=== PATIENT | male | born 1960 | race Caucasian/White ===

== ENCOUNTER 2020-05-16 20:04 | Outpatient (REF) | payer BC, SELFPAY ==
[2020-05-16 20:29] LABS: ALT 51 U/L (16-63); AST 49 U/L (15-37); Anion Gap 7.2 mmol/L (3-11); BUN 11 mg/dL (7-18); CO2 29.8 mmol/L (21.0-32.0); Calcium 10.4 mg/dL (8.5-10.1); Calculated LDL 71 mg/dL (<100); Chloride 102 mmol/L (98-107); Cholesterol 221 mg/dL (<200); Glucose 92 mg/dL (74-106); HDL Cholesterol 142 mg/dL (40-60); Potassium 4.1 mmol/L (3.5-5.1); Sodium 139 mmol/L (136-145); Triglyceride 44 mg/dL (<150)
[2020-05-17 17:37] LABS: PSA, Screening 1.4 ng/mL (0.0-3.5)
[2020-05-20 11:18] LABS: Hepatitis C Ab w Rflx HCV PCR Negative (Negative)
== END 2020-05-16 20:05 | disposition home or self-care (01) ==
LOC: NCHCN 20:04
PROVIDERS: Visit Provider Nurse Practitioner Family
DX: Z13.220 Encounter for screening for lipoid disorders (principal); Z12.5 Encounter for screening for malignant neoplasm of prostate; Z00.00 Encounter for general adult medical examination without abnormal findings; Z13.228 Encounter for screening for other metabolic disorders; Z11.59 Encounter for screening for other viral diseases
CPT/HCPCS: 80048; 80061; 84153; 86803; 84450; 84460

== ENCOUNTER 2020-10-24 18:04 | Outpatient (REF) | payer BC, SELFPAY ==
[2020-10-24 21:02] LABS: Anion Gap 4.2 mmol/L (3-11); BUN 15 mg/dL (7-18); CO2 32.8 mmol/L (21.0-32.0); CREATININE 1.1 mg/dL (0.70-1.30); Calcium 11.3 mg/dL (8.5-10.1); Chloride 103 mmol/L (98-107); Glucose 121 mg/dL (74-106); Potassium 4.3 mmol/L (3.5-5.1); Sodium 140 mmol/L (136-145)
== END 2020-10-24 18:05 | disposition home or self-care (01) ==
LOC: NCHCN 18:04
PROVIDERS: Visit Provider Nurse Practitioner Family
DX: R03.0 Elevated blood-pressure reading, without diagnosis of hypertension (principal)
CPT/HCPCS: 80048

== ENCOUNTER 2020-11-13 03:00 | Outpatient (CLI) | payer BC, SELFPAY ==
[2020-11-13 10:47] LABS: Source Nasal/Nares
[2020-11-13 18:14] LABS: COVID-19 PCR Negative (Negative)
== END 2020-11-13 03:01 | disposition home or self-care (01) ==
PROVIDERS: PCP Nurse Practitioner Family; Visit Provider Surgery
DX: Z20.822 Contact with and (suspected) exposure to COVID-19 (principal); Z01.818 Encounter for other preprocedural examination
CPT/HCPCS: 87635

== ENCOUNTER 2020-11-15 09:25 | Day surgery (SDC) | payer BC, SELFPAY ==
[2020-11-15 09:35] VITALS: BP 124/87; PULSE 81; RESP 16; TEMP 36.7; O2SAT 100
--- NOTE | 2020-11-15 09:49 | W.ANESPRE ---
General Info Date of Service Date Performed: 11/15/20 Height: 5 ft 8.5 in Weight: 72.2 kg Body Mass Index (BMI): 23.8 Surgical Procedure: Operation Date: 11/15/20 10:35 Proposed Procedures Side Surgeon p Colonoscopy Deedee Schwartz, Meds Allergies and Home Medications Allergies Allergy/AdvReac Type Severity Reaction Status Date / Time No Known Allergies Allergy Unverified 11/12/20 12:00 Home Medication Medication Instructions Recorded lisinopril 10 mg tablet 10 mg PO DAILY 10/31/20 Current Visit Medications: Current Medications Generic Name Dose Route Start Last Admin Trade Name Freq PRN Reason Stop Dose Admin Ringer's Solution 1,000 mls @ 80 mls/hr 11/15/20 06:00 IV 12/14/20 23:59 INFUSION GISSEL IV Miscellaneous Supplies 1 each 11/15/20 06:00 Iv Access IV 12/14/20 23:59 DIRECTED GISSEL Sodium Chloride 0 ml 11/15/20 06:00 Normal Saline Flush 10 Ml Syr IV 12/14/20 23:59 PRN PRN Sodium Chloride 0 ml 11/15/20 06:00 Normal Saline 10 Ml Vial IJ 12/14/20 23:59 DIRECTED PRN Sterile Water 0 ml 11/15/20 06:00 Water,Injection,Sterile 10 Ml Vial IJ 12/14/20 23:59 DIRECTED PRN PFSH Active Problems Active Problems: Problem Status Onset Code Screening for colon cancer Z12.11 Medical History Medical History Elevated blood pressure reading without diagnosis of hypertension GERD (gastroesophageal reflux disease) Osteopenia Screening for colon cancer Tobacco Smoking/Tobacco Use Status: Current every day Tobacco Type: smokeless tobacco Smokeless tobacco user: chewing tobacco Alcohol Alcohol Intake: current Alcohol intake frequency: a few times a week Alcohol type: beer Substance Use Substance use: Never Substance use type: does not use Vital Signs and Lab Results Vital Signs Most Recent Vital Signs in EMR: Most Recent Vital Signs Temp Pulse Resp BP Pulse Ox 36.7 C 81 16 124/87 100 11/15/20 09:35 11/15/20 09:35 11/15/20 09:35 11/15/20 09:35 11/15/20 09:35 Lab Results Blood Type / Crossmatch: No Data to Display Complete Blood Count: No Data to Display Complete Metabolic Panel: Sodium Level 140 mmol/L (136-145) 10/24/20 15:30 10/24/20 Potassium Level 4.3 mmol/L (3.5-5.1) 10/24/20 15:30 10/24/20 Chloride Level 103 mmol/L (98-107) 10/24/20 15:30 10/24/20 Carbon Dioxide Level 32.8 mmol/L (21.0-32.0) H 10/24/20 15:30 10/24/20 Blood Urea Nitrogen 15 mg/dL (7-18) 10/24/20 15:30 10/24/20 Creatinine 1.1 mg/dL (0.70-1.30) 10/24/20 15:30 10/24/20 Estimated GFR/1.73 m2 >= 60.00 (mL/min/1.73m2) 10/24/20 15:30 10/24/20 Calcium Level 11.3 mg/dL (8.5-10.1) H 10/24/20 15:30 10/24/20 Glucose Level 121 mg/dL (74-106) H 10/24/20 15:30 10/24/20 Liver Function Panel: No Data to Display Coagulation Panel: No Data to Display Cardiac Panel: No Data to Display Arterial Blood Gas: No Data to Display Venous Blood Gas: No Data to Display Pancreas Panel: No Data to Display Thyroid Panel: No Data to Display Infectious Disease: Coronavirus (COVID-19)(PCR) Negative (Negative) 11/13/20 09:11/13/20 Coronavirus 2019 Source Nasal/Nares 11/13/20 09:11/13/20 Blood Cultures: No Data to Display Toxicology Panel: No Data to Display Anesthesia Assessment and Plan Anesthesia History Personal History: No History of Anesthesia Complications Family History: No Family History of Anesthesia Complications Exercise Tolerance Exercise Tolerance: Metabolic Equivalents>4 Pertinent Negatives Pertinent Negatives: No Symptoms of GERD (Well controlled antiacids), No Major Cardiovascular Symptoms or Complaints, No Major Pulmonary Symptoms or Complaints (DEAN newly diagnosed awaiting CPAP) and No History of CVA/TIA Cardiac & Pulmonary Exam Cardiac Exam: Normal S1/S2 Heart Sounds Pulmonary Exam: Clear Bilateral Breath Sounds Airway Exam Known Difficult Airway: No Mallampati Class: 2 Mouth Opening: Normal (> 3cm) Thyromental Distance: Greater than 3 cm Neck Range of Motion: Full ROM Neck Circumference: Normal Teeth Condition: Normal Dentition ASA Classification ASA Score: ASA 2 Emergency Case?: No NPO Status NPO Status: NPO Clears >2 hours, Solids >8 hours Anesthesia Plan Resuscitation Status: Full Code Anesthesia Technique: General Anesthesia Airway Planned: Natural Airway Monitors Used: Standard Monitors
[2020-11-15 09:51] VITALS: BMI 23.8
[2020-11-15] MEDS: Lactated Ringers 1,000 ML 80 ML IV (09:55)
--- NOTE | 2020-11-15 10:42 | BOWEL_PTH ---
PATIENT: Favian Hurtado LOC: [facility] U#:[id number] AGE/SX: 59/M ROOM: RE11/15/[address]: Deedee Schwartz : 1960 BED: DIS: 11/15/2020 SPEC #: [id number] RECD: 11/15/20 12:30 STATUS: JUSTYN RETamara #: [id number] CARLA: 11/15/20 10:[address]: Deedee Schwartz DEPT: Surgical Specimen RECD BY: Brittany Wynn ENTERED: 11/15/20 12:30 SP TYPE: Bowel OTHR DR: Jossy Ventura Tissues: 1 - BIOPSY BOWEL 2 - BIOPSY BOWEL Procedures: GROSS AND MICRO LEVEL 4 Comments: [id number]
[2020-11-15 11:09] VITALS: BP 109/77; PULSE 70; RESP 16; TEMP 36.4; O2SAT 98
--- NOTE | 2020-11-15 11:12 | PDOC.DSDIS_ITS ---
Discharge Plan Disposition Patient Disposition: HOME Condition: Good Discharge Details Reason For Visit: colon scope Attending Provider: Deedee Schwartz Primary Care Provider: Jossy Ventura Home Meds and New Rx's Prescriptions: No Action lisinopril 10 mg tablet 10 mg PO DAILY RF: 0 Discharge Instructions Instructions: High Fiber Diet (GEN), Hemorrhoids (GEN) Additional Instructions: DSU Colonoscopy Post- Op Instructions Instructions for Everyone who is given Anesthesia: For your safety, please do the following for the next twenty-four (24) hours: *Do Not operate a motor vehicle (car, truck, motorcycle, etc.) *Do Not drink alcoholic beverages or use any recreational drugs for the first 24 hours or while taking pain medications. The medications in your body may have a reaction that can be dangerous. *Do Not make any important decisions or sign any important papers. Findings: x2 small polyps hemorrhoids Follow a high-fiber diet and eating 5-7 servings of fruits and vegetables per day. Make sure you are moving your bowels on a regular basis and not straining too. If you find that you are experiencing some constipation or irregularity, I recommend starting a fiber product such as Metamucil or Citrucel Follow up: My office will send a letter in 2 to 3 weeks time, detailing the type of polyps, and when we want you to repeat your colonoscopy. 1. No lifting over 20 pounds or strenuous activity for the first 24 hours after your procedure. After 24 hours there are no restrictions on your activity but you may feel fatigued for a few days. 2. After you arrive home you may have a light meal and return to your normal diet as you can tolerate it without feeling sick to your stomach. 3. You may have a bloated, gaseous feeling in your belly (abdomen) after a colonoscopy. Passing gas and belching will help. Walking or lying down on your left side with your knees flexed may relieve the discomfort. Call the office at [phone] (Office) or [phone] (Hospital) right away if you notice any of the following: a.Vomiting of blood or ?coffee ground stools?. b.Rectal bleeding 1Tbsp, blood clots or continuous bleeding. c.Severe belly (abdominal) pain. d.A hard distended belly (abdomen) and an inability to pass gas. 4. Please don?t expect to have a normal BM (bowel movement) for 2-3 days after your procedure. 5. If there are questions regarding the findings of your procedure, please contact your doctor 6. If you are unable to contact your doctor with a problem, contact the hospital at [phone]. 7. Continue all your regular medications unless directed otherwise. I understand the above instructions and have no questions. Signature of Patient or Adult Escort Name of Responsible Adult Escort Signature of Nurse Date/Time Activity:: see above Diet:: see above Discharge Orders Discharge Orders: Discharge Order (Routine); Ordered 11/15/20 Ordered By: Deedee Schwartz DS: Diagnosis Discharge Diagnosis (1) Adenomatous polyps: Status: Acute (2) Hemorrhoids: Status: Acute
--- NOTE | 2020-11-15 11:14 | W.ANESPOSTOP ---
Postoperative Evaluation Date, Time and Location Date Performed: 11/15/20 Time Performed: 11:14 Patient Location: Day Surgery Unit Vital Signs Most Recent Imported Vital Signs: Most Recent Vital Signs Temp Pulse Resp BP Pulse Ox 36.7 C 81 16 124/87 100 11/15/20 09:35 11/15/20 09:35 11/15/20 09:35 11/15/20 09:35 11/15/20 09:35 Most Recent Manually Entered Vital Signs: Adult Blood Pressure: 109/77 Heart Rate: 66 Respirations: 12 Oxygen Saturation (%): 98 Temperature (C): 36.4 C Pain Score (0-10 Scale): 0 Pain Score Most Recent Pain Score: Most Recent Pain Score Pain Level 0 11/15/20 09:35 Assessment Mental Status: Awake (Alert & Oriented to Patient Baseline) Airway and Respiratory Function: Patent airway with normal (patient baseline) respiratory exam Cardiovascular Function: Hemodynamically Stable Hydration Status: Adequately Hydrated Nausea & Vomiting: No Nausea or Vomiting Pain: Pt. Denies Any Pain Peripheral Nerve Block: Patient did not receive a nerve block
[2020-11-15 11:15] VITALS: BP 109/77; PULSE 66; RESP 12; TEMPC 36.4; O2SAT 98
--- NOTE | 2020-11-15 11:18 | W.COLOREPORT ---
Colonoscopy Report Date of procedure: 11/15/20 Pre-op diagnosis general: CRC screen Post-op diagnosis procedure note: other (Polyps and hemorrhoids) Surgeon: Deedee Schwartz Anesthesia Type: General:No Airway Estimated blood loss (mL): 1 Pathology: other Complications: None Disposition: same day Prep: Miralax/Dulcolax Retraction Time: 10 Procedure Description: After informed consent was obtained the patient was taken to the procedure room and placed in a left decubitous position. Monitors were applied and a time out was done. The patients name, date of , procedure, allergies to medications and metal in their body was reviewed. The patient was then sedated. Once sedated and comfortable a rectal exam was done. External exam: hrmorrhoids Internal exam revealed a normal sphincter tone and no palpable masses. The scope was then introduced and retrofelexed. GoodGrade I internal hemorrhoids were identified. The scope was then advanced to the cecum w/ difficulty. The TI and appendiceal orifice were identified. The prep was good the scope was then slowly retracted over 10 minutes back into the rectum. He had 2 small polyps that I removed. 1 is in the cecum and 1 is at 90 cm. Both of these polyps are small 5 mm flat polyps. They are both removed with a cold biting forcep. All specimen is retrieved and no bleeding is noted.. The scope was removed and the patient was woken up and taken back to Same day surgery in stable condition. The mucosa is pink and healthy. The patient tolerated the procedure well and there were no immediate complications. Follow up: The patient should follow up in 5-7years unless they develop changes in bowel habits or other new gastrointestinal complaints.
[2020-11-15 11:39] VITALS: BP 125/76; PULSE 65; RESP 16; TEMP 36.4; O2SAT 99
== END 2020-11-15 12:02 | disposition home or self-care (01) ==
PROVIDERS: PCP Nurse Practitioner Family; Visit Provider Surgery
PROC: 0DJD8ZZ Inspection of Lower Intestinal Tract, Via Natural or Artificial Opening Endoscopic (ICD-10-PCS; CPT 45378; principal; 2020-11-15 10:30)
DX: Z12.11 Encounter for screening for malignant neoplasm of colon (principal); D12.0 Benign neoplasm of cecum; K64.0 First degree hemorrhoids; D12.3 Benign neoplasm of transverse colon
CPT/HCPCS: 45380; 88305; J2001

== ENCOUNTER 2020-11-20 09:49 | Outpatient (REF) | payer BC, SELFPAY ==
[2020-11-20 20:10] LABS: Anion Gap 5.3 mmol/L (3-11); BUN 12 mg/dL (7-18); CO2 30.7 mmol/L (21.0-32.0); CREATININE 1.1 mg/dL (0.70-1.30); Calcium 10.4 mg/dL (8.5-10.1); Chloride 104 mmol/L (98-107); Glucose 82 mg/dL (74-106); Potassium 4.9 mmol/L (3.5-5.1); Sodium 140 mmol/L (136-145)
== END 2020-11-20 09:50 | disposition home or self-care (01) ==
LOC: NCHCN 09:49
PROVIDERS: PCP Nurse Practitioner Family; Visit Provider Nurse Practitioner Family
DX: R03.0 Elevated blood-pressure reading, without diagnosis of hypertension (principal); R53.83 Other fatigue
CPT/HCPCS: 80048

== ENCOUNTER 2021-09-24 16:49 | Outpatient (REF) | payer BC, SELFPAY ==
[2021-09-24 18:46] LABS: HCT 41.6 % (40.0-50.0); HGB 14.6 g/dL (13.5-17.5); MCH 34.7 pg (27.0-33.0); MCHC 35.1 % (32.0-36.0); MCV 99 fL (80-95); MPV 10.5 fL (8.0-11.0); Platelet Count 253 10^3/uL (130-400); RBC 4.21 10^6/uL (4.36-5.78); RDW 13.6 % (11.8-14.1); WBC 4.25 10^3/uL (4.4-10.8)
[2021-09-24 19:13] LABS: ALT 61 U/L (16-63); AST 60 U/L (15-37); Alkaline Phosphatase 71 U/L (46-116); Anion Gap 7.9 mmol/L (3-11); BUN 15 mg/dL (7-18); Bilirubin, Total 0.4 mg/dL (0.2-1.0); CO2 30.1 mmol/L (21.0-32.0); CREATININE 1.2 mg/dL (0.70-1.30); Calcium 10.2 mg/dL (8.5-10.1); Chloride 101 mmol/L (98-107); Glucose 105 mg/dL (74-106); Potassium 4.4 mmol/L (3.5-5.1); Sodium 139 mmol/L (136-145); Total Protein 7.7 g/dL (6.4-8.2)
[2021-09-25 20:54] LABS: PSA, Screening 2.1 ng/mL (<=4.5)
== END 2021-09-24 16:50 | disposition home or self-care (01) ==
LOC: NCHCN 16:49
PROVIDERS: PCP Nurse Practitioner Family; Visit Provider Nurse Practitioner Family
DX: Z12.5 Encounter for screening for malignant neoplasm of prostate (principal); R23.2 Flushing; I10 Essential (primary) hypertension
CPT/HCPCS: 80053; 84153; 85027

== ENCOUNTER 2022-10-06 20:53 | Outpatient (REF) | payer BC, SELFPAY ==
[2022-10-06 21:06] LABS: HCT 44.1 % (40.0-50.0); HGB 15.4 g/dL (13.5-17.5); MCH 34.2 pg (27.0-33.0); MCHC 34.9 % (32.0-36.0); MCV 98 fL (80-95); MPV 10.9 fL (8.0-11.0); Platelet Count 226 10^3/uL (130-400); RDW 13.7 % (11.8-14.1); RDW-SD 49.9 fL
[2022-10-06 21:34] LABS: ALT 75 U/L (16-63); AST 78 U/L (15-37); Albumin 4.3 g/dL (3.4-5.0); Alkaline Phosphatase 77 U/L (46-116); Anion Gap 7.3 mmol/L (3-11); BUN 13 mg/dL (7-18); Bilirubin, Total 0.3 mg/dL (0.2-1.0); CO2 29.7 mmol/L (21.0-32.0); CREATININE 1.1 mg/dL (0.70-1.30); Calcium 10.6 mg/dL (8.5-10.1); Chloride 98 mmol/L (98-107); Estimated GFR 76.37 (mL/min/1.73m2); Glucose 118 mg/dL (74-106); Potassium 3.9 mmol/L (3.5-5.1); Sodium 135 mmol/L (136-145); Total Protein 8.1 g/dL (6.4-8.2)
[2022-10-07 21:52] LABS: PSA, Screening 1.5 ng/mL (<=4.5)
== END 2022-10-06 20:54 | disposition home or self-care (01) ==
LOC: NCHCN 20:53
PROVIDERS: PCP Nurse Practitioner Family; Visit Provider Nurse Practitioner Family
DX: I10 Essential (primary) hypertension (principal); Z12.5 Encounter for screening for malignant neoplasm of prostate
CPT/HCPCS: 80053; 84153; 85027

== ENCOUNTER 2022-11-03 17:42 | Outpatient (REF) | payer BC, SELFPAY ==
[2022-11-03 21:21] LABS: Folate 10.2 ng/mL (8.6-20.0); Vitamin B12 246 pg/mL (193-986)
[2022-11-04 19:15] LABS: Parathyroid Hormone,Intact 26 pg/mL (19-88)
== END 2022-11-03 17:43 | disposition home or self-care (01) ==
LOC: NCHCN 17:42
PROVIDERS: PCP Nurse Practitioner Family; Visit Provider Nurse Practitioner Family
DX: E83.52 Hypercalcemia (principal); R23.3 Spontaneous ecchymoses; I10 Essential (primary) hypertension; Z79.899 Other long term (current) drug therapy
CPT/HCPCS: 82607; 82746; 83970

== ENCOUNTER 2023-04-14 14:20 | Outpatient (REF) | payer BC, SELFPAY | END 2023-04-14 14:21 | disposition home or self-care (01) | LOC: NCHCN 14:20 | PROVIDERS: PCP Nurse Practitioner Family; Visit Provider Nurse Practitioner Family | DX: I10 Essential (primary) hypertension (principal) | CPT/HCPCS: 82043; 82570 ==

== ENCOUNTER 2023-10-15 16:11 | Outpatient (REF) | payer BC, SELFPAY ==
--- OUTSIDE RECORDS SUMMARY | 2023-10-15 16:16 | XMS_ITS | Encounter Summary ---
Author Name [facility] [place] [facility] [place] Address [address] [place] [address] Care Team Providers Care Furniture Shampooer Name Role Phone CHERI VASQUEZ Primary Care Provider Unavailabl e Insurance Providers: All historical and current Section Date Range: From patient's date of to the date document was created. This section includes the names of all active insurance providers for the patient. Insurance Provider Type of Coverage Plan Name Start of Policy Coverage End of Policy Coverage Group Number Member ID Insurance Provider's Telephone Number Policy Victor's Name Patient's Relationship to Policy Victor [facility] POINT OF SERVICE SOV ACTIV E SELEC TCAR Feb 15, 2018 [id number] SHANELL KHANNA PATIENT [employer] ([id number]) PRESCRIPT ION [facility] NT Feb 15, 2018 [id number] SHANELL KHANNA PATIENT Selected Encounter This section includes the information on record at [place] for the Encounter. Date/Time Encounter Type Encounter Description Reason Provider Source Sep 08, 2023 10:30 AM MTMS BY PHARM EST 15 MIN [facility] - IND ICD-10-CM F32.A Depression, unspecified JONNA FRANCE [facility] Encounter Template Text not used by [facility] Assessments - Encounter Diagnoses This section includes the primary and secondary diagnoses documented for the Encounter. Date/Time Primary/Secondary Diagnosis Diagnosis Name Provider Source Sep 08, 2023 10:59 AM PRIMARY Depression, unspecified PARRIS FRANCEA MICHAEL [facility] Plan of Treatment: Future Appointments (+ 6 months) and Future Tests (+/- 45 days) The Plan of Treatment section includes future care activities for the patient from all [place] treatmentfacommunity healthities. This section includes future appointments and future orders which are active, pending or scheduled. Future Appointments This section includes appointments that were scheduled to occur 6 months from the date of the Encounter, up to a maximum of 20 appointments. The data comes from all [place] treatment facilities. Appointment Date/Time Appointment Type Appointme nt Facility Name Oct 20, 2023 10:30 AM AMBULATORY - PSYCHIATRY [facility] Nov 23, 2023 11:45 AM AMBULATORY - NONE [facility] Social History: Smoking Status (Most current) and Tobacco Use (All prior to encounter date) This section includes the most current, and the historical, smoking and tobacco- related health factors from the [facility] facility where the Encounter took place. Current Smoking Status This section includes the most current smoking, or tobacco-related health factor, from the [place] facility where the Encounter took place. Date/Time Current Smoking Status Comment Yayo ity Mar 17, 2023 11:00 AM VA-TOBACCO USER EVERY DAY [facility] Tobacco Use History This section includes a history of the smoking, or tobacco-related health factors, that were collected on or before the date of the Encounter. The data comes from the [place] facility where the Encounter took place. Date/Time Smoking Status/Tobacco Use Comment F acility Mar 17, 2023 11:00 AM VA-TOBACCO USE ADVICE [facility] Mar 17, 2023 11:00 AM VA-TOBACCO USE SHAKE CUTTER NO [facility] Mar 17, 2023 11:00 AM VA-TOBACCO USE MED NO [facility] Mar 17, 2023 11:00 AM VA-TOBACCO USE WI 30 MIN OF WAKEUP [facility] Mar 17, 2023 11:00 AM VA-TOBACCO USER EVERY DAY [facility] May 13, 2018 11:59 AM AH-BPR SMOKING DEPLOYMENT NO [facility] May 13, 2018 11:59 AM PREVIOUS SMOKER WHI GLEN [facility] May 13, 2018 11:59 AM VA-TOBACCO DOESNT USE WI 30 MIN WAKEUP [facility]LES [facility] May 13, 2018 11:59 AM VA-TOBACCO USE 30 YEARS OR MORE [facility]LES [facility] May 13, 2018 11:59 AM VA-TOBACCO USE ADVICE MYLES [facility] May 13, 2018 11:59 AM VA-TOBACCO USE SHAKE CUTTER YES MYLES [facility] May 13, 2018 11:59 AM VA-TOBACCO USE MED NO [facility]LES [facility] May 13, 2018 11:59 AM VA-TOBACCO USER EVERY DAY [facility]LES [facility] Encounter Notes: All associated encounter notes This section contains the clinical notes associated to the Encounter. Date/Time Encounter Note(s) Provider Source Sep 08, 2023 04:13 PM MENTAL HEALTH DIAG NOSTIC STUDY NOTE: LOCAL TITLE: Mental Health Diagnostic Study Note STANDARD TITLE: MENTAL HEALTH DIAGNOSTIC STUDY NOTE DATE OF NOTE: SEP 08, 2023@16:13:32 ENTRY DATE: SEP 08, 2023@16:13:32 AUTHOR: CRISTAL FRANCE COSIGNER: URGENCY: STATUS: COMPLETED Assessments were sent to the [facility] via text/email. These assessments were completed by AMAURI KHANNA on their own device on 09/08/2023 3:38:22 PM. PATIENT HEALTH QUESTIONNAIRE-9 (PHQ-9) The patient reported some symptoms of depression; symptoms are not consistent with a major depressive episode. Patient reported being bothered by the following over the last 2 weeks: 1. Little interest or pleasure: Several Days 2. Feeling down, depressed or hopeless: Several Days 3. Trouble sleeping: Not at all 4. Tired, low energy: Several Days 5. Poor appetite, over-eating: Not at all 6. Feelings of failure, guilt: Not at all 7. Trouble concentrating: Not at all 8. Motor retardation, agitation: Not at all 9. Thoughts better off /hurting self: Not at all PHQ-9 total score = 3 1-4 = minimal symptoms 5-9= mild symptoms 10-14= moderate symptoms 15-19= moderately severe symptoms 20-27= severe depressive symptoms The patient stated that the depressive symptoms made it somewhat difficult to work, take care of things at home, or get along with others. GENERAL ANXIETY DISORDER-7 (JING-7) Patient reported being bothered by the following over the last two weeks: 1. Feeling nervous, anxious or on edge: Not at all 2. Not being able to stop or control worrying: Not at all 3. Worrying too much about different things: Several days 4. Trouble relaxing: Several days 5. Feeling restless (hard to sit still): Not at all 6. Becoming easily annoyed or irritable: Several days 7. Afraid as if something awful might happen: Not at all JING-7 total score = 3 0-4=minimal symptoms 5-9=mild symptoms 10-14=moderate symptoms 15-21=severe symptoms The patient stated that the anxiety symptoms made it somewhat difficult to work, take care of things at home, or get along with others. /vicente/ CRISTAL FRANCE Signed: 09/09/2023 08:[address] [facility] Sep 08, 2023 09:18 AM MENTAL HEALTH NOTE : LOCAL TITLE: Mental Health Note STANDARD TITLE: MENTAL HEALTH NOTE DATE OF NOTE: SEP 08, 2023@09:18 ENTRY DATE: SEP 08, 2023@09:18:25 AUTHOR: CRISTAL FRANCE EXP COSIGNER: URGENCY: STATUS: COMPLETED Patient consented to Butlr's appt - SERVICE CONNECTED % - NONE FOUND REASON FOR VISIT: Mental Health Medication Management REFFERRING PROVIDER: tono carranza Final DSM V Diagnoses (Per Problem list/): Alcohol use disorder Depression Other relevant diagnoses (Per Problem list/PCP notes): Steatosis of liver, followed by hepatology Sleep apnea (diagnosed by non-VA sleep clinic, per vet report, nonadherent CPAP) HTN chronic back pain Mobitz type I incomplete AV block Raynaud's disease Vitamin D deficiency osteopenia Tobacco use BMI 22 Name:Fran Pronouns: === PATIENT PROFILE (Per chart review and updated as needed): === Past medication trials: ANTIDEPRESSANTS bupropion SR 12hr 150mg BID (one time fill in 2010) (tobacco cessation, don't remember) ANTIPSYCHOTICS MOOD STABILIZERS MADINA acamprosate (ADR: diarrhea/ h/a, took for few weeks ineffective, issued 07/04/22) naltrexone (ADR: frequent BMs in middle night, helped decrease etoh, 05/2023- 07/08) Other hydroxyzine 10mg four times daily PRN (2003) nicotine 4mg gum (2010) nicotine patch (ineffective) varenicline (2008, 2009,2010) (ADR: (semi psychotic)) Past psychotherapy trials: current: individual w/ Tono RICHARDSON Hospitalizations: none on file Suicide attempts: none per chart review Other relevant hx: -denies hx trauma -both parents , has 1 bro and 3 sisters. 4 children. 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 ALLERGIES Patient has answered NKA MEDICATIONS Active and Recently Outpatient Medications (including Supplies): Active Outpatient Medications Status 1) CHOLECALCIF 50MCG (D3-2,000UNIT) TAB TAKE ONE TABLET ACTIVE (S) BY MOUTH ONCE DAILY FOR VITAMIN D DEFICIENCY WHEN HIGH DOSE COMPLETE 2) ERGOCALCIF 1,250MCG (D2-50,000UNIT) CAP TAKE ONE ACTIVE CAPSULE BY MOUTH ONCE A WEEK FOR VITAMIN D DEFICIENCY 3) FLUOXETINE HCL 10MG CAP TAKE ONE CAPSULE BY MOUTH ACTIVE ONCE EVERY MORNING FOR 7 DAYS, THEN TAKE TWO CAPSULES ONCE EVERY MORNING FOR MOOD 4) HYDROCORTISONE 2.5% CREAM APPLY SMALL AMOUNT ACTIVE TOPICALLY TWICE DAILY NEEDED CHILBLAINS FOR ITCHING/RASH 5) LISINOPRIL 20MG TAB TAKE ONE TABLET BY MOUTH ONCE ACTIVE DAILY FOR HIGH BLOOD PRESSURE 6) SINUS RINSE NEILMED REGULAR KIT USE ONE PACKET ACTIVE INTRANASALLY TWICE DAILY NEEDED Inactive Outpatient Medications Status 1) ACAMPROSATE CA 333MG EC TAB TAKE TWO TABLETS BY MOUTH THREE TIMES A DAY TO MAINTAIN ABSTINENCE FROM ALCOHOL 7 Total Medications No Active Remote Medications for this patient Interval history: LV w/ patient 7/: struggling with some depression sx, stress/anxiety mostly related to work situation. actively working on reducing EToh but notes struggling to make progress. ADR acamprosate and naltrexone in recent past. never on antidpressant before (does not remember bupropion and was for tobacco cessation). despite sleeping well wakes up feeling exhausted/like poor quality sleep. acting out NMs when they occur -not every week. does struggle w/ chronic back pain for which chiropractor helps. Discussed options with and through shared decision making will start fluoxetine to target energy/mood/anxiety. (we also discussed escitalopram and duloxetine). Discussed risk/benefit of treatment including pertinent counseling points and monitoring with and consented to treatment plan. Denies imminent safety concerns and is appropriate for ongoing outpatient care. PLAN: (Include next steps, referrals made or considered, and follow-up appointments) Biological interventions (medications and medical issues): -START fluoxetine 10mg QAm X7 days then inc 20mg QAM for mood Psychological/social interventions: -continue indiv JOEL therapy Dr. Carranza S: Reports, inc fluoxetine to 20mg last , .17. taking in Am. has not noticed benefit so far. denies excessive worry/panic sx. sleep: well, 7-8 hours/ night. despite sleeping well, wakes up exhausted like poor quality sleep. sleep apnea: not using cpap. last time saw sleep clinic non-[facility] couple years ago. work same. appetite: eating consistent meals. going to check in w/ benefits as means test changed. 1. Adherence: denies missed doses. 2. Side Effects: denies 3. Substance Use: - Tobacco:chewing tobacco daily, 1 can/day Age at first time use: , quit for couple of years (cold turkey) in last 's early 's. wanted to for health reasons Type of tobacco: chew mostly, cigarettes in HS, cigar couple times per year - EtOH: beer 5.5% 3x24oz/day for about a year. prior to year ago 2x24oz beers. no history hard liquor, occassional wine. Lifetime Abuse History: 6 pack a day for about a decade, became an issue since back [facility] 2007. to help fall asleep, feels good at end of day. evening routine. never drinking all day. consequences: hepatic steatosis, followed by hepatology Age of first use: Description of use: Complicated withdrawal: denies, few years ago went on retreat 3-4 days did not drink was fine. motivation: liver health, overall health, would like to see cut down for health too but not harping on it. - Caffeine: decaf only - Marijuana: denies - Illicit substances: denies 4. SUICIDE RISK ASSESSMENT - SI: denies passive or active suicidal ideation, denies intent/plan. - HI: denies Instructed and highly recommended to call 911/ crisis line/or go to ER in case symptoms persist or worsen/ new symptoms emerge/for safety issues/ for urgent concerns or side effects/ suicidal ideations, intent, plan or behavior. Aware of same day mental health access at [facility]. Specialty mental health clinic Desk 60) [phone] ext. [phone], after hours doctor destination imagination coordinator ext. [phone] or present to ED. O: Mental Status Exam - General: Stated age, kempt, pleasant, cooperative, no abnormal movements - Speech: Normal rate, rhythm, volume, and tone - Language: Intact - Mood: down/stressed - Affect: mood congruent, anxious - Thought Processes: Linear and logical - Thought Content: No evidence of delusions, denies suicidal and homicidal ideation, denies hallucinations - Orientation: AAOX3 - Memory (recent and remote): Grossly intact - Attention and concentration: Grossly intact - Fund of knowledge: Grossly intact - Insight: Fair - Judgment: Fair VITALS/LABS: - BP: 160/98 (08/09/2023 10:47) - P: 86 (08/09/2023 10:47) - Weight: 155.8 lb [70.67 kg] (08/09/2023 10:47) - BMI: BODY MASS INDEX - AUG 09, 2023@10:47:09 22.4 Comprehensive Metabolic Panel: CMP: Collection DT Specimen Test Name Result Units Ref Range 11/17/2022 11:05 PLASMA!! CREATININE 1.04 mg/dl 0.5 - 1.5 11/17/2022 11:05 PLASMA!! UREA NITROGEN 11 mg/dL 7 - 25 11/17/2022 11:05 PLASMA!! GLUCOSE 100 mg/dL 65 - 100 11/17/2022 11:05 PLASMA!! CREATININE 1.04 mg/dl 0.5 - 1.5 11/17/2022 11:05 PLASMA!! POTASSIUM 4.7 mmol/L 3.5 - 5.0 11/17/2022 11:05 PLASMA!! CHLORIDE 102 mmol/L 100 - 110 11/17/2022 11:05 PLASMA!! CALCIUM 10.7 H mg/dL 8.5 - 10.5 08/09/2023 10:38 PLASMA!! PROTEIN, TOTAL 8.2 g/dL 6.0 - 8.5 08/09/2023 10:38 PLASMA!! ALBUMIN 4.5 g/dL 3.2 - 5.0 08/09/2023 10:38 PLASMA!! BILIRUBIN, TOTAL 0.4 mg/dL 0.2 - 1.2 08/09/2023 10:38 PLASMA!! ALKALINE PHOSPHAT 63 U/L 40 - 150 08/09/2023 10:38 PLASMA!! AST(SGOT) 71 H U/L 5 - 34 08/09/2023 10:38 PLASMA!! ALT(SGPT) 50 U/L 7 - 52 11/17/2022 11:05 PLASMA!! ANION GAP 7 mmol/L 4 - 16 !! Indicates COMMENTS AVAILABLE...Refer to Interim Lab Report. Collection DT Specimen Test Name Result Units Ref Range 11/17/2022 11:05 PLASMA!! CREATININE 1.04 mg/dl 0.5 - 1.5 11/17/2022 11:05 PLASMA!! eGFR(CKD-EPI 2020 82 mL/min Ref: >=60 !! Indicates COMMENTS AVAILABLE...Refer to Interim Lab Report. CrCl: CrCL=73.62 CrCl: 73.77 mL/min Lipids: Collection DT Spec CHOL TRIG LDL HDL 11/17/2022 11:05 PLASM 215 H 35 70 138 A1c: Recent A1C's (last four) Collection DT Specimen Test Name Result Units Ref Range 11/17/2022 11:05 BLOOD !! HEMOGLOBIN A1C 5.1 % 4.0 - 5.6 05/20/2018 09:52 BLOOD !! HEMOGLOBIN A1C 5.4 % 4.0 - 5.6 !! Indicates COMMENTS AVAILABLE...Refer to Interim Lab Report. EKG: none on file A: Today, Tolerating current medications with good adherence. has been on fluoxetine 20mg for about 1 week. Discussed options with patient and through shared decision making will continue same. reviewed expected time to benefit. vet putting AUD efforts on hold currently. will continue to discuss JOEL goals w/ pt. encouraged f/u non-[facility] sleep clinic - reports diagnosis sleep apnea non compiant cpap and continues to struggle energy during daytime despite adequate sleep. Discussed risk/benefit of treatment including pertinent counseling points and monitoring with patient and patient consented to treatment plan. Denies imminent safety concerns and is appropriate for ongoing outpatient care. P: 1. Rx: -continue fluoxetine 20mg QAM for mood (inc 20mg on 08/31) 2. F/U: f2f 10/19 at 1030a , or sooner PRN Medication risks and benefits were discussed, including black box warnings when applicable. (Yes/ No/ Not Applicable): y Appropriate lab monitoring of mental health medications was completed and results were integrated into patient care. (Yes/ No/ Not Applicable): y 3. Patient Education: role of meds vs therapy, r/b/a meds I have reviewed the listed mental health medications with the patient and completed medication reconciliation as necessary. The patient has this consumer loan underwriter's contact information as well as the emergency contact information. Time spent with patient: 20 min PBM PharmD Pharmacotherapy Rem V12: PHARMACIST INTERVENTIONS: DEPRESSIVE DISORDERS Medication monitoring, no dosage change required, continue to monitor and assess Suicide risk assessment, screening and/or education Suicide screening /es/ CRISTAL FRANCE Signed: 09/08/2023 10:59 CRISTAL FRANCE [facility]
--- OUTSIDE RECORDS SUMMARY | 2023-10-15 16:16 | XMS_ITS ---
Author Name [facility] [place] [facility] [place] Address [address] [place] [address] Care Team Providers Care [employer] Name Role Phone CHERI VASQUEZ Primary Care [...] Victor's Name Patient's Relationship to Policy Victor [facility] POINT OF SERVICE SOV ACTIV E SELEC TCAR Feb 15, 2018 [id number] KHANNASHANELL ERT PATIENT [employer] ([id number]) PRESCRIPT ION [facility] Feb 15, 2018 [id number] KHANNASHANELL ERT PATIENT Selected Encounter This section includes the information on record at [place] for the Encounter. Date/Time Encounter Type Encounter Description Reason Pro vider Source Nov 11, 2022 02:20 PM Outpatient Encounter ADMIN PAT ACTIVTIES (MASNONCT) IHE Encounter Template Text not used by [facility] Plan of Treatment: Future Appointments (+ 6 months) and Future Tests (+/- 45 days) The Plan of Treatment section includes [facility] This section includes future appointments and future orders which are active, pending or scheduled. Future Appointments This section includes appointments that were scheduled to occur 6 months from the date of the Encounter, up to a maximum of 20 appointments. The data comes from all [place] treatment facilities. Appointment Date/Time Appointment Type Appointme nt Facility Name Nov 17, 2022 11:00 AM AMBULATORY - MEDICINE [facility] Nov 17, 2022 11:45 AM AMBULATORY - NONE [facility] Dec 10, 2022 10:30 AM AMBULATORY - NONE [facility] Feb 05, 2023 11:00 AM AMBULATORY - NONE [facility] Mar 17, 2023 11:00 AM AMBULATORY - MEDICINE [facility] Apr 13, 2023 03:00 PM AMBULATORY - PSYCHIATRY [facility] Apr 19, 2023 11:30 AM AMBULATORY - MEDICINE [facility] May 11, 2023 02:00 PM AMBULATORY - PSYCHIATRY [facility] Lab Results: +/- 30 days of the encounter This section includes the Chemistry and Hematology Lab Results on record with [facility] for the patient. Radiology Reports and Pathology Reports are provided separately, in subsequent sections. Lab Results This section contains the Chemistry/Hematology Results that were resulted 30 days before or 30 daysafter the date of the Encounter. Date/Time Source Result Type Result - Unit Interpretation Reference Range Comment Dec 10, 2022 11:42 AM [facility] PSA (SPINNER HYDRAULIC) Specimen Type: SERUM Comment: Tests performed on [employer] (405) SN:[id number] Ordering Provider: CHERI VASQUEZ Report Released Date/Time: Dec 10, 2022 11:39 AM Reporting Lab: [facility] [address] [place] [place] [address] Performing Lab: [facility] [address] [facility] [address] PSA (SPINNER HYDRAULIC) 1.75 ng/mL 0-4.0 Dec 10, 2022 11:42 AM [facility] VIT D 25-OH(WRJ) Specimen Type: SERUM Comment: Tests performed on [employer] (405) SN:[id number] Ordering Provider: CHERI VASQUEZ Report Released Date/Time: Dec 10, 2022 11:39 AM Reporting Lab: [facility] [address] [facility] [address] Performing Lab: [facility] [address] [facility] [address] VIT D 25-OH(WRJ) 28.9 ng/mL 20-50 Dec 10, 2022 11:42 AM [facility] THYROID TESTING [place] Specimen Type: SERUM Comment: Tests performed on [employer] (405) SN:[id number] Ordering Provider: CHERI VASQUEZ Report Released Date/Time: Dec 10, 2022 11:39 AM [facility] [address] [facility] [address] Performing Lab: [facility] [address] [facility] [address] T4,FREE 1.0 ng/dL 0.6-1.6 TSH 0.91 u[IU]/mL 0.35-5.00 Nov 17, 2022 11:05 AM [facility] LIPOPROTEIN CHOLESTEROL FRACT. PANEL Specimen Type: PLASMA Comment: Tests performed on [employer] (405) SN:[id number] Ordering Provider: CHERI VASQUEZ Report Released Date/Time: Nov 12, 2022 03:17 PM Reporting [facility] [address] [facility] [address] Performing Lab: [facility] [address] [facility] [address] CHOLESTEROL 215 mg/dL H 0-199 TRIGLYCERIDE 35 mg/dL 0-149 HDL CHOLESTEROL 138 mg/dL >40 LDL CHOLESTEROL (CALC) 70 mg/dL 0-129 Nov 17, 2022 11:05 AM [facility] LIVER PROFILE Specimen Type: PLASMA Comment: Tests performed on [employer] (405) SN:[id number] Ordering Provider: CHERI VASQUEZ Report Released Date/Time: Nov 12, 2022 03:17 PM Reporting [facility] [address] [facility] [address] Performing [facility]: [facility] [address] [facility] [address] PROTEIN, TOTAL 8.0 g/dL 6.0-8.5 ALBUMIN 4.3 g/dL 3.2-5.0 BILIRUBIN, TOTAL 0.6 mg/dL 0.2-1.2 ALKALINE PHOSPHATASE 66 U/L 40-150 ALT(SGPT) 43 U/L 7-52 AST(SGOT) 59 U/L H 5-34 FIB-4 SCORE 2.56 {index} <2.67 Nov 17, 2022 11:05 AM [facility] P4 GLU,BUN,CREAT,LYTES,CA Specimen Type: PLASMA Comment: Tests performed on [employer] (405) SN:[id number] Ordering Provider: CHERI VASQUEZ Report Released Date/Time: Nov 12, 2022 03:17 PM Reporting Lab: [facility] [address] [facility] [address] Performing Lab: [facility] [address] [facility] [address] UREA NITROGEN 11 mg/dL 7-25 SODIUM 135 mmol/L 135-145 POTASSIUM 4.7 mmol/L 3.5-5.0 CHLORIDE 102 mmol/L 100-110 CARBON DIOXIDE 26 mmol/L 20-30 ANION GAP 7 mmol/L 4-16 GLUCOSE 100 mg/dL 65-100 CREATININE 1.04 mg/dL 0.5-1.5 CALCIUM 10.7 mg/dL H 8.5-10.5 eGFR(CKD-EPI 2020) 82 mL/min >60 Nov 17, 2022 11:05 AM [facility] CBC PROFILE Specimen Type: BLOOD No comment entered. Ordering Provider: CHERI VASQUEZ Report Released Date/Time: Nov 12, 2022 03:17 PM Reporting Lab: [facility] [address] [facility] [address] Performing Lab: [facility] [address] [facility] [address] WBC 4.8 10*3/uL 4.5-11.0 RBC 4.19 10*6/uL L 4.23-5.66 HGB 14.4 g/dL 12.8-17 HEMATOCRIT 42.1 39.2-50.4 MCV 100.5 fL H 82-99 MCH 34.4 pg H 26.2-32.6 MCHC 34.2 g/dL 30.8-35.1 PLT 214 10*3/uL 140-360 MPV 10.4 fL 9.2-12.4 RDW 14.1 12.0-16.0 LYMPH % 18.2 14.0-42.3 MONO % 14.0 H 5.1-13.7 NEUT % 62.9 43.7-75.8 EOS % 3.3 0.4-6.8 BASO % 1.2 0.1-2.0 IG % 0.4 0.0-0.7 NUCLEATED RED CELLS 0.0 /100{WBCs} 0.0-0.0 ABSOLUTE IG 0.0 10*3/uL 0-0.06 ABSOLUTE BASOPHILS 0.1 10*3/uL 0.01-0.13 ABSOLUTE EOS. 0.2 10*3/uL 0.03-0.44 ABSOLUTE LYMPHOCYTES 0.9 10*3/uL L 1.0-3.2 ABSOLUTE MONOCYTES 0.7 10*3/uL 0.3-1.1 ABSOLUTE GRANULOCYTES 3.0 10*3/uL 2.2-7.6 ABSOLUTE NRBC 0.00 10*3/uL 0-0 Nov 17, 2022 11:05 AM [facility] GLYCOHEMOGLOBIN (A1C ONLY) Specimen Type: BLOOD Comment: Tests performed on [employer] (405) SN:[id number] Values obtained from A1C measurements can vary. For typical A1C assays, a reported value of 7.0 could actually be between 6.72 and 7.28 if measured by a reference method. A reported value of 9.0 could actually be between 8.73 and 9.27. Reference [email or web address].ng sp.org/CAPdat a.asp Ordering Provider: CHERI VASQUEZ Report Released Date/Time: Nov 12, 2022 03:17 PM [facility] [address] [facility] [address] Performing Lab: [facility] [address] [facility] [address] HEMOGLOBIN A1C 5.1 4.0-5.6 Social History: Smoking Status (Most current) and Tobacco Use (All prior to encounter date) This section includes the most current, and the historical, smoking and tobacco- related health factors from the [place] facility where the Encounter took place. Current Smoking Status This section includes the most current smoking, or tobacco-related health factor, from the [place] facility where the Encounter took place. Date/Time Current Smoking Status Comment Yayo sawant May 13, 2018 11:59 AM PREVIOUS SMOKER Akiko [facility] Tobacco Use History This section includes a history of the smoking, or tobacco-related health factors, that were collected on or before the date of the Encounter. The data comes from the [place] facility where the Encounter took place. Date/Time Smoking Status/Tobacco Use Comment F acility May 13, 2018 11:59 AM PREVIOUS SMOKER KEN [facility] May 13, 2018 11:59 AM VA-TOBACCO DOESNT USE WI 30 MIN WAKEUP [facility] May 13, 2018 11:59 AM VA-TOBACCO USE 30 YEARS OR MORE [facility] May 13, 2018 11:59 AM VA-TOBACCO USE ADVICE [facility] May 13, 2018 11:59 AM VA-TOBACCO USE PHLEBOTOMY PROGRAM COORDINATOR YES [facility] May 13, 2018 11:59 AM VA-TOBACCO USE MED NO [facility] May 13, 2018 11:59 AM VA-TOBACCO USER EVERY DAY [facility] Encounter Notes: All associated encounter notes This section contains the clinical notes associated to the Encounter. Date/Time Encounter Note(s) Provider Source Nov 11, 2022 02:20 PM LETTERS: LOCAL TITLE: Letter To Patient STANDARD TITLE: LETTERS DATE OF NOTE: NOV 11, 2022@14:20 ENTRY DATE: NOV 11, 2022@14:20:40 AUTHOR: SIMONE GERBER EXP COSIGNER: URGENCY: STATUS: COMPLETED DEPARTMENT OF [facility] [address] [place] [address] NOV 11, 2022 AMAURI KHANNA [facility], [place] [address] Dear AMAURI KHANNA: The [facility] Primary Care Team is trying to reach you to schedule an appointment to establish your care with a [facility] Primary Care Provider. The [facility] is your nearest [place] clinic, please confirm this is the clinic assignment you prefer. If you have already been in contact with the clinic and scheduled an appointment or if you are no longer interested in establishing with a [facility] PCP, you may disregard this letter. Please call one of the numbers provided below Wednesday - Wednesday 7:30am - 4:00pm Direct: [phone] Toll Free: [phone] I can also be reached via email at We look forward to hearing from you! Sincerely, AMOS Miller New Patient Coordinator for [facility] Email: [email or web address] SIMONE GERBER [facility]
--- OUTSIDE RECORDS SUMMARY | 2023-10-15 16:16 | XMS_ITS | Encounter Summary ---
Author Name [facility] Address [address] [place] [address] Care Team Providers Care Air Export Coordinator Name Role Phone CHERI VASQUEZ Primary Care [...] Victor's Name Patient's Relationship to Policy Victor [facility] POINT OF SERVICE SOV ACTIV E SELEC TCAR Feb 15, 2018 [id number] SHANELL KHANNA PATIENT [employer] ([id number]) PRESCRIPT ION [facility] Feb 15, 2018 [id number] SHANELL KHANNA PATIENT Selected Encounter This section includes the information on record at [facility] for the Encounter. Date/Time Encounter Type Encounter Description Reason Provider Source Aug 18, 2023 11:00 AM MTMS BY PHARM ADDL 15 MIN [facility]ENTAL [facility] CLINIC - IND ICD-10-CM F32.A Depression, unspecified JONNA FRANCE [facility] Encounter Template Text not used by [facility] Assessments - Encounter Diagnoses This section includes the primary and secondary diagnoses documented for the Encounter. Date/Time Primary/Secondary Diagnosis Diagnosis Name Provider Source Aug 18, 2023 12:25 PM PRIMARY Depression, unspecified PARRIS FRANCE [facility] Plan of Treatment: Future Appointments (+ 6 months) and Future Tests (+/- 45 days) The Plan of Treatment section includes future care activities for the patient from all [place] treatmentfacilities. This section includes future appointments and future orders which are active, pending or scheduled. Future Appointments This section includes appointments that were scheduled to occur 6 months from the date of the Encounter, up to a maximum of 20 appointments. The data comes from all [place] treatment facilities. Appointment Date/Time Appointment Type Appointme nt Facility Name Sep 08, 2023 10:30 AM AMBULATORY - PSYCHIATRY [facility] Oct 20, 2023 10:30 AM AMBULATORY - PSYCHIATRY [facility] Nov 23, 2023 11:45 AM AMBULATORY - NONE [facility] Lab Results: +/- 30 days of the encounter This section includes the Chemistry and Hematology Lab Results on record with ME for the patient. Radiology Reports and Pathology Reports are provided separately, in subsequent sections. Lab Results This section contains the Chemistry/Hematology Results that were resulted 30 days before or 30 daysafter the date of the Encounter. Date/Time Source Result Type Result - Unit Interpretation Reference Range Comment Aug 09, 2023 10:38 AM [facility] PT&INR Specimen Type: PLASMA Comment: Tests performed on Poynt ACL TOP 350 SN [id number] ([id number]) Ordering Provider: ZABRINA PASCAL Report Released Date/Time: Jun 15, 2023 02:08 PM Reporting Lab: [facility] [address] [place] [facility] [address] Performing Lab: [facility] [address] [facility] [address] INR 0.9 {ratio} 0.9-1.1 PT 10.0 s 9.4-12.5 Aug 09, 2023 10:38 AM [facility] LIVER PROFILE Specimen Type: PLASMA Comment: Specimen 1+ Hemolysed, Tests performed on New Screens Mejía SN:[id number] ([id number]) Ordering Provider: ZABRINA PASCAL Report Released Date/Time: Jun 15, 2023 02:08 PM Reporting Lab: [facility] [address] [facility] [address] Performing Lab: [facility] [address] [facility] [address] PROTEIN, TOTAL 8.2 g/dL 6.0-8.5 ALBUMIN 4.5 g/dL 3.2-5.0 BILIRUBIN, TOTAL 0.4 mg/dL 0.2-1.2 ALKALINE PHOSPHATASE 63 U/L 40-150 ALT(SGPT) 50 U/L 7-52 AST(SGOT) 71 U/L H 5-34 Social History: Smoking Status (Most current) and Tobacco Use (All prior to encounter date) This section includes the most current, and the historical, smoking and tobacco- related health factors from the ME facility where the Encounter took place. Current Smoking Status This section includes the most current smoking, or tobacco-related health factor, from the ME facility where the Encounter took place. Date/Time Current Smoking Status Comment Yayo sawant Mar 17, 2023 11:00 AM VA-TOBACCO USE WI 30 MIN OF WAKEUP [facility] Tobacco Use History This section includes a history of the smoking, or tobacco-related health factors, that were collected on or before the date of the Encounter. The data comes from the [place] facility where the Encounter took place. Date/Time Smoking Status/Tobacco Use Comment F acility Mar 17, 2023 11:00 AM VA-TOBACCO USE ADVICE [facility] Mar 17, 2023 11:00 AM VA-TOBACCO USE WRAPPER SELECTOR NO [facility] Mar 17, 2023 11:00 AM VA-TOBACCO USE MED NO [facility] Mar 17, 2023 11:00 AM VA-TOBACCO USE WI 30 MIN OF WAKEUP [facility] Mar 17, 2023 11:00 AM VA-TOBACCO USER EVERY DAY [facility] May 13, 2018 11:59 AM AH-BPR SMOKING DEPLOYMENT NO [facility] May 13, 2018 11:59 AM PREVIOUS SMOKER WHI [facility] May 13, 2018 11:59 AM VA-TOBACCO DOESNT USE WI 30 MIN WAKEUP [facility] May 13, 2018 11:59 AM VA-TOBACCO USE 30 YEARS OR MORE [facility] May 13, 2018 11:59 AM VA-TOBACCO USE ADVICE [facility] May 13, 2018 11:59 AM VA-TOBACCO USE WRAPPER SELECTOR YES [facility] May 13, 2018 11:59 AM VA-TOBACCO USE MED NO [facility] May 13, 2018 11:59 AM VA-TOBACCO USER EVERY DAY [facility] Encounter Notes: All associated encounter notes This section contains the clinical notes associated to the Encounter. Date/Time Encounter Note(s) Provider Source Aug 17, 2023 08:44 AM MENTAL HEALTH CONS ULT: LOCAL TITLE: MENTAL HEALTH INITIAL EVALUATION CONSULT STANDARD TITLE: MENTAL HEALTH CONSULT DATE OF NOTE: AUG 17, 2023@08:44 ENTRY DATE: AUG 17, 2023@08:44:57 AUTHOR: CRISTAL FRANCE COSIGNER: URGENCY: STATUS: COMPLETED MENTAL HEALTH INITIAL EVALUATION IDENTIFICATION: Name: AMAURI KHANNA Age: 62 Gender: MALE Ethnicity: WHITE Marital status: Sabianist: [employer] Service connection: SERVICE CONNECTED % - NONE FOUND Primary Care Provider: CHERI VASQUEZ PACT T *WH* [ ] [facility] appointment: [ ] Provider confirmed that is currently located at the following address listed in their [facility] chart. [address] [place] [id number] [ ] is not currently located at address listed in CPRS enter current physical location here: [place]'s current address: [place]'s telephone number: Additional contact information (i.e. neighbors/relatives): [phone]: Call [phone] to speak with an agent who can put you in touch with a cafe operator at the Patient's location. You must have the physical location (address) where the Patient is currently located. Verbal informed consent has been obtained. CHIEF COMPLAINT: (*) amotivation, would like medication for mh HISTORY OF PROBLEM: (*) reports taking pause on working w/ Dr. Plunkett since ADRs w/ both AUD meds so far. Mood:amotivation for about 1 year, slow building of stress at work. home life good, lives w/ two kids at home, one in [place], one in [place]. mood better on weekends, but still on mind/stress of work. denies feeling hopeless. down/in dumps not a lot. sleep: ok, no trouble fall asleep or stay asleep. avg 7-8 hours/night. does not feel well rested next day. been long time since felt well rested. could fall asleep at work but has not. anxiety: worrying a lot about work, not to worry about at home. denies panic attacks or hx of panic attacks. Appetite: good JOEL/EToh: see below not SMBP but maybe will start. maybe on a weekend. good about taking lisinopril every day. does not want to test on week night since stressed after work know will be high Pain: back pain avg 07/25, bad day -10/25. no pain meds, chiropractor. muscle relaxers didn't help in past. shoulder pain resolved. Consult from Tono Carranza to address anhedonia, lack of energy, sadness. currently invovled in individual therapy w/ tono, meeting biweekly since April,. stressors: overwhelmed at work (understaffed). motivators: spouse would like him to dec drinking enjoys outdoors, snow shoeing, bike riding states has not felt happy in long time per chart review: met w/ Dr. Plunkett on 08/09/23 - frustrated w/ progress AUD. not ready to consider abstinence, goal continues to be to cut back to etoh only on weekends. etoh provides anxiety relief after a long stressful day of work. plan on 08/08 was: PLAN: -DISCONTINUE acamprosate -Vet will continue in therapy with Tono E -Vet will meet with new psychiatric provider - Dr Cadet - could consider topiramate/gabapentin in future visits [ ] Collateral information was not gathered prior to or at this visit. [place] is new to [place] care and arrived alone to the appointment. REVIEW OF PSYCHIATRIC SYMPTOMS: Sustained Depressed Mood:+ Sustained Elevated Mood:- Sustained Irritable Mood:+ frustrated at progress, less patience. denies angry outbursts. Insomnia:- Nightmares:+ don't remember, less frequently now compared to decade ago. not even every week. wake up startled/confused,wakes up. Panic Attacks:- Chronic Worry:+ worse over last 12-18 mo, at baseline bit of a worrier. Psychotic Symptoms:- Obsessions/Compulsions:- Suicide behavior:- All other symptoms were reviewed with the [place]. At this time, denies any other mental health symptoms. MEDICAL REVIEW OF SYSTEMS: [X] This is an intake by Gregory. Review of medical systems is outside the scope of practice for this clinician. Should [place] be presenting with medical concerns at this visit, appropriate steps will be taken to insure the Veterans access to medical evaluation and care. MENTAL HEALTH HISTORY: Final DSM V Diagnoses (Per Problem list/): Alcohol use disorder Depression Other relevant diagnoses (Per Problem list/PCP notes): Steatosis of liver, followed by hepatology HTN chronic back pain Mobitz type I incomplete AV block Raynaud's disease Vitamin D deficiency osteopenia Tobacco use BMI 22 Current and past treatments (medications and psychotherapy): Past medication trials: ANTIDEPRESSANTS bupropion SR 12hr 150mg BID (one time fill in 2010) (tobacco cessation, don't remember) ANTIPSYCHOTICS MOOD STABILIZERS MADINA acamprosate (ADR: diarrhea/ h/a, took for few weeks ineffective, issued 07/04/22) naltrexone (ADR: frequent BMs in middle night, helped decrease etoh, 05/2023- 07/08) Other hydroxyzine 10mg four times daily PRN (2003) nicotine 4mg gum (2010) varenicline (2008, 2009,2010) (ADR: (semi psychotic)) Past psychotherapy trials: current: individual w/ Tono RICHARDSON Hospitalizations: none on file Suicide attempts: none per chart review History of trauma (Childhood/): denies History of abuse (Childhood/Adult): not assessed History of neglect: not assessed History of exploitation: not assessed History of suicidal self-directed violence: Denies History of non-suicidal self-directed violence: Denies History of violence towards others: Denies General or Psychiatric Advanced Directives: Denies SUBSTANCE USE HISTORY: Nicotine: chewing tobacco daily, 1 can/day Age at first time use: , quit for couple of years (cold turkey) in last 's early s. wanted to for health reasons Type of tobacco: chew mostly, cigarettes in HS, cigar couple times per year Volume used: Time frame (# of years): Use in the past 30 days: If not, then when quit: has tried NRT and ineffective. ADR chantix (semi psychotic) Alcohol: yes - beer 5.5% 3x24oz/day for about a year. prior to year ago 2x24oz beers. no history hard liquor, occassional wine. Last drink: last night Years of sobriety: Use in the past 12 months: Type: Amount: Frequency of use: Lifetime Abuse History: 6 pack a day for about a decade, became an issue since back [facility] 2007. to help fall asleep, feels good at end of day. evening routine. never drinking all day. 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 denies hx trauma Age of first use: Description of use: Complicated withdrawal: denies, few years ago went on retreat 3-4 days did not drink was fine. motivation: liver health, overall health, would like to see cut down for health too but not harping on it. Opioids: Denies Age at first use: Description of use: Medicinal use: Withdrawal symptoms: Last use: How is it acquired? Years of abstinence: Cannabis: Denies Age at first use: Description of use: Medicinal use: Withdrawal symptoms: Last use: Years of abstinence: How it it acquired? Years of abstinence: Other: Denies Age at first use: Description of use: Medicinal use: Withdrawal symptoms: Last use: Years of abstinence: How it it acquired? Years of abstinence: Behavioral (gambling, internet, pornography): Denies Age first use: Description of patterns: Consequences: Legal: DENIES Medical: hepatic steatosis, followed by hepatology. Personal (employment, relationships, financial):denies Physical: Treatments: Residential: no Detoxification: denies Court-ordered: no Addiction medication(s): naltrexone, acamprosate (ADR) Response to treatment: MENTAL ILLNESS AND SUBSTANCE USE IN FAMILY MEMBERS: [ ] denies any significant family history of mental illness. not assessed today Family history of DEPRESSION: Denies Describe: Family history of ANXIETY: Denies Describe: Family history of PSYCHOSIS: Denies Describe: Family history of SUBSTANCE USE: Denies Describe: Family history of SUICIDE: Denies Describe: PSYCHOSOCIAL HISTORY/CURRENT STRESSORS: Childhood/Developmental History [including behavioral problems, as well as exposure to emotional/physical/sexual abuse (as abuser or abuse), neglect, and violence]: Denies Describe: both parents , has 1 bro and 3 sisters. 4 children. Adult Relationship History [including emotional/physical/sexual abuse (as abuser or abusee): Denies Describe: Sexual history and identification: declines to answer Does the patient want family members involved in their care? No If yes, then who? Adult Relationship History: , lives w/ and two kids, two kids out of house (one [place] one [place]) Peer group relationships and pets: Bereavement issues that would impact treatment: Has anyone close to the patient within the past 2 years? not assessed today If so, who? Highest Education Level: not assessed today Learning Difficulties: Denies If yes, Vocational background and goals: If employed, is there satisfaction with the current position? 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 No If so, describe: Oriental Orthodox/Spiritual beliefs, values, and preferences: not assessed Did the patient attend protestant services as a child? If so, describe: Does the patient currently attend protestant services? If so, describe: Will protestant/spiritual preferences affect treatment? If so, describe: Cultural/Ethnic Issues that might influence treatment: Language(s) spoken, language preference,communication skills, and barriers: Wolof Preferred learning style: Verbal Alone or in groups? Community resources accessed by patient (outside agencies or providers): LEGAL HISTORY (include charges, convictions, incarcerations, probation or parole,and intimate partner violence): (*) [place] denies any significant legal history. 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 [place] SUICIDE SCREEN: Assessment of Suicide Risk: Low Current High Risk for Suicide Flag: No ASSESSMENT OF DANGER TO OTHERS: Homicide/Violence Risk Checklist: No Homicidal/violent ideation No Homicide/violence plan No Access to means to implement a plan No Access to firearms No Sense of hopelessness No History of violence No History of impulsivity No History of substance abuse Assessment of Homicide Risk: Low MEDICAL INFORMATION: Active problems - Computerized Problem List is the source for the followin. Exposure to potentially hazardous substance ([facility] [id number]) 2. Reactive depression (situational) 3. Steatosis of liver 4. Chronic rhinitis 5. Raynaud's disease 6. Mobitz type I incomplete atrioventricular block 7. Osteopenia 8. Gastroesophageal reflux disease 9. Tobacco dependence 10. Alcohol intake above recommended sensible limits 11. Vitamin D Deficiency ([facility] [id number]) 12. Compression fracture of thoracic vertebra, nontraumatic 13. Mobitz type I Wenckebach atrioventricular block Impact of medical problems on psychological condition (if relevant): Denies Use of complementary health approaches (if applicable): RECENT VITAL SIGNS,BMI Temp: 97.6 F [36.4 C] (06/15/2023 13:01) Pulse: 86 (08/09/2023 10:47) BP: 160/98 (08/09/2023 10:47) Resp: 18 (08/09/2023 10:47) Pul ox: 08/09/23 @ 1047 PULSE OXIMETRY: 99 RECENT LABORATORY STUDIES: Labs (14 Days) Collection DT Specimen Test Name Result Units Ref Range 08/09/2023 10:38 PLASMA!! PT 10.0 SEC 9.4 - 12.5 !! INR 0.9 RATIO 0.9 - 1.1 08/09/2023 10:38 PLASMA!! PROTEIN, TOTAL 8.2 g/dL 6.0 - 8.5 !! ALBUMIN 4.5 g/dL 3.2 - 5.0 !! ALP 63 U/L 40 - 150 !! ALT(SGPT) 50 U/L 7 - 52 !! AST(SGOT) 71 H U/L 5 - 34 !! BILIRUBIN, TOTAL 0.4 mg/dL 0.2 - 1.2 !! Indicates COMMENTS AVAILABLE...Refer to Interim Lab Report. TSH: 0.91 (12/10/22 11:42) DRUG SCREEN W CANNABINOCOCAINE BENZODIAOPIATES THC AMPHETAM 06/15/23 13:53 NONE DE NONE DE NONE DE NONE DE NONE DE EKG: None on file MEDICATIONS: Active Outpatient Medications (excluding Supplies): Active Outpatient Medications Status 1) ACAMPROSATE CA 333MG EC TAB TAKE TWO TABLETS BY MOUTH ACTIVE THREE TIMES A DAY TO MAINTAIN ABSTINENCE FROM ALCOHOL --> not taking 2) CHOLECALCIF 50MCG (D3-2,000UNIT) TAB TAKE ONE TABLET ACTIVE (S) BY MOUTH ONCE DAILY FOR VITAMIN D DEFICIENCY WHEN HIGH DOSE COMPLETE 3) ERGOCALCIF 1,250MCG (D2-50,000UNIT) CAP TAKE ONE ACTIVE CAPSULE BY MOUTH ONCE A WEEK FOR VITAMIN D DEFICIENCY 4) HYDROCORTISONE 2.5% CREAM APPLY SMALL AMOUNT ACTIVE TOPICALLY TWICE DAILY NEEDED CHILBLAINS FOR ITCHING/RASH 5) LISINOPRIL 20MG TAB TAKE ONE TABLET BY MOUTH ONCE ACTIVE DAILY FOR HIGH BLOOD PRESSURE 6) SINUS RINSE NEILMED REGULAR KIT USE ONE PACKET ACTIVE INTRANASALLY TWICE DAILY NEEDED MEDICATION RECONCILIATION: Reviewed VA medications and non-VA medication with [place]. Were the medications correct and being taken appropriately? Yes This medication reconciliation does not satisfy the clinical reminder. Please complete formal medication reconciliation after completion of this note.* ALLERGIES: Patient has answered NKA PAIN SCREENING: Recent Pain?: Pain: back pain avg 07/25, bad day -10/25. no pain meds, chiropractor. muscle relaxers didn't help in past. shoulder pain resolved. Recent pain severity: Location of pain: Description of pain: The is addressing the pain via: NUTRITION SCREENING (to identify if a nutritional assessment is indicated): HT(in): 70 in [177.8 cm] (12/10/2022 10:22) WT(lbs):155.8 lb [70.67 kg] (08/09/2023 10:47) BMI: BODY MASS INDEX - AUG 09, 2023@10:47:09 22.4 not fully assessed today Food allergies(*): Loss/gain of 10 lbs in past 3 months(*): Recent changes in diet/appetite(*): No Dental problems(*): Binging/purging/restriction( *): MENTAL STATUS EXAM: Mental Status Examination: General/Behavior: Well groomed, dressed appropriate to age, calm, good eye contact, cooperative with interview Speech: wnl Orientation: A+O x 4 Mood/Affect: unmotivated, stressed, euthymic Thought form: linear and logical Thought content: Denies SI/HI or sxs of dorothy/psychosis Insight/Judgement: good/good Memory: able to recall recent and remote events Language: no echolalia, clang associations or aphasia Fund of Knowledge: appropriate for level of education Assessment and Diagnostic Impression/Formulation: (Include presenting symptoms, provisional diagnosis, and rule out diagnosis) Provisional Diagnoses and Assessment: Final DSM V Diagnoses (Per Problem list/): Alcohol use disorder Depression Other relevant diagnoses (Per Problem list/PCP notes): Steatosis of liver, followed by hepatology HTN chronic back pain Mobitz type I incomplete AV block Raynaud's disease Vitamin D deficiency osteopenia Tobacco use BMI 22 struggling with some depression sx, stress/anxiety mostly [...] and is appropriate for ongoing outpatient care. future considerations: note hx intolerance medications in past, taking vitamin D?, STOP-BANG?/sleep concerns, escitalopram, duloxetine, topiramate, retry naltrexone, hydroxyzine, melatonin/ramelteon. PLAN: (Include next steps, referrals made or considered, and follow-up appointments) Biological interventions (medications and medical issues): -START fluoxetine 10mg QAm X7 days then inc 20mg QAM for mood Psychological/social interventions: -continue indiv JOEL therapy Dr. Carranza Follow-up appointments (enter return to clinic order): monthly-quarterly Clinically indicated frequency - Clinically indicated date/ANITA - Date/time negotiated with patient/AD - 09/07 at 1030a [facility] was given the clinician's contact information as well as the contact numbers listed below: Yes Contact numbers: * [facility] (hours of operation: 8am - 4pm): Telephone#: [phone] Ext [phone] * After hours: Telephone#: [phone] ext [phone] Or if an emergency call: 911 * [facility] Crisis line (available 24 hours 7 days a week): Telephone#: [phone] Text: [phone] PBM PharmD Pharmacotherapy Rem V12: PHARMACIST INTERVENTIONS: DEPRESSIVE DISORDERS Medication Intervention(s) Initiate new medication Suicide risk assessment, screening and/or education Suicide screening /es/ CRISTAL FRANCE Signed: 08/18/2023 12:26 CRISTAL FRANCE [facility]
--- OUTSIDE RECORDS SUMMARY | 2023-10-15 16:16 | XMS_ITS | Continuity of Care Document ---
Author Name [facility] Organization [facility] Care Team Providers Care Physical Sciences Instructor Name Role Phone [facility] Unavailable Unavailable Problems Combined list of problems from Department of Defense and Veterans Affairs facilities. It does not include entries that were removed or entered in error. Problem Status Onset Date Problem Type Date of Resolution Comments Source Alcohol intake above recommended sensible limits Active Condition [facility] Chronic rhinitis Active Condition [facility] Compression fracture of thoracic vertebra, nontraumatic Active Condition [facility] Exposure to potentially hazardous substance (SCT [id number]) Active Condition June 15 Entered By: BROOKS WHITE Comment: Entered automatically through DAVID Problem List documentation program [facility] Gastroesophageal reflux disease Active Condition [facility] Mobitz type I incomplete atrioventricular block Active Condition [facility] Mobitz type I Wenckebach atrioventricular block Active Condition [facility] Osteopenia Active Condition [facility] Raynaud's disease Active Condition [facility] Reactive depression (situational) Active Condition [facility] Steatosis of liver Active Condition M ay 2023 Entered By: CHERI VASQUEZ Comment: fibrosis inderteminent 2022 evaluated in hepatology clinic [facility] Tobacco dependence Active Condition A 2018 Entered By: CRISTOBAL GRIMM Comment: Smoked a litte, ages 16 - 18.May 20, 2018 Entered By: CRISTOBAL GRIMM Comment: Since 1979: chewing tobacco, one tin per day [facility] Vitamin D Deficiency (SCT [id number]) Active Condition [facility] herniated disc (L3 - L4) Active Condition DoD routine examination Inactive Condition D oD visit for: services physical fci Active Condition DoD gum neoplasm Active Condition DoD hyperkeratosis Inactive Condition DoD visit for: screening malignant neoplasm colon Inactive Condition DoD hypercalcemia Inactive Condition DoD abnormal liver function test Active Condition DoD visit for: screening exam cardiovascular disorders Inactive Condition DoD astigmatism regular Active Condition Do D visit for: preoperative gastrointestinal exam Inactive Condition DoD routine history and physical adult (18 - 64 yrs) Inactive Condition DoD cerumen impaction Inactive Condition DoD lower back pain Active Condition DoD common cold Inactive Condition DoD Patient Counseling Medical Management Five To Eight Patients Inactive Condition [facility] Patient Counseling Medical Management Individual Patient Active Condition DoD presbyopia Active Condition DoD new patient ophthalmological exam Inactive Condition [facility] visit for: services physical accession Inactive Condition [facility] Patient Counseling Medical Management Two To Four Patients Inactive Condition DoD nicotine dependence Active Condition Do D tobacco use Inactive Condition DoD esophagitis chronic reflux Active Condition DoD Need For Vaccination Against Influenza Inactive Condition [facility] visit for: issue repeat prescription for medication Inactive Condition DoD Need For Prophylactic Antibiotics Inactive Condition DoD esophageal reflux Inactive Condition DoD Need For Vaccination Against Smallpox Inactive Condition DoD Need For Vaccination Against DTP Inactive Condition [facility] visit for: administrative purpose Active Condition [facility] visit for: services physical Active Condition [id number] updated. Discussed PHA screen results with pt. Trend of labs shown to and explained to pt. Instructed in positive health promotion measures to effect change toward a healthier profile . Encouraged to maintain a healthy diet a nd exercise regime.Discusse d Smoking Cessation with patient; gave pt. Dr. Dunn name.Instructed pt. to make an appt with his PCM for eval of persistent reflux. Pt. verbalized understanding DoD visit for: occupational health / fitness exam Inactive Condition DoD allergy to insect bites / stings Inactive Condition apply to area as directed. cool compresses. advise sx of infection. RTC prn DoD lumbago Inactive Condition DoD Other Physical Therapy Inactive Condition DoD astigmatism Inactive Condition DoD refractive error - myopia Active Condition [facility] visit for: issue medical certificate fitness Inactive Condition Certification of no Murmur found as per dental note. DoD Need For Vaccination Typhoid Inactive Condition DoD muscle spasm Inactive Condition DoD back strain lumbar Inactive Condition Do D Diagnosis: ICD-10-CM F32.A Depression, unspecified Active Diagnosis [facility] Diagnosis: ICD-10-CM F10.99 Alcohol use, unsp with unspecified alcohol-induced disorder Active Diagnosis [facility] Diagnosis: ICD-10-CM K76.0 Fatty (change of) liver, not elsewhere classified Active Diagnosis [facility] Diagnosis: ICD-10-CM R94.5 Abnormal results of liver function studies Active Diagnosis [facility] Diagnosis: ICD-10-CM K74.00 Hepatic fibrosis, unspecified Active Diagnosis [facility] Diagnosis: ICD-10-CM J31.0 Chronic rhinitis Active Diagnosis [facility] Diagnosis: ICD-10-CM J34.89 Other specified disorders of nose and nasal sinuses Active Diagnosis [facility] Medications Combined list of outpatient medications from Department of Defense and Veterans Affairs facilities.Medications provided include 1) outpatient medications from the last 15 months, and 2) patient-reported medications. Medication Details Route Status Patient Instructions Prescription Expires Prescription Number Last Dispense Date Ordering Provider Order Date Order Qty Source [place]AM[place]ATE [place] 333MG TAB,EC ACAMPROS ATE [place] 333MG TAB,EC TAKE TWO TABLETS BY MOUTH THREE TIMES A DAY TO MAINTAIN ABSTINEN CE FROM ALCOHOL ALCOHOL USE DISORDER July 05, 2023 270 Aug 19, 2023 [id number] July 07, 2023 JES ANTOINE [facility] ORAL 08/19/2023 [id number] PATRICIA ANTOINE 2023 270 [facility] ACETAMINOPH EN 325MG TAB ACETAMIN OPHEN 325MG TAB TAKE TWO TABLETS BY MOUTH DAILY NEEDED FOR HEADACHE FOR HEADACHE May 19, 2023 2 June 18, 2023 [id number] May 19, 2023 SUKI OH [facility] ORAL 06/18/2023 [id number] [place] 2023 2 [facility] CHOLECALCIF DONNA 50MCG (2,000UNIT) TAB CHOLECAL CIFEROL 50MCG (2,000UN IT) TAB Active TAKE ONE TABLET BY MOUTH ONCE DAILY FOR VITAMIN D DEFICIEN CY WHEN HIGH DOSE COMPLETE FOR VITAMIN D DEFICIEN CY June 28, 2023 90 June 28, 2024 [id number] Sep 16, 2023 Maximo VASQUEZ [facility] ORAL ACTIVE 06/28/2024 [id number] MONTSERRAT VASQUEZ 2023 90 [facility] ERGOCALCIFE ROL 1,250MCG (50,000UNIT ) CAP ERGOCALC IFEROL 1,250MCG (50,000U NIT) CAP TAKE ONE CAPSULE BY MOUTH ONCE A WEEK FOR VITAMIN D DEFICIEN CY FOR VITAMIN D DEFICIEN CY June 28, 2023 13 Sep 26, 2023 [id number] June 28, 2023 Maximo VASQUEZ L [facility] ORAL 09/26/2023 [id number] PEDRO,EV ELYN L 2023 13 [facility] FLUOXETINE HCL 10MG CAP FLUOXETI NE HCL 10MG CAP Active TAKE ONE CAPSULE BY MOUTH ONCE EVERY MORNING FOR 7 DAYS, THEN TAKE TWO CAPSULES ONCE EVERY MORNING FOR MOOD FOR MOOD Aug 18, 2023 53 Aug 18, 2024 [id number] Aug 18, 2023 CHMIANNA MARIE ZURITA [facility] ORAL ACTIVE 08/18/2024 [id number] CHMIELINDIANE REESE MICHAEL 2023 53 [facility] FLUOXETINE HCL 20MG CAP FLUOXETI NE HCL 20MG CAP Active TAKE ONE CAPSULE BY MOUTH ONCE EVERY MORNING FOR MOOD FOR MOOD Sep 08, 2023 90 Sep 08, 2024 [id number] Sep 08, 2023 CHANNA MARIE UMANA [facility] ORAL ACTIVE 09/08/2024 [id number] 4 CHMIELINJONNA REESESSIC A MICHAEL 2023 90 [facility] HYDROCORTIS ONE 2.5% CREAM,TOP HYDROCOR TISONE 2.5% CREAM,TO P Active APPLY SMALL AMOUNT TOPICALL Y TWICE DAILY NEEDED CHILBLAI NS FOR ITCHING/ RASH CHILBLAI NS Dec 10, 2022 90 Dec 11, 2023 [id number] Dec 10, 2022 Maximo VASQUEZ L [facility] TOPICA L ACTIVE 12/11/2023 [id number] PEDRO,EV ELYN L [address] [facility] LISINOPRIL 20MG TAB LISINOPR IL 20MG TAB Active TAKE ONE TABLET BY MOUTH ONCE DAILY FOR HIGH BLOOD PRESSURE FOR HIGH BLOOD PRESSURE Dec 10, 2022 90 Dec 11, 2023 [id number] Jul 30, 2023 PEDRO,E VELYN L [facility] ORAL ACTIVE 12/11/2023 [id number] MONTSERRAT VASQUEZ ELYN L [address] [facility] NALTREXONE (EQV-REVIA) 50MG TAB NALTREXO NE (EQV-REV IA) 50MG TAB Disconti nued TAKE ONE TABLET BY MOUTH DAILY TO MAINTAIN ABSTINEN CE FROM ALCOHOL TO MAINTAIN ABSTINEN CE FROM ALCOHOL Jun 02, 2023 60 Jun 02, 2024 [id number] Jun 04, [address] [facility]CONT [facility] BY PROVIDE R 06/02/2024 [id number] PATRICIA ANTOINE 2023 60 [facility] NALTREXONE (EQV-REVIA) 50MG TAB NALTREXO NE (EQV-REV IA) 50MG TAB Disconti nued TAKE ONE TABLET BY MOUTH DAILY TO MAINTAIN ABSTINEN CE FROM ALCOHOL ALCOHOL USE DISORDER May 19, 2023 30 June 18, 2023 [id number] May 19, [address] [facility]CONT [facility]UED 06/18/2023 [id number] 4 [place] 2023 30 [facility] SINUS RINSE NEILMED REGULAR KIT SINUS RINSE NEILMED REGULAR KIT Active USE ONE PACKET INTRANAS ALLY TWICE DAILY NEEDED CHRONIC RHINNITI S Dec 10, 2022 1 Dec 11, 2023 [id number] Dec 11, 2022 PEDROE VELYN L [facility] NASAL ACTIVE 12/11/2023 [id number] 3 PEDRO,EV ELYN L 2022 1 [facility] Allergies, Adverse Reactions, Alerts Combined list of allergies from Department of Defense and Veterans Affairs facilities. It does not include entries that were removed or entered in error. Substance Category Reaction Severity Reaction type Status Date Reported Comments Source No Known Allergies Drug allergy (disorder) active 11/08/2007 [facility] Immunizations Combined list of available immunizations from the Department of Defense and Veterans Affairs facilities. 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 (NOV) complet Novel influenza -[id number], injectabl e [facility] influenza virus vaccine, live, attenuated, for intranasal use 0 2008 MARY EMMANUEL [id number] 111 [employer] (MED) complet influenza virus vaccine, live, attenuate d, for intranasa l use [facility] influenza virus vaccine, split virus (incl. purified surface antigen)-reti red CODE 0 2007 UNK 15 Unknown (UNK) comple t influenza virus vaccine, split virus (incl. purified surface antigen)- retired CODE [facility] influenza virus vaccine, live, attenuated, for intranasal use 1 2007 PATRICIA TEE [id number] 111 [employer] (MED) complet influenza virus vaccine, live, attenuate d, for intranasa l use [facility] influenza virus vaccine, split virus (incl. purified surface antigen)-reti red CODE 0 2007 UNK 15 Unknown (UNK) comple t influenza virus vaccine, split virus (incl. purified surface antigen)- retired CODE [facility] influenza virus vaccine, live, attenuated, for intranasal use 0 2006 [id number] 111 [employer] (MED) complet influenza virus vaccine, live, attenuate d, for intranasa l use [facility] tetanus and diphtheria toxoids, adsorbed, preservative free, for adult use (2 Lf of tetanus toxoid and 2 Lf of diphtheria toxoid) 0 2006 UNK 09 Danielle ([facility]) complet ed tetanus and diphtheri a toxoids, adsorbed, preservat raman free, for adult use (2 Lf of tetanus toxoid and 2 Lf of diphtheri a toxoid) DoD vaccinia (smallpox) vaccine 1 2006 Unknown, Provider [id number] Jesus ([facility]) complet ed vaccinia (smallpox ) vaccine DoD tetanus toxoid, reduced diphtheria toxoid, and acellular pertu is vaccine, adsorbed 1 2006 Unknown, Provider [id number] Merck (MSD) complet ed tetanus toxoid, reduced diphtheri a toxoid, and acellular pertussis vaccine, adsorbed DoD tuberculin skin test; purified protein derivative solution, intradermal 1 2006 IVIS CASTRO [id number] Sanofi Pasteur ([facility]) complet ed tuberculi n skin test; purified protein derivativ e solution, intraderm al DoD influenza virus vaccine, unspecified formulation 1 2005 IVIS CASTRO [id number] 88 [employer] (MED) complet ed influenza virus vaccine, unspecifi ed formulati on DoD influenza virus vaccine, split virus (incl. purified surface antigen)-reti red CODE 0 2005 [id number] 15 [facility] ([facility]) complet ed influenza virus vaccine, split virus (incl. purified surface antigen)- retired CODE DoD typhoid Vi capsular polysaccharid e vaccine 1 2005 Unknown, Provider [id number] Sanofi Pasteur ([facility]) complet ed typhoid Vi capsular polysacch aride vaccine DoD hepatitis A vaccine, adult dosage 2 1997 UNK 52 Unknown (UNK) comple t ed hepatitis A vaccine, adult dosage DoD poliovirus vaccine, inactivated 0 1991 UNK 10 [employer] (MED) complet ed polioviru s vaccine, inactivat ed DoD measles, mumps and rubella virus vaccine 0 1991 UNK 03 Merck (MSD) complet ed measles, mumps and rubella virus vaccine DoD Results Combined list of recent chemistry, hematology and other laboratory results from Department of Defense and Veterans Affairs, ranging from 15 months to all on record, depending upon the facility. Order Name Results Value Reference Range Date Interpretation Specimen Comments Source PT&INR INR IN PLATELET POOR PLASMA BY COAGULATIO N ASSAY 0.9 {ratio} 0.9 - 1.1 08/08 Specimen Type: PLASMA Comment: Tests performed on [place] ACL TOP 350 SN [id number] (405) Ordering Provider: ZABRINA PASCAL Report Released Date/Time: Jun 15, 2023 02:08 PM Reporting Lab: [facility] [address] [facility] [address] Performing Lab: [facility] [address] [facility] [address] [facility] PT&INR PROTHROMBI N TIME (PT) 10.0 s 9.4 - 12.5 08/08 Specimen Type: PLASMA Comment: Tests performed on [place] ACL TOP 350 SN [id number] (405) Ordering Provider: ZABRINA PASCAL Report Released Date/Time: Jun 15, 2023 02:08 PM Reporting Lab: [facility] [address] [facility] [address] Performing Lab: [facility] [address] [facility] [address] [facility] LIVER PROFILE PROTEIN [MASS/VOLU ME] IN SERUM OR PLASMA 8.2 g/dL 6.0 - 8.5 08/08 Specimen Type: PLASMA Comment: Specimen 1+ Hemolysed, Tests performed on [employer]fonzo SN:[id number] (405) Ordering Provider: ZABRINA PASCAL Report Released Date/Time: Jun 15, 2023 02:08 PM Reporting Lab: [facility] [address] [facility] [address] Performing Lab: [facility] [address] [facility] [address] [facility] LIVER PROFILE ALBUMIN [MASS/VOLU ME] IN SERUM OR PLASMA 4.5 g/dL 3.2 - 5.0 08/08 Specimen Type: PLASMA Comment: Specimen 1+ Hemolysed, Tests performed on [employer] SN:[id number] (405) Ordering Provider: ZABRINA PASCAL Report Released Date/Time: Jun 15, 2023 02:08 PM Reporting Lab: [facility] [address] [facility] [address] Performing Lab: [facility] [address] [facility] [address] [facility] LIVER PROFILE BILIRUBIN. TOTAL [MASS/VOLU ME] IN SERUM OR PLASMA 0.4 mg/dL 0.2 - 1.2 08/08 Specimen Type: PLASMA Comment: Specimen 1+ Hemolysed, Tests performed on [employer]ton SN:[id number] (405) Ordering Provider: ZABRINA PASCAL Report Released Date/Time: Jun 15, 2023 02:08 PM Reporting Lab: [facility] [address] [facility] [address] Performing Lab: [facility] [address] [facility] [address] [facility] LIVER PROFILE ALKALINE PHOSPHATAS E [ENZYMATIC ACTIVITY/V OLUME] IN SERUM OR PLASMA 63 U/L 40 - 150 08/08 Specimen Type: PLASMA Comment: Specimen 1+ Hemolysed, Tests performed on [employer] SN:[id number] (405) Ordering Provider: ZABRINA PASCAL Report Released Date/Time: Jun 15, 2023 02:08 PM Reporting Lab: [facility] [address] [facility] [address] Performing Lab: [facility] [address] [facility] [address] [facility] LIVER PROFILE ALANINE AMINOTRANS FERASE [ENZYMATIC ACTIVITY/V OLUME] IN SERUM OR PLASMA 50 U/L 7 - 52 08/08 Specimen Type: PLASMA Comment: Specimen 1+ Hemolysed, Tests performed on [employer] SN:[id number] (405) Ordering Provider: ZABRINA PASCAL Report Released Date/Time: Jun 15, 2023 02:08 PM Reporting Lab: [facility] [address] [facility] [address] Performing Lab: [facility] [address] [facility] [address] [facility] LIVER PROFILE ASPARTATE AMINOTRANS FERASE [ENZYMATIC ACTIVITY/V OLUME] IN SERUM OR PLASMA 71 U/L 5 - 34 08/08 H Specimen Type: PLASMA Comment: Specimen 1+ Hemolysed, Tests performed on [employer] SN:[id number] (405) Ordering Provider: ZABRINA PASCAL Report Released Date/Time: Jun 15, 2023 02:08 PM Reporting Lab: [facility] [address] [facility] [address] Performing Lab: [facility] [address] [facility] [address] [facility] LIVER PROFILE PROTEIN [MASS/VOLU ME] IN SERUM OR PLASMA 7.6 g/dL 6.0 - 8.5 06/14 Specimen Type: PLASMA Comment: , Tests performed on [employer] Dennis SN:[id number] (405). Ordering Provider: PATRICIA ANTOINE Report Released Date/Time: Jun 02, 2023 01:18 PM Reporting Lab: [facility] [address] [facility] [address] Performing Lab: [facility] [address] [facility] [address] [facility] LIVER PROFILE ALBUMIN [MASS/VOLU ME] IN SERUM OR PLASMA 4.1 g/dL 3.2 - 5.0 06/14 Specimen Type: PLASMA Comment: , Tests performed on [employer] SN:[id number] (405). Ordering Provider: PATRICIA ANTOINE Report Released Date/Time: Jun 02, 2023 01:18 PM Reporting Lab: [facility] [address] [place] [facility] [place] [address] Performing Lab: [facility] [address] [facility] [address] [facility] LIVER PROFILE BILIRUBIN. TOTAL [MASS/VOLU ME] IN SERUM OR PLASMA 0.7 mg/dL 0.2 - 1.2 06/14 Specimen Type: PLASMA Comment: , Tests performed on [employer] SN:[id number] (405). Ordering Provider: PATRICIA ANTOINE Report Released Date/Time: Jun 02, 2023 01:18 PM Reporting Lab: [facility] [address] [facility] [address] Performing Lab: [facility] [address] [facility] [address] [facility] LIVER PROFILE ALKALINE PHOSPHATAS E [ENZYMATIC ACTIVITY/V OLUME] IN SERUM OR PLASMA 55 U/L 40 - 150 06/14 Specimen Type: PLASMA Comment: , Tests performed on [employer] Dennis SN:[id number] (405). Ordering Provider: PATRICIA ANTOINE Report Released Date/Time: Jun 02, 2023 01:18 PM Reporting Lab: [facility] [address] [facility] [address] Performing Lab: [facility] [address] [facility] [address] [facility] LIVER PROFILE ALANINE AMINOTRANS FERASE [ENZYMATIC ACTIVITY/V OLUME] IN SERUM OR PLASMA 25 U/L 7 - 52 06/14 Specimen Type: PLASMA Comment: , Tests performed on [employer] Dennis SN:[id number] (405). Ordering Provider: PATRICIA ANTOINE Report Released Date/Time: Jun 02, 2023 01:18 PM Reporting Lab: [facility] [address] [place] [facility] [place] [address] Performing Lab: [facility] [address] [facility] [address] [facility] LIVER PROFILE ASPARTATE AMINOTRANS FERASE [ENZYMATIC ACTIVITY/V OLUME] IN SERUM OR PLASMA 40 U/L 5 - 34 06/14 H Specimen Type: PLASMA Comment: , Tests performed on [employer] Dennis SN:[id number] (405). Ordering Provider: PATRICIA ANTOINE Report Released Date/Time: Jun 02, 2023 01:18 PM Reporting Lab: [facility] [address] [facility] [address] Performing Lab: [facility] [address] [facility] [address] [facility]E TG(WRJ) COCAINE [PRESENCE] IN URINE BY SCREEN METHOD NONE DETECTED 06/14 Specimen Type: URINE Comment: This ETG test was developed and its performance characteris [place]ics determined by [place]. The [place] Food and Drug Administrat ion has not approved or cleared this test, FDA clearance or approval is not currently required for clinical use. ETG cutoff 500 ng/mL, Tests performed on [employer] Payton SN:[id number] (405) Requests for Confirmatio n testing will need to be phoned in to the lab [phone]. Ordering Provider: PATRICIA ANTOINE Report Released Date/Time: May 19, 2023 01:53 PM Reporting Lab: [facility] [address] [facility] [address] [facility] Lab: [facility] [address] [facility] [address] [facility] DRUG SCREEN+E TG(WRJ) BENZODIAZE PINES [PRESENCE] IN URINE BY SCREEN METHOD NONE DETECTED 06/14 Specimen Type: URINE Comment: This ETG test was developed and its performance characteris [place]ics determined by [place] [facility] [place]. The [place] Food and Drug Administrat ion has not approved or cleared this test, FDA clearance or approval is not currently required for clinical use. ETG cutoff 500 ng/mL, Tests performed on [employer]ton SN:[id number] (405) Requests for Confirmatio n testing will need to be phoned in to the lab [phone]. Ordering Provider: PATRICIA ANTOINE Report Released Date/Time: May 19, 2023 01:53 PM Reporting [facility] [address] [facility] [address] [facility] Lab[facility] [address] [facility] [address] [facility] DRUG SCREEN+E TG(WRJ) OPIATES [PRESENCE] IN URINE BY SCREEN METHOD NONE DETECTED 06/14 Specimen Type: URINE Comment: This ETG test was developed and its performance characteris [place]ics determined by [place] [facility] [place]. The [place] Food and Drug Administrat ion has not approved or cleared this test, FDA clearance or approval is not currently required for clinical use. ETG cutoff 500 ng/mL, Tests performed on [employer] SN:[id number] (405) Requests for Confirmatio n testing will need to be phoned in to the lab [phone]. Ordering Provider: PATRICIA ANTOINE Report Released Date/Time: May 19, 2023 01:53 PM Reporting [facility] [address] [facility] [address] [facility] Lab[facility] [address] [facility] [address] [facility] DRUG SCREEN+E TG(WRJ) CREATININE [MASS/VOLU ME] IN URINE 71.66 mg/dL 06/14 Specimen Type: URINE Comment: This ETG test was developed and its performance characteris tics determined by [place]. The [place] Food and Drug Administrat ion has not approved or cleared this test, FDA clearance or approval is not currently required for clinical use. ETG cutoff 500 ng/mL, Tests performed on [employer] SN:[id number] (405) Requests for Confirmatio n testing will need to be phoned in to the lab [phone]. Ordering Provider: PATRICIA ANTOINE Report Released Date/Time: May 19, 2023 01:53 PM Reporting Lab: [facility] [address] [place] [place] [address] Performing Lab: [facility] [address] [place] [facility] [place] [address] [facility]E TG(WRJ) CANNABINOI DS [PRESENCE] IN URINE BY SCREEN METHOD NONE DETECTED 06/14 Specimen Type: URINE Comment: This ETG test was developed and its performance character[place]ics determined [place]. The [place] Food and Drug Administrat Venda has not approved or cleared this test, FDA clearance or approval is not currently required for clinical use. ETG cutoff 500 ng/mL, Tests performed on Pérez LigerTail Payton SN:[id number] (405) Requests for Confirmatio n testing will need to be phoned in to the lab [phone]. Ordering Provider: PATRICIA ANTOINE Report Released Date/Time: May 19, 2023 01:53 PM Reporting Lab: [facility] [address] [place] [facility] [place] [address] Performing Lab: [facility] [address] [place] [facility] [place] [address] [facility] DRUG SCREEN+E TG(WRJ) AMPHETAMIN E [PRESENCE] IN URINE BY SCREEN METHOD NONE DETECTED 06/14 Specimen Type: URINE Comment: This ETG test was developed and its performance character[place]ics determined [place]. The [place] Food and Drug Administrat Venda has not approved or cleared this test, FDA clearance or approval is not currently required for clinical use. ETG cutoff 500 ng/mL, Tests performed on Pérez LigerTail Payton SN:[id number] (405) Requests for Confirmatio n testing will need to be phoned in to the lab [phone]. Ordering Provider: PATRICIA ANTOINE Report Released Date/Time: May 19, 2023 01:53 PM Reporting Lab: [facility] [address] [facility] [address] Performing Lab: [facility] [address] [facility] [address] [facility] DRUG SCREEN+E TG(WRJ) METHADONE CUTOFF [MASS/VOLU ME] IN URINE FOR SCREEN METHOD NONE DETECTED 06/14 Specimen Type: URINE Comment: This ETG test was developed and its performance character[place]ics determined [place]. The [place] Food and Drug Administrat ion has not approved or cleared this test, FDA clearance or approval is not currently required for clinical use. ETG cutoff 500 ng/mL, Tests performed on Pérez [employer] Software SN:[id number] (405) Requests for Confirmatio n testing will need to be phoned in to the lab [phone]. Ordering Provider: PATRICIA ANTOINE Report Released Date/Time: May 19, 2023 01:53 PM Reporting Lab: [facility] [address] [facility] [address] Performing Lab: [facility] [address] [facility] [address] [facility] DRUG SCREEN+E TG(WRJ) PH OF URINE BY AUTOMATED TEST STRIP 6.5 [pH] 06/14 Specimen Type: URINE Comment: This ETG test was developed and its performance character[place]ics [place]. The [place] Food and Drug Administrat ion has not approved or cleared this test, FDA clearance or approval is not currently required for clinical use. ETG cutoff 500 ng/mL, Tests performed on Pérez [employer] SN:[id number] (405) Requests for Confirmatio n testing will need to be phoned in to the lab [phone]. Ordering Provider: PATRICIA ANTOINE Report Released Date/Time: May 19, 2023 01:53 PM Reporting Lab: [facility] [address] [facility] [address] Performing Lab: [facility] [address] [facility] [address] [facility] DRUG SCREEN+E TG(WRJ) ETHYL GLUCURONID E CUTOFF [MASS/VOLU ME] IN URINE FOR SCREEN METHOD SCRN POS 06/14 Specimen Type: URINE Comment: This ETG test was developed and its performance character[place]ics [place]. The [place] Food and Drug Administrat ion has not approved or cleared this test, FDA clearance or approval is not currently required for clinical use. ETG cutoff 500 ng/mL, Tests performed on Pérez LigerTail Payton SN:[id number] (405) Requests for Confirmatio n testing will need to be phoned in to the lab [phone]. Ordering Provider: PATRICIA ANTOINE Report Released Date/Time: May 19, 2023 01:53 PM Reporting Lab: [facility] [address] [facility] [address] [facility] [address] [facility] [address] [facility] DRUG SCREEN+E TG(WRJ) SPECIFIC GRAVITY OF URINE 1.009 1.003 - 1.020 06/14 Specimen Type: URINE Comment: This ETG test was developed and its performance character[place]ics determined [place]. The [employer] Food and Drug Administrat Venda has not approved or cleared this test, FDA clearance or approval is not currently required for clinical use. ETG cutoff 500 ng/mL, Tests performed on Pérez LigerTail Payton SN:[id number] (405) Requests for Confirmatio n testing will need to be phoned in to the lab [phone]. Ordering Provider: PATRICIA ANTOINE Report Released Date/Time: May 19, 2023 01:53 PM Reporting Lab: [facility] [address] [facility] [address] Performing Lab: [facility] [address] [facility] [address] [facility] DRUG SCREEN+E TG(WRJ) FENTANYL CUTOFF [MASS/VOLU ME] IN URINE FOR SCREEN METHOD NONE DETECTED 06/14 Specimen Type: URINE Comment: This ETG test was developed and its performance character[place]ics [place]. The [place] Food and Drug Administrat Venda has not approved or cleared this test, FDA clearance or approval is not currently required for clinical use. ETG cutoff 500 ng/mL, Tests performed on Pérez LigerTail Payton SN:[id number] (405) Requests for Confirmatio n testing will need to be phoned in to the lab [phone]. Ordering Provider: PATRICIA ANTOINE Report Released Date/Time: May 19, 2023 01:53 PM Reporting Lab: [facility] [address] [facility] [address] Performing Lab: [facility] [address] [facility] [address] [facility] DRUG SCREEN+E TG(WRJ) OXYCODONE [PRESENCE] IN URINE BY SCREEN METHOD NONE DETECTED 06/14 Specimen Type: URINE Comment: This ETG test was developed and its performance character[place]ics determined [place]. The [place] Food and Drug Administrat ion has not approved or cleared this test, FDA clearance or approval is not currently required for clinical use. ETG cutoff 500 ng/mL, Tests performed on [employer] Technology SN:[id number] (405) Requests for Confirmatio n testing will need to be phoned in to the lab [phone]. Ordering Provider: PATRICIA ANTOINE Report Released Date/Time: May 19, 2023 01:53 PM Reporting Lab: [facility] [address] [facility] [address] Performing Lab: [facility] [address] [facility] [address] [facility] DRUG SCREEN+E TG(WRJ) ETHANOL [MASS/VOLU ME] IN URINE <10.0mg/ dL 06/14 Specimen Type: URINE Comment: This ETG test was developed and its performance character[place]ics [place]. The [place] Food and Drug Administrat ion has not approved or cleared this test, FDA clearance or approval is not currently required for clinical use. ETG cutoff 500 ng/mL, Tests performed on [employer] SN:[id number] (405) Requests for Confirmatio n testing will need to be phoned in to the lab [phone]. Ordering Provider: PATRICIA ANTOINE Report Released Date/Time: May 19, 2023 01:53 PM Reporting [facility]: [facility] [address] [facility] [address] Performing Lab: [facility] [address] [facility] [address] [facility] DRUG SCREEN+E TG(WRJ) BUPRENORPH INE [PRESENCE] IN URINE NONE DETECTED 06/14 Specimen Type: URINE Comment: This ETG test was developed and its performance character[place]ics determined [place]. The [place] Food and Drug Administrat ion has not approved or cleared this test, FDA clearance or approval is not currently required for clinical use. ETG cutoff 500 ng/mL, Tests performed on [employer] SN:[id number] (405) Requests for Confirmatio n testing will need to be phoned in to the lab [phone]. Ordering Provider: PATRICIA ANTOINE Report Released Date/Time: May 19, 2023 01:53 PM Reporting Lab: [facility] [address] [facility] [address] Performing Lab: [facility] [address] [facility] [address] [facility] VIT D 25-OH(WR J) CALCIFEROL (VIT D2) [MASS/VOLU ME] IN SERUM OR PLASMA 10.3 ng/mL 20.0 - 50.0 06/14 L Specimen Type: SERUM Comment: , Tests performed on [employer] Payton SN:[id number] (405) Ordering Provider: JOESPH VASQUEZ Report Released Date/Time: Jun 15, 2023 01:39 PM Reporting Lab: [facility] [address] [facility] [address] Performing Lab: [facility] [address] [facility] [address] [facility] PROTEIN [MASS/VOLU ME] IN SERUM OR PLASMA 7.9 g/dL 6.0 - 8.5 05/10 Specimen Type: PLASMA Comment: , Tests performed on Tupalo SN:[id number] (405). Ordering Provider: BELKIS HERNANDEZ Report Released Date/Time: May 11, 2023 02:41 PM Reporting Lab: [facility] [address] [facility] [address] Performing Lab: [facility] [address] [facility] [address] [facility] ALBUMIN [MASS/VOLU ME] IN SERUM OR PLASMA 4.5 g/dL 3.2 - 5.0 05/10 Specimen Type: PLASMA Comment: , Tests performed on Tupalo SN:[id number] (405). Ordering Provider: BELKIS HERNANDEZ Report Released Date/Time: May 11, 2023 02:41 PM Reporting Lab: [facility] [address] [facility] [address] Performing Lab: [facility] [address] [place] [facility] [place] [address] [facility] LIVER PROFILE BILIRUBIN. TOTAL [MASS/VOLU ME] IN SERUM OR PLASMA 0.9 mg/dL 0.2 - 1.2 05/10 Specimen Type: PLASMA Comment: , Tests performed on Pérez Creative Consultant Dennis SN:[id number] (405). Ordering Provider: BELKIS HERNANDEZ Report Released Date/Time: May 11, 2023 02:41 PM Reporting Lab: [facility] [address] [place] [facility] [place] [address] Performing Lab: [facility] [address] [place] [facility] [place] [address] [facility] LIVER PROFILE ALKALINE PHOSPHATAS E [ENZYMATIC ACTIVITY/V OLUME] IN SERUM OR PLASMA 67 U/L 40 - 150 05/10 Specimen Type: PLASMA Comment: , Tests performed on Pérez [employer] Consultant Dennis SN:[id number] (405). Ordering Provider: BELKIS HERNANDEZ Report Released Date/Time: May 11, 2023 02:41 PM Reporting Lab: [facility] [address] [place] [facility] [place] [address] Performing Lab: [facility] [address] [place] [facility] [place] [address] [facility] LIVER PROFILE ALANINE AMINOTRANS FERASE [ENZYMATIC ACTIVITY/V OLUME] IN SERUM OR PLASMA 44 U/L 7 - 52 05/10 Specimen Type: PLASMA Comment: , Tests performed on Pérez [employer] Consultant Dennis SN:[id number] (405). Ordering Provider: BELKIS HERNANDEZ Report Released Date/Time: May 11, 2023 02:41 PM Reporting Lab: [facility] [address] [place] [facility] [place] [address] Performing Lab: [facility] [address] [place] [facility] [place] [address] [facility] LIVER PROFILE ASPARTATE AMINOTRANS FERASE [ENZYMATIC ACTIVITY/V OLUME] IN SERUM OR PLASMA 54 U/L 5 - 34 05/10 H Specimen Type: PLASMA Comment: , Tests performed on Pérez [employer] Consultant Dennis SN:[id number] (405). Ordering Provider: BELKIS HERNANDEZ Report Released Date/Time: May 11, 2023 02:41 PM Reporting Lab: [facility] [address] [facility] [address] Performing Lab: [facility] [address] [facility] [address] [facility] HEPATITI S C AB(WRJ)w /Reflex HEPATITIS C VIRUS AB [PRESENCE] IN SERUM OR PLASMA BY IMMUNOASSA Y Non-Reac tive 03/17 Specimen Type: SERUM Comment: , Tests performed on Pérez LigerTail Payton SN:[id number] (405) No HCV antibody detected. If recent infection is suspected or other evidence suggests HCV infection, consider HCV RNA testing Ordering Provider: JOESPH VASQUEZ Report Released Date/Time: Feb 10, 2023 02:12 PM Reporting Lab: [facility] [address] [facility] [address] Performing Lab: [facility] [address] [facility] [address] [facility] IRON+TIB C(P) IRON [MASS/VOLU ME] IN SERUM OR PLASMA 170 ug/dL 40 - 160 03/17 H Specimen Type: PLASMA Comment: , Tests performed on Pérez LigerTail Payton SN:[id number] (405) Ordering Provider: OJESPH VASQUEZ Report Released Date/Time: Feb 10, 2023 02:12 PM Reporting Lab: [facility] [address] [facility] [address] Performing Lab: [facility] [address] [facility] [address] [facility] IRON+TIB C(P) IRON BINDING CAPACITY [MASS/VOLU ME] IN SERUM OR PLASMA 255 ug/dL 03/17 Specimen Type: PLASMA Comment: , Tests performed on Pérez LigerTail Payton SN:[id number] (405) Ordering Provider: JOESPH VASQUEZ Report Released Date/Time: Feb 10, 2023 02:12 PM Reporting Lab: [facility] [address] [facility] [address] Performing Lab: [facility] [address] [facility] [address] [facility] IRON+TIB C(P) IRON SATURATION [MASS FRACTION] IN SERUM OR PLASMA 67 15 03/17 Specimen Type: PLASMA Comment: , Tests performed on Pérez LigerTail Payton SN:[id number] (405) Ordering Provider: JOESPH VASQUEZ Report Released Date/Time: Feb 10, 2023 02:12 PM Reporting Lab: [facility] [address] [facility] [address] Performing Lab: [facility] [address] [facility] [address] [facility] IRON+TIB C(P) IRON BINDING CAPACITY.U NSATURATED [MASS/VOLU ME] IN SERUM OR PLASMA 85 ug/dL 126 - 382 03/17 L Specimen Type: PLASMA Comment: , Tests performed on Dome9 [employer] Alfonzo SN:[id number] (405) Ordering Provider: JOESPH VASQUEZ Report Released Date/Time: Feb 10, 2023 02:12 PM Reporting Lab: [facility] [address] [facility] [address] Performing Lab: [facility] [address] [facility] [address] [facility] LIVER PROFILE PROTEIN [MASS/VOLU ME] IN SERUM OR PLASMA 8.1 g/dL 6.0 - 8.5 03/17 Specimen Type: PLASMA Comment: , Tests performed on D[employer] Alfonzo SN:[id number] (405) Ordering Provider: JOESPH VASQUEZ Report Released Date/Time: Feb 10, 2023 02:12 PM Reporting Lab: [facility] [address] [facility] [address] Performing Lab: [facility] [address] [facility] [address] [facility] LIVER PROFILE ALBUMIN [MASS/VOLU ME] IN SERUM OR PLASMA 4.6 g/dL 3.2 - 5.0 03/17 Specimen Type: PLASMA Comment: , Tests performed on Pérez LigerTail Alfonzo SN:[id number] (405) Ordering Provider: JOESPH VASQUEZ Report Released Date/Time: Feb 10, 2023 02:12 PM Reporting Lab: [facility] [address] [facility] [address] Performing Lab: [place] [facility] [address] [facility] [address] [facility] LIVER PROFILE BILIRUBIN. TOTAL [MASS/VOLU ME] IN SERUM OR PLASMA 0.6 mg/dL 0.2 - 1.2 03/17 Specimen Type: PLASMA Comment: , Tests performed on Pérez [employer] Software SN:[id number] (405) Ordering Provider: JOESPH VASQUEZ Report Released Date/Time: Feb 10, 2023 02:12 PM Reporting Lab: [facility] [address] [facility] [address] Per[facility] Lab: [facility] [address] [facility] [address] [facility] LIVER PROFILE ALKALINE PHOSPHATAS E [ENZYMATIC ACTIVITY/V OLUME] IN SERUM OR PLASMA 64 U/L 40 - 150 03/17 Specimen Type: PLASMA Comment: , Tests performed on [employer] SN:[id number] (405) Ordering Provider: JOESPH VASQUEZ Report Released Date/Time: Feb 10, 2023 02:12 PM Reporting Lab: [facility] [address] [facility] [address] Performing Lab: [facility] [address] [facility] [address] [facility] LIVER PROFILE ALANINE AMINOTRANS FERASE [ENZYMATIC ACTIVITY/V OLUME] IN SERUM OR PLASMA 48 U/L 7 - 52 03/17 Specimen Type: PLASMA Comment: , Tests performed on [employer] SN:[id number] (405) Ordering Provider: JOESPH VASQUEZ Report Released Date/Time: Feb 10, 2023 02:12 PM Reporting Lab: [facility] [address] [facility] [address] Performing Lab: [facility] [facility] [address] [facility] [address] [facility] LIVER PROFILE ASPARTATE AMINOTRANS FERASE [ENZYMATIC ACTIVITY/V OLUME] IN SERUM OR PLASMA 59 U/L 5 - 34 03/17 H Specimen Type: PLASMA Comment: , Tests performed on Pérez LigerTail Payton SN:[id number] (405) Ordering Provider: JOESPH VASQUEZ Report Released Date/Time: Feb 10, 2023 02:12 PM Reporting Lab: [facility] [address] [facility] [address] Performing Lab: [facility] [address] [facility] [address] [facility] FERRITIN FERRITIN [MASS/VOLU ME] IN SERUM OR PLASMA BY IMMUNOASSA Y 472 ng/mL 22 - 275 03/17 H Specimen Type: SERUM Comment: , Tests performed on Pérez LigerTail Payton SN:[id number] (405) Ordering Provider: JOESPH VASQUEZ Report Released Date/Time: Feb 10, 2023 02:12 PM Reporting Lab: [facility] [address] [facility] [address] [facility]: [facility] [address] [facility] [address] [facility] Vital Signs Combined list of inpatient and outpatient Vital Signs from Department of Defense and Veterans Affairs, ranging from 12 months to all on record, depending upon the facility. Vital Sign Value Date Comments Source Encounters Combined list of: 1) Encounters from Department of Veterans Affairs facilities going back up to thelast 18 months. 2) Encounters from the Department of Defense facilities going back up to 280 months. Location Location Details Encounter Type Encounter Number Reason For Visit Attending Provider ADM Date DC Date Status Disposition Source [facility]) OUTPATIENT [id number] LOWER BACK PAIN, VERIFIE D AMAURI REINOSO 06/16 Released w/o Limitations [facility]) OUTPATIENT [id number] followu p on lower back pain. AMAURI REINOSO 07/08 Released w/o Limitations [facility](Op tometry [facility] [place]) OUTPATIENT [id number] update rx for glasses .LLOYD Pink 08/03 Released w/o Limitations [facility]( Optomet ry [facility]) [facility](Ph [facility] Therapy [facility]) OUTPATIENT [id number] [facility] LBP LORENA CHAMBERS Scarlet 08/12 Released w/o Limitations [facility]( [facility]) [facility]) OUTPATIENT [id number] LORENA CHAMBERS Scarlet 08/21 Released w/o Limitations [facility]( [facility]) [facility]) OUTPATIENT [id number] ALLIE JARVIS 09/01 Released w/o Limitations [facility]( Phys Therapy [facility]) [facility](Im [place]) [place] [id number] Pt receivi ng Typhoid MARK ANTHONY TARANGO 10/13 [facility]ased w/o Limitations [facility]itary [place] [id number] [facility] 10/15 Released w/o Limitations [facility]( [place]) [facility](Vt litary [facility]) OUTPATIENT [id number] CARDIAC COND F/U - DENTAL' S REQUEST ZABRINA MUNGUIA 10/15 Released w/o Limitations [facility]( [place] [facility] [id number] EYE EXAM, LLOYD BINGHAM 10/23 Released w/o Limitations [facility]( [place]) [facility] Therapy [facility]) OUTPATIENT [id number] LORENA CHAMBERS Scarlet 11/12 Released w/o Limitations [facility]( Phys Therapy [facility]) [facility](Vt litary [facility]) OUTPATIENT [id number] insect bite on neck CHRISTIANO PAYTON 12/08 Released w/o Limitations [facility]( [place]) [facility](Vt [facility]itary [facility]) OUTPATIENT [id number] Predepl brendaent KESHA HAMILTON 04/01 Released w/o Limitations [facility]( [place]) [facility] OUTPATIENT [id number] MARIA C Ni 04/01 Released w/o Limitations [facility]( Deploym ent [facility]) [facility] [place] [facility] [id number] sm pox revax tdap AUGUST CASAS SForrest 04/16 Released w/o Limitations [facility] [place] [facility](Imm unizati on [place]) [employer]([facility] IRR/SRP) OUTPATIENT [id number] [place] [facility] ANMOL Castaneda 04/29 Released w/o Limitations [employer] OUT[facility] [id number] 12/02 Released w/o Limitations [facility] OUT[facility]IENT [id number] 05/11 Released w/o Limitations [facility] [facility] [place]PATIENT [id number] MEDS/RE FILL TAMIA SWARTZ 08/02 Released w/o Limitations [facility]( [place] [facility] [facility] [facility]PATIENT [id number] pha TAMIA SWARTZ 11/07 Released w/o Limitations [facility] [place] [facility] [id number] TRENA CALDERON 11/07 Released w/o Limitations [facility]( [place] [facility] [facility]IENT [id number] [facility]/18 Released w/o Limitations [facility] [place] [facility] [facility] [facility] TELE CONSULT [id number] med refill/ amc/cc ABISAI AMAYA 01/04 [facility] [place] [facility] [place] [facility]) [facility]([place] [facility] OUTPATIENT [id number] FU MEDS/TI AUGUST JULIEN 02/22 Released w/o Limitations [facility] [place] [place] [facility]PATIENT [id number] Tobacco Cessati on RADHA GONGORA 03/07 Released w/o Limitations [facility] [place] [place] [facility] [facility] [place] [id number] Tobacco Cessati on RAHEL TRAN 03/21 Released w/o Limitations [facility] [place] [facility] [facility] OUTPATIENT [id number] Tobacco Cessati on TRAN, RAHEL JEAN BAPTISTE 03/28 Released w/o Limitations [facility] [place] [facility] [facility] TELE CONSULT [id number] refill of Chanronx RADHA GONGORA 04/18 [facility] [place] [facility] [facility] [facility] DENTAL [id number] Hygiene DENNIS JUNG 06/14 Released w/o Limitations [facility] [place] [facility] [facility] [facility] DENTAL [id number] OPERATI VE KEANU GARCIAADILSON 08/23 Released w/o Limitations [facility] [place] [facility] [facility] [facility] OUTPATIENT [id number] walk in flu MARY EMMANUEL 11/27 Released w/o Limitations [facility] [place] [facility] [facility] [facility] OUTPATIENT [id number] ISAIAH KAMINSKI 12/06 Released w/o Limitations [facility] [place] [facility] [facility]([place] [facility] [place] [facility] OUTPATIENT [id number] LANG Willett 01/22 Released w/o Limitations [facility]( [place] [facility] [facility] [facility] DENTAL [id number] BEN Schumacher 02/20 Released w/o Limitations [facility] [place] [facility] [facility] [facility] OUTPATIENT [id number] H1N1 shot-ex 02/21/09- 02/22/09 MARY EMMANUEL 02/25 Released w/o Limitations [facility]( [place] [facility] [facility] [facility] OUTPATIENT [id number] annual eye exam LEOPOLDO NICHOLE 03/25 Released w/o Limitations [facility]( [place] [facility] [place] [facility]) [facility] OUTPATIENT [id number] MEDS/TI ABISAI RIOS 04/03 Released w/o Limitations [facility] [place] [facility] [facility] OUTPATIENT [id number] Tobacco Cessati on Week 1 RADHA GONGORA 04/17 Released w/o Limitations [facility] [place] [facility] [facility] OUTPATIENT [id number] Tobacco Cessati on Week 2 TRANRAHEL JONES 04/25 Released w/o Limitations [facility]( [place] [facility] OUTPATIENT [id number] Tobacco Cessati on TRANPRITESHIA MARKEL 05/01 Released w/o Limitations [facility]( [facility]) [facility] [facility]) OUTPATIENT [id number] [facility] ISAIAH Herbert 05/27 Released w/o Limitations [facility]( [place] [facility]) [facility]) DENTAL [id number] [facility] BENITO MACKEY 07/25 Released w/o Limitations [facility] [place] [facility] DENTAL [id number] exam FRANCIS TARANGO 07/25 Released w/o Limitations [facility] [place] [facility] TELE CONSULT [id number] Tobacco Cessati on follow up RAHEL TRAN 09/21 [facility]( [place] [facility]) [facility]([place] [facility] [place] [facility] OUTPATIENT [id number] PHA/48/ labs ordered /r/[facility] JOB ANN 11/26 Released w/o Limitations [facility]( [place] [facility]) OUTPATIENT [id number] f/u aciphex Rx/JULIAN Walker 05/02 Released w/o Limitations [facility] [place] [facility] OUTPATIENT [id number] Chronic reflux esophag itis BRENT MORGAN 05/22 Released w/o Limitations [facility]( [facility] TELE CONSULT [id number] PRE OP for COLO on [id number] @ 0800 OTEROANITA LEMOS QUITA 05/22 [facility]) [facility] OUTPATIENT [id number] yrly eye ck AMAURI KRAUSE 06/25 Released w/o Limitations [facility]( [place] [facility] OUTPATIENT [id number] Notes Entered by: KIRBY MONTOYA 07 Aug 2010 1105 ------- ------- ------- ------- -- Pre-Op EKG MARY ROGERS 08/07 Released w/o Limitations [facility] [place] [facility]) TELE CONSULT [id number] Notes Entered by: KODAK MEDINA 08 Aug 2010 1653 ------- ------- ------- ------- -- Labs abnormJULIAN Pittman 08/08 [facility]( [place] [facility] OUTPATIENT [id number] colo/eg d need ekg BRENT MORGAN 08/12 Released with Work/Duty Limitations [facility] OUTPATIENT [id number] EVAL SOFT TISSUE R+L SIDE OF MOUTH. GINI NG 08/21 Released w/o Limitations [facility]( [facility] OUTPATIENT [id number] post-up BRENT MORGAN 08/28 Released w/o Limitations [facility]) TELE CONSULT [id number] Notes Entered by: KODAK MEDINA 02 Sep 2010 1543 ------- ------- ------- ------- -- Abnorma l LFT's ADILSON PACE 09/02 [facility] [place] [facility] OUTPATIENT [id number] 2nd opinion eval lesion for bx GINI NG 09/05 Released w/o Limitations [facility] OUTPATIENT [id number] Notes Entered by: Chiara TRAN 24 Sep 2010 1701 ------- ------- ------- ------- -- [facility] RADHA GONGORA 09/24 Released w/o Limitations [facility] [place] [facility] OUTPATIENT [id number] f/u JULIAN ALBRECHT 10/08 Released w/o Limitations [facility] [place] [facility]) OUTPATIENT [id number] Notes Entered by: NERISSA LALA 28 Oct 2010 1132 ------- ------- ------- ------- -- shotex: BECCA TAVAREZ 10/28 Released w/o Limitations [facility] [place] [facility] [facility]) OUTPATIENT [id number] PHA/age 49 BRE VELEZ 11/10 Released w/o Limitations [facility]( [place] [facility] [place] [facility]) [facility] [facility] OUTPATIENT [id number] Notes Entered by: Mari BUENO 19 Nov 2010 1536 ------- ------- ------- ------- -- Tobacco Cessati on RAHEL TRAN 11/19 Released w/o Limitations [facility] OUTPATIENT [id number] jhonatan hernandez/ANT Rivera 03/23 Released w/o Limitations [facility]( [place] [facility]) [facility] [facility] TELE CONSULT [id number] Notes Entered by: ADILSON PACE 30 Mar 2011 1343 ------- ------- ------- ------- -- Request for pre-med ication ANT MAXWELL 03/30 [facility]( [place] [facility] [facility] [facility] OUTPATIENT [id number] f/u labs ANT MAXWELL 04/07 Released with Work/Duty Limitations [facility] [place] [facility] [facility] [facility] OUTPATIENT [id number] f/u per CAPT ANT MAXWELL 04/08 Released w/o Limitations [facility] [place] [facility] [facility] Encounter [id number] [id number] 05/06 [facility] En[facility] [id number] [id number] 10/10 [place] [facility] [facility] [place]counter [id number] [id number] 11/11 [place] [facility] [place] Encounter [id number] [id number] 11/16 [facility] [facility] Out[facility] Encounter [id number] [id number] [place] [facility] OFF/OP EST JUNE X REQ PHY/QHP [id number] [id number] Diagnos is: ICD-10- CM J34.89 Other specifi ed disorde rs of nose and nasal sinuses
[place] TEJADA 11/17 [facility] Outpatient Encounter [id number] [id number] [place] TEJADA 11/17 [facility] Outpatient Encounter [id number] [id number] 12/10 [facility] OFFICE O/P NEW MOD 45-59 MIN [id number] [id number] Diagnos is: ICD-10- CM J31.0 Chronic rhiniti s
PEDRO,DANIEL IRAIS L 12/10 [facility] Outpatient Encounter [id number] [id number] [facility] Outpatient Encounter [id number] [id number] [facility] Outpatient Encounter [id number] [id number] Diagnos is: ICD-10- CM K74.00 Hepatic fibrosi s, unspeci fied
PEDRO,DANIEL IRAIS L 02/09 [facility] Outpatient Encounter [id number] [id number] 02/10 [facility] Outpatient Encounter [id number] [id number] 02/10 [facility] Outpatient Encounter [id number] [id number] 02/12 [facility] Outpatient Encounter [id number] [id number] 02/13 [facility] Outpatient Encounter [id number] [id number] 03/17 [facility] OFFICE O/P NEW LOW 30 MIN [id number] [id number] Diagnos is: ICD-10- CM R94.5 Abnorma l results of liver functio n studies
RAY,KRISTE N A 03/17 [facility] PSYCH DIAGNOSTIC EVALUATION [id number] [id number] Diagnos is: ICD-10- CM F10.99 Alcohol use, unsp with unspeci fied alcohol -induce d disorde r
FARNAZ AVALOS 04/13 [facility] Outpatient Encounter [id number] [id number] Diagnos is: ICD-10- CM F10.99 Alcohol use, unsp with unspeci fied alcohol -induce d disorde r
NAIDALILLIECUAUHTEMOC Novak A 04/18 [facility] Outpatient Encounter [id number] [id number] 04/25 [facility] ALCOHOL AND/OR DRUG SERVICES [id number] [id number] Diagnos is: ICD-10- CM F10.99 Alcohol use, unsp with unspeci fied alcohol -induce d disorde r
FIORELLA HERNANDEZ NDRob M 05/10 [facility] OFFICE O/P NEW LOW 30 MIN [id number] [id number] Diagnos is: ICD-10- CM F10.99 Alcohol use, unsp with unspeci fied alcohol -induce d disorde r
PATRICIA ANTOINE 05/18 [facility] PSYTX W PT 60 MINUTES [id number] [id number] Diagnos is: ICD-10- CM F10.99 Alcohol use, unsp with unspeci fied alcohol -induce d disorde r
MARYFIORELLA COLLINS M 05/18 [facility] Outpatient Encounter [id number] [id number] FIORELLA HERNANDEZ DENNIS M 05/18 [facility] Outpatient Encounter [id number] [id number] FIORELLA HERNANDEZ DENNIS M 05/18 [facility] Outpatient Encounter [id number] [id number] FIORELLA HERNANDEZ 05/18 [facility] Outpatient Encounter [id number] [id number] FIORELLA HERNANDEZ 05/18 [facility] PSYTX W PT 60 MINUTES [id number] [id number] Diagnos is: ICD-10- CM F10.99 Alcohol use, unsp with unspeci fied alcohol -induce d disorde r
FIORELLA HERNANDEZ M 06/01 [facility] OFFICE O/P EST MOD 30 MIN [id number] [id number] Diagnos is: ICD-10- CM F10.99 Alcohol use, unsp with unspeci fied alcohol -induce d disorde r
PATRICIA ANTOINE 06/01 [facility] PSYTX W PT 60 MINUTES [id number] [id number] Diagnos is: ICD-10- CM F10.99 Alcohol use, unsp with unspeci fied alcohol -induce d disorde r
FIORELLA HERNANDEZ 06/09 [facility] Outpatient Encounter [id number] [id number] FIORELLA HERNANDEZ 06/09 [facility] Outpatient Encounter [id number] [id number] PEDRO,DANIEL IRAIS L 06/14 [facility] OFFICE O/P EST MOD 30 MIN [id number] [id number] Diagnos is: ICD-10- CM K76.0 Fatty (change of) liver, not elsewhe re classif ied<br/ > PEDRO,DANIEL IRAIS L 06/14 [facility] Outpatient Encounter [id number] [id number] FIORELLA HERNANDEZ M 06/29 [facility] Outpatient Encounter [id number] [id number] FIORELLA HERNANDEZ 06/29 [facility] PSYTX W PT 60 MINUTES [id number] [id number] Diagnos is: ICD-10- CM F10.99 Alcohol use, unsp with unspeci fied alcohol -induce d disorde r
FIORELLA HERNANDEZ M 06/29 [facility] Outpatient Encounter [id number] [id number] Diagnos is: ICD-10- CM F10.99 Alcohol use, unsp with unspeci fied alcohol -induce d disorde r
PATRICIA ANTOINE 07/04 [facility] PSYTX W PT 60 MINUTES [id number] [id number] Diagnos is: ICD-10- CM F10.99 Alcohol use, unsp with unspeci fied alcohol -induce d disorde r
FIORELLA HERNANDEZ M 07/15 [facility] PSYTX W PT 45 MINUTES [id number] [id number] Diagnos is: ICD-10- CM F32.A Depress ion, unspeci fied
FIORELLA HERNANDEZ M 07/29 [facility] Outpatient Encounter [id number] [id number] 08/08 [facility] OFFICE O/P EST LOW 20 MIN [id number] [id number] Diagnos is: ICD-10- CM K76.0 Fatty (change of) liver, not elsewhe re classif ied<br/ > JAVID PASCAL A 08/08 [facility] OFFICE O/P EST MOD 30 MIN [id number] [id number] Diagnos is: ICD-10- CM F10.99 Alcohol use, unsp with unspeci fied alcohol -induce d disorde r
ELINAPATRICIA Anaya 08/08 [facility] PSYTX W PT 30 MINUTES [id number] [id number] Diagnos is: ICD-10- CM F10.99 Alcohol use, unsp with unspeci fied alcohol -induce d disorde r
FIORELLA HERNANDEZ M 08/12 [facility] MTMS BY PHARM ADDL 15 MIN [id number] [id number] Diagnos is: ICD-10- CM F32.A Depress ion, unspeci fied
CHMIELINSK I,CRISTAL MICHAEL 08/17 [facility] Outpatient Encounter [id number] [id number] 08/26 [facility] MTMS BY PHARM EST 15 MIN 75945-6.40 [id number] Diagnos is: ICD-10- CM F32.A Depress ion, unspeci fied
CHMIELINSK I,CRISTAL MICHAEL 09/07 [facility] Procedures Combined list of: 1) Procedures from Department of Veterans Affairs facilities going back up to thelast 18 months, not all [place] non-surgical procedures are included; 2) All procedures from the Department of Defense facilities. Procedure Procedure Type Code Date Perfomer Comments Sour e Skin Test Anergy Tuberculin Intradermal Skin Test Anergy Tuberculin Intradermal 48912 2010 BRE VELEZ [facility] Audiogram (Screening) Audiogram (Screening) 09368 2010 BRE VELEZ [facility] Influenza Virus Vaccine Intranasal Live Attenuated 2010 FRANCISCA GENTILE Influenza , Live, Intranasa l; Series #: 1; .2 mL; IN; Intranasa l; Mfg: [employer]; Lot: [id number]. DoD Immunization Admin By Intranasal / Oral Route One Vaccine Immunization Admin By Intranasal / Oral Route One Vaccine 10054 2010 FRANCISCA GENTILE [facility] Smoking ce ation cla es, non-physician provider, per se ion 2010 RADHA GONGORA Diagnostic Esophagogastroduodenoscopy 2010 NORBERTO VELEZ [facility] Complete Colonoscopy 2010 NORBERTO VELEZ [facility] Diagnostic Colonoscopy Fiberoptic 2010 BRENT MORGAN Duodenoscopy With Biopsy Multiple 2010 BRENT MORGAN Electrocardiogram Electrocardiogram 35235 08/07 MARY ROGERS [facility] Spectacles Services Fitting Bifocal Except For Aphakia Spectacles Services Fitting Bifocal Except For Aphakia 99220 2010 AMAURI KRAUSE S9 GLASSES ISSUED DoD Spectacles Services Fitting Monofocal Except For Aphakia Spectacles Services Fitting Monofocal Except For Aphakia 81718 2010 AMAURI KRAUSE FOC GLASSES ISSUED DoD Determination Of Refractive State Determination Of Refractive State 74103 2010 AMAURI KRAUSE Ophthalmological Prior Patient Start Comprehensive Care Ophthalmological Prior Patient Start Comprehensive Care 92457 2010 AMAURI KRAUSE Smoking ce ation cla es, non-physician provider, per se ion 2009 RAHEL TRAN Smoking ce ation cla es, non-physician provider, per se ion 2009 RAHEL TRAN Smoking ce ation cla es, non-physician provider, per se ion 2009 RADHA GONGORA [facility] Fitting Monofocal Except For Aphakia Spectacles Services Fitting Monofocal Except For Aphakia 56983 2009 LEOPOLDO NICHOLE Determination Of Refractive State Determination Of Refractive State 12965 2009 LEOPOLDO NICHOLE Ophthalmological New Patient Start Comprehensive Care Ophthalmological New Patient Start Comprehensive Care 28625 2009 LEOPOLDO NICHOLE Influenza Virus Vaccine Pandemic Formulation Influenza Virus Vaccine Pandemic Formulation 72482 2009 MARY EMMANUEL [facility] Immunization Administration By Injection, One Vaccine Immunization Administration By Injection, One Vaccine 26717 2009 MARY EMMANUEL [facility] Influenza Virus Vaccine Intranasal Live Attenuated 2008 CAREN COLLAZO [facility] Immunization Admin By Intranasal / Oral Route One Vaccine Immunization Admin By Intranasal / Oral Route One Vaccine 74126 2008 BLANCOLULUCAREN [facility] Smoking ce ation cla es, non-physician provider, per se ion 2008 RAHEL TRAN [facility] Influenza Virus Vaccine Intranasal Live Attenuated 2007 ABDIRIZAK VILLEDA [facility] Immunization Admin By Intranasal / Oral Route One Vaccine Immunization Admin By Intranasal / Oral Route One Vaccine 98215 2007 ABDIRIZAK VILLEDA [facility] Threshold Audiogram (Pure Tone) Threshold Audiogram (Pure Tone) 99925 2007 TRENA CALDERON [facility] Tdap Vaccine Tdap Vaccine 62245 2006 [place] [facility] Immunization Administration By Injection, Each Additional Vaccine 2006 [facility] Immunization Administration By Injection, One Vaccine Immunization Administration By Injection, One Vaccine 85311 2006 [facility] Vaccines Vaccines 14360 2006 [facility] Foam kathi ing, wound cover, sterile, pad size 16 sq. in. or le , with any size adhesive border, each kathi ing 2006 [place] [facility]. [facility] Patient Counseling Medical Management Five To Eight Patients Patient Counseling Medical Management Five To Eight Patients 32779 2006 [facility] Physician Supervised Services Provision Of Special Supplies Physician Supervised Services Provision Of Special Supplies 22616 2006 [facility] Physician Supervised Services Provision Of Educational Supplies Physician Supervised Services Provision Of Educational Supplies 99968 2006 [place]. [facility] Physician Services Special Review / Reporting Of Patient Status Physician Services Special Review / Reporting Of Patient Status 68668 2006 [place] Physical Therapy Service Re-Evaluation Physical Therapy Service Re-Evaluation 12587 2005 LORENA CHAMBERS [facility] Phys Therapy Education Self Care Training - Per 15 Minutes Phys Therapy Education Self Care Training - Per 15 Minutes 31954 2005 LORENA CHAMBERS Determination Of Refractive State Determination Of Refractive State 63185 2005 LLOYD JARVIS Spectacles Services Fitting Monofocal Except For Aphakia Spectacles Services Fitting Monofocal Except For Aphakia 37595 2005 LLOYD JARVIS Modalities Electrical Stimulation Unattended Modalities Electrical Stimulation Unattended 02014 2005 ALLIE JARVIS Physical Medicine - Group Physical Therapy Se ion Physical Medicine - Group Physical Therapy Session 01361 2005 ALLIE JARVIS Modalities Cryotherapy Cold Packs Modalities Cryotherapy Cold Packs 58226 2005 ALLIE JARVIS Physical Therapy Neuromuscular Re-education Physical Therapy Neuromuscular Re-education 51271 2005 LORENA CHAMBERS Phys Therapy Education Self Care Training - Per 15 Minutes Phys Therapy Education Self Care Training - Per 15 Minutes 96373 2005 LORENA CHAMBERS Lift, elevation, heel, per inch 2005 LORENA CHAMBERS Modalities Electrical Stimulation Unattended Modalities Electrical Stimulation Unattended 78098 2005 LORENA CHAMBERS Modalities Cryotherapy Cold Packs Modalities Cryotherapy Cold Packs 88098 2005 LORENA CHAMBERS Physical Therapy Service Evaluation Physical Therapy Service Evaluation 12158 2005 LORENA CHAMBERS Phys Therapy Education Self Care Training - Per 15 Minutes Phys Therapy Education Self Care Training - Per 15 Minutes 38558 2005 LORENA CHAMBERS Determination Of Refractive State Determination Of Refractive State 13983 2005 LLOYD JARVIS Spectacles Services Fitting Monofocal Except For Aphakia Spectacles Services Fitting Monofocal Except For Aphakia 83425 2005 LLOYD JARVIS SPECIAL REPORTS SUCH INSURANCE FORMS, MORE THAN THE INFORMATION CONVEYED IN THE USUAL MEDICAL COMMUNICATIONS OR STANDARD REPORTING FORM 2006 [facility] SELF-CARE/HOME MANAGMENT TRAIN (EG,ACT OF DAILY LIVING (ADL) &COMPENSAT TRAIN,MEAL PREPARATION,SAFETY PROCS,AND INSTRUCT IN USE OF ASST TECHNOLOGY DEV/ADPT EQUIP) DIR ONE-ON-ONE CONT,EA 15 MINUTES 2005 [facility] FITTING OF SPECTACLES, EXCEPT FOR APHAKIA; MONOFOCAL 2005 [facility] THERAPEUTIC PROCEDURE(S), GROUP (2 OR MORE INDIVIDUALS) 2005 [facility] APPLICATION OF A MODALITY TO 1 OR MORE AREAS; HOT OR COLD PACKS 2005 [facility] SELF-CARE/HOME MANAGMENT TRAIN (EG,ACT OF DAILY LIVING (ADL) &COMPENSAT TRAIN,MEAL PREPARATION,SAFETY PROCS,AND INSTRUCT IN USE OF ASST TECHNOLOGY DEV/ADPT EQUIP) DIR ONE-ON-ONE CONT,EA 15 MINUTES 2005 [facility] FITTING OF SPECTACLES, EXCEPT FOR APHAKIA; MONOFOCAL 2005 [facility] DETERMINATION OF REFRACTIVE STATE 2004 [facility] ELECTROCARDIOGRAM, ROUTINE ECG WITH AT LEAST 12 LEADS; WITH INTERPRETATION AND REPORT 2004 [facility] PHARMACOLOGIC MANAGEMENT, INCLUDING PRESCRIPTION, USE, AND REVIEW OF MEDICATION WITH NO MORE THAN MINIMAL MEDICAL PSYCHOTHERAPY 2002 [facility] SKIN TEST; TUBERCULOSIS, INTRADERMAL 2010 [facility] INFLUENZA VIRUS VACCINE, TRIVALENT, LIVE (LAIV3), FOR INTRANASAL USE 2010 [facility] SMOKING CESSATION CLASSES, NON-PHYSICIAN PROVIDER, PER SESSION 2010 [facility] COLONOSCOPY, FLEXIBLE; DIAGNOSTIC, INCLUDING COLLECTION OF SPECIMEN(S) BY BRUSHING OR WASHING, WHEN PERFORMED (SEPARATE PROCEDURE) 2010 [facility] ELECTROCARDIOGRAM, ROUTINE ECG WITH AT LEAST 12 LEADS; WITH INTERPRETATION AND REPORT 2010 [facility] FITTING OF SPECTACLES, EXCEPT FOR APHAKIA; BIFOCAL 2010 [facility] SMOKING CESSATION CLASSES, NON-PHYSICIAN PROVIDER, PER SESSION 2009 [facility] SMOKING CESSATION CLASSES, NON-PHYSICIAN PROVIDER, PER SESSION 2009 [facility] SMOKING CESSATION CLASSES, NON-PHYSICIAN PROVIDER, PER SESSION 2009 [facility] FITTING OF SPECTACLES, EXCEPT FOR APHAKIA; MONOFOCAL 2009 [facility] INFLUENZA VIRUS VACCINE, PANDEMIC FORMULATION, H1N1 2009 [facility] INFLUENZA VIRUS VACCINE, TRIVALENT, LIVE (LAIV3), FOR INTRANASAL USE 2008 [facility] SMOKING CESSATION CLASSES, NON-PHYSICIAN PROVIDER, PER SESSION 2008 [facility] SMOKING CESSATION CLASSES, NON-PHYSICIAN PROVIDER, PER SESSION 2008 [facility] SMOKING CESSATION TREATMENT 2008 [facility] INFLUENZA VIRUS VACCINE, TRIVALENT, LIVE (LAIV3), FOR INTRANASAL USE 2007 [facility] PURE TONE AUDIOMETRY (THRESHOLD); AIR ONLY 2007 [facility] Social History Combined list of available smoking, tobacco, and other social history from Department of Defense and Veterans Affairs facilities. Social History Type Response Date Comment Sourc e Tobacco smoking status NHIS VA-TOBACCO USER EVERY DAY 03/17/2023 [facility] History of tobacco use VA-TOBACCO USE WI 30 MIN OF WAKEUP 03/17/2023 [facility] History of tobacco use PREVIOUS SMOKER 05/13/2018 [facility] This section is an empty social history section. [facility] Plan of Care List of future care activities from Department of Veterans Affairs facilities. Additional future care activities may be listed in the Assessment and Plan section. Date/Time Care Activity Care Activity Detail Facili ty 10/20/2023 AMBULATORY - PSYCHIATRY AMBULATORY - PSYC HIATRY [facility] 11/23/2023 AMBULATORY - NONE AMBULATORY - NONE [facility] 11/23/2023 Laboratory - Water Supply Technician ry Order IRON+TIBC(P) LT GREEN(LI HEP) PLASMA SP [facility] 11/23/2023 Laboratory - Water Supply Technician ry Order FERRITIN BLOOD(GOLD) SERUM SP [facility] 11/23/2023 Laboratory - Water Supply Technician ry Order LIVER PROFILE LT GREEN(LI HEP) PLASMA [facility]
--- OUTSIDE RECORDS SUMMARY | 2023-10-15 16:16 | XMS_ITS ---
Author Name [facility] [place] Organization [facility] [place] Address [address] [place] [address] Care Team Providers Care Yard Assistant Name Role Phone CHERI VASQUEZ Primary Care [...] Victor's Name Patient's Relationship to Policy Victor [facility] POINT OF SERVICE SOV ACTIV E SELEC TCAR Feb 15, 2018 [id number] SHANELL KHANNA PATIENT EXPRESS SCRIPTS ([id number]) PRESCRIPT ION [facility] NT Feb 15, 2018 Q54A [id number] SHANELL KHANNA PATIENT Selected Encounter This section includes the information on record at [place] for the Encounter. Date/Time Encounter Type Encounter Description Reason Pro vider Source Aug 27, 2023 12:00 PM Outpatient Encounter SUBSTANCE USE DISORDER IND IHE Encounter Template Text not used by VA Plan of Treatment: Future Appointments (+ 6 months) and Future Tests (+/- 45 days) The Plan of Treatment section includes future care activities for the patient from all [place] treatmentfacilities. This section includes future appointments and future orders which are active, pending or scheduled. Future Appointments This section includes appointments that were scheduled to occur 6 months from the date of the Encounter, up to a maximum of 20 appointments. The data comes from all [place] treatment facilities. Appointment Date/Time Appointment Type Appointme nt Facility Name Sep 08, 2023 10:30 [facility] Oct 20, 2023 10:30 [facility] Nov 23, 2023 11:45 AM AMBULATORY - NONE [facility] Lab Results: +/- 30 days of [...] Range Comment Aug 09, 2023 10:38 AM [facility] LIVER PROFILE Specimen Type: PLASMA Comment: Specimen 1+ Hemolysed, Tests performed on Pérez Clean Up Person Mejía [id number] (405) Ordering Provider: ZABRINA PASCAL Report Released Date/Time: Jun 15, 2023 02:08 PM Reporting Lab: [facility] [address] [facility] [address] Performing Lab: [facility] [address] [facility] [address] PROTEIN, TOTAL 8.2 g/dL 6.0-8.5 ALBUMIN 4.5 g/dL 3.2-5.0 BILIRUBIN, TOTAL 0.4 mg/dL 0.2-1.2 ALKALINE PHOSPHATASE 63 U/L 40-150 ALT(SGPT) 50 U/L 7-52 AST(SGOT) 71 U/L H 5-34 Aug 09, 2023 10:38 AM [facility] PT&INR Specimen Type: PLASMA Comment: Tests performed on IL ACL TOP 350 SN [id number] (737) Ordering Provider: ZABRINA PASCAL Report Released Date/Time: Jun 15, 2023 02:08 PM Reporting Lab: [facility] [address] [facility] [address] Performing Lab: [facility] [address] [facility] [address] INR 0.9 {ratio} 0.9-1.1 PT 10.0 s 9.4-12.5 Social History: Smoking Status (Most current) and Tobacco Use (All prior to encounter date) This section includes the most current, and the historical, smoking and tobacco- related health factors from the [place] facility where the Encounter took place. Current Smoking Status This section includes the most current smoking, or tobacco-related health factor, from the [place] facility where the Encounter took place. Date/Time Current Smoking Status Comment Yayo ity Mar 17, 2023 11:00 AM VA-TOBACCO USER EVERY DAY [facility] Tobacco Use History This section includes a history of the smoking, or tobacco-related health factors, that were collected on or before the date of the Encounter. The data comes from the [place] facility where the Encounter took place. Date/Time Smoking Status/Tobacco Use Comment F acility Mar 17, 2023 11:00 AM VA-TOBACCO USE ADVICE [facility] Mar 17, 2023 11:00 AM VA-TOBACCO USE BLASTER HELPER NO [facility] Mar 17, 2023 11:00 AM VA-TOBACCO USE MED NO [facility] Mar 17, 2023 11:00 AM [place]-TOBACCO USE [place] 30 MIN OF WAKEUP [facility] Mar 17, 2023 11:00 AM VA-TOBACCO USER EVERY DAY [facility] May 13, 2018 11:59 AM AH-BPR SMOKING DEPLOYMENT NO [facility] [facility] May 13, 2018 11:59 AM PREVIOUS SMOKER [facility] May 13, 2018 11:59 AM VA-TOBACCO DOESNT USE [place] 30 MIN WAKEUP [facility] May 13, 2018 11:59 AM VA-TOBACCO USE 30 YEARS OR MORE [place] [facility] May 13, 2018 11:59 AM VA-TOBACCO USE ADVICE [facility] May 13, 2018 11:59 AM VA-TOBACCO USE BLASTER HELPER YES [facility] May 13, 2018 11:59 AM VA-TOBACCO USE MED NO [place] [facility] May 13, 2018 11:59 AM VA-TOBACCO USER EVERY DAY [facility] Encounter Notes: All associated encounter notes This section contains the clinical notes associated to the Encounter. Date/Time Encounter Note(s) Provider Source Aug 27, 2023 12:18 PM NO SHOW NOTE: LOCAL TITLE: Mental Health No Show/Clinic Cancel/Conversion Note STANDARD TITLE: NO SHOW NOTE DATE OF NOTE: AUG 27, 2023@12:18 ENTRY DATE: AUG 27, 2023@12:18:57 AUTHOR: BRIAN CARRANZA EXP COSIGNER: URGENCY: STATUS: COMPLETED MENTAL HEALTH NO SHOW/CLINIC CANCELLATION/CLINIC CONVERSION NOTE Appointment Date & Time: Aug@12:00 ACTION: Provider attempted to reach to discuss: No Show Cancellation by clinic (X) Cancellation by [place] Conversion of clinic appointment REASON: for no show or clinic cancel/reschedule: said he has been receiving unexpected bills for VA services, was told his eligibility has changed. Will call when this is sorted out. OUTCOME: Reached and Clinic rescheduled to: [facility] Clinic Telephone Clinic Face to Face Clinic New clinic appointment date/time: [place]'s email address: Left voicemail message: Any Acute Safety Concerns? No If Yes, Action Taken or Further Follow-up: Co-sign MSAs at location to this note to take action on the clinic appt and add any additional instructions to MSA group. /vicente/ Brian Carranza MS [facility] Addiction Therapist Signed: 08/27/2023 12:20 Receipt Acknowledged By: 08/30/2023 10:53 /vicente/ CORNELL Chambers [facility] Trailer Chief BRIAN CARRANZA [facility]
--- OUTSIDE RECORDS SUMMARY | 2023-10-15 16:16 | XMS_ITS | Encounter Summary ---
Author Name [facility] [place] [facility] [place] Address [address] [place] [address] Care Team Providers Care Hospital Account Liaison Name Role Phone CHERI VASQUEZ Primary Care [...] Victor's Name Patient's Relationship to Policy Victor [facility] POINT OF SERVICE SOV ACTIV E SELEC TCAR Feb 15, 2018 [id number] KHANNA,SHANELL ERT PATIENT [employer] SCRIPTS ([id number]) PRESCRIPT ION [facility] NT Feb 15, 2018 Q54A [id number] CLEMENCIASHAENLL ERT PATIENT Selected Encounter This section includes the information on record at [place] for the Encounter. Date/Time Encounter Type Encounter Description Reason Pro vider Source Nov 16, 2022 09:21 AM Outpatient Encounter EVENT (HISTORICAL) IHE Encounter Template Text not used by [...] 20 appointments. The data comes from all [place] treatment facilities. Appointment Date/Time Appointment Type Appointme nt Facility Name Nov 17, 2022 11:00 AM AMBULATORY - MEDICINE [facility] Nov 17, 2022 11:45 AM AMBULATORY - NONE [facility] Dec 10, 2022 10:30 AM AMBULATORY - NONE [facility] Feb 05, 2023 11:00 AM AMBULATORY - NONE [facility] [facility] Mar 17, 2023 11:00 AM [facility] [place]IC[place] [facility] Apr 13, 2023 03:00 PM [place] [facility] Apr 19, 2023 11:30 AM [facility] [place] [facility] May 11, 2023 02:00 PM [facility] [place] [facility] Lab Results: +/- 30 days of the encounter This section includes the Chemistry and Hematology Lab Results on record with [place] for the patient. Radiology Reports and Pathology Reports are provided separately, in subsequent sections. Lab Results This section contains the Chemistry/Hematology Results that were resulted 30 days before or 30 daysafter the date of the Encounter. Date/Time Source Result Type Result - Unit Interpretation Reference Range Comment Dec 10, 2022 11:42 AM [facility] PSA (SUPERVISOR SHUTTLE FITTING) Specimen Type: SERUM Comment: Tests performed on Pérez [employer] (405) SN:[id number] Ordering Provider: CHERI VASQUEZ Report Released Date/Time: Dec 10, 2022 11:39 AM Reporting Lab: [facility] [address] [place] [facility] [place] [place] [address] Performing Lab: [facility] [address] [place] [facility] [place] [address] PSA (SUPERVISOR SHUTTLE FITTING) 1.75 ng/mL 0-4.0 Dec 10, 2022 11:42 AM [facility] VIT D 25-OH(J) Specimen Type: SERUM Comment: Tests performed on Pérez Geothermal Installer (405) SN:[id number] Ordering Provider: CHERI VASQUEZ Report Released Date/Time: Dec 10, 2022 11:39 AM Reporting Lab: [facility] [address] [facility] [address] Performing Lab: [facility] [address] [facility] [address] VIT D 25-OH(J) 28.9 ng/mL 20-50 Dec 10, 2022 11:42 AM [facility] THYROID TESTING CASCADE Specimen Type: SERUM Comment: Tests performed on Pérez [employer] (405) SN:[id number] Ordering Provider: CHERI VASQUEZ Report Released Date/Time: Dec 10, 2022 11:39 AM Reporting Lab: [facility] [address] [facility] [address] Performing Lab: [facility] [address] [facility] [address] T4,FREE 1.0 ng/dL 0.6-1.6 TSH 0.91 u[IU]/mL 0.35-5.00 Nov 17, 2022 11:05 AM [facility] LIPOPROTEIN CHOLESTEROL FRACT. PANEL Specimen Type: PLASMA Comment: Tests performed on Pérez [employer]othermal Installer (405) SN:[id number] Ordering Provider: CHERI VASQUEZ Report Released Date/Time: Nov 12, 2022 03:17 PM Reporting Lab: [facility] [address] [facility] [address] Performing Lab: [facility] [address] [facility] [address] CHOLESTEROL 215 mg/dL H 0-199 TRIGLYCERIDE 35 mg/dL 0-149 HDL CHOLESTEROL 138 mg/dL >40 LDL CHOLESTEROL (CALC) 70 mg/dL 0-129 Nov 17, 2022 11:05 AM [facility] LIVER PROFILE Specimen Type: PLASMA Comment: Tests performed on Pérez Geothermal Installer (405) SN:[id number] Ordering Provider: CHERI VASQUEZ Report Released Date/Time: Nov 12, 2022 03:17 PM Reporting Lab: [facility] [address] [facility] [address] Performing Lab: [facility] [address] [facility] [address] PROTEIN, TOTAL 8.0 g/dL 6.0-8.5 ALBUMIN 4.3 g/dL 3.2-5.0 BILIRUBIN, TOTAL 0.6 mg/dL 0.2-1.2 ALKALINE PHOSPHATASE 66 U/L 40-150 ALT(SGPT) 43 U/L 7-52 AST(SGOT) 59 U/L H 5-34 FIB-4 SCORE 2.56 {index} <2.67 Nov 17, 2022 11:05 AM [facility] P4 GLU,BUN,CREAT,LYTES,CA Specimen Type: PLASMA Comment: Tests performed on [employer] (405) SN:[id number] Ordering Provider: CHERI VASQUEZ Report Released Date/Time: Nov 12, 2022 03:17 PM Reporting Lab: [facility] [address] [facility] [address] Performing Lab: [facility] [address] [facility] [address] UREA NITROGEN 11 mg/dL 7-25 SODIUM 135 mmol/L 135-145 POTASSIUM 4.7 mmol/L 3.5-5.0 CHLORIDE 102 mmol/L 100-110 CARBON DIOXIDE 26 mmol/L 20-30 ANION GAP 7 mmol/L 4-16 GLUCOSE 100 mg/dL 65-100 CREATININE 1.04 mg/dL 0.5-1.5 CALCIUM 10.7 mg/dL H 8.5-10.5 eGFR(CKD-EPI 2020) 82 mL/min >60 Nov 17, 2022 11:05 AM [facility] CBC PROFILE Specimen Type: BLOOD No comment entered. Ordering Provider: CHERI VASQUEZ Report Released Date/Time: Nov 12, 2022 03:17 PM Reporting Lab: [facility] [address] [facility] [address] Performing Lab: [facility] [address] [facility] [address] WBC 4.8 10*3/uL 4.5-11.0 RBC 4.19 10*6/uL [...] 10*3/uL 0-0 Nov 17, 2022 11:[address] [facility] GLYCOHEMOGLOBIN (A1C ONLY) Specimen Type: BLOOD Comment: Tests performed on [employer] (405) SN:[id number] Values obtained from A1C measurements can vary. For typical A1C assays, a reported value of 7.0 could actually be between 6.72 and 7.28 if measured by a reference method. A reported value of 9.0 could actually be between 8.73 and 9.27. Reference [email or web address].ng sp.org/CAPdat a.asp Ordering Provider: CHERI VASQUEZ Report Released Date/Time: Nov 12, 2022 03:17 PM Reporting [facility] [address] [facility] [address] [facility]forming [facility]: [facility] [address] [facility] [address] HEMOGLOBIN A1C 5.1 4.0-5.6 Social History: Smoking Status (Most current) and Tobacco Use (All prior to encounter date) This section includes the most current, and the historical, smoking and tobacco- related health factors from the [place] facility where the Encounter took place. Current Smoking Status This section includes the most current smoking, or tobacco-related health factor, from the [place] facility where the Encounter took place. Date/Time Current Smoking Status Comment Facil jese May 13, 2018 11:59 AM PREVIOUS SMOKER KEN [facility] Tobacco Use History This section includes a history of the smoking, or tobacco-related health factors, that were collected on or before the date of the Encounter. The data comes from the [place] facility where the Encounter took place. Date/Time Smoking Status/Tobacco Use Comment F stacey May 13, 2018 11:59 AM PREVIOUS SMOKER KEN [facility] May 13, 2018 11:59 AM VA-TOBACCO DOESNT USE [place] 30 MIN WAKEUP [facility] May 13, 2018 11:59 AM VA-TOBACCO USE 30 YEARS OR MORE [facility] May 13, 2018 11:59 AM VA-TOBACCO USE ADVICE [facility] May 13, 2018 11:59 AM VA-TOBACCO USE VP & GENERAL COUNSEL YES [facility] May 13, 2018 11:59 AM [facility] May 13, 2018 11:59 AM VA-TOBACCO USER EVERY DAY [facility]
--- OUTSIDE RECORDS SUMMARY | 2023-10-15 16:16 | XMS_ITS | Encounter Summary ---
Author Name [facility] [place] Organization [facility] [place] Address [address] [place] [address] Care Team Providers Care Real Estate Sales Agent Name Role Phone CHERI VASQUEZ Primary Care [...] Victor's Name Patient's Relationship to Policy Victor [facility] POINT OF SERVICE SOV ACTIV E SELEC TCAR Feb 15, 2018 [id number] KHANNA,SHANELL ERT PATIENT EXPRESS SCRIPTS ([id number]) PRESCRIPT [facility] Feb 15, 2018 Q54A [id number] CLEMENCIASHANELL ERT PATIENT Selected Encounter This section includes the information on record at [place] for the Encounter. Date/Time Encounter Type Encounter Description Reason Pro vider Source Nov 16, 2022 11:36 AM Outpatient Encounter EVENT (HISTORICAL) IHE Encounter [...] 20 appointments. The data comes from all [place] treatment facilities. Appointment Date/Time Appointment Type Appointme nt Facility Name Nov 17, 2022 11:00 AM [facility] Nov 17, 2022 11:45 AM AMBULATORY - NONE [facility] Dec 10, 2022 10:30 AM AM[facility]ULATORY [facility] NONE [facility] Feb 05, 2023 11:00 AM AMBULATORY [...] PM [facility]BULATORY - [place]I[facility] [place] [facility] Lab Results: +/- 30 days of the encounter This section includes the Chemistry and Hematology Lab Results on record with [place] for the patient. Radiology Reports and Pathology Reports are provided separately, in subsequent sections. Lab Results This section contains the Chemistry/Hematology Results that were resulted 30 days before or 30 daysafter the date of the Encounter. Date/Time Source Result Type Result - Unit Interpretation Reference Range Comment Dec 10, 2022 11:42 AM [facility] PSA (RETAIL STORE CLERK) Specimen Type: SERUM Comment: Tests performed on Pérez [employer] (405) SN:[id number] Ordering Provider: HCERI VASQUEZ Report Released Date/Time: Dec 10, 2022 11:39 AM Reporting Lab: [facility] [address] [place] [place] [address] Performing Lab: [facility] [address] [place] [facility] [place] [address] PSA (RETAIL STORE CLERK) 1.75 ng/mL 0-4.0 Dec 10, 2022 11:42 AM [facility] VIT D 25-OH(J) Specimen Type: SERUM Comment: Tests performed on Pérez [employer] Feeder (405) SN:[id number] Ordering Provider: CHERI VASQUEZ Report Released Date/Time: Dec 10, 2022 11:39 AM Reporting Lab: [facility] [address] [facility] [address] Performing Lab: [facility] [address] [facility] [address] VIT D 25-OH(J) 28.9 ng/mL 20-50 Dec 10, 2022 11:42 AM [facility] THYROID TESTING CASCADE Specimen Type: SERUM Comment: Tests performed on Pérez [employer] (405) SN:[id number] Ordering Provider: CHERI VASQUEZ Report Released Date/Time: Dec 10, 2022 11:39 AM Reporting Lab: [facility] [address] [facility] [address] Performing Lab: [facility] [address] [facility] [address] T4,FREE 1.0 ng/dL 0.6-1.6 TSH 0.91 u[IU]/mL 0.35-5.00 Nov 17, 2022 11:05 AM [facility] LIPOPROTEIN CHOLESTEROL FRACT. PANEL Specimen Type: PLASMA Comment: Tests performed on Pérez [employer] Feeder (405) SN:[id number] Ordering Provider: CHERI VASQUEZ Report Released Date/Time: Nov 12, 2022 03:17 PM Reporting Lab: [facility] [address] [facility] [address] Performing Lab: [facility] [address] [facility] [address] CHOLESTEROL 215 mg/dL H 0-199 TRIGLYCERIDE 35 mg/dL 0-149 HDL CHOLESTEROL 138 mg/dL >40 LDL CHOLESTEROL (CALC) 70 mg/dL 0-129 Nov 17, 2022 11:05 AM [facility] LIVER PROFILE Specimen Type: PLASMA Comment: Tests performed on Pérez [employer] (405) SN:[id number] Ordering Provider: CHERI VASQUEZ Report Released Date/Time: Nov 12, 2022 03:17 PM Reporting Lab: [facility] [address] [facility] [address] Performing Lab: [facility] [address] [facility] [address] PROTEIN, TOTAL 8.0 g/dL 6.0-8.5 ALBUMIN 4.3 g/dL 3.2-5.0 BILIRUBIN, TOTAL 0.6 mg/dL 0.2-1.2 ALKALINE PHOSPHATASE 66 U/L 40-150 ALT(SGPT) 43 U/L 7-52 AST(SGOT) 59 U/L H 5-34 FIB-4 SCORE 2.56 {index} <2.67 Nov 17, 2022 11:05 AM [facility] P4 GLU,BUN,CREAT,LYTES,CA Specimen Type: PLASMA Comment: Tests performed on [employer] (405) SN:[id number] Ordering Provider: CHERI VASQUZE Report Released Date/Time: Nov 12, 2022 03:17 PM Reporting Lab: [facility] [address] [facility] [address] Performing Lab: [facility] [address] [facility] [address] UREA NITROGEN 11 mg/dL 7-25 SODIUM 135 mmol/L 135-145 POTASSIUM 4.7 mmol/L 3.5-5.0 CHLORIDE 102 mmol/L 100-110 CARBON DIOXIDE 26 mmol/L 20-30 ANION GAP 7 mmol/L 4-16 GLUCOSE 100 mg/dL 65-100 CREATININE 1.04 mg/dL 0.5-1.5 CALCIUM 10.7 mg/dL H 8.5-10.5 eGFR(CKD-EPI 2020) 82 mL/min >60 Nov 17, 2022 11:05 AM [facility] CBC PROFILE Specimen Type: BLOOD No comment entered. Ordering Provider: CHERI VASQUEZ Report Released Date/Time: Nov 12, 2022 03:17 PM Reporting Lab: [facility] [address] [facility] [address] Performing Lab: [facility] [address] [facility] [address] WBC 4.8 10*3/uL 4.5-11.0 RBC 4.19 10*6/uL [...] 10*3/uL 0-0 Nov 17, 2022 11:05 AM [facility] GLYCOHEMOGLOBIN (A1C ONLY) Specimen Type: BLOOD Comment: Tests performed on [employer] (405) SN:[id number] Values obtained from A1C measurements can vary. For typical A1C assays, a reported value of 7.0 could actually be between 6.72 and 7.28 if measured by a reference method. A reported value of 9.0 could actually be between 8.73 and 9.27. Reference [email or web address].ng [email or web address]/CAPdat a.asp Ordering Provider: CHERI VASQUEZ Report Released Date/Time: Nov 12, 2022 03:17 PM Reporting Lab: [facility] [address] [facility] [address] Performing Lab: [facility] [address] [facility] [address] HEMOGLOBIN A1C 5.1 4.0-5.6 Social History: Smoking Status (Most current) and Tobacco Use (All prior to encounter date) This section includes the most current, and the historical, smoking and tobacco- related health factors from the [place] facility where the Encounter took place. Current Smoking Status This section includes the most current smoking, or tobacco-related health factor, from the [place] facility where the Encounter took place. Date/Time Current Smoking Status Comment Facil jese May 13, 2018 11:59 AM PREVIOUS SMOKER KEN BURNHAM [facility] Tobacco Use History This section includes a history of the smoking, or tobacco-related health factors, that were collected on or before the date of the Encounter. The data comes from the [place] facility where the Encounter took place. Date/Time Smoking Status/Tobacco Use Comment F stacey May 13, 2018 11:59 AM PREVIOUS SMOKER KEN [facility]UR[facility] May 13, 2018 11:59 AM VA-TOBACCO DOESNT USE WI 30 MIN WAKEUP [facility] May 13, 2018 11:59 AM VA-TOBACCO USE 30 YEARS OR MORE [facility] May 13, 2018 11:59 AM VA-TOBACCO USE ADVICE [facility] May 13, 2018 11:59 AM VA-TOBACCO USE SKATING CARHOP YES [facility] May 13, 2018 11:59 AM VA-TOBACCO USE MED [facility] May 13, 2018 11:59 AM VA-TOBACCO USER EVERY DAY [facility]
--- OUTSIDE RECORDS SUMMARY | 2023-10-15 16:17 | XMS_ITS | Encounter Summary ---
Author Name [facility] [place] Address [address] [place] [address] Care Team Providers Care Trade Promotion Analyst Name Role Phone CHERI VASQUEZ Primary Care [...] Victor's Name Patient's Relationship to Policy Victor [facility] POINT OF SERVICE SOV ACTIV E SELEC TCAR Feb 15, 2018 [id number] SHANELL KHANNA PATIENT [employer] ([id number]) PRESCRIPT ION [facility] NT Feb 15, 2018 [id number] SHANELL KHANNA ERT PATIENT Selected Encounter This section includes the information on record at [place] for the Encounter. Date/Time Encounter Type Encounter Description Reason Provider Source Feb 09, 2023 10:16 AM Outpatient Encounter TELEPHONE PRIMARY CARE ICD-10-CM K74.00 Hepatic fibrosis, unspecified CHERI VASQUEZ [facility] Encounter Template Text not used by [facility] Assessments - Encounter Diagnoses This section includes the primary and secondary diagnoses documented for the Encounter. Date/Time Primary/Secondary Diagnosis Diagnosis Name Provider Source Feb 09, 2023 10:16 AM PRIMARY Hepatic fibrosis, unspecified CHERI VASQUEZ [facility] Plan of Treatment: Future Appointments (+ 6 months) and Future Tests (+/- 45 days) The Plan of Treatment section includes future care activities for the patient from all [place] treatmentfacilities. This section includes future appointments and future orders which are active, pending or scheduled. Future Appointments This section includes appointments that were scheduled to occur 6 months from the date of the Encounter, up to a maximum of 20 appointments. The data comes from all [place] treatment facilities. Appointment Date/Time Appointment Type Appointme nt Facility Name Mar 17, 2023 11:00 AM [facility] [place] [facility] Apr 13, 2023 03:00 PM [place] [facility] Apr 19, 2023 11:30 AM [facility] [place] [facility] [facility] May 11, 2023 02:00 PM [place] [facility] May 19, 2023 12:45 PM [place] [facility] May 19, 2023 02:00 PM [place] [facility] Jun 02, 2023 11:00 AM [place] [facility] Jun 02, 2023 12:00 PM [place] [facility] Jun 10, 2023 03:00 PM [place] [facility] Jun 15, 2023 12:45 PM [place] [facility] June 30, 2023 03:00 PM [place] [facility] July 16, 2023 01:00 PM [place] [facility] Jul 30, 2023 01:00 PM [place] [facility] Aug 09, 2023 10:30 AM [place] [facility] Aug 09, 2023 11:15 AM [facility] [place] [facility] Social History: Smoking Status (Most current) and Tobacco Use (All prior to encounter date) This section includes the most current, and the historical, smoking and tobacco- related health factors from the [facility] facility where the Encounter took place. Current Smoking Status This section includes the most current smoking, or tobacco-related health factor, from the [place] facility where the Encounter took place. Date/Time Current Smoking Status Mira sawant May 13, 2018 11:59 AM -BPR SMOKING DEPLOYMENT NO [facility] Radiology Reports: +/- 30 days of the encounter Radiology Reports For cases when an order for radiology services may have been completed prior to the date of the Encounter, the report list includes the Radiology Reports that were completed up to 30 days before dateof the Encounter. For cases when an order for radiology services may have been completed after the date of the Encounter, the report list also includes the Radiology Reports that were completed up to30 days after date of the Encounter. The data comes from all [place] treatment facilities. Date/Time Radiology Report Provider Source Feb 05, 2023 11:00 AM ELASTOGRAPHY BEVERLY RAMIREZ (E.G., ORGAN): AMAURI KHANNA [id number] -1960 M Exm Date: FEB 05, 2023@11:00 Req Phys: CHERI VASQUEZ Pat Loc: LIT PACT T (Req'g Loc) Img Loc: ULTRASOUND (OOS) Service: Unknown (Case [id number] COMPLETE) ELASTOGRAPHY PARENCHYMA (E.G., OR(US Detailed) CPT:15821 Reason for Study: elevated AST Clinical History: daily etoh ? fibrosis Report Status: Verified Date Reported: FEB 05, 2023 Date Verified: FEB 05, 2023 Gas Appliance Servicer E-Sig:/ES/PATTI VAZ Report: Ultrasound -- abdomen with Elastography: COMPARISON: No relevant prior imaging. The liver is somewhat enlarged and the echotexture is somewhat inhomogeneous and generally increased as compared with the adjacent right kidney. No suspicious focal liver lesions are appreciated. The liver contours are generally smooth. The main portal vein is of normal caliber measuring 4 Doppler demonstrates patency and antegrade flow which can be tracked into the right and left portal veins. Flow within the hepatic veins also appears to be patent and antegrade. Elastography of the right lobe of the liver reveals an average internal tissue pressure of 8.74 kPa. (The IQR/Median calculation is 0.23 deviation.) The gallbladder is at least partially distended. There are no detectable calculi nor is there a suggestion of wall thickening, pericholecystic fluid or tenderness to direct compression. The common bile duct is of normal caliber measuring 3.3 mm. Pancreatic head, neck and body have a normal echotexture. Details obscured by bowel gas. There is no suggestion of a mass or pancreatic duct dilatation. There is no free fluid in right upper quadrant. The right kidney measures 11.2 cm in length there is mild diffuse thinning of the renal parenchyma. There is no mass or hydronephrosis. There is, however, a 1.0 cm upper pole cyst. Impression: 1. Borderline hepatomegaly with echotexture changes suggesting hepatic steatosis. 2. Liver Elastography indicates stage III fibrosis. Primary Diagnostic Code: NO IMMEDIATE ATTENTION REQUIRED Primary Interpreting Staff: PATTI VAZ, RADIOLOGY ATTENDING (Gas Appliance Servicer) /PATTI [facility] Feb 05, 2023 11:00 AM ULTRASOUND RUQ (GB,LIVER,BILIARY): AMAURI KHANNA [id number] -1960 M Exm Date: FEB 05, 2023@11:00 Req Phys: CHERI VASQUEZ Pat Loc: LIT PACT T (Req'g Loc) Img Loc: ULTRASOUND (OOS) Service: Unknown (Case [id number] COMPLETE) ULTRASOUND RUQ (GB,LIVER,BILIARY)(US Detailed) CPT:34870 Reason for Study: elevated ast Clinical History: daily etoh ? fibrosis Report Status: Verified Date Reported: FEB 05, 2023 Date Verified: FEB 05, 2023 Gas Appliance Servicer E-Sig:/ES/PATTI VAZ Report: Ultrasound -- abdomen with Elastography: COMPARISON: No relevant prior imaging. The liver is somewhat enlarged and the echotexture is somewhat inhomogeneous and generally increased as compared with the adjacent right kidney. No suspicious focal liver lesions are appreciated. The liver contours are generally smooth. The main portal vein is of normal caliber measuring 4 Doppler demonstrates patency and antegrade flow which can be tracked into the right and left portal veins. Flow within the hepatic veins also appears to be patent and antegrade. Elastography of the right lobe of the liver reveals an average internal tissue pressure of 8.74 kPa. (The IQR/Median calculation is 0.23 deviation.) The gallbladder is at least partially distended. There are no detectable calculi nor is there a suggestion of wall thickening, pericholecystic fluid or tenderness to direct compression. The common bile duct is of normal caliber measuring 3.3 mm. Pancreatic head, neck and body have a normal echotexture. Details obscured by bowel gas. There is no suggestion of a mass or pancreatic duct dilatation. There is no free fluid in right upper quadrant. The right kidney measures 11.2 cm in length there is mild diffuse thinning of the renal parenchyma. There is no mass or hydronephrosis. There is, however, a 1.0 cm upper pole cyst. Impression: 1. Borderline hepatomegaly with echotexture changes suggesting hepatic steatosis. 2. Liver Elastography indicates stage III fibrosis. Primary Diagnostic Code: NO IMMEDIATE ATTENTION REQUIRED Primary Interpreting Staff: PATTI VAZ, RADIOLOGY ATTENDING (Gas Appliance Servicer) /PATTI [facility] Encounter Notes: All associated encounter notes This section contains the clinical notes associated to the Encounter. Date/Time Encounter Note(s) Provider Source Mar 23, 2023 10:38 AM ADDENDUM: LOCAL TITLE: Addendum STANDARD TITLE: ADDENDUM DATE OF NOTE: MAR 23, 2023@10:38:05 ENTRY DATE: MAR 23, 2023@10:38:06 AUTHOR: CHERI VASQUEZ EXP COSIGNER: URGENCY: STATUS: COMPLETED Please mail to Thanks. /vicente/ CHERI VASQUEZ APRN Signed: 03/23/2023 10:38 Receipt Acknowledged By: 03/23/2023 10:40 /es/ MARK ANTHONY BALDWIN MSA --- Original Document --- 03/23/23 Letter To Patient: DEPARTMENT OF [facility] [address] [place] [address] MAR 23, 2023 AMAURI KHANNA [address], [place] [address] Dear AMAURI KHANNA: Labs resilts are negative for hepatitis B. Collection time: Mar 17, 2023@10:27 Test Name Result Units Range --------- ------ ----- ----- HEP B SURFACE AG(wh) Non Reactive Ref: Non Reactive Comments: If you have questions, you can reach us through [facility] or your nurse at [phone], [phone]. Sincerely, CHERI VILLAVICENCIO APRN [facility] Mar 23, 2023 10:36 AM LETTERS: LOCAL TITLE: Letter To Patient STANDARD TITLE: LETTERS DATE OF NOTE: MAR 23, 2023@10:36 ENTRY DATE: MAR 23, 2023@10:36:16 AUTHOR: CHERI VASQUEZ EXP COSIGNER: URGENCY: STATUS: COMPLETED Letter To Patient Has ADDENDA DEPARTMENT OF [facility] [address] [place] [address] MAR 23, 2023 AMAURI KHANNA [address], [place] [address] Dear AMAURI KHANNA: Labs resilts are negative for hepatitis B. Collection time: Mar 17, 2023@10:27 Test Name Result Units Range --------- ------ ----- ----- HEP B SURFACE AG(wh) Non Reactive Ref: Non Reactive Comments: If you have questions, you can reach us through [facility] or your nurse at [phone], [phone]. Sincerely, CHERI VASQUEZ APRN 03/23/2023 ADDENDUM STATUS: COMPLETED Please mail to Thanks. /es/ CHERI VASQUEZ APRN Signed: 03/23/2023 10:38 Receipt Acknowledged By: 03/23/2023 10:40 /es/ CHERI HUSSEIN MSA [facility] Mar 18, 2023 03:19 PM ADDENDUM: LOCAL TITLE: Addendum STANDARD TITLE: ADDENDUM DATE OF NOTE: MAR 18, 2023@15:19:38 ENTRY DATE: MAR 18, 2023@15:19:39 AUTHOR: PRAVEEN LEE EXP COSIGNER: URGENCY: STATUS: COMPLETED Looked in Imaging Display at outside records and in JLV. Only found the following in JLV, from DOD: Vaccine Administered Date: [birth year] 1998 Vaccine Administered Product Type: hepatitis A vaccine, adult dosage Series: 2 There was no record of the 1st vaccine in the series. /vicente/ PRAVEEN LEE RN Signed: 03/18/2023 15:20 Receipt Acknowledged By: 03/23/2023 10:35 /matthew VASQUEZ APRN --- Original Document --- 02/09/23 Telephone Note-Primary Care: Work Phone: Cell phone: Call to to discuss results of liver U/S done 02/05/23 Impression: 1. Borderline hepatomegaly with echotexture changes suggesting hepatic steatosis. 2. Liver Elastography indicates stage III fibrosis. Ordered labs: Hepatitis B and C screen . iron & TIBC, ferratin and consult to GI agrees with plan and agrees to go to [facility] [x] Counseling of patient/family dominates over 50% of this 7 minute telephone encounter /matthew VASQUEZ APRN Signed: 02/10/2023 14:15 03/18/2023 ADDENDUM STATUS: COMPLETED recomendation re immunizations from GI: Immunizations: Recommendations if not immune or no history of vaccination please consider a. Hepatitis B vaccine series b. Hepatitis A vaccine series PACT nurse please retireve vaccine histories for Hep B and Hep A HBSAG PANEL WITH REFLEX CONFIRMATION() drawn 03/17/23 results peninding /matthew VASQUEZ APRN Signed: 03/18/2023 13:37 Receipt Acknowledged By: 03/18/2023 15:18 /matthew LEE RN 03/18/2023 16:25 /vicente/ GORDO SALCEDO LPN, [facility] Mar 18, 2023 01:35 PM ADDENDUM: LOCAL TITLE: Addendum STANDARD TITLE: ADDENDUM DATE OF NOTE: MAR 18, 2023@13:35:26 ENTRY DATE: MAR 18, 2023@13:35:27 AUTHOR: CHERI VASQUEZ EXP COSIGNER: URGENCY: STATUS: COMPLETED recomendation re immunizations from GI: Immunizations: Recommendations if not immune or no history of vaccination please consider a. Hepatitis B vaccine series b. Hepatitis A vaccine series PACT nurse please retireve vaccine histories for Hep B and Hep A HBSAG PANEL WITH REFLEX CONFIRMATION() drawn 03/17/23 results peninding /vicente/ CHERI VASQUEZ APRN Signed: 03/18/2023 13:37 Receipt Acknowledged By: 03/18/2023 15:18 /es/ PRAVEEN LEE RN 03/18/2023 16:25 /es/ GORDO SALCEDO LPN, PRIMARY CARE --- Original Document --- 02/09/23 Telephone Note-Primary Care: Work Phone: Cell phone: Call to to discuss results of liver U/S done 02/05/23 Impression: 1. Borderline hepatomegaly with echotexture changes suggesting hepatic steatosis. 2. Liver Elastography indicates stage III fibrosis. Ordered labs: Hepatitis B and C screen . iron & TIBC, ferratin and consult to GI agrees with plan and agrees to go [facility] [x] Counseling of patient/family dominates over 50% of this 7 minute telephone encounter /vicente/ CHERI VASQUEZ APRN Signed: 02/10/2023 14:15 03/18/2023 ADDENDUM STATUS: COMPLETED Looked in Imaging Display at outside records and in JLV. Only found the following in JLV, from DOD: Vaccine Administered Date: Jan 19, 1998 Vaccine Administered Product Type: hepatitis A vaccine, adult dosage Series: 2 There was no record of the 1st vaccine in the series. /vicente/ PRAVEEN LEE RN Signed: 03/18/2023 15:20 Receipt Acknowledged By: * AWAITING SIGNATURE * CHERI VASQUEZ EVELYN L Forrest [facility] Feb 09, 2023 10:16 AM PRIMARY CARE TELEP REBECCA ENCOUNTER NOTE: LOCAL TITLE: Telephone Note-Primary Care STANDARD TITLE: PRIMARY CARE TELEPHONE ENCOUNTER NOTE DATE OF NOTE: FEB 09, 2023@10:16 ENTRY DATE: FEB 09, 2023@10:16:41 AUTHOR: CHERI VASQUEZ EXP COSIGNER: URGENCY: STATUS: COMPLETED Telephone Note-Primary Care Has ADDENDA Work Phone: Cell phone: Call to to discuss results of liver U/S done 02/05/23 Impression: 1. Borderline hepatomegaly with echotexture changes suggesting hepatic steatosis. 2. Liver Elastography indicates stage III fibrosis. Ordered labs: Hepatitis B and C screen . iron & TIBC, ferratin and consult to GI agrees with plan and agrees to go to [facility] [x] Counseling of patient/family dominates over 50% of this 7 minute telephone encounter /matthew VASQUEZ APRN Signed: 02/10/2023 14:15 03/18/2023 ADDENDUM STATUS: COMPLETED recomendation re immunizations from GI: Immunizations: Recommendations if not immune or no history of vaccination please consider a. Hepatitis B vaccine series b. Hepatitis A vaccine series PACT nurse please retireve vaccine histories for Hep B and Hep A HBSAG PANEL WITH REFLEX CONFIRMATION() drawn 03/17/23 results peninding /vicente/ CHERI VASQUEZ APRN Signed: 03/18/2023 13:37 Receipt Acknowledged By: 03/18/2023 15:18 /vicente/ PRAVEEN LEE RN * AWAITING SIGNATURE * GORDO SALCEDO 03/18/2023 ADDENDUM STATUS: COMPLETED Looked in Imaging Display at outside records and in JLV. Only found the following in JLV, from DOD: Vaccine Administered Date: [birth year] 19[birth year] 1998 Vaccine Administered Product Type: hepatitis A vaccine, adult dosage Series: 2 There was no record of the 1st vaccine in the series. /vicente/ PRAVEEN LEE RN Signed: 03/18/2023 15:20 Receipt Acknowledged By: * AWAITING SIGNATURE * CHERI VASQUEZ EVELYN L [facility]
--- OUTSIDE RECORDS SUMMARY | 2023-10-15 16:17 | XMS_ITS | Encounter Summary ---
Author Name [facility] Organization [facility] [place] Address [address] [place] [address] Care Team Providers Care [place] Representative Name Role Phone CHERI VASQUEZ Primary Care [...] Victor's Name Patient's Relationship to Policy Victor [facility] POINT OF SERVICE SOV ACTIV E SELEC TCAR Feb 15, 2018 [id number] KHANNASHANELL PATIENT [facility] ([id number]) PRESCRIPT ION [facility] NT Feb 15, 2018 [id number] SHANELL KHANNA ERT PATIENT Selected Encounter This section includes the information on record at [place] for the Encounter. Date/Time Encounter Type Encounter Description Reason Pro vider Source Mar 17, 2023 11:00 AM OFFICE O/P NEW LOW 30 MIN GASTROENTEROLOGY ICD-10-CM R94.5 Abnormal results of liver function studies ZABRINA PASCAL Encounter Template Text not used by [facility] Assessments - Encounter Diagnoses This section includes the primary and secondary diagnoses documented for the Encounter. Date/Time Primary/Secondary Diagnosis Diagnosis Name Provider Source Mar 17, 2023 04:20 PM PRIMARY Abnormal results of liver function studies ZABRINA PASCAL T [facility] Mar 17, 2023 04:20 PM SECONDARY Alcoholic fatty liver ZABRINA PASCAL T [facility] Plan of Treatment: Future Appointments (+ 6 months) and Future Tests (+/- 45 days) The Plan of Treatment section includes future care activities for the patient from all [place] treatmentfacilities. This section includes future appointments and future orders which are active, pending or scheduled. Future Appointments This section includes appointments that were scheduled to occur 6 months from the date of the Encounter, up to a maximum of 20 appointments. The data comes from all [place] treatment facilities. Appointment Date/Time Appointment Type Appointme nt Facility Name Apr 13, 2023 03:00 PM [place] [facility] Apr 19, 2023 11:30 AM [place] [facility] May 11, 2023 02:00 PM [place] [facility] May 19, 2023 12:45 PM [place] [facility] May 19, 2023 02:00 PM [place] [facility] Jun 02, 2023 11:00 AM [place] [facility] Jun 02, 2023 12:00 PM [place] [facility] Jun 10, 2023 03:00 PM [place] [facility] Jun 15, 2023 12:45 PM AMBULATORY - [place] [facility] June 30, 2023 03:00 PM [place] [facility] July 16, 2023 01:00 PM [place] [facility] Jul 30, 2023 01:00 PM [place] [facility] Aug 09, 2023 10:30 AM [place] [facility] Aug 09, 2023 11:15 AM [place] [facility] Aug 13, 2023 12:00 PM [place] [facility] Aug 18, 2023 11:00 AM AMBULATORY - PSYCHIATRY [facility] Sep 08, 2023 10:30 AM AMBULATORY - PSYCHIATRY [facility] Lab Results: +/- 30 days of [...] Result - Unit Interpretation Reference Range Comment Mar 17, 2023 10:28 AM [facility] HEPATITIS C AB(WRJ)w/Reflex Specimen Type: SERUM Comment: , Tests performed on [employer] SN:[id number] (405) No HCV antibody detected. If recent infection is suspected or other evidence suggests HCV infection, consider HCV RNA testing Ordering Provider: CHERI VASQUEZ Report Released Date/Time: Feb 10, 2023 02:12 PM Reporting [facility] [address] [address] Performing Lab: [facility] [address] [address] HEPATITIS C AB(WRJ)w/Refle x Non-Reactive Non-Reactiv e Mar 17, 2023 10:28 AM [facility] IRON+TIBC(P) Specimen Type: PLASMA Comment: , Tests performed on [employer] SN:[id number] (405) Ordering Provider: CHERI VASQUEZ Report Released Date/Time: Feb 10, 2023 02:12 PM Reporting Lab: [facility] [address] [address] Performing Lab: [facility] [address] [address] IRON 170 ug/dL H 40-160 TIBC 255 ug/dL IRON SATURATION(P) 67 >15 UIBC(P) 85 ug/dL L 126-382 Mar 17, 2023 10:28 AM [facility] LIVER PROFILE Specimen Type: PLASMA Comment: , Tests performed on [employer] SN:[id number] (405) Ordering Provider: CHERI VASQUEZ Report Released Date/Time: Feb 10, 2023 02:12 PM Reporting Lab: [facility] [address] [address] Performing Lab: [facility] [address] [address] PROTEIN, TOTAL 8.1 g/dL 6.0-8.5 ALBUMIN 4.6 g/dL 3.2-5.0 BILIRUBIN, TOTAL 0.6 mg/dL 0.2-1.2 ALKALINE PHOSPHATASE 64 U/L 40-150 ALT(SGPT) 48 U/L 7-52 AST(SGOT) 59 U/L H 5-34 Mar 17, 2023 10:28 AM [facility] FERRITIN Specimen Type: SERUM Comment: , Tests performed on [employer] SN:[id number] (405) Ordering Provider: CHERI VASQUEZ Report Released Date/Time: Feb 10, 2023 02:12 PM Reporting Lab: [facility] [address] [address] Performing Lab: [facility] [address] [address] FERRITIN 472 ng/mL H 22-275 Mar 17, 2023 10:28 AM [facility] FOLATE Specimen Type: SERUM Comment: , Tests performed on [employer] SN:[id number] (405) Ordering Provider: CHERI VASQUEZ Report Released Date/Time: Feb 10, 2023 02:12 PM Reporting Lab: [facility] [address] [address] Performing Lab: [facility] [address] [address] FOLATE 6.6 ng/mL 5.2-20.3 Mar 17, 2023 10:27 AM [facility] HBSAG PANEL WITH REFLEX CONFIRMATION(WH) Specimen Type: SERUM Comment: A Reactive result (Positive prior to 11/28/12) is diagnostic of acute or chronic hepatitis B infection. The presence of Hepatitis B surface antigen is frequently associated with infectivity. Ordering Provider: CHERI VASQUEZ Report Released Date/Time: Feb 10, 2023 02:12 PM Reporting Lab: [facility] [address] [address] Performing Lab: [facility] [address] [address] HEP B SURFACE AG(wh) Non Reactive Non Reactive Vital Signs: All taken on the encounter date This section contains inpatient and outpatient Vital Signs collected on the date of the Encounter. Date/Time Temperature Pulse Blood Pressure Respiratory Rate SP02 Pain Height Weight Body Mass Index Source Mar 17, 2023 10:41 AM 98.5 88 142/84 16 99 0 158.1 23 [place] [facility] Social History: Smoking Status (Most current) and Tobacco Use (All prior to encounter date) This section includes the most current, and the historical, smoking and tobacco- related health factors from the [place] facility where the Encounter took place. Current Smoking Status This section includes the most current smoking, or tobacco-related health factor, from the [place] facility where the Encounter took place. Date/Time Current Smoking Status Comment Facil ity Mar 17, 2023 11:00 AM VA-TOBACCO USER EVERY DAY [facility] Tobacco Use History This section includes a history of the smoking, or tobacco-related health factors, that were collected on or before the date of the Encounter. The data comes from the [place] facility where the Encounter took place. Date/Time Smoking Status/Tobacco Use Comment F acility Mar 17, 2023 11:00 AM VA-TOBACCO USE ADVICE [facility] Mar 17, 2023 11:00 AM VA-TOBACCO USE OUTSIDE SALES NO [facility] Mar 17, 2023 11:00 AM VA-TOBACCO USE MED NO [facility] Mar 17, 2023 11:00 AM VA-TOBACCO USE WI 30 MIN OF WAKEUP [facility] Mar 17, 2023 11:00 AM VA-TOBACCO USER EVERY DAY [facility] May 13, 2018 11:59 AM AH-BPR SMOKING DEPLOYMENT NO [place] [facility] May 13, 2018 11:59 AM PREVIOUS SMOKER [place] [facility] May 13, 2018 11:59 AM VA-TOBACCO DOESNT USE WI 30 MIN WAKEUP [facility] May 13, 2018 11:59 AM VA-TOBACCO USE 30 YEARS OR MORE [facility] May 13, 2018 11:59 AM VA-TOBACCO USE ADVICE [facility] May 13, 2018 11:59 AM VA-TOBACCO USE OUTSIDE SALES YES [facility] May 13, 2018 11:59 AM VA-TOBACCO USE MED NO [place] [facility] May 13, 2018 11:59 AM VA-TOBACCO USER EVERY DAY MYLES [place] [facility] Encounter Notes: All associated encounter notes This section contains the clinical notes associated to the Encounter. 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 24 hours If within one month,how many drinks on that day? (Alcoholic beverage equivalent: 1 drink = 1.5 oz liquor = 4 oz wine = 12 oz beer) 5 Indication(s) for FibroScan: Alcohol associated liver disease After providing oral explanation of the FibroScan VCTE test procedure to the patient, patient was placed in supine position with right arm in maximum abduction to allow optimal exposure of right lateral abdomen. Patient was briefly assessed, identifying the terminus of the xyphoid process, and locating an ideal transient elastography testing site, mid-line and lateral to this point. Patient was allowed to rest for approximately 5 minutes prior to beginning the test. Patient was instructed to breathe normally and remain stationary during the test process. Pre-measurement data confirmed the transient elastography probe was centered over the liver parenchyma. A series of ten 50Hz mechanical pulses were applied with controlled application pressure to induce mechanical shear wave in the liver tissue. For each measurement, the shear wave propagation speed was detected, displayed, and converted to its equivalent liver stiffness value in kilopascals. Skin to liver capsule distance and shear wave characteristics were monitored during the entire exam to assure data quality. Median liver stiffness measurement and interquartile range were calculated and displayed in real time. Acquired measurement data was submitted to the provider/physician for review and interpretation. Patient tolerated the procedure well and was discharged without incident. Results: Number of Valid Measurements: 12 Liver Stiffness: FibroScan Value (median, kPa): 8.8 FibroScan IQR/Median %: 11 Liver Steatosis: Controlled Attenuation Parameter CAP Score: 233 CAP Level %: 7 Procedure Interpretation (provider): low risk of advanced liver disease low risk for clinically significant portal hypertension Reference Range FibroScan Reference Range F0-F1 (kPa) F2 (kPa) F3 (kPa) F4 (kPa) <8.0 8.0-10.9 11.0-14.9 >15.0 FibroScan study requires interpretation by an experienced provider in conjunction with other pertinent data (e.g., physical examination, lab results, imaging, alcohol use etc.) to assess the likelihood of advanced hepatic fibrosis. FibroScan is best used to rule out advanced fibrosis. While kPa <8 indicates a low likelihood of advanced fibrosis, a higher kPa is less predictive of a specific fibrosis stage (i.e., F2 vs. F3 vs. F4). /vicente/ ZABRINA PASCAL Nurse Practitioner, Hepatology Signed: 03/17/2023 16:22 ZABRINA PASCAL [facility] Mar 17, 2023 11:04 AM GASTROENTEROLOGY C ONSULT: LOCAL TITLE: CONSULT: Gastroenterology STANDARD TITLE: GASTROENTEROLOGY CONSULT DATE OF NOTE: MAR 17, 2023@11:04 ENTRY DATE: MAR 17, 2023@11:04:58 AUTHOR: ZABRINA PASCAL EXP COSIGNER: URGENCY: STATUS: COMPLETED REASON FOR CONSULT: Stage 3 fibrosis HISTORY OF PRESENT ILLNESS: Mr. Khanna is a 62 year old male with a history of elevated liver tests and hepatic steatosis on abdominal imaging. He does not have risks for metabolic liver disease. He does drink a six pack a night after work. Notes that this started after he returned from a tour in [facility]. He never drinks in the morning, has not noted that it affects his work but does note that his has asked him to cut down. He is new to the [place] and is interested in learning more about counseling and medication services that might help him. He denies a history of icteric illness, gi tract bleeding, ascites or confusion. PERTINANT TESTS: LAB TESTS SELECTED Collection DT Specimen Test Name Result Units Ref Range 03/17/2023 10:28 PLASMA!! PROTEIN, TOTAL 8.1 g/dL 6.0 - 8.5 03/17/2023 10:28 PLASMA!! ALBUMIN 4.6 g/dL 3.2 - 5.0 03/17/2023 10:28 PLASMA!! BILIRUBIN, TOTAL 0.6 mg/dL 0.2 - 1.2 03/17/2023 10:28 PLASMA!! ALKALINE PHOSPHAT 64 U/L 40 - 150 03/17/2023 10:28 PLASMA!! ALT(SGPT) 48 U/L 7 - 52 03/17/2023 10:28 PLASMA!! AST(SGOT) 59 H U/L 5 - 34 05/20/2018 09:52 SERUM !! HEP C AB(WRJ) Non-Reactive Ref: Non- Reactive 03/17/2023 10:28 PLASMA!! IRON 170 H ug/dL 40 - 160 03/17/2023 10:28 PLASMA!! TIBC 255 ug/dL 03/17/2023 10:28 PLASMA!! IRON SATURATION(P 67 % Ref: >=15 !! Indicates COMMENTS AVAILABLE...Refer to Interim Lab Report. HEP CHEM & HEM Collection DT Specimen Test Name Result Units Ref Range 03/17/2023 10:28 PLASMA!! PROTEIN, TOTAL 8.1 g/dL 6.0 - 8.5 11/17/2022 11:05 PLASMA!! PROTEIN, TOTAL 8.0 g/dL 6.0 - 8.5 03/17/2023 10:28 PLASMA!! ALBUMIN 4.6 g/dL 3.2 - 5.0 11/17/2022 11:05 PLASMA!! ALBUMIN 4.3 g/dL 3.2 - 5.0 03/17/2023 10:28 PLASMA!! BILIRUBIN, TOTAL 0.6 mg/dL 0.2 - 1.2 11/17/2022 11:05 PLASMA!! BILIRUBIN, TOTAL 0.6 mg/dL 0.2 - 1.2 03/17/2023 10:28 PLASMA!! ALKALINE PHOSPHAT 64 U/L 40 - 150 11/17/2022 11:05 PLASMA!! ALKALINE PHOSPHAT 66 U/L 40 - 150 03/17/2023 10:28 PLASMA!! ALT(SGPT) 48 U/L 7 - 52 11/17/2022 11:05 PLASMA!! ALT(SGPT) 43 U/L 7 - 52 03/17/2023 10:28 PLASMA!! AST(SGOT) 59 H U/L 5 - 34 11/17/2022 11:05 PLASMA!! AST(SGOT) 59 H U/L SII - Macy Image Impression Date Procedure CPT Status Case # 02/05/2023 ULTRASOUND RUQ (GB,LIVER,BILIARY) [id number] Verified [id number] 1. Borderline hepatomegaly with echotexture changes suggesting hepatic steatosis. 2. Liver Elastography indicates stage III fibrosis. MEDICATIONS/ALLERGIES: Active Outpatient Medications (excluding Supplies): Active Outpatient Medications Status 1) HYDROCORTISONE 2.5% CREAM APPLY SMALL AMOUNT ACTIVE TOPICALLY TWICE DAILY NEEDED CHILBLAINS FOR ITCHING/RASH 2) LISINOPRIL 20MG TAB TAKE ONE TABLET BY MOUTH ONCE ACTIVE DAILY FOR HIGH BLOOD PRESSURE 3) SINUS RINSE NEILMED REGULAR KIT USE ONE PACKET ACTIVE INTRANASALLY TWICE DAILY NEEDED Active Non-VA Medications Status 1) Non-VA CALCIUM CARBONATE TAB,CHEWABLE 550MG BY MOUTH ACTIVE NEEDED FAMILY HISTORY: no known family history Mom age 83, cancer, DM, htn Dad age 85, pancreatic cancer, htn 1 bro age 72, not sure about health 3 sisters 70, 66, 64 thinks they are healthy 4 children healthy SURGICAL HISTORY: 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 SOCIAL HISTORY: Lives with , 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[employer], 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, 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 Appears younger than stated age. HEENT: sclera are anicteric, mucus membranes moist no thyroid masses or nodules appreciated. LYMPH: no cervical, supraclavicular, submandibular lymphadenopathy CV: RRR No murmurs, rubs, or gallops CHEST: CTA bilat A&P, no crackles or wheezes ABD: soft, nontender, non distended, no palp organmegaly EXT: no edema, no deformities MSK: Coordinated gait. Sit to stand without assistance. NEURO: Alert and oriented x3, grossly non focal, bilat tremor PSYCH: Appropriate affect and demeanor, normal speech pattern, mood is somewhat anxious. Insight is good. Speech is fluid, normal rate. SKIN: No rash ASSESSMENT AND PLAN: Mr. 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 We had a long discussion today about the signals that his liver is giving about inflammation likely on account of alcohol use. He does have a mildly elevated ferritin level and TIBC, however I would like to watch these numbers over the next few months as I have a low degree of suspicion that this represents Hemachromatosis, but likely is a response to the inflammation in his liver. Would expect a much higher ferritin level at age 62 in true HH. He would like to try to cut down on his alcohol use on his own over the next two weeks. If this proves to be more difficult than he expects he would entertain the idea of medication assisted treatment. We also discussed the apparent link between his service time and alcohol use and he is open to scheduling an appointment with a mental health counselor to explore this further. He will schedule a follow up t/c for the end of Mar. we can discuss MAT at that time if interested. In regards to fibrosis staging he is in the indeterminate range, certainly no clear findings of cirrhosis but also more fibrosis suggested on fibroscan than one would expect given his body habitus. Will plan to recheck liver tests in about 6-12 months. Immunizations: Recommendations if not immune or no history of vaccination please consider a. Hepatitis B vaccine series b. Hepatitis A vaccine series Tobacco Use Screening: The patient uses tobacco every day. The patient uses tobacco within 30 minutes of waking up. The patient has been smoking or using tobacco for thirty years or more. Patient was advised to quit smoking and/or using tobacco. Discussion with patient included: - Quitting smoking or tobacco use is one of the most important things you can do to protect and improve your health and [place] has the resources to support you. - Set a quit date when you are ready to quit. - Get support from your family and friends. - Review any past quit attempts- What helped? What didn't? - On the day you plan to quit, get rid of all cigarettes and tobacco products from your home, car or work. - Using a combination of behavioral counseling or other support strategies and FDA-approved cessation medications is the most effective way to ensure success in quitting. Patient was offered Behavioral Counseling and other support strategies to assist with quitting. Discussion with patient included: - Behavioral counseling or other support strategies greatly increases your chances of successfully quitting smoking or tobacco use by helping you develop a quit plan and providing support and other strategies to make behavioral changes to help you quit. - [place] has a number of behavioral counseling options to help you with quitting, including: * Provide information about the facility smoking or tobacco use treatment options or clinics * [place]'s national quitline, 2-919-AUUH-VET, with counseling available Wednesday-Wednesday The patient was not interested in receiving additional information about how to use the treatment options discussed. Patient was offered FDA-approved cessation medications. Discussion with patient included: - Medications for Nicotine replacement therapy such as the patch, gum or lozenge, and other medications such as varenicline or bupropion, can play an important role in the initial weeks and months after you quit smoking or tobacco use. - Medications help with cravings and withdrawal symptoms and they greatly increase your chances of successfully quitting. The patient was not interested in a prescription for tobacco cessation medications. Alcohol Use Screen (AUDIT-C): Alcohol Screen: SCREEN FOR ALCOHOL (AUDIT-C) An alcohol screening test (AUDIT-C) was positive (score=7). 1. How often did you have a drink containing alcohol in the past year? Consider a drink to be a 12 ounce can or bottle of regular beer, 8 ounces of malt liquor, a 5 ounce glass of table wine, or a 1.5 ounce shot of liquor (like scotch, gin, or vodka). Four or more times a week 2. How many drinks containing alcohol did you have on a typical day when you were drinking in the past year? Five or six drinks 3. How often did you have six or more drinks on one occasion in the past year? Less than monthly /vicente/ ZABRINA PASCAL Nurse Practitioner, Hepatology Signed: 03/17/2023 16:20 Receipt Acknowledged By: 03/18/2023 13:48 /vicente/ ZABRINA RIOJAS APRN [facility]
--- OUTSIDE RECORDS SUMMARY | 2023-10-15 16:17 | XMS_ITS ---
Author Name [facility] [place] [facility] [place] Address [address] [place] [address] Care Team Providers Care Separator Operator Shellfish Meats Name Role Phone CHERI VASQUEZ Primary Care [...] Victor's Name Patient's Relationship to Policy Victor [facility] POINT OF SERVICE SOV ACTIV E SELEC TCAR Feb 15, 2018 [id number] KHANNASHANELL PATIENT [employer] [facility] ([id number]) PRESCRIPT ION [facility] NT Feb 15, 2018 [id number] SHANELL KHANNA ERT PATIENT Selected Encounter This section includes the information on record at [place] for the Encounter. Date/Time Encounter Type Encounter Description Reason Pro vider Source Feb 12, 2023 10:31 AM Outpatient Encounter ADMIN PAT ACTIVTIES (MASNONCT) IHE Encounter Template Text not used by VA Plan of Treatment: Future Appointments (+ 6 months) and Future Tests (+/- 45 days) The Plan of Treatment section includes future care activities for the patient from [facility]. This section includes future appointments and future orders which are active, pending or scheduled. Future Appointments This section includes appointments that were scheduled to occur 6 months from the date of the Encounter, up to a maximum of 20 appointments. The data comes from all [place] treatment facilities. Appointment Date/Time Appointment Type Appointme nt Facility Name Mar 17, 2023 11:00 AM AMBULATORY - MEDICINE [facility] [place] [facility] Apr 13, 2023 03:00 PM AMBULATORY - [place]IATRY [place] [facility] Apr 19, 2023 11:30 AM AMBULATORY - MEDICINE [facility] [place] [facility] May 11, 2023 02:00 PM AM[place]ULATORY - [place]IATRY [place] [facility] May 19, 2023 12:45 PM AM[facility]ULATORY - [place]ATRY [place] [facility] May 19, 2023 02:00 PM [facility] [place]RY [place] [facility] Jun 02, 2023 11:00 AM AM[place]ULATORY [place]RY [place] [facility] Jun 02, 2023 12:00 PM AM[place]ULATORY [place]RY [place] [facility] Jun 10, 2023 03:00 PM AMBULATORY - [place]IATRY [place] [facility] Jun 15, 2023 12:45 [facility] June 30, 2023 03:00 PM AM[facility] [place]RY [place] [facility] July 16, 2023 01:00 PM AMBULATORY - [place]IATRY [place] [facility] Jul 30, 2023 01:00 PM AM[facility]ULATORY - [place]ATRY [place] [facility] Aug 09, 2023 10:30 AM AMBULATORY - MEDICINE [facility] [place] [facility] Aug 09, 2023 11:15 AM [place] [facility] Aug 13, 2023 12:00 PM AMBULATORY - [place]IATRY [place] [facility] Social History: Smoking Status (Most current) and Tobacco Use (All prior to encounter date) This section includes the most current, and the historical, smoking and tobacco- related health factors from the [place] facility where the Encounter took place. Current Smoking Status This section includes the most current smoking, or tobacco-related health factor, from the [place] facility where the Encounter took place. Date/Time Current Smoking Status Mira sawant May 13, 2018 11:59 AM PREVIOUS SMOKER WHAkiko [facility] Tobacco Use History This section includes a history of the smoking, or tobacco-related health factors, that were collected on or before the date of the Encounter. The data comes from the [place] facility where the Encounter took place. Date/Time Smoking Status/Tobacco Use Comment F acility May 13, 2018 11:59 AM PREVIOUS SMOKER KEN [facility] May 13, 2018 11:59 AM VA-TOBACCO DOESNT USE WI 30 MIN WAKEUP [facility] May 13, 2018 11:59 AM VA-TOBACCO USE 30 YEARS OR MORE [facility] May 13, 2018 11:59 AM VA-TOBACCO USE ADVICE [facility] May 13, 2018 11:59 AM VA-TOBACCO USE VP PRODUCT MARKETING YES [facility] May 13, 2018 11:59 AM VA-TOBACCO USE MED NO [facility] May 13, 2018 11:59 AM VA-TOBACCO USER EVERY DAY [facility] Radiology Reports: +/- 30 days of the [...] the Encounter. The data comes from all [place] treatment facilities. Date/Time Radiology Report Provider Source Feb 05, 2023 11:00 AM ELASTOGRAPHY PAREN CHYMA (E.G., ORGAN): AMAURI KHANNA [id number] -[id number] M Exm Date: FEB 05, 2023@11:00 Req Phys: CHERI VASQUEZ Pat Loc: LIT PACT T (Req'g Loc) Img Loc: ULTRASOUND (OOS) Service: Unknown (Case [id number] COMPLETE) ELASTOGRAPHY PARENCHYMA (E.G., OR(US Detailed) CPT:09247 Reason for Study: elevated AST Clinical History: daily etoh ? fibrosis Report Status: Verified Date Reported: FEB 05, 2023 Date Verified: FEB 05, 2023 Electrical System Specialist E-Sig:/ES/PATTI VAZ Report: Ultrasound -- abdomen with [...] Primary Interpreting Staff: PATTI VAZ, RADIOLOGY ATTENDING (Electrical System Specialist) /PATTI [facility] Feb 05, 2023 11:00 AM ULTRASOUND RUQ (GB,LIVER,BILIARY): CLEMENCIAAMAURI DEVAN [id number] -[id number] Ex Date: FEB 05, 2023@11:00 Req Phys: CHERI VASQUEZ Pat Loc: LIT PACT T (Req'g Loc) Img Loc: ULTRASOUND (OOS) Service: Unknown (Case [id number] COMPLETE) ULTRASOUND RUQ (GB,LIVER,BILIARY)(US Detailed) CPT:93480 Reason for Study: elevated ast Clinical History: daily etoh ? fibrosis Report Status: Verified Date Reported: FEB 05, 2023 Date Verified: FEB 05, 2023 Electrical System Specialist E-Sig:/ES/PATTI VAZ Report: Ultrasound -- abdomen with [...] Primary Interpreting Staff: PATTI VAZ, RADIOLOGY ATTENDING (Electrical System Specialist) /PATTI VACA [facility] Encounter Notes: All associated encounter notes This section contains the clinical notes associated to the Encounter. Date/Time Encounter Note(s) Provider Source Feb 12, 2023 10:31 AM LETTERS: LOCAL TITLE: LETTER TO PATIENT ATTEMPT TO CONTACT STANDARD TITLE: LETTERS DATE OF NOTE: FEB 12, 2023@10:31 ENTRY DATE: FEB 12, 2023@10:31:35 AUTHOR: PRAVEEN GREEN COSIGNER: URGENCY: STATUS: COMPLETED [facility] [address] [place] [address] FEB 12, 2023 AMAURI KHANNA [facility] [place], [place] [address] Dear AMAURI KHANNA, [facility] [place] is trying to reach you to schedule an appointment. If you have already been in contact with the clinic and scheduled an appointment you may disregard this letter. If we do not hear from you within 14 days, we will assume you no longer desire an appointment. Please call one of the numbers provided below so that we may find a suitable date for you: Service: Gastroenterology Direct: [phone] Ext: [phone] Toll Free: [phone] Ext: [phone] We look forward to hearing from you. Sincerely, Clinical Operations PRAVEEN GREEN Omar [facility]
--- OUTSIDE RECORDS SUMMARY | 2023-10-15 16:17 | XMS_ITS | Encounter Summary ---
Author Name [facility] [place] [facility] [place] [facility] [place] Address [address] [place] [address] Care Team Providers Care Chargeback Specialist Name Role Phone CHERI VASQUEZ Primary Care [...] Victor's Name Patient's Relationship to Policy Victor [facility] POINT OF SERVICE SOV ACTIV E SELEC TCAR Feb 15, 2018 [id number] KHANNA,SHANELL ERT PATIENT [employer] ([id number]) PRESCRIPT ION [facility] NT Feb 15, 2018 Q54A [id number] CLEMENCIASHANELL ERT PATIENT Selected Encounter This section includes the information on record at [place] for the Encounter. Date/Time Encounter Type Encounter Description Reason Pro vider Source Dec 10, 2022 12:00 AM Outpatient Encounter EVENT (HISTORICAL) IHE Encounter [...] Date/Time Appointment Type Appointme nt Facility Name Feb 05, 2023 11:00 AM AMBULATORY - NONE [facility] Mar 17, 2023 11:00 AM AMBULATORY - MEDICINE [facility] Apr 13, 2023 03:00 PM AMBULATORY - PSYCHIATRY [place] [facility] Apr 19, 2023 11:30 AM AMBULATORY - MEDICINE [place] [facility] May 11, 2023 02:00 PM AMBULATORY - PS[place]CHIATRY [place] [facility] May 19, 2023 12:45 PM AMBULATORY - PS[place]CHIATRY [place] [facility] May 19, 2023 02:00 PM AMBULATORY - [place]CHIATRY [place] [facility] Jun 02, 2023 11:00 AM AMBULATORY - PS[place]CHIATRY [place] [facility] Jun 02, 2023 12:00 PM AMBULATORY - PS[place]CHIATRY [place] [facility] Jun 10, 2023 03:00 PM AMBULATORY - [facility]CHIATRY [place] [facility] [facility] Lab Results: +/- 30 days of [...] Range Comment Dec 10, 2022 11:42 AM [facility] PSA (EARLY CHILDHOOD EDUCATION SPECIALIST) Specimen Type: SERUM Comment: Tests performed on Pérez Pick Up Truck Driver (405) SN:[id number] Ordering Provider: CHERI VASQUEZ Report Released Date/Time: Dec 10, 2022 11:39 AM Reporting Lab: [facility] [place] [facility] [address] [facility] [place] [facility] [address] Performing Lab: [facility] [place] [facility] [address] [facility] [place] [facility] [address] PSA (EARLY CHILDHOOD EDUCATION SPECIALIST) 1.75 ng/mL 0-4.0 Dec 10, 2022 11:42 AM [facility] VIT D 25-OH([facility]) Specimen Type: SERUM Comment: Tests performed on [employer] Driver (405) SN:[id number] Ordering Provider: CHERI VASQUEZ Report Released Date/Time: Dec 10, 2022 11:39 AM Reporting Lab: [facility] [address] [facility] [place] [address] Performing Lab: [facility] [address] [facility] [address] VIT D 25-OH([facility]) 28.9 ng/mL 20-50 Dec 10, 2022 11:42 AM [facility] THYROID TESTING [place] Specimen Type: SERUM Comment: Tests performed on [employer] Driver (405) SN:[id number] Ordering Provider: CHERI VASQUEZ Report Released Date/Time: Dec 10, 2022 11:39 AM Reporting Lab: [facility] [address] [facility] [address] Performing Lab: [facility] [address] [facility] [address] T4,FREE 1.0 ng/dL 0.6-1.6 TSH 0.91 u[IU]/mL 0.35-5.00 Nov 17, 2022 11:05 AM [facility] LIPOPROTEIN CHOLESTEROL FRACT. PANEL Specimen Type: PLASMA Comment: Tests performed on [employer] Driver (405) SN:[id number] Ordering Provider: CHERI VASQUEZ Report Released Date/Time: Nov 12, 2022 03:17 PM Reporting Lab: [facility] [place] [facility] [address] [facility] [address] Performing Lab: [place] [facility] [address] [facility] [address] CHOLESTEROL 215 mg/dL H 0-199 TRIGLYCERIDE 35 mg/dL 0-149 HDL CHOLESTEROL 138 mg/dL >40 LDL CHOLESTEROL (CALC) 70 mg/dL 0-129 Nov 17, 2022 11:05 AM [facility] LIVER PROFILE Specimen Type: PLASMA Comment: Tests performed on [employer] Driver (405) SN:[id number] Ordering Provider: CHERI VASQUEZ Report Released Date/Time: Nov 12, 2022 03:17 PM Reporting Lab: [facility] [address] [facility] [address] Performing Lab: [place] [facility] [address] [place] [place] [phone] PROTEIN, TOTAL 8.0 g/dL 6.0-8.5 ALBUMIN 4.3 g/dL 3.2-5.0 BILIRUBIN, TOTAL 0.6 mg/dL 0.2-1.2 ALKALINE PHOSPHATASE 66 U/L 40-150 ALT(SGPT) 43 U/L 7-52 AST(SGOT) 59 U/L H 5-34 FIB-4 SCORE 2.56 {index} <2.67 Nov 17, 2022 11:05 AM [facility] P4 GLU,BUN,CREAT,LYTES,CA Specimen Type: PLASMA Comment: Tests performed on [employer] (405) SN:[id number] Ordering Provider: CHERI VASQUEZ Report Released Date/Time: Nov 12, 2022 03:17 PM Reporting Lab: [facility] [address] [phone] Performing Lab: [facility] [address] [phone] UREA NITROGEN 11 mg/dL 7-25 SODIUM 135 mmol/L 135-145 POTASSIUM 4.7 mmol/L 3.5-5.0 CHLORIDE 102 mmol/L 100-110 CARBON DIOXIDE 26 mmol/L 20-30 ANION GAP 7 mmol/L 4-16 GLUCOSE 100 mg/dL 65-100 CREATININE 1.04 mg/dL 0.5-1.5 CALCIUM 10.7 mg/dL H 8.5-10.5 eGFR(CKD-EPI 2020) 82 mL/min >60 Nov 17, 2022 11:05 AM [facility] CBC PROFILE Specimen Type: BLOOD No comment entered. Ordering Provider: CHERI VASQUEZ Report Released Date/Time: Nov 12, 2022 03:17 PM Reporting Lab: [facility] [address] [facility] [address] Performing Lab: [facility] [address] [phone] WBC 4.8 10*3/uL 4.5-11.0 RBC 4.19 10*6/uL [...] Specimen Type: BLOOD Comment: Tests performed on [employer] (405) SN:[id number] Values obtained from A1C measurements can vary. For typical A1C assays, a reported value of 7.0 could actually be between 6.72 and 7.28 if measured by a reference method. A reported value of 9.0 could actually be between 8.73 and 9.27. Reference [email or web address].ng sp.org/CAPdat a.asp Ordering Provider: CHERI VASQUEZ Report Released Date/Time: Nov 12, 2022 03:17 PM Reporting Lab: [facility] [address] [facility] [address] Performing Lab: [facility] [address] [facility] [address] HEMOGLOBIN A1C 5.1 4.0-5.6 Social History: Smoking [...] Date/Time Current Smoking Status Comment Yayo ity May 13, 2018 11:59 AM PREVIOUS SMOKER KEN [facility] Tobacco Use History This section includes a history of the smoking, or tobacco-related health factors, that were collected on or before the date of the Encounter. The data comes from the [place] facility where the Encounter took place. Date/Time Smoking Status/Tobacco Use Comment Deann acdavid May 13, 2018 11:59 AM PREVIOUS SMOKER KEN [facility] May 13, 2018 11:59 AM VA-TOBACCO DOESNT USE WI 30 MIN WAKEUP [facility] May 13, 2018 11:59 AM VA-TOBACCO USE 30 YEARS OR MORE [facility] May 13, 2018 11:59 AM VA-TOBACCO USE ADVICE [facility] May 13, 2018 11:59 AM VA-TOBACCO USE PSYCHOLOGICAL OPERATIONS YES [facility] May 13, 2018 11:59 AM VA-TOBACCO USE MED NO [facility] May 13, 2018 11:59 AM VA-TOBACCO USER EVERY DAY [facility]
--- OUTSIDE RECORDS SUMMARY | 2023-10-15 16:17 | XMS_ITS ---
Author Name [facility] [place] [facility] [place] Address [address] [place] [address] Care Team Providers Care Application Security Architect Name Role Phone CHERI VASQUEZ Primary Care [...] Victor's Name Patient's Relationship to Policy Victor [facility] SOV ACTIV E SELEC TCAR Feb 15, 2018 [id number] SHANELL KHANNA PATIENT [employer] ([id number]) PRESCRIPT ION [facility] NT Feb 15, 2018 [id number] SHANELL KHANNA PATIENT Selected Encounter This section includes the information on record at [place] for the Encounter. Date/Time Encounter Type Encounter Description Reason Pro vider Source Apr 26, 2023 02:00 PM Outpatient Encounter [facility] IHE Encounter Template Text not used [...] 20 appointments. The data comes from all [place] treatment facilities. Appointment Date/Time Appointment Type Appointme nt Facility Name May 11, 2023 02:00 PM AMBULATORY - [place]RY [place] [facility] May 19, 2023 12:45 PM AMBULATORY - [place]IATRY [place] [facility] May 19, 2023 02:00 PM AMBULATORY - [place]CHIATRY [place] [facility] Jun 02, 2023 11:00 AM AMBULATORY - [place]CHIATRY [place] [facility] Jun 02, 2023 12:00 PM AMBULATORY - [place]CHIATRY [place] [facility] Jun 10, 2023 03:00 PM AMBULATORY - [place]CHIATRY [place] [facility] Jun 15, 2023 12:45 PM AMBULATORY - NONE [facility] June 30, 2023 03:00 PM AMBULATORY - PS[place]CHIATRY [place] [facility] July 16, 2023 01:00 PM AMBULATORY - PS[place]CHIATRY [place] [facility] Jul 30, 2023 01:00 PM AMBULATORY - PS[place]CHIATRY [place] [facility] Aug 09, 2023 10:30 AM AMBULATORY - MEDICINE [facility] [place] [facility] Aug 09, 2023 11:15 AM AMBULATORY - PS[place]CHIATRY [place] [facility] Aug 13, 2023 12:00 PM AMBULATORY - PS[place]CHIATRY [place] [facility] Aug 18, 2023 11:00 AM AMBULATORY - [place]CHIATRY [place] [facility] Sep 08, 2023 10:30 AM AMBULATORY - [place]CHIATRY [place] [facility] Oct 20, 2023 10:30 AM AMBULATORY - [place]CHIATRY [place] [facility] Lab Results: +/- 30 days of the [...] Result - Unit Interpretation Reference Range Comment May 11, 2023 02:49 PM [place] [facility] LIVER PROFILE Specimen Type: PLASMA Comment: , Tests performed on [employer] SN:[id number] (405). Ordering Provider: VERONICA HERNANDEZ Report Released Date/Time: May 11, 2023 02:41 PM Reporting Lab: [facility] [address] [facility] [address] Performing Lab: [facility] [address] [facility] [address] PROTEIN, TOTAL 7.9 g/dL 6.0-8.5 ALBUMIN 4.5 g/dL 3.2-5.0 BILIRUBIN, TOTAL 0.9 mg/dL 0.2-1.2 ALKALINE PHOSPHATASE 67 U/L 40-150 ALT(SGPT) 44 U/L 7-52 AST(SGOT) 54 U/L H 5-34 Social History: Smoking Status (Most current) and Tobacco Use (All prior to encounter date) This section includes the most current, and the historical, smoking and tobacco- related health factors from the [place] facility where the Encounter took place. Current Smoking Status This section includes the most current smoking, or tobacco-related health factor, from the [place] facility where the Encounter took place. Date/Time Current Smoking Status Comment Yayo sawant Mar 17, 2023 11:00 AM VA-TOBACCO USE WI 30 MIN OF WAKEUP [facility] Tobacco Use History This section includes a history of the smoking, or tobacco-related health factors, that were collected on or before the date of the Encounter. The data comes from the [place] facility where the Encounter took place. Date/Time Smoking Status/Tobacco Use Comment F acility Mar 17, 2023 11:00 AM VA-TOBACCO USE ADVICE [facility] Mar 17, 2023 11:00 AM VA-TOBACCO USE MICRO LAB ANALYST NO [facility] Mar 17, 2023 11:00 AM VA-TOBACCO USE MED NO [facility] Mar 17, 2023 11:00 AM VA-TOBACCO USE WI 30 MIN OF WAKEUP [facility] Mar 17, 2023 11:00 AM VA-TOBACCO USER EVERY DAY [facility] May 13, 2018 11:59 AM AH-BPR SMOKING DEPLOYMENT NO [facility] May 13, 2018 11:59 AM PREVIOUS SMOKER WHI GLEN [facility] May 13, 2018 11:59 AM VA-TOBACCO DOESNT USE WI 30 MIN WAKEUP [facility]RE[facility] May 13, 2018 11:59 AM VA-TOBACCO USE 30 YEARS OR MORE [facility] May 13, 2018 11:59 AM VA-TOBACCO USE ADVICE [facility] May 13, 2018 11:59 AM VA-TOBACCO USE MICRO LAB ANALYST YES [facility] May 13, 2018 11:59 AM VA-TOBACCO USE MED NO [facility] [place] [facility] May 13, 2018 11:59 AM VA-TOBACCO USER EVERY DAY [facility] Encounter Notes: All associated encounter notes This section contains the clinical notes associated to the Encounter. Date/Time Encounter Note(s) Provider Source Apr 27, 2023 09:58 AM NO SHOW NOTE: LOCAL TITLE: Mental Health No Show/Clinic Cancel/Conversion Note STANDARD TITLE: NO SHOW NOTE DATE OF NOTE: APR 27, 2023@09:58 ENTRY DATE: APR 27, 2023@09:58:59 AUTHOR: ARIC SMITH EXP COSIGNER: AIRAM QIU URGENCY: STATUS: COMPLETED MENTAL HEALTH NO SHOW/CLINIC CANCELLATION/CLINIC CONVERSION NOTE Appointment Date & Time: Apr@14:00 ACTION: Provider attempted to reach [place] to discuss: No Show (X) Cancellation by clinic Cancellation by [place] Conversion of clinic appointment REASON: for no show or clinic cancel/reschedule: provider out OUTCOME: Reached and Clinic rescheduled to: [facility] Clinic Telephone Clinic Face to Face Clinic New clinic appointment date/time: [place]'s email address: Left voicemail message: called and left v/m to r/s . provided contact information and requested call back Any Acute Safety Concerns? No If Yes, Action Taken or Further Follow-up: Co-sign MSAs at location to this note to take action on the clinic appt and add any additional instructions to MSA group. /vicente/ KATHY Sanchez Addiction Therapist Signed: 04/27/2023 09:59 /es/ MARY FLYNN Clinical Terrestrial Ecologist Cosigned: 04/28/2023 20:08 Receipt Acknowledged By: 04/27/2023 10:34 /es/ ARIC MARI MSA [facility]
--- OUTSIDE RECORDS SUMMARY | 2023-10-15 16:17 | XMS_ITS | Encounter Summary ---
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 for follow-up. Name of provider notified: Johan Vasquez APRN Advance Directive Screen MH AD: Patient does not have an Advance Directive completed and is requesting more information. A blank [place] Advance directive was given to vet to take home and fill out then return . The patient received education about Advance Directives and written notification of his/her rights. /vicente/ YAS JEREZ Corrugator Signed: 12/10/2022 10:36 12/10/2022 ADDENDUM STATUS: COMPLETED Herpes Zoster (Shingles) Vaccine: Prior Herpes Zoster vaccination Herpes zoster (shingles) vaccine given previously - written records available Zoster Recombinant (Shingrix): Documented: ZOSTER RECOMBINANT Historical Date Administered: Mar 21, 2021 Series: Series 1 Information Source: FROM OTHER REGISTRY Documented: ZOSTER RECOMBINANT Historical Date Administered: Sep 24, 2021 Series: Series 2 Information Source: FROM OTHER REGISTRY Tdap Immunization: Td/Tdap given previously - written records available The patient has previously received the Tetanus, Diphtheria, Pertussis vaccine (Tdap). Documented: TDAP Historical Date Administered: Dec 13, 2013 Information Source: FROM OTHER REGISTRY Problems Hypercalcemia (ICD-275.42) (LVI86-O85.52) Macrocytosis (ICD-289.89) (WOI47-J38.89) Rhinorrhea (iCD-478.19) (MEF36-U51.89) Easy bruisability (ICD-924,9) (FSN55-Y49.2) Degeneration of lumbar intervertebral disc (ICD-722.52) (JZD90-V86,36) Narrowing of intervertebral disc space (ICD-724.00) (VRK70-W42.79) Neck pain (1CD-723.1) (HXT98-T14.2) Muscle spasm, trapezius muscle, left (ICD-728.85) (SBF98-J14.830) Periodic limb movement disorder (1CD-327.51) (NQC59-F59.61) Obstructive sleep apnea (ICD-327.23) (YXC20-C80.33) Fatigue (ICD-780.79) (FXT51-P52.83) Snoring (ICD-786.09) (BMC40-F86.83) Hypertension (ICD-401.9) (GAZ17-S40) Osteopenia (ICD-733.90) (LDZ25-N36.80) Knee pain, left (ICD-719.46) (1HA79-B16.562) Low back pain (ICD-724.2) (IXH58-S74.5) GERD (ICD-530.81) (LJX05-X09.9) Medications lisinopril 20 mg tablet (lisinopril) TAKE 1 TABLET BY MOUTH DAILY Last Refill: #90 tablet x 2, , Keisha Arcenio MA LABS 11/03/2022 Parathyroid 26 Vit B12 246 Folate 10.2 PSA 1.5 CAlcium 10.6 Glucose 118 BUN 13 Creat 1.1 eGFR 76.37 Tot Protein 8.1 Albumin 4.3 Bili 0.3 NA 135 K 3.9 Chlo 98 C02 29.7 WBC 3.10 RBC 4.50 HBG 15.4 HCT 44.1 /vicente/ YOON TORRES LPN Signed: 12/10/2022 12:03 YAS JEREZ [facility]
--- OUTSIDE RECORDS SUMMARY | 2023-10-15 16:17 | XMS_ITS ---
Author Name [facility] [place] [facility] [place] [facility] [place] Address [address] [place] [address] Care Team Providers Care Tucking Machine Operator Name Role Phone CHERI VASQUEZ Primary Care [...] Victor's Name Patient's Relationship to Policy Victor [facility] POINT OF SERVICE SOV ACTIV E SELEC TCAR Feb 15, 2018 [id number] KHANNASHANELL Marsh PATIENT [facility] ([id number]) PRESCRIPT ION [facility] NT Feb 15, 2018 Q54A [id number] CLEMENCIASHANELL XOCHILT PATIENT Selected Encounter This section includes the information on record at [place] for the Encounter. Date/Time Encounter Type Encounter Description Reason Pro vider Source Dec 10, 2022 12:04 PM Outpatient Encounter PRIMARY CARE/MEDICINE IHE Encounter Template Text not used by [...] 20 appointments. The data comes from all [place] treatment facilities. Appointment Date/Time Appointment Type Appointme nt Facility Name Feb 05, 2023 11:00 AM AMBULATORY - NONE [facility] Mar 17, 2023 11:00 AM AMBULATORY - MEDICINE [facility] [place] [facility] Apr 13, 2023 03:00 PM AMBULATORY - PSYCHIATRY [place] [facility] Apr 19, 2023 11:30 AM AMBULATORY - MEDICINE [place] [facility] May 11, 2023 02:00 PM AMBULATORY - PS[place]CHIATRY [place] [facility] May 19, 2023 12:45 PM AMBULATORY - PSYCHIATRY [place] [facility] May 19, 2023 02:00 PM AMBULATORY - PS[place]CHIATRY [place] [facility] Jun 02, 2023 11:00 AM AMBULATORY - PS[place]CHIATRY [place] [facility] Jun 02, 2023 12:00 PM AMBULATORY - PS[place]CHIATRY [place] [facility] Jun 10, 2023 03:00 PM AMBULATORY - PS[place]CHIATRY [place] [facility] Lab Results: +/- 30 days [...] Range Comment Dec 10, 2022 11:42 AM [facility] PSA (MANAGER PRICING) Specimen Type: SERUM Comment: Tests performed on Pérez Child Welfare Worker (405) SN:[id number] Ordering Provider: CHERI VASQUEZ Report Released Date/Time: Dec 10, 2022 11:39 AM Reporting Lab: [facility] [address] [facility] [address] Performing Lab: [facility] [address] [facility] [address] PSA (MANAGER PRICING) 1.75 ng/mL 0-4.0 Dec 10, 2022 11:42 AM [facility] VIT D 25-OH([facility]) Specimen Type: SERUM Comment: Tests performed on Pérez Child Welfare Worker (405) SN:[id number] Ordering Provider: CHERI VASQUEZ Report Released Date/Time: Dec 10, 2022 11:39 AM Reporting Lab: [place] [facility] [address] [facility] [address] Performing Lab: [facility] [address] [facility] [address] VIT D 25-OH([facility]) 28.9 ng/mL 20-50 Dec 10, 2022 11:42 AM [facility] THYROID TESTING CASCADE Specimen Type: SERUM Comment: Tests performed on Pérez Child Welfare Worker (405) SN:[id number] Ordering Provider: CHERI VASQUEZ Report Released Date/Time: Dec 10, 2022 11:39 AM Reporting Lab: [facility] [address] [facility] [address] Performing Lab: [facility] [address] [facility] [address] T4,FREE 1.0 ng/dL 0.6-1.6 TSH 0.91 u[IU]/mL 0.35-5.00 Nov 17, 2022 11:05 AM [facility] LIPOPROTEIN CHOLESTEROL FRACT. PANEL Specimen Type: PLASMA Comment: Tests performed on Pérez Child Welfare Worker (405) SN:[id number] Ordering Provider: CHERI VASQUEZ Report Released Date/Time: Nov 12, 2022 03:17 PM Reporting Lab: [facility] [place] [place] [facility] [address] [facility] [address] Performing Lab: [place] [facility] [address] [facility] [address] CHOLESTEROL 215 mg/dL H 0-199 TRIGLYCERIDE 35 mg/dL 0-149 HDL CHOLESTEROL 138 mg/dL >40 LDL CHOLESTEROL (CALC) 70 mg/dL 0-129 Nov 17, 2022 11:05 AM [facility] LIVER PROFILE Specimen Type: PLASMA Comment: Tests performed on Pérez Child Welfare Worker (405) SN:[id number] Ordering Provider: CHERI VASQUEZ Report Released Date/Time: Nov 12, 2022 03:17 PM Reporting Lab: [facility] [place] [address] [facility] [address] Performing Lab: [place] [facility] [address] [facility] [address] PROTEIN, TOTAL 8.0 g/dL 6.0-8.5 ALBUMIN 4.3 g/dL 3.2-5.0 BILIRUBIN, TOTAL 0.6 mg/dL 0.2-1.2 ALKALINE PHOSPHATASE 66 U/L 40-150 ALT(SGPT) 43 U/L 7-52 AST(SGOT) 59 U/L H 5-34 FIB-4 SCORE 2.56 {index} <2.67 Nov 17, 2022 11:05 AM [facility] P4 GLU,BUN,CREAT,LYTES,CA Specimen Type: PLASMA Comment: Tests performed on ViViFi (405) SN:[id number] Ordering Provider: CHERI VASQUEZ Report Released Date/Time: Nov 12, 2022 03:17 PM Reporting Lab: [facility] [address] [facility] [address] Performing Lab: [facility] [address] [place] [phone] UREA NITROGEN 11 mg/dL 7-25 SODIUM 135 mmol/L 135-145 POTASSIUM 4.7 mmol/L 3.5-5.0 CHLORIDE 102 mmol/L 100-110 CARBON DIOXIDE 26 mmol/L 20-30 ANION GAP 7 mmol/L 4-16 GLUCOSE 100 mg/dL 65-100 CREATININE 1.04 mg/dL 0.5-1.5 CALCIUM 10.7 mg/dL H 8.5-10.5 eGFR(CKD-EPI 2020) 82 mL/min >60 Nov 17, 2022 11:05 AM [facility] GLYCOHEMOGLOBIN (A1C ONLY) Specimen Type: BLOOD Comment: Tests performed on ViViFi (405) SN:[id number] Values obtained from A1C measurements can vary. For typical A1C assays, a reported value of 7.0 could actually be between 6.72 and 7.28 if measured by a reference method. A reported value of 9.0 could actually be between 8.73 and 9.27. Reference [email or web address].ng sp.org/CAPdat a.asp Ordering Provider: CHERI VASQUEZ Report Released Date/Time: Nov 12, 2022 03:17 PM Reporting Lab: [facility] [address] [facility] [address] Performing Lab: [facility] [address] [facility] [address] HEMOGLOBIN A1C 5.1 4.0-5.6 Nov 17, 2022 11:05 AM [facility] CBC PROFILE Specimen Type: BLOOD No comment entered. Ordering Provider: CHERI VASQUEZ Report Released Date/Time: Nov 12, 2022 03:17 PM Reporting Lab: [facility] [address] [facility] [address] Performing Lab: [facility] [address] [facility] [address] WBC 4.8 10*3/uL 4.5-11.0 RBC 4.19 10*6/uL [...] 10*3/uL 2.2-7.6 ABSOLUTE NRBC 0.00 10*3/uL 0-0 Social History: Smoking Status (Most current) and Tobacco Use (All prior to encounter date) This section includes the most current, and the historical, smoking and tobacco- related health factors from the [place] facility where the Encounter took place. Current Smoking Status This section includes the most current smoking, or tobacco-related health factor, from the [place] facility where the Encounter took place. Date/Time Current Smoking Status Comment Yayo ity May 13, 2018 11:59 AM PREVIOUS SMOKER Akiko [facility] Tobacco Use History This section includes a history of the smoking, or tobacco-related health factors, that were collected on or before the date of the Encounter. The data comes from the [place] facility where the Encounter took place. Date/Time Smoking Status/Tobacco Use Comment F acility May 13, 2018 11:59 AM PREVIOUS SMOKER KEN [facility] May 13, 2018 11:59 AM VA-TOBACCO DOESNT USE WI [address] [facility] May 13, 2018 11:59 AM VA-TOBACCO USE [address] [facility] May 13, 2018 11:59 AM VA-TOBACCO USE ADVICE [facility] May 13, 2018 11:59 AM VA-TOBACCO USE INTERACTIVE PROJECT MANAGER YES [facility] May 13, 2018 11:59 AM VA-TOBACCO USE MED NO [facility] May 13, 2018 11:59 AM VA-TOBACCO USER EVERY DAY [facility] Encounter Notes: All associated encounter notes This section contains the clinical notes associated to the Encounter. Date/Time Encounter Note(s) Provider Source Nov 15, 2020 08:00 AM NONVA PROCEDURE NO TE: LOCAL TITLE: NonVA Procedure STANDARD TITLE: NONVA PROCEDURE NOTE DATE OF NOTE: NOV 15, 2020@08:00 ENTRY DATE: DEC 10, 2022@12:05:26 AUTHOR: YOON TORRES EXP COSIGNER: URGENCY: STATUS: COMPLETED EVENT PROCEDURE: Colonoscopy Report TREATING FACILITY: [facility] Colonoscopy Report Date of procedure: 11/15/20 Pre-op diagnosis general: CRC screen Post-op diagnosis procedure note: other (Polyps and hemorrhoids) Surgeon: Deedee Schwartz Anesthesia Type: General:No Airway Estimated blood loss (mL): 1 Pathology: other Complications: None Disposition: same day Prep: Miralax/Dulcolax Retraction Time: 10 Procedure Description: Atter informed consent was obtained the patient was taken to the procedure room and placed in a left decubitous position. Monitors were applied and a time out was done. The patients name, date of , procedure, allergies to medications and metal in their body was reviewed. The patient was then sedated. Once sedated and comfortable a rectal exam was done. External exam: hrmorrhoids Internal exam revealed a normal sphincter tone and no palpable masses. The scope was then introduced and retrofelexed. GoodGrade I internal hemorrhoids were identified. The scope was then advanced to the cecum w/ difficulty. The TI and appendiceal orifice were identified. The prep was good the scope was then slowly retracted over 10 minutes back into the rectum. He had 2 small polyps that I removed. 1 is in the cecum and 1 is at 90 cm. Both of these polyps are small 5 mm flat polyps. They are both removed with a cold biting forcep. All specimen is retrieved and no bleeding is noted.. The scope was removed and the patient was woken up and taken back to Same day surgery in stable condition. The mucosa is pink and healthy. The patient tolerated the procedure well and there were no immediate complications. Follow up: The patient should follow up in 5-7years unless they develop changes in bowel habits or other new gastrointestinal complaints. THE ATTACHED SCANNED DOCUMENT HAS BEEN REVIEWED AND AUTHORIZED BY DOCUMENT (S) SENT TO [facility] TO BE SCANNED. TO VIEW THIS DOCUMENT, OPEN [employer] TOOLS MENU AND THEN OPEN THE IMAGE DISPLAY VIEWER. Diagnostic Colonoscopy: (+) FIT/FOBT identified. A diagnostic Colonoscopy is due based on information available to this reminder. Prior/outside colonoscopy results: GoodGrade I internal hemorrhoids He had 2 small polyps that I remov Date: November 15, 2020 Colonoscopy reminder set 2.5 years from DEC 10, 2022. /vicente/ YOON TORRES LPN Signed: 12/10/2022 12:10 YOON TORRES [facility]
--- OUTSIDE RECORDS SUMMARY | 2023-10-15 16:17 | XMS_ITS ---
Author Name [facility] [place] [facility] [place] Address [address] [place] [address] Care Team Providers Care Automotive Sales Representative Name Role Phone CHERI VASQUEZ Primary [...] ACTIV E SELEC TCAR Feb 15, 2018 [id number] KHANNASHANELL ERT PATIENT [facility] ([id number]) PRESCRIPT ION [facility] NT Feb 15, 2018 Q54A [id number] KHANNASHANELL ERT PATIENT Selected Encounter This section includes the information on record at [place] for the Encounter. Date/Time Encounter Type Encounter Description Reason Pro vider Source Feb 10, 2023 12:15 PM Outpatient Encounter ADMIN PAT ACTIVTIES (MASNONCT) IHE Encounter Template Text not used by [facility] Plan of Treatment: Future Appointments (+ 6 months) and Future Tests (+/- 45 days) The Plan of Treatment section includes future care activities for the [facility] This section includes future appointments and future orders which are active, pending or scheduled. Future Appointments This section includes appointments that were scheduled to occur 6 months from the date of the Encounter, up to a maximum of 20 appointments. The data comes from all [place] treatment facilities. Appointment Date/Time Appointment Type Appointme nt Facility Name Mar 17, 2023 11:00 AM AMBULATORY - MEDICINE [facility] [place] [facility] Apr 13, 2023 03:00 PM AMBULATORY - PS[place]CHIATRY [place] [facility] Apr 19, 2023 11:30 AM AMBULATORY - MEDICINE [facility] Jun 15, 2023 12:45 PM [facility] June 30, 2023 03:00 PM AMBULATORY - PSYCHIATRY [place] [facility] July 16, 2023 01:00 PM AMBULATORY - PSYCHIATRY [place] [facility] Jul 30, 2023 01:00 PM AMBULATORY - PSYCHIATRY [place] [facility] Aug 09, 2023 10:30 AM AMBULATORY - MEDICINE [facility] [place] [facility] Aug 09, 2023 11:15 AM AMBULATORY - PSYCHIATRY [place] [facility] Social History: Smoking Status (Most current) [...] May 13, 2018 11:59 AM PREVIOUS SMOKER I [place] [facility] Tobacco Use History This section includes a history of the smoking, or tobacco-related health factors, that were collected on or before the date of the Encounter. The data comes from the [place] facility where the Encounter took place. Date/Time Smoking Status/Tobacco Use Comment F acility May 13, 2018 11:59 AM PREVIOUS SMOKER WHI [facility] May 13, 2018 11:59 AM VA-TOBACCO DOESNT USE WI 30 MIN WAKEUP [facility] May 13, 2018 11:59 AM VA-TOBACCO USE 30 YEARS OR MORE [facility] May 13, 2018 11:59 AM VA-TOBACCO USE ADVICE [facility] May 13, 2018 11:59 AM VA-TOBACCO USE COMMERCIAL ESCROW ASSISTANT YES [facility] May 13, 2018 11:59 AM VA-TOBACCO USE MED NO [facility] May 13, 2018 11:59 AM VA-TOBACCO USER EVERY DAY [facility] Radiology Reports: +/- 30 days [...] the Encounter. The data comes from all [place] treatment facilities. Date/Time Radiology Report Provider Source Feb 05, 2023 11:00 AM ELASTOGRAPHY PAREN CHYMA (E.G., ORGAN): AMAURI KHANNA [id number] -1960 M Ex Date: FEB 05, 2023@11:00 Req Phys: CHERI VASQUEZ Pat Loc: LIT PACT T (Req'g Loc) Img Loc: ULTRASOUND (OOS) Service: Unknown (Case [id number] COMPLETE) ELASTOGRAPHY PARENCHYMA (E.G., OR(US Detailed) CPT:95094 Reason for Study: elevated AST Clinical History: daily etoh ? fibrosis Report Status: Verified Date Reported: FEB 05, 2023 Date Verified: FEB 05, 2023 Dragline Mechanic E-Sig:/ES/PATTI VAZ Report: Ultrasound -- abdomen with [...] Primary Interpreting Staff: PATTI VAZ, RADIOLOGY ATTENDING (Dragline Mechanic) /PATTI VACA [facility] Feb 05, 2023 11:00 AM ULTRASOUND RUQ (GB,LIVER,BILIARY): AMAURI KHANNA [id number] -1960 M Ex Date: FEB 05, 2023@11:00 Req Phys: CHERI VASQUEZ Pat Loc: LIT PACT T (Req'g Loc) Img Loc: ULTRASOUND (OOS) Service: Unknown (Case [id number] COMPLETE) ULTRASOUND RUQ (GB,LIVER,BILIARY)(US Detailed) CPT:56389 Reason for Study: elevated ast Clinical History: daily etoh ? fibrosis Report Status: Verified Date Reported: FEB 05, 2023 Date Verified: FEB 05, 2023 Dragline Mechanic E-Sig:/ES/PATTI VAZ Report: Ultrasound -- abdomen with [...] Primary Interpreting Staff: PATTI VAZ, RADIOLOGY ATTENDING (Dragline Mechanic) /PATTI VACA [facility] Encounter Notes: All associated encounter notes This section contains the clinical notes associated to the Encounter. Date/Time Encounter Note(s) Provider Source Feb 10, 2023 12:15 PM ADMINISTRATIVE NOT E: LOCAL TITLE: [facility]: SCHEDULING ADMINISTRATION STANDARD TITLE: ADMINISTRATIVE NOTE DATE OF NOTE: FEB 10, 2023@12:15:46 ENTRY DATE: FEB 10, 2023@12:15:46 AUTHOR: RODNEY OLIVEIRA COSIGNER: URGENCY: STATUS: COMPLETED Patient Demographics Patient Name: AMAURI KHANNA Patient Primary Phone: [phone] Patient Primary [address]: [address] [place] [id number] Patient : 1960 Patient Age: 62 Caller/Recipient Relation to Patient: Self Administrative Administrative Note Reason: Returned Call Administrative Note Comments: Vet returning call from PCP about testing results. Vet is free all day today for a call. /vicente/ RODNEY [place] 1 [facility] AMSA Signed: 02/10/2023 12:15 Receipt Acknowledged By: 02/11/2023 09:29 /vicente/ YOON TORRES LPN 02/11/2023 11:12 /vicente/ FREDRICK WALTER Registered Nurse RODNEY OLIVEIRA T [facility]
--- OUTSIDE RECORDS SUMMARY | 2023-10-15 16:17 | XMS_ITS ---
Author Name [facility] [place] [facility] [place] [facility] [place] [facility] [place] Address [address] [place] [address] Care Team Providers Care Shaft Mechanic Name Role Phone CHERI VASQUEZ Primary Care [...] Victor's Name Patient's Relationship to Policy Victor [facility] POINT OF SERVICE SOV ACTIV E SELEC TCAR Feb 15, 2018 [id number] KHANNASHANELL ERT PATIENT [facility] ([id number]) PRESCRIPT ION [facility] NT Feb 15, 2018 Q54A [id number] KHANNASHANELL ERT PATIENT Selected Encounter This section includes the information on record at [place] for the Encounter. Date/Time Encounter Type Encounter Description Reason Pro vider Source Feb 10, 2023 12:12 PM Outpatient Encounter ADMIN PAT ACTIVTIES (MASNONCT) [...] 20 appointments. The data comes from all [place] treatment facilities. Appointment Date/Time Appointment Type Appointme nt Facility Name Mar 17, 2023 11:00 AM AMBULATORY - MEDICINE [facility] [facility] Apr 13, 2023 03:00 PM AMBULATORY - PS[facility]CHIATRY [facility] [facility] [facility] Apr 19, 2023 11:30 AM AMBULATORY - MEDICINE [facility] [place] [facility] May 11, 2023 02:00 PM AMBULATORY - PS[facility]CHIATRY [place] [facility] May 19, 2023 12:45 PM AMBULATORY - [facility]RY [place] [facility] May 19, 2023 02:00 PM AMBULATORY - [facility]RY [place] [facility] Jun 02, 2023 11:00 AM AMBULATORY - [facility]RY [place] [facility] Jun 02, 2023 12:00 PM AMBULATORY - [facility]RY [place] [facility] Jun 10, 2023 03:00 PM AMBULATORY - [facility]RY [place] [facility] Jun 15, 2023 12:45 PM [facility] June 30, 2023 03:00 PM AMBULATORY - [facility]RY [place] [facility] July 16, 2023 01:00 PM AMBULATORY - [facility]RY [place] [facility] Jul 30, 2023 01:00 PM AMBULATORY - [facility]RY [place] [facility] Aug 09, 2023 10:30 AM AMBULATORY - MEDICINE [facility] [place] [facility] Aug 09, 2023 11:15 AM AMBULATORY - [place]IATRY [place] [facility] Social History: Smoking Status (Most [...] 11:59 AM PREVIOUS SMOKER I [place] [facility] Tobacco Use History This section includes a history of the smoking, or tobacco-related health factors, that were collected on or before the date of the Encounter. The data comes from the [place] facility where the Encounter took place. Date/Time Smoking Status/Tobacco Use Comment F acility May 13, 2018 11:59 AM PREVIOUS SMOKER WHI [facility]EN [facility] May 13, 2018 11:59 AM VA-TOBACCO DOESNT USE WI 30 MIN WAKEUP [facility]LES [facility] May 13, 2018 11:59 AM VA-TOBACCO USE 30 YEARS OR MORE WHITE [facility] May 13, 2018 11:59 AM VA-TOBACCO USE ADVICE [facility] May 13, 2018 11:59 AM VA-TOBACCO USE SKETCH ARTIST YES [facility] May 13, 2018 11:59 AM VA-TOBACCO USE MED NO [facility] May 13, 2018 11:59 AM VA-TOBACCO USER EVERY DAY [facility] Radiology Reports: +/- 30 days of [...] the Encounter. The data comes from all [place] treatment facilities. Date/Time Radiology Report Provider Source Feb 05, 2023 11:00 AM ELASTOGRAPHY PAREN CHYMA (E.G., ORGAN): AMAURI KHANNA [id number] -1960 M Ex Date: FEB 05, 2023@11:00 Req Phys: CHERI VASQUEZ Pat Loc: LIT PACT T (Req'g Loc) Img Loc: ULTRASOUND (OOS) Service: Unknown (Case [id number] COMPLETE) ELASTOGRAPHY PARENCHYMA (E.G., OR(US Detailed) CPT:90176 Reason for Study: elevated AST Clinical History: daily etoh ? fibrosis Report Status: Verified Date Reported: FEB 05, 2023 Date Verified: FEB 05, 2023 Hose Finisher E-Sig:/ES/PATTI VAZ Report: Ultrasound -- abdomen with [...] Primary Interpreting Staff: PATTI VAZ, RADIOLOGY ATTENDING (Hose Finisher) /PATTI VACA [facility] Feb 05, 2023 11:00 AM ULTRASOUND RUQ (GB,LIVER,BILIARY): AMAURI KHANNA [id number] -1960 M Ex Date: FEB 05, 2023@11:00 Req Phys: CHERI VASQUEZ Pat Loc: LIT PACT T (Req'g Loc) Img Loc: ULTRASOUND (OOS) Service: Unknown (Case [id number] COMPLETE) ULTRASOUND RUQ (GB,LIVER,BILIARY)(US Detailed) CPT:49888 Reason for Study: elevated ast Clinical History: daily etoh ? fibrosis Report Status: Verified Date Reported: FEB 05, 2023 Date Verified: FEB 05, 2023 Hose Finisher E-Sig:/ES/PATTI VAZ Report: Ultrasound -- abdomen with [...] Primary Interpreting Staff: PATTI VAZ, RADIOLOGY ATTENDING (Hose Finisher) /PATTI VACA [facility] Encounter Notes: All associated encounter notes This section contains the clinical notes associated to the Encounter. Date/Time Encounter Note(s) Provider Source Feb 10, 2023 12:12 PM ADMINISTRATIVE NOT E: LOCAL TITLE: CCC: SCHEDULING ADMINISTRATION STANDARD TITLE: ADMINISTRATIVE NOTE DATE OF NOTE: FEB 10, 2023@12:12:29 ENTRY DATE: FEB 10, 2023@12:12:29 AUTHOR: KATHIE MARIE COSIGNER: URGENCY: STATUS: COMPLETED CCC: SCHEDULING ADMINISTRATION Has ADDENDA Patient Demographics Patient Name: AMAURI KHANNA Patient Primary Phone: [phone] Patient Primary [address]: [address] [place] [id number] Patient : 1960 Patient Age: 62 Caller/Recipient Relation to Patient: Self Administrative Administrative Note Reason: Returned Call Administrative Note Comments: Patient states he is returning PACT Teams phone call. Please call patient at [phone]. /vicente/ KATHIE MARIE Kindergarten Teacher Signed: 02/10/2023 12:12 Receipt Acknowledged By: 02/11/2023 09:27 /vicente/ YOON TORRES LPN 02/11/2023 11:12 /es/ FREDRICK WALTER Registered Nurse 02/11/2023 ADDENDUM STATUS: COMPLETED Patient has discussed with provider on 02/09/2023 /vicente/ YOON TORRES LPN Signed: 02/11/2023 09:29 03/18/2023 ADDENDUM STATUS: COMPLETED Look in Imaging Display at outside records and in JLV. Only found following in JLV, from DOD: Vaccine Administered Date: Jan 19, 1998 Vaccine Administered Product Type: hepatitis A vaccine, adult dosage Series: 2 There was no record of the 1st vaccine in the series. /es/ PRAVEEN LEE RN Signed: 03/18/2023 15:17 KATHIE MARIE [facility]
--- OUTSIDE RECORDS SUMMARY | 2023-10-15 16:17 | XMS_ITS ---
Author Name [facility] [place] [facility] [place] [facility] [place] Address [address] [place] [address] Care Team Providers Care Pressroom Worker Name Role Phone CHERI VASQUEZ Primary Care [...] Victor's Name Patient's Relationship to Policy Victor [facility] POINT OF SERVICE SOV ACTIV E SELEC TCAR Feb 15, 2018 [id number] SHANELL KHANNA PATIENT [employer] SCRIPTS ([id number]) PRESCRIPT ION [facility] NT Feb 15, 2018 Q54A [id number] SHANELL KHANNA PATIENT Selected Encounter This section includes the information on record at [place] for the Encounter. Date/Time Encounter Type Encounter Description Reason Provider Source Apr 19, 2023 11:30 AM Outpatient Encounter TELEPHONE/MEDICIN E ICD-10-CM F10.99 Alcohol use, unsp with unspecified alcohol-induced disorder ZABRINA PASCAL Maximo Encounter Template Text not used by [facility] Assessments - Encounter Diagnoses This section includes the primary and secondary diagnoses documented for the Encounter. Date/Time Primary/Secondary Diagnosis Diagnosis Name Provider Source Apr 19, 2023 11:30 AM PRIMARY Alcohol use, unsp with unspecified alcohol-induced disorder ZABRINA PASCAL [facility] Plan of Treatment: Future Appointments (+ 6 months) and Future Tests (+/- 45 days) The Plan of Treatment section includes future care activities for the patient from all [place] [facility]. This section includes future appointments and future orders which are active, pending or scheduled. Future Appointments This section includes appointments that were scheduled to occur 6 months from the date of the Encounter, up to a maximum of 20 appointments. The data comes from all [place] treatment facilities. Appointment Date/Time Appointment Type Appointme nt Facility Name May 11, 2023 02:00 PM AMBULATORY - [facility]CHIATRY [place] [facility] May 19, 2023 12:45 PM AMBULATORY - PS[facility]CHIATRY [place] [facility] May 19, 2023 02:00 PM AMBULATORY - [facility]CHIATRY [place] [facility] Jun 02, 2023 11:00 AM AMBULATORY - [facility]IATRY [place] [facility] Jun 02, 2023 12:00 PM AMBULATORY - [facility]RY [place] [facility] Jun 10, 2023 03:00 PM AMBULATORY - [facility]CHIATRY [place] [facility] Jun 15, 2023 12:45 PM AMBULATORY - [facility] June 30, 2023 03:00 PM AMBULATORY - PS[facility]CHIATRY [place] [facility] July 16, 2023 01:00 PM AMBULATORY - PS[facility]CHIATRY [place] [facility] Jul 30, 2023 01:00 PM AMBULATORY - PS[facility]CHIATRY [place] [facility] Aug 09, 2023 10:30 AM AMBULATORY - MEDICINE [facility] E [facility] Aug 09, 2023 11:15 AM AMBULATORY - PS[facility]CHIATRY [place] [facility] Aug 13, 2023 12:00 PM AMBULATORY - [facility]CHIATRY [place] [facility] Aug 18, 2023 11:00 AM AMBULATORY - [facility]CHIATRY [place] [facility] Sep 08, 2023 10:30 AM AMBULATORY - PS[facility]CHIATRY [place] [facility] Oct 20, 2023 10:30 AM AMBULATORY - PSYCHIATRY [place] [facility] Lab Results: +/- 30 days of the encounter This section includes the Chemistry and Hematology Lab Results on record with [place] for the patient. Radiology Reports and Pathology Reports are provided separately, in subsequent sections. Lab Results This section contains the Chemistry/Hematology Results that were resulted 30 days before or 30 daysafter the date of the Encounter. Date/Time Source Result Type Result - Unit Interpretation Reference Range Comment May 11, 2023 02:49 PM [facility] LIVER PROFILE Specimen Type: PLASMA Comment: , Tests performed on [place] SN:[id number] (405). Ordering Provider: VERONICA HERNANDEZ Report Released Date/Time: May 11, 2023 02:41 PM Reporting Lab: [facility] [address] [facility] [id number] Performing Lab: [facility] [address] [facility] [id number] PROTEIN, TOTAL 7.9 g/dL 6.0-8.5 ALBUMIN 4.5 g/dL 3.2-5.0 BILIRUBIN, TOTAL 0.9 mg/dL 0.2-1.2 ALKALINE PHOSPHATASE 67 U/L 40-150 ALT(SGPT) 44 U/L 7-52 AST(SGOT) 54 U/L H 5-34 Social History: Smoking Status (Most current) and Tobacco Use (All prior to encounter date) This section includes the most current, and the historical, smoking and tobacco- related health factors from the [place] facility where the Encounter took place. Current Smoking Status This section includes the most current smoking, or tobacco-related health factor, from the [place] facility where the Encounter took place. Date/Time Current Smoking Status Comment Yayo ity Mar 17, 2023 11:00 AM VA-TOBACCO USE WI 30 MIN OF WAKEUP [facility] Tobacco Use History This section includes a history of the smoking, or tobacco-related health factors, that were collected on or before the date of the Encounter. The data comes from the [place] facility where the Encounter took place. 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 USE FILLER BLOCK INSERTER REMOVER NO [facility] Mar 17, 2023 11:00 AM VA-TOBACCO USE MED NO [facility] Mar 17, 2023 11:00 AM VA-TOBACCO USE WI 30 MIN OF WAKEUP [facility] Mar 17, 2023 11:00 AM VA-TOBACCO USER EVERY DAY [facility] May 13, 2018 11:59 AM AH-BPR SMOKING DEPLOYMENT NO [facility] May 13, 2018 11:59 AM PREVIOUS SMOKER WHI [facility] May 13, 2018 11:59 AM VA-TOBACCO DOESNT USE WI 30 MIN WAKEUP [facility] May 13, 2018 11:59 AM VA-TOBACCO USE 30 YEARS OR MORE [facility] May 13, 2018 11:59 AM VA-TOBACCO USE ADVICE [facility] May 13, 2018 11:59 AM VA-TOBACCO USE FILLER BLOCK INSERTER REMOVER YES [facility] May 13, 2018 11:59 AM VA-TOBACCO USE MED NO [facility] May 13, 2018 11:59 AM VA-TOBACCO USER EVERY DAY [facility] Encounter Notes: All associated encounter notes This section contains the clinical notes associated to the Encounter. 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 Khanna is a 62 year old male with a history of elevated liver tests and hepatic steatosis on abdominal imaging. He does not have risks for metabolic liver disease. He does drink a six pack a night after work. Notes that this started after he returned from a tour in [facility]. He never drinks in the morning, has not noted that it affects his work but does note that his has asked him to cut down. [place] new [place] and is interested in learning more about counseling and medication services that might help him. He has successfully completed an intake appt and looks forward to meetng with a counselor in the short term. Remain available for RX if needed to support alcohol treatment. /vicente/ ZABRINA PASCAL Nurse Practitioner, Hepatology Signed: 04/20/2023 14:38 ZABRINA PASCAL [facility]
--- OUTSIDE RECORDS SUMMARY | 2023-10-15 16:17 | XMS_ITS | Encounter Summary ---
Author Name [facility] [facility] [place] [facility] [place] Address [address] [place] [address] Care Team Providers Care Marketing Account Executive Name Role Phone CHERI VASQUEZ Primary Care [...] Victor's Name Patient's Relationship to Policy Victor [facility] POINT OF SERVICE SOV ACTIV E SELEC TCAR Feb 15, 2018 [id number] SHANELL KHANNA PATIENT [employer] ([id number]) PRESCRIPT ION [facility] NT Feb 15, 2018 [id number] SHANELL KHANNA PATIENT Selected Encounter This section includes the information on [place] at [place] for the Encounter. Date/Time Encounter Type Encounter Description Reason Provider Source Apr 13, 2023 03:00 PM PSYCH DIAGNOSTIC EVALUATION MH INTGRTD CARE IND ICD-10-CM F10.99 Alcohol use, unsp with unspecified alcohol-induced disorder JASMIN AVALOS IHMaximo Encounter Template Text not used by [facility] Assessments - Encounter Diagnoses This section includes the primary and secondary diagnoses documented for the Encounter. Date/Time Primary/Secondary Diagnosis Diagnosis Name Provider Source Apr 14, 2023 08:54 AM PRIMARY Alcohol use, unsp with unspecified alcohol-induced disorder FARNAZ AVALOS [facility] Plan of Treatment: Future Appointments (+ 6 months) and Future Tests (+/- 45 days) The Plan of Treatment section includes future care activities for the patient from all [place] [facility]. This section includes future appointments and future orders which are active, pending or scheduled. Future Appointments This section includes appointments that were scheduled to occur 6 months from the date of the Encounter, up to a maximum of 20 appointments. The data comes from all [place] treatment facilities. Appointment Date/Time Appointment Type Appointme nt Facility Name Apr 19, 2023 11:30 AM [facility]BULATORY - MEDICINE [place] [facility] May 11, 2023 02:00 PM AMBULATORY - PSYCHIATRY [place] [facility] May 19, 2023 12:45 PM AMBULATORY - [place]IATRY [place] [facility] May 19, 2023 02:00 PM AM[place]ULAT[place] - [place] [facility] Jun 02, 2023 11:00 AM AM[place]ULATORY [place] [facility] Jun 02, 2023 12:00 PM AM[place]ULATORY [place] [facility] Jun 10, 2023 03:00 PM AMBULATORY - [place]CHIATRY [place] [facility] Jun 15, 2023 12:45 PM AMBULATORY - NONE [place] [facility] June 30, 2023 03:00 PM [place]ULAT[place] [facility] July 16, 2023 01:00 PM AM[place]ULATORY [place] [facility] Jul 30, 2023 01:00 PM AM[place]AT[place] - [place] [facility] Aug 09, 2023 10:30 AM [place]ULAT[place] - [place]IC[place] [facility] Aug 09, 2023 11:15 AM AM[place]ATORY [place] [facility] Aug 13, 2023 12:00 PM AMBULATORY - [place]CHIATRY [place] [facility] Aug 18, 2023 11:00 AM AMBULATORY - [place]IATRY [place] [facility] Sep 08, 2023 10:30 AM AMBULATORY - [place]CHIATRY [place] [facility] Lab Results: +/- 30 days [...] Range Comment May 11, 2023 02:49 PM [facility] LIVER PROFILE Specimen Type: PLASMA Comment: , Tests performed on [employer] SN:[id number] (405). Ordering Provider: BRIAN HERNANDEZ Report Released Date/Time: May 11, 2023 02:41 PM Reporting [facility] [address] [address] Performing Lab: [facility] [address] [address] PROTEIN, TOTAL 7.9 g/dL 6.0-8.5 ALBUMIN 4.5 g/dL 3.2-5.0 BILIRUBIN, TOTAL 0.9 mg/dL 0.2-1.2 ALKALINE PHOSPHATASE 67 U/L 40-150 ALT(SGPT) 44 U/L 7-52 AST(SGOT) 54 U/L H 5-34 Mar 17, 2023 10:28 AM [facility] HEPATITIS C AB(WRJ)w/Reflex Specimen Type: SERUM Comment: , Tests performed on [employer] SN:[id number] (405) No HCV antibody detected. If recent infection is suspected or other evidence suggests HCV infection, consider HCV RNA testing Ordering Provider: CHERI VASQUEZ Report Released Date/Time: Feb 10, 2023 02:12 PM Reporting Lab: [facility] [address] [address] Performing Lab: [facility] [address] [address] HEPATITIS C AB(WRJ)w/Refle x Non-Reactive Non-Reactiv e Mar 17, 2023 10:28 AM [facility] IRON+TIBC(P) Specimen Type: PLASMA Comment: , Tests performed on [employer] SN:[id number] (405) Ordering Provider: CHERI VASQUEZ Report Released Date/Time: Feb 10, 2023 02:12 PM Reporting Lab: [facility] [address] [address] Performing Lab: [facility] [address] [address] IRON 170 ug/dL H 40-160 TIBC 255 ug/dL IRON SATURATION(P) 67 >15 UIBC(P) 85 ug/dL L 126-382 Mar 17, 2023 10:28 AM [facility] LIVER PROFILE Specimen Type: PLASMA Comment: , Tests performed on [employer] SN:[id number] (405) Ordering Provider: CHERI VASQUEZ Report Released Date/Time: Feb 10, 2023 02:12 PM Reporting Lab: [facility] [address] [address] Performing Lab: [facility] [address] [address] PROTEIN, TOTAL 8.1 g/dL 6.0-8.5 ALBUMIN 4.6 g/dL 3.2-5.0 BILIRUBIN, TOTAL 0.6 mg/dL 0.2-1.2 ALKALINE PHOSPHATASE 64 U/L 40-150 ALT(SGPT) 48 U/L 7-52 AST(SGOT) 59 U/L H 5-34 Mar 17, 2023 10:28 AM [facility] FERRITIN Specimen Type: SERUM Comment: , Tests performed on [employer] SN:[id number] (405) Ordering Provider: CHERI VASQUEZ Report Released Date/Time: Feb 10, 2023 02:12 PM Reporting Lab: [facility] [address] [address] [address] Performing Lab: [facility] [address] [address] FERRITIN 472 ng/mL H 22-275 Mar 17, 2023 10:28 AM [facility] FOLATE Specimen Type: SERUM Comment: , Tests performed on [employer] SN:[id number] (405) Ordering Provider: CHERI VASQUEZ Report Released Date/Time: Feb 10, 2023 02:12 PM Reporting Lab: [facility] [address] [address] Performing Lab: [facility] [address] [address] FOLATE 6.6 ng/mL 5.2-20.3 Mar 17, 2023 10:27 AM [facility] HBSAG PANEL WITH REFLEX CONFIRMATION() Specimen Type: SERUM Comment: A Reactive result (Positive prior to 11/28/12) is diagnostic of acute or chronic hepatitis B infection. The presence of Hepatitis B surface antigen is frequently associated with infectivity. Ordering Provider: CHERI VASQUEZ Report Released Date/Time: Feb 10, 2023 02:12 PM Reporting Lab: [facility] [address] [address] Performing Lab: [facility] [address] [address] HEP B SURFACE AG() Non Reactive Non Reactive Social History: Smoking Status (Most current) and Tobacco Use (All prior to encounter date) This section includes the most current, and the historical, smoking and tobacco- related health factors from the [place] facility where the Encounter took place. 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 NO [facility] Mar 17, 2023 11:00 AM VA-TOBACCO USE MED NO [facility] Mar 17, 2023 11:00 AM VA-TOBACCO USE WI 30 MIN OF WAKEUP [facility] Mar 17, 2023 11:00 AM VA-TOBACCO USER EVERY DAY [facility] May 13, 2018 11:59 AM AH-BPR SMOKING DEPLOYMENT NO [facility] May 13, 2018 11:59 AM PREVIOUS SMOKER WHI [place] [facility] May 13, 2018 11:59 AM VA-TOBACCO DOESNT USE WI 30 MIN WAKEUP [facility] May 13, 2018 11:59 AM VA-TOBACCO USE 30 YEARS OR MORE [facility] May 13, 2018 11:59 AM VA-TOBACCO USE ADVICE [facility] May 13, 2018 11:59 AM VA-TOBACCO USE PLC CONTROLS ENGINEER YES [facility] May 13, 2018 11:59 AM VA-TOBACCO USE MED NO [facility] May 13, 2018 11:59 AM VA-TOBACCO USER EVERY DAY [facility] Encounter Notes: All associated encounter notes This section contains the clinical notes associated to the Encounter. Date/Time Encounter Note(s) Provider Source Apr 13, 2023 03:51 PM SUICIDE PREVENTION RISK ASSESSMENT SCREENING NOTE: LOCAL TITLE: SUICIDE/HOMICIDE RISK ASSESSMENT STANDARD TITLE: SUICIDE PREVENTION RISK ASSESSMENT SCREENING NOT DATE OF NOTE: APR 13, 2023@15:51 ENTRY DATE: APR 13, 2023@15:51:49 AUTHOR: FARNAZ AVALOS EXP COSIGNER: URGENCY: STATUS: COMPLETED ASSESSMENT OF DANGER TO OTHERS: During the past 6 months have you had any thoughts about harming someone else? No Have you ever tried to seriously harm someone else in the past? No No significant current risk of harm to others. ASSESSMENT OF HOMICIDE RISK: Low [place]-Suicide Severity Rating Scale (C-SSRS Screener) 1. Over the past month, have you wished you were or wished you could go to sleep and not wake up? No 2. Over the past month, have you had any actual thoughts of killing yourself? No 3. Over the past month, have you been thinking about how you might do this? Response not required due to responses to other questions. 4. Over the past month, have you had these thoughts and had some intention of acting on them? Response not required due to responses to other questions. 5. Over the past month, have you started to work out or worked out the details of how to kill yourself? Response not required due to responses to other questions. 6. If yes, at any time in the past month did you intend to carry out this plan? Response not required due to responses to other questions. 7. In your lifetime, have you ever done anything, started to do anything, or prepared to do anything to end your life (for example, collected pills, obtained a gun, gave away valuables, went to the roof but didn't jump)? No 8. If YES, was this within the past 3 months? Response not required due to responses to other questions. Is the [place] Screen Positive? No Risk Factors Recent psychosocial stressors Protective Factors and Reasons for Living Access to and engagement with health care Reports motivation for mental health treatment Has meaningful family relationships Has a significant other Social context support system // FARNAZ AVALOS Clinical Psychologist Signed: 04/14/2023 09:10 FARNAZ AVALOS [facility] Apr 13, 2023 03:00 PM MENTAL HEALTH CONS ULT: LOCAL TITLE: Mental Health Consult Note STANDARD TITLE: MENTAL HEALTH CONSULT DATE OF NOTE: APR 13, 2023@15:00 ENTRY DATE: APR 13, 2023@15:00:18 AUTHOR: FARNAZ AVALOS EXP COSIGNER: URGENCY: STATUS: COMPLETED PRIMARY CARE MENTAL HEALTH INTEGRATION (PC-MHI) THERAPY INTAKE [place] is a: 62 MALE Referred by: Reason for Referral: alcohol use [place]'s appraisal of the referral problem (duration, frequency, intensity, triggering events, etc.): Pt reported that had been tyring to cut back on drinking but hasn't been able to make much change. Has been drinking about a 6 pack a day for about a decade. Would like to cut back but not give up drinking entirely. Denies having cravings or withdrawals. Uses drinking to destress. Wants to find ways to cope better and cut back. 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 Changes in sleep, energy, concentration, or appetite: has a lot of nightmares, doesn't remember them Mood during the past two weeks: pretty stressed Trauma history: endorsed history RISK SCREENING: [place] Suicide Rating Scale (CSRS) To complete:> Go to Mental Health Templates:Suicide Risk Screen Violence Risk: : Current Legal Issues: HEALTH BEHAVIORS: Alcohol: 6 pack a day after work typically Other Substances: none Tobacco: chews Caffeine (coffee, tea, soda, energy drinks, other): Health and Medical Concerns: Strengths: RELEVANT OBJECTIVE OBSERVATIONS OUTSIDE OF NORMAL LIMITS: none noted DIAGNOSTIC IMPRESSIONS AND TREATMENT SUMMARY: Pt wanting to cut back on his drinking. Discussed treatment options, will place SUDS referral. Stated mon and fridays would work best, wants to start in person. PLAN FOR FOLLOW-UP FROM [facility]S APPOINTMENT: [ ]Return to -I clinic for follow-up therapy appointment Date and time negotiated with patient: [ ] -I clinic prescriber appointment: [ ] Referral to [facility] for therapy evaluation (internal [facility] consult) [ ] No follow-up in -I needed. [place] to return should treatment be needed or desired [ ] declines follow-up at this time EMERGENCY CONTACT INFORMATION AND FOLLOW-UP: [X] I have given the [place] the [facility] 07[facility]09 crisis line number, , in the event that the experiences a MH emergency prior to their first appointment. [X] I have provided the with information on how to reach [facility] and/or their local [facility] with questions about follow-up plan or if the [place] wants to speak with a MH professional before their next appointment. [ ] [place] - [phone] [ ] [place] - [phone] [ ] [facility] [phone] [ ] [facility] [phone] [ ] [facility] [phone] [ ] [facility] [phone] [ ] [facility] [phone] [ ] [facility] - [phone] [X] had no further questions or concerns and agrees to the plan above. [ ] Co-signing Primary Care Provider regarding: Time spent: 35 minutes /vicente/ FARNAZ AVALOS Clinical Psychologist Signed: 04/14/2023 09:10 FARNAZ AVALOS [facility]3]OC
--- OUTSIDE RECORDS SUMMARY | 2023-10-15 16:17 | XMS_ITS | Encounter Summary ---
Author Name [facility] [place] Organization [facility] [place] Address [address] [place] [address] Care Team Providers Care Curber Name Role Phone CHERI VASQUEZ Primary Care [...] Victor's Name Patient's Relationship to Policy Victor [facility] POINT OF SERVICE SOV ACTIV E SELEC TCAR Feb 15, 2018 [id number] SHANELL KHANNA PATIENT [facility] ([id number]) PRESCRIPT ION [facility] NT Feb 15, 2018 Q54A [id number] SHANELL KHANNA PATIENT Selected Encounter This section includes the information on record at [facility] for the Encounter. Date/Time Encounter Type Encounter Description Reason Provider Source Nov 17, 2022 11:00 AM OFF/OP EST JUNE X REQ PHY/QHP PRIMARY CARE/MEDICINE ICD-10-CM J34.89 Other specified disorders of nose and nasal sinuses MOY TEJADA RA [facility] Encounter Template Text not used by VA Assessments - Encounter Diagnoses This section includes the primary and secondary diagnoses documented for the Encounter. Date/Time Primary/Secondary Diagnosis Diagnosis Name Provider Source Dec 15, 2022 01:36 PM PRIMARY Other specified disorders of nose and nasal sinuses ELFEGO RAMIREZ [facility] Plan of Treatment: Future Appointments (+ 6 months) and Future Tests (+/- 45 days) The Plan of Treatment section includes future care activities for the patient from all [place] treatmentfacilities. This section includes future appointments and future orders which are active, pending or scheduled. Future Appointments This section includes appointments that were scheduled to occur 6 months from the date of the Encounter, up to a maximum of 20 appointments. The data comes from all [place] treatment facilities. Appointment Date/Time Appointment Type Appointme nt Facility Name Dec 10, 2022 10:30 AM [facility] Feb 05, 2023 11:00 AM AMBULATORY - NONE MYLES CORMIER [facility] Mar 17, 2023 11:00 AM AMBULATORY - MEDICINE [facility] Maximo [facility] Apr 13, 2023 03:00 PM AMBULATORY - PSYCHIATRY [facility] Apr 19, 2023 11:30 AM AMBULATORY - MEDICINE [facility] Maximo [facility] May 11, 2023 02:00 PM AMBULATORY - PSYCHIATRY [facility]imo [facility] May 19, 2023 12:45 PM AMBULATORY - PSYCHIATRY ITMaximo [facility] May 19, 2023 02:00 PM [facility] Lab Results: +/- 30 days of the encounter This section includes the Chemistry and Hematology Lab Results on record with [place] for the patient. Radiology Reports and Pathology Reports are provided separately, in subsequent sections. Lab Results This section contains the Chemistry/Hematology Results that were resulted 30 days before or 30 daysafter the date of the Encounter. Date/Time Source Result Type Result - Unit Interpretation Reference Range Comment Dec 10, 2022 11:42 AM [facility] PSA (P D DRIVER) Specimen Type: SERUM Comment: Tests performed on Pérez Drafter Seismograph (405) SN:[id number] Ordering Provider: CHERI VASQUEZ Report Released Date/Time: Dec 10, 2022 11:39 AM Reporting Lab: [facility] [address] [facility] [address] Performing Lab: [facility] [address] [facility] [address] PSA (P D DRIVER) 1.75 ng/mL 0-4.0 Dec 10, 2022 11:42 AM [facility] VIT D 25-OH([facility]) Specimen Type: SERUM Comment: Tests performed on Pérez Drafter Seismograph (405) SN:[id number] Ordering Provider: CHERI VASQUEZ Report Released Date/Time: Dec 10, 2022 11:39 AM Reporting Lab: [facility] [address] [facility] [address] Performing Lab: [facility] [address] [facility] [address] VIT D 25-OH([facility]) 28.9 ng/mL 20-50 Dec 10, 2022 11:42 AM [facility] THYROID TESTING CASCADE Specimen Type: SERUM Comment: Tests performed on Pérez Drafter Seismograph (405) SN:[id number] Ordering Provider: CHERI VASQUEZ Report Released Date/Time: Dec 10, 2022 11:39 AM Reporting Lab: [facility] [address] [facility] [address] Performing Lab: [facility] [address] [facility] [address] T4,FREE 1.0 ng/dL 0.6-1.6 TSH 0.91 u[IU]/mL 0.35-5.00 Nov 17, 2022 11:05 AM [facility] LIPOPROTEIN CHOLESTEROL FRACT. PANEL Specimen Type: PLASMA Comment: Tests performed on Pérez Drafter Seismograph (405) [id number] Ordering Provider: CHERI VASQUEZ Report Released Date/Time: Nov 12, 2022 03:17 PM Reporting Lab: [facility] [address] [facility] [address] Performing Lab: [facility] [address] [facility] [address] CHOLESTEROL 215 mg/dL H 0-199 TRIGLYCERIDE 35 mg/dL 0-149 HDL CHOLESTEROL 138 mg/dL >40 LDL CHOLESTEROL (CALC) 70 mg/dL 0-129 Nov 17, 2022 11:05 AM [facility] LIVER PROFILE Specimen Type: PLASMA Comment: Tests performed on Pérez Drafter Seismograph (405) SN:[id number] Ordering Provider: CHERI VASQUEZ Report Released Date/Time: Nov 12, 2022 03:17 PM Reporting Lab: [facility] [address] [facility] [address] Performing Lab: [facility] [address] [facility] [address] PROTEIN, TOTAL 8.0 g/dL 6.0-8.5 ALBUMIN 4.3 g/dL 3.2-5.0 BILIRUBIN, TOTAL 0.6 mg/dL 0.2-1.2 ALKALINE PHOSPHATASE 66 U/L 40-150 ALT(SGPT) 43 U/L 7-52 AST(SGOT) 59 U/L H 5-34 FIB-4 SCORE 2.56 {index} <2.67 Nov 17, 2022 11:05 AM [facility] P4 GLU,BUN,CREAT,LYTES,CA Specimen Type: PLASMA Comment: Tests performed on SodaStream (405) SN:[id number] Ordering Provider: CHERI VASQUEZ Report Released Date/Time: Nov 12, 2022 03:17 PM Reporting Lab: [facility] [address] [facility] [address] Performing Lab: [facility] [address] [facility] [address] UREA NITROGEN 11 mg/dL 7-25 SODIUM 135 mmol/L 135-145 POTASSIUM 4.7 mmol/L 3.5-5.0 CHLORIDE 102 mmol/L 100-110 CARBON DIOXIDE 26 mmol/L 20-30 ANION GAP 7 mmol/L 4-16 GLUCOSE 100 mg/dL 65-100 CREATININE 1.04 mg/dL 0.5-1.5 CALCIUM 10.7 mg/dL H 8.5-10.5 eGFR(CKD-EPI 2020) 82 mL/min >60 Nov 17, 2022 11:05 AM [facility] GLYCOHEMOGLOBIN (A1C ONLY) Specimen Type: BLOOD Comment: Tests performed on SodaStream (405) SN:[id number] Values obtained from A1C measurements can vary. For typical A1C assays, a reported value of 7.0 could actually be between 6.72 and 7.28 if measured by a reference method. A reported value of 9.0 could actually be between 8.73 and 9.27. Reference http://www.ng sp.org/CAPdat a.asp Ordering Provider: CHERI VASQUEZ Report Released Date/Time: Nov 12, 2022 03:17 PM Reporting Lab: [facility] [address] [facility] [address] Performing Lab: [facility] [address] [facility] [address] HEMOGLOBIN A1C 5.1 4.0-5.6 Nov 17, 2022 11:05 AM [facility] CBC PROFILE Specimen Type: BLOOD No comment entered. Ordering Provider: CHERI VASQUEZ Report Released Date/Time: Nov 12, 2022 03:17 PM Reporting Lab: [facility] [address] [facility] [address] Performing Lab: [facility] [address] [facility] [address] WBC 4.8 10*3/uL 4.5-11.0 RBC 4.19 10*6/uL [...] Pain Height Weight Body Mass Index Source Nov 17, 2022 11:57 AM 80 /min 132/80 mm[Hg] 16 /min 0 70 in 154.9 lb 22 [facility] Social History: Smoking Status (Most current) and Tobacco Use (All prior to encounter date) This section includes the most current, and the historical, smoking and tobacco- related health factors from the [place] facility where the Encounter took place. Current Smoking Status This section includes the most current smoking, or tobacco-related health factor, from the [place] facility where the Encounter took place. Date/Time Current Smoking Status Comment Yayo sawant May 13, 2018 11:59 AM AH-BPR SMOKING DEPLOYMENT NO [place] [facility] Encounter Notes: All associated encounter notes This section contains the clinical notes associated to the Encounter. Date/Time Encounter Note(s) Provider Source Nov 17, 2022 11:02 AM PRIMARY CARE NOTE: LOCAL TITLE: Surtass Analyst Note STANDARD TITLE: PRIMARY CARE NOTE DATE OF NOTE: NOV 17, 2022@11:02 ENTRY DATE: NOV 17, 2022@11:02:20 AUTHOR: ARGENTINA TEJADA COSIGNER: URGENCY: STATUS: COMPLETED AMAURI KHANNA [id number] SYSTEM SUPPORT ADMINISTRATOR VISIT S/ 61yo WM who is regularly followed by [facility] The patient has the following concerns: 1)nasal drainage constantly ROS: Appetite-good Weight-no significant change Vision- good last eye visit- vet is due- last visit 2019 Hearing-good [facility] eye care Exercise-walking, jogging, snow shoe Nutrition-balanced Cardiac-no chest pain, swelling, PND, orthopnea Pulmonary-no SOB, cough GI-no abd pain, nausea, vomiting, incontinence, hematochezia- GERD -no incontinence, hematuria, dysuria. 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 Over [...] required due to responses to other questions. 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 /caregiver believes the was exposed to the following while serving in the Armed Forces: Airborne Hazards and Open Burn Pit: [place]/caregiver was made aware of educational resources that includes information on the Registry Program, presumptive conditions and how to file a claim. Printed information was offered and provided if desired. No questions at this time /caregiver was informed of local points of contact. Contact information for local resources: Benefits/Claims Questions: [place] Healthcare Enrollment: KAT Kamara Men'S Leather Dress Belt Maker, [phone] Ana Laura Solorzano Men'S Leather Dress Belt Maker, [phone] Registry: Allen Lay, Environmental Health Coordinator, [phone] Toxic Exposure Screening Follow-Up reminder is needed. Name of person notified: will discuss at visit with provider if questions arise Tobacco Use Screening: The patient uses tobacco [...] to protect and improve your health and [place] has the resources to support you. - [...] behavioral changes to help you quit. - [place] has a number of behavioral counseling options to help you with quitting, including: * Provide information about the facility smoking or tobacco use treatment options or clinics * [place]'s national quitline, 4-967-VPIJ-VET, with counseling available Wednesday-Wednesday The patient was [...] in a prescription for tobacco cessation medications. Influenza Immunization: The patient has received the seasonal influenza vaccine for the current season at another location. Documented: INFLUENZA, UNSPECIFIED FORMULATION Historical Date Administered: Oct 10, 2022 Information Source: FROM PATIENT'S RECALL Homelessness/Food Insecurity Screen: In the past 2 months, have you been living in stable housing that you own, rent, or stay in as part of a household? Yes - Living in stable housing. Are you worried or concerned that in the next 2 months you may NOT have stable housing that you own, rent, or stay in as part of a household? No - Not worried about housing near future The reports the following: Within the past 12 months, you worried whether your food would run out before you got money to buy more. Never true Within the past 12 months, the food you bought just didn't last and you didn't have money to get more. Never true Alcohol Use Screen (AUDIT-C): Alcohol Screen: SCREEN [...] need for follow-up. Name of provider notified: need to limit intake- no interest at this time MST Screening: Patient denies experiencing sexual trauma (MST). Medication Reconciliation: Perform Medication Reconciliation JLV Link Data on this list may not be complete. Please check JLV. Allergies/ADRs (Tool #5) FACILITY ALLERGY/ADR -------- No Remote Allergy/ADR Data available for this patient [facility] H[facility]M [facility] No Known Allergies Med [facility] Kd (Tool #1) INCLUDED IN THIS LIST: Alphabetical list of active outpatient prescriptions dispensed from this [place] (local) and dispensed from another [place] or [facility] facility (remote) as well as inpatient orders (local pending and active), local clinic medications, locally documented non-VA medications, and local prescriptions that have or been discontinued in the past 90 days. Non-VA Meds Last Documented On: May 20, 2018 NOTE The display of VA prescriptions dispensed from another [place] or [facility] facility (remote) is limited to active outpatient prescription entries matched to National Drug File at the originating site and may not include some items such as investigational drugs, compounds, etc. NOT INCLUDED IN THIS LIST: Medications self-entered by the patient into personal health records (i.e. [employer]) are NOT included in this list. Non-VA medications documented outside this [place], remote inpatient orders (regardless of status) and [...] hydroxide 110mg), usually AT BEDTIME SUPPLIES Comments: does not take Calcium, does take a BP med The patient's Essential Medication List for Review was used for reconciliation to address additions, deletions, and changes as reported by the patient/caregiver. The patient/caregiver indicates that medications are being taken as documented as described above. Was medication education provided for new medications or changes to medications? (including medication name, dose, route, reason for use, and potential side effects). No. none required Sexual Orientation: The patient thinks of their sexual orientation as: Straight or Heterosexual Depression Screening: Perform PHQ-2 A PHQ-2 screen was performed. The score was 2 which is a negative screen for depression. Over the past two weeks, how often have you been bothered by the following problems? 1. Little interest or pleasure in doing things Several days 2. Feeling down, depressed, or hopeless Several days ; /vicente/ ARGENTINA TEJADA RN Signed: 11/17/2022 11:54 ARGENTINA TEJADA [facility]
--- OUTSIDE RECORDS SUMMARY | 2023-10-15 16:17 | XMS_ITS | Encounter Summary ---
Author Name [facility] [place] Address [address] [place] [address] Care Team Providers Care Blade Groover Name Role Phone CHERI VASQUEZ Primary Care [...] Name Patient's Relationship to Policy Victor [facility] POINT OF SERVICE SOV ACTIV E SELEC TCAR Feb 15, 2018 [id number] SHANELL KHANNA ERT PATIENT [facility] ([id number]) PRESCRIPT ION [facility] NT Feb 15, 2018 Q54A [id number] SHANELL KHANNA ERT PATIENT Selected Encounter This section includes the information on record at [place] for the Encounter. Date/Time Encounter Type Encounter Description Reason Provider Source Nov 17, 2022 11:00 AM Outpatient Encounter PRIMARY CARE/MEDICINE ARGENTINA TEJADA Encounter Template Text not used by VA [...] 20 appointments. The data comes from all [place] treatment facilities. Appointment Date/Time Appointment Type Appointme nt Facility Name Dec 10, 2022 10:30 AM AMBULATORY - NONE [facility] Feb 05, 2023 11:00 AM AMBULATORY - NONE MYLES OGDEN [facility] Mar 17, 2023 11:00 AM [place] [facility] Apr 13, 2023 03:00 PM [place] [facility] Apr 19, 2023 11:30 AM [facility] [facility] May 11, 2023 02:00 PM [place] [facility] May 19, 2023 12:45 PM [place] [facility] May 19, 2023 02:00 PM [place] [facility] Lab Results: +/- 30 days of the encounter This section includes the Chemistry and Hematology Lab Results on record with [place] for the patient. Radiology Reports and Pathology Reports are provided separately, in subsequent sections. Lab Results This section contains the Chemistry/Hematology Results that were resulted 30 days before or 30 daysafter the date of the Encounter. Date/Time Source Result Type Result - Unit Interpretation Reference Range Comment Dec 10, 2022 11:42 AM [facility] PSA (PROGRAM ASSOCIATE) Specimen Type: SERUM Comment: Tests performed on Exp[employer] Entertainment (405) SN:[id number] Ordering Provider: CHERI VASQUEZ Report Released Date/Time: Dec 10, 2022 11:39 AM Reporting Lab: [facility] [address] [place] [facility] [place] [address] Performing Lab: [facility] [address] [place] [facility] [place] [address] PSA (PROGRAM ASSOCIATE) 1.75 ng/mL 0-4.0 Dec 10, 2022 11:42 AM [facility] VIT D 25-OH(J) Specimen Type: SERUM Comment: Tests performed on [employer] (405) SN:[id number] Ordering Provider: CHERI VASQUEZ Report Released Date/Time: Dec 10, 2022 11:39 AM Reporting Lab: [facility] [address] [facility] [address] Performing Lab: [facility] [address] [facility] [address] VIT D 25-OH([facility]) 28.9 ng/mL 20-50 Dec 10, 2022 11:42 AM [facility] THYROID TESTING CASCADE Specimen Type: SERUM Comment: Tests performed on Pérez DIY Genius (405) SN:[id number] Ordering Provider: CHERI VASQUEZ Report Released Date/Time: Dec 10, 2022 11:39 AM Reporting Lab: [facility] [address] [facility] [address] Performing Lab: [facility] [address] [facility] [address] T4,FREE 1.0 ng/dL 0.6-1.6 TSH 0.91 u[IU]/mL 0.35-5.00 Nov 17, 2022 11:05 AM [facility] LIPOPROTEIN CHOLESTEROL FRACT. PANEL Specimen Type: PLASMA Comment: Tests performed on Pérez [employer]ius (405) SN:[id number] Ordering Provider: CHERI VASQUEZ Report Released Date/Time: Nov 12, 2022 03:17 PM Reporting Lab: [facility] [address] [facility] [address] Performing Lab: [facility] [address] [facility] [address] CHOLESTEROL 215 mg/dL H 0-199 TRIGLYCERIDE 35 mg/dL 0-149 HDL CHOLESTEROL 138 mg/dL >40 LDL CHOLESTEROL (CALC) 70 mg/dL 0-129 Nov 17, 2022 11:05 AM [facility] LIVER PROFILE Specimen Type: PLASMA Comment: Tests performed on Pérez Personal Computer Network Analyst (405) SN:[id number] Ordering Provider: CHERI VASQUEZ Report Released Date/Time: Nov 12, 2022 03:17 PM Reporting Lab: [facility] [address] [facility] [address] Performing Lab: [facility] [address] [facility] [address] PROTEIN, TOTAL 8.0 g/dL 6.0-8.5 ALBUMIN 4.3 g/dL 3.2-5.0 BILIRUBIN, TOTAL 0.6 mg/dL 0.2-1.2 ALKALINE PHOSPHATASE 66 U/L 40-150 ALT(SGPT) 43 U/L 7-52 AST(SGOT) 59 U/L H 5-34 FIB-4 SCORE 2.56 {index} <2.67 Nov 17, 2022 11:05 AM [facility] P4 GLU,BUN,CREAT,LYTES,CA Specimen Type: PLASMA Comment: Tests performed on [employer] (405) SN:[id number] Ordering Provider: CHERI VASQUEZ Report Released Date/Time: Nov 12, 2022 03:17 PM Reporting Lab: [facility] [address] [facility] [address] Performing Lab: [facility] [address] [facility] [address] UREA NITROGEN 11 mg/dL 7-25 SODIUM 135 mmol/L 135-145 POTASSIUM 4.7 mmol/L 3.5-5.0 CHLORIDE 102 mmol/L 100-110 CARBON DIOXIDE 26 mmol/L 20-30 ANION GAP 7 mmol/L 4-16 GLUCOSE 100 mg/dL 65-100 CREATININE 1.04 mg/dL 0.5-1.5 CALCIUM 10.7 mg/dL H 8.5-10.5 eGFR(CKD-EPI 2020) 82 mL/min >60 Nov 17, 2022 11:05 AM [facility] CBC PROFILE Specimen Type: BLOOD No comment entered. Ordering Provider: CHERI VASQUEZ Report Released Date/Time: Nov 12, 2022 03:17 PM Reporting Lab: [facility] [address] [facility] [address] Performing Lab: [facility] [address] [facility] [address] WBC 4.8 10*3/uL 4.5-11.0 RBC 4.19 10*6/uL [...] 10*3/uL 0-0 Nov 17, 2022 11:05 AM [facility] GLYCOHEMOGLOBIN (A1C ONLY) Specimen Type: BLOOD Comment: Tests performed on [employer] (405) SN:[id number] Values obtained from A1C measurements can vary. For typical A1C assays, a reported value of 7.0 could actually be between 6.72 and 7.28 if measured by a reference method. A reported value of 9.0 could actually be between 8.73 and 9.27. Reference http://www.ng [email or web address]/CAPdat a.[email or web address] Ordering Provider: CHERI VASQUEZ Report Released Date/Time: Nov 12, 2022 03:17 PM Reporting Lab: [facility] [address] [facility] [address] Performing Lab: [facility] [address] [facility] [address] HEMOGLOBIN A1C 5.1 4.0-5.6 Vital Signs: All taken on the encounter date This section contains inpatient and outpatient Vital Signs collected on the date of the Encounter. Date/Time Temperature Pulse Blood Pressure Respiratory Rate SP02 Pain Height Weight Body Mass Index Source Nov 17, 2022 11:57 AM 80 /min 132/80 mm[Hg] 16 /min [address] [facility] Social History: Smoking Status (Most current) and Tobacco Use (All prior to encounter date) This section includes the most current, and the historical, smoking and tobacco- related health factors from the [place] facility where the Encounter took place. Current Smoking Status This section includes the most current smoking, or tobacco-related health factor, from the [place] facility where the Encounter took place. Date/Time Current Smoking Status Mira sawant May 13, 2018 11:59 AM AH-BPR SMOKING DEPLOYMENT NO [facility]
--- OUTSIDE RECORDS SUMMARY | 2023-10-15 16:17 | XMS_ITS | Encounter Summary ---
Author Name [facility] [place] [facility] [place] Address [address] [place] [address] Care Team Providers Care Injection Machine Operator Name Role Phone CHERI VASQUEZ [...] Victor's Name Patient's Relationship to Policy Victor [facility] POINT OF SERVICE SOV ACTIV E SELEC TCAR Feb 15, 2018 [id number] KHANNA,SHANELL LEMON PATIENT EXPRESS SCRIPTS ([id number]) PRESCRIPT ION [facility] NT Feb 15, 2018 Q54A [id number] KHANNA,SHANELL ERT PATIENT Selected Encounter This section includes the information on record at VA for the Encounter. Date/Time Encounter Type Encounter Description Reason Pro vider Source Mar 17, 2023 12:00 AM Outpatient Encounter EVENT (HISTORICAL) IHE [...] 20 appointments. The data comes from all [place] treatment facilities. Appointment Date/Time Appointment Type Appointme nt Facility Name Apr 13, 2023 03:00 PM [place] [facility] Apr 19, 2023 11:30 AM [place]ULATORY [place]IC[place] [facility] May 11, 2023 02:00 PM [place]ULAT[facility] [place] [facility] May 19, 2023 12:45 PM [place] [facility] May 19, 2023 02:00 PM [place]AT[place] [facility] Jun 02, 2023 11:00 AM [place]ULAT[place] [facility] Jun 02, 2023 12:00 PM [place]ULAT[place] [facility] Jun 10, 2023 03:00 PM [place]AT[place] [facility] Jun 15, 2023 12:45 PM AMBULATORY - NONE [place] [facility] June 30, 2023 03:00 PM [place]ULAT[place] [facility] July 16, 2023 01:00 PM AMBULATORY [place] [facility] Jul 30, 2023 01:00 PM AM[place]ULAT[facility] [place] [facility] Aug 09, 2023 10:30 AM AM[place]ULATORY - [place]ICINE [place] [facility] Aug 09, 2023 11:15 AM AM[place]ULAT[place] [facility] Aug 13, 2023 12:00 PM AMBULATORY [place] [facility] Aug 18, 2023 11:00 AM AM[place]ULAT[facility] [place] [facility] Sep 08, 2023 10:30 AM AM[place]ULATORY [place] [facility] Lab Results: +/- 30 days of the encounter This section includes the Chemistry and Hematology Lab Results on record with [place] for the patient. Radiology Reports and Pathology Reports are provided separately, in subsequent sections. Lab Results This section contains the Chemistry/Hematology Results that were resulted 30 days before or 30 daysafter the date of the Encounter. Date/Time Source Result Type Result - Unit Interpretation Reference Range Comment Mar 17, 2023 10:28 AM [facility] HEPATITIS C AB(WRJ)w/Reflex Specimen Type: SERUM Comment: , Tests performed on Pérez Reffpedia Mejía SN:[id number] (405) No HCV antibody detected. If recent infection is suspected or other evidence suggests HCV infection, consider HCV RNA testing Ordering Provider: CHERI VASQUEZ Report Released Date/Time: Feb 10, 2023 02:12 PM Reporting [facility] [address] [facility] [address] Performing Lab[facility] [address] [facility] [address] HEPATITIS C AB(WRJ)w/Refle x Non-Reactive Non-Reactiv e Mar 17, 2023 10:28 AM [facility] IRON+TIBC(P) Specimen Type: PLASMA Comment: , Tests performed on Pérez Reffpedia Mejía SN:[id number] (405) Ordering Provider: CHERI VASQUEZ Report Released Date/Time: Feb 10, 2023 02:12 PM Reporting Lab: [facility] [address] [facility] [address] Performing Lab: [facility] [address] [address] IRON 170 ug/dL H 40-160 TIBC 255 ug/dL IRON SATURATION(P) 67 >15 UIBC(P) 85 ug/dL L 126-382 Mar 17, 2023 10:28 AM [facility] LIVER PROFILE Specimen Type: PLASMA Comment: , Tests performed on Pérez Reffpedia Mejía SN:[id number] (405) Ordering Provider: CHERI VASQUEZ Report Released Date/Time: Feb 10, 2023 02:12 PM Reporting Lab: [facility] [address] [facility] [address] Performing Lab: [facility] [address] [facility] [address] PROTEIN, TOTAL 8.1 g/dL 6.0-8.5 ALBUMIN 4.6 g/dL 3.2-5.0 BILIRUBIN, TOTAL 0.6 mg/dL 0.2-1.2 ALKALINE PHOSPHATASE 64 U/L 40-150 ALT(SGPT) 48 U/L 7-52 AST(SGOT) 59 U/L H 5-34 Mar 17, 2023 10:28 AM [facility] FERRITIN Specimen Type: SERUM Comment: , Tests performed on Pérez Value Stream Coach Mejía SN:[id number] (405) Ordering Provider: CHERI VASQUEZ Report Released Date/Time: Feb 10, 2023 02:12 PM Reporting Lab: [facility] [address] [address] Performing Lab: [facility] [address] [address] FERRITIN 472 ng/mL H 22-275 Mar 17, 2023 10:28 AM [facility] FOLATE Specimen Type: SERUM Comment: , Tests performed on Pérez Value Stream Coach Mejía SN:[id number] (405) Ordering Provider: CHERI VASQUEZ Report Released Date/Time: Feb 10, 2023 02:12 PM Reporting Lab: [facility] [address] [address] Performing Lab: [facility] [address] [facility] [address] FOLATE 6.6 ng/mL 5.2-20.3 Mar 17, 2023 10:27 AM [facility] HBSAG PANEL WITH REFLEX CONFIRMATION(WH) Specimen Type: SERUM Comment: A Reactive result (Positive prior to 11/28/12) is diagnostic of acute or chronic hepatitis B infection. The presence of Hepatitis B surface antigen is frequently associated with infectivity. Ordering Provider: CHERI VASQUEZ Report Released Date/Time: Feb 10, 2023 02:12 PM Reporting Lab: [facility] [address] [address] Performing Lab: [facility] [address] [facility] [address] HEP B SURFACE AG(wh) Non Reactive Non Reactive Vital Signs: All taken on the encounter date This section contains inpatient and outpatient Vital Signs collected on the date of the Encounter. Date/Time Temperature Pulse Blood Pressure Respiratory Rate SP02 Pain Height Weight Body Mass Index Source Mar 17, 2023 10:41 AM 98.5 88 142/84 16 99 0 158.1 23 [facility] Social History: Smoking Status (Most current) and Tobacco Use (All prior to encounter date) This section includes the most current, and the historical, smoking and tobacco- related health factors from the [place] facility where the Encounter took place. Current Smoking Status This section includes the most current smoking, or tobacco-related health factor, from the [place] facility where the Encounter took place. Date/Time Current Smoking Status Comment Yayo ity Mar 17, 2023 11:00 AM VA-TOBACCO USER EVERY DAY [facility] Tobacco Use History This section includes a history of the smoking, or tobacco-related health factors, that were collected on or before the date of the Encounter. The data comes from the [place] facility where the Encounter took place. Date/Time Smoking Status/Tobacco Use Comment F acility Mar 17, 2023 11:00 AM VA-TOBACCO USE ADVICE [place] [facility] Mar 17, 2023 11:00 AM VA-TOBACCO USE BORDER INSPECTOR NO [place] [facility] Mar 17, 2023 11:00 AM VA-TOBACCO USE MED NO [place] [facility] Mar 17, 2023 11:00 AM VA-TOBACCO USE WI 30 MIN OF WAKEUP [facility] Mar 17, 2023 11:00 AM VA-TOBACCO USER EVERY DAY [place] [facility] May 13, 2018 11:59 AM AH-BPR SMOKING DEPLOYMENT NO [place] [facility] May 13, 2018 11:59 AM PREVIOUS SMOKER [place] [facility] May 13, 2018 11:59 AM VA-TOBACCO DOESNT USE WI 30 MIN WAKEUP [place] [facility] May 13, 2018 11:59 AM VA-TOBACCO USE 30 YEARS OR MORE [place] [facility] May 13, 2018 11:59 AM VA-TOBACCO USE ADVICE [place] [facility] May 13, 2018 11:59 AM VA-TOBACCO USE BORDER INSPECTOR YES [place] [facility] May 13, 2018 11:59 AM VA-TOBACCO USE MED NO [place] [facility] May 13, 2018 11:59 AM VA-TOBACCO USER [facility]
--- OUTSIDE RECORDS SUMMARY | 2023-10-15 16:17 | XMS_ITS ---
Author Name [facility] [place] Address [address] [place] [address] Care Team Providers Care Tool And Die Inspector Name Role Phone CHERI VASQUEZ Primary Care [...] Victor's Name Patient's Relationship to Policy Victor [facility] POINT OF SERVICE SOV ACTIV E SELEC TCAR Feb 15, 2018 [id number] KHANNASHANELL ERT PATIENT EXPRESS SCRIPTS ([id number]) PRESCRIPT ION [facility] NT Feb 15, 2018 Q54A [id number] KHANNASHANELL ERT PATIENT Selected Encounter This section includes the information on record at [place] for the Encounter. Date/Time Encounter Type Encounter Description Reason Pro vider Source Dec 15, 2022 02:24 PM Outpatient Encounter ADMIN PAT ACTIVTIES (MASNONCT) IHE Encounter Template Text not used by VA Plan of Treatment: Future Appointments (+ 6 months) and Future Tests (+/- 45 days) The Plan of Treatment section includes future care activities for the [facility] This section includes future appointments and future [...] AM AMBULATORY - [place]ONE [place] [facility] Mar 17, 2023 11:00 AM [place] [facility] Apr 13, 2023 03:00 PM [place] [facility] Apr 19, 2023 11:30 AM [place]ORY [place] [facility] May 11, 2023 02:00 PM [place] [facility] May 19, 2023 12:45 PM [place] [facility] May 19, 2023 02:00 PM [place] [facility] Jun 02, 2023 11:00 AM [place] [facility] Jun 02, 2023 12:00 PM [place] [facility] Jun 10, 2023 03:00 PM [place] [facility] Jun 15, 2023 12:45 PM AMBULATORY - NONE [place] [facility] Lab Results: +/- 30 days [...] Range Comment Dec 10, 2022 11:42 AM [facility] PSA (ENERGY SCHEDULER) Specimen Type: SERUM Comment: Tests performed on Pérez Personal On Demand (405) SN:[id number] Ordering Provider: CHERI VASQUEZ Report Released Date/Time: Dec 10, 2022 11:39 AM Reporting Lab: [facility] [address] [address] Performing Lab: [facility] [address] [facility] [address] PSA (ENERGY SCHEDULER) 1.75 ng/mL 0-4.0 Dec 10, 2022 11:42 AM [facility] VIT D 25-OH(J) Specimen Type: SERUM Comment: Tests performed on Pérez Personal On Demand (405) SN:[id number] Ordering Provider: CHERI VASQUEZ Report Released Date/Time: Dec 10, 2022 11:39 AM Reporting Lab: [facility] [address] [address] Performing Lab: [facility] [address] [address] VIT D 25-OH([facility]) 28.9 ng/mL 20-50 Dec 10, 2022 11:42 AM [facility] THYROID TESTING CASCADE Specimen Type: SERUM Comment: Tests performed on tritrue (405) SN:[id number] Ordering Provider: CHERI VASQUEZ Report Released Date/Time: Dec 10, 2022 11:39 AM Reporting Lab: [facility] [address] [facility] [address] Performing Lab: [facility] [address] [facility] [address] T4,FREE 1.0 ng/dL 0.6-1.6 TSH 0.91 u[IU]/mL 0.35-5.00 Nov 17, 2022 11:05 AM [facility] LIPOPROTEIN CHOLESTEROL FRACT. PANEL Specimen Type: PLASMA Comment: Tests performed on Pérez Ring Sorter (405) SN:[id number] Ordering Provider: CHERI VASQUEZ Report Released Date/Time: Nov 12, 2022 03:17 PM Reporting Lab: [facility] [address] [facility] [address] Performing Lab: [facility] [address] [facility] [address] CHOLESTEROL 215 mg/dL H 0-199 TRIGLYCERIDE 35 mg/dL 0-149 HDL CHOLESTEROL 138 mg/dL >40 LDL CHOLESTEROL (CALC) 70 mg/dL 0-129 Nov 17, 2022 11:05 AM [facility] LIVER PROFILE Specimen Type: PLASMA Comment: Tests performed on Pérez Ring Sorter (405) SN:[id number] Ordering Provider: CHERI VASQUEZ Report Released Date/Time: Nov 12, 2022 03:17 PM Reporting Lab: [facility] [address] [facility] Performing Lab: [facility] [address] [facility] PROTEIN, TOTAL 8.0 g/dL 6.0-8.5 ALBUMIN 4.3 g/dL 3.2-5.0 BILIRUBIN, TOTAL 0.6 mg/dL 0.2-1.2 ALKALINE PHOSPHATASE 66 U/L 40-150 ALT(SGPT) 43 U/L 7-52 AST(SGOT) 59 U/L H 5-34 FIB-4 SCORE 2.56 {index} <2.67 Nov 17, 2022 11:05 AM [facility] P4 GLU,BUN,CREAT,LYTES,CA Specimen Type: PLASMA Comment: Tests performed on tritrue (405) SN:[id number] Ordering Provider: CHERI VASQUEZ Report Released Date/Time: Nov 12, 2022 03:17 PM Reporting Lab: [address] Performing Lab: [facility] [address] [facility] UREA NITROGEN 11 mg/dL 7-25 SODIUM 135 mmol/L 135-145 POTASSIUM 4.7 mmol/L 3.5-5.0 CHLORIDE 102 mmol/L 100-110 CARBON DIOXIDE 26 mmol/L 20-30 ANION GAP 7 mmol/L 4-16 GLUCOSE 100 mg/dL 65-100 CREATININE 1.04 mg/dL 0.5-1.5 CALCIUM 10.7 mg/dL H 8.5-10.5 eGFR(CKD-EPI 2020) 82 mL/min >60 Nov 17, 2022 11:05 AM [facility] CBC PROFILE Specimen Type: BLOOD No comment entered. Ordering Provider: CHERI VASQUEZ Report Released Date/Time: Nov 12, 2022 03:17 PM Reporting Lab: [facility] [address] [facility] Performing Lab: [facility] [address] [place] [address] WBC 4.8 10*3/uL 4.5-11.0 RBC 4.19 10*6/uL [...] 10*3/uL 0-0 Nov 17, 2022 11:05 AM [facility] CBOC GLYCOHEMOGLOBIN (A1C ONLY) Specimen Type: BLOOD Comment: Tests performed on tritrue (405) SN:[id number] Values obtained from A1C measurements can vary. For typical A1C assays, a reported value of 7.0 could actually be between 6.72 and 7.28 if measured by a reference method. A reported value of 9.0 could actually be between 8.73 and 9.27. Reference http://www.ng sp.org/CAPdat a.asp Ordering Provider: CHERI VASQUEZ Report Released Date/Time: Nov 12, 2022 03:17 PM Reporting Lab: [facility] [address] [facility] [address] Performing Lab: [facility] [address] [facility] [address] HEMOGLOBIN A1C 5.1 4.0-5.6 Social History: Smoking [...] May 13, 2018 11:59 AM PREVIOUS SMOKER [facility] Tobacco Use History This section includes a history of the smoking, or tobacco-related health factors, that were collected on or before the date of the Encounter. The data comes from the [place] facility where the Encounter took place. Date/Time Smoking Status/Tobacco Use Comment F acility May 13, 2018 11:59 AM PREVIOUS [facility]MO[facility]ER [place] [facility] May 13, 2018 11:59 AM VA-TOBACCO DOESNT USE WI 30 MIN WAKEUP [facility] May 13, 2018 11:59 AM VA-TOBACCO USE 30 YEARS OR MORE [facility] May 13, 2018 11:59 AM VA-TOBACCO USE ADVICE [facility] May 13, 2018 11:59 AM VA-TOBACCO USE JIGGER ARTISAN YES [facility] May 13, 2018 11:59 AM VA-TOBACCO USE MED NO [facility] May 13, 2018 11:59 AM VA-TOBACCO USER EVERY DAY [facility] Encounter Notes: All associated encounter notes This section contains the clinical notes associated to the Encounter. Date/Time Encounter Note(s) Provider Source Nov 03, 2022 02:24 PM NONVA NOTE: LOCAL TITLE: NonVA Medical Records STANDARD TITLE: NONVA NOTE DATE OF NOTE: NOV 03, 2022@14:24 ENTRY DATE: DEC 15, 2022@14:25:02 AUTHOR: CORINA WEINSTEIN COSIGNER: URGENCY: STATUS: COMPLETED NONVA 10/06/2022 & 11/03/2022 LAB RESULTS [facility] /vicente/ Corina Weinstein MRT Signed: 12/15/2022 14:25 Receipt Acknowledged By: 12/16/2022 08:37 /vicente/ CORINA REAL APRN [facility]
--- OUTSIDE RECORDS SUMMARY | 2023-10-15 16:18 | XMS_ITS | Encounter Summary ---
Author Name [facility] [place] [facility] [place] [facility] [place] Address [address] [place] [address] Care Team Providers Care Cigar Head Stringer Name Role Phone CHERI VASQUEZ Primary Care [...] Victor's Name Patient's Relationship to Policy Victor [facility] POINT OF SERVICE SOV ACTIV E SELEC TCAR Feb 15, 2018 [id number] KHANNA,SHANELL ERT PATIENT EXPRESS SCRIPTS ([id number]) PRESCRIPT ION [facility] NT Feb 15, 2018 Q54A [id number] CLEMENCIASHANELL ERT PATIENT Selected Encounter This section includes the information on record at [place] for the Encounter. Date/Time Encounter Type Encounter Description Reason Pro vider Source Feb 13, 2023 12:00 AM Outpatient Encounter EVENT (HISTORICAL) [...] 17, 2023 11:00 AM AMBULATORY - MEDICINE [facility] Apr 13, 2023 03:00 PM AMBULATORY - PS[place]CHIATRY [place] [facility] Apr 19, 2023 11:30 AM AMBULATORY - MEDICINE [facility] May 11, 2023 02:00 PM AM[place]ULATORY - [place] [facility] May 19, 2023 12:45 PM AM[place]ULATORY [place] [facility] May 19, 2023 02:00 PM AM[place]ATORY [place] [facility] Jun 02, 2023 11:00 AM [facility] Jun 02, 2023 12:00 PM AM[place]ULATORY [place] [facility] Jun 10, 2023 03:00 PM AM[place]ULATORY - [place] [facility] Jun 15, 2023 12:45 PM AMBULATORY - NONE [facility] June 30, 2023 03:00 PM AMBULATORY - PS[place]IATRY [place] [facility] July 16, 2023 01:00 PM AMBULATORY - PS[place]CHIATRY [place] [facility] Jul 30, 2023 01:00 PM AMBULATORY - PS[place]CHIATRY [place] [facility] Aug 09, 2023 10:30 AM AMBULATORY - MEDICINE [facility] Aug 09, 2023 11:15 AM AMBULATORY - PS[place]CHIATRY [place] [facility] Aug 13, 2023 12:00 PM AMBULATORY - [facility]RY [place] [facility] Social History: Smoking Status (Most current) and Tobacco Use (All prior to encounter date) This section includes the most current, and the historical, smoking and tobacco- related health factors from the [place] facility where the Encounter took place. Current Smoking Status This section includes the most current smoking, or tobacco-related health factor, from the [place] facility where the Encounter took place. Date/Time Current Smoking Status Comment Yayo sawant May 13, 2018 11:59 AM PREVIOUS SMOKER [facility] Tobacco Use History This section includes a history of the smoking, or tobacco-related health factors, that were collected on or before the date of the Encounter. The data comes from the [place] facility where the Encounter took place. Date/Time Smoking Status/Tobacco Use Comment F acility May 13, 2018 11:59 AM PREVIOUS SMOKER [place] [facility] May 13, 2018 11:59 AM VA-TOBACCO DOESNT USE WI 30 MIN WAKEUP [facility] May 13, 2018 11:59 AM VA-TOBACCO USE 30 YEARS OR MORE [facility] May 13, 2018 11:59 AM VA-TOBACCO USE ADVICE [facility] May 13, 2018 11:59 AM VA-TOBACCO USE COMMUNICATIONS ATTENDANT YES [facility] May 13, 2018 11:59 AM VA-TOBACCO USE MED NO [facility] May 13, 2018 11:59 AM VA-TOBACCO USER EVERY DAY [facility] Radiology Reports: +/- 30 days of [...] ELASTOGRAPHY PAREN CHYMA (E.G., ORGAN): AMAURI KHANNA [id number] -1960 M Ex Date: FEB 05, 2023@11:00 Req Phys: CHERI VASQUEZ Pat Loc: LIT PACT T (Req'g Loc) Img Loc: ULTRASOUND (OOS) Service: Unknown (Case [id number] COMPLETE) ELASTOGRAPHY PARENCHYMA (E.G., OR(US Detailed) CPT:28282 Reason for Study: elevated AST Clinical History: daily etoh ? fibrosis Report Status: Verified Date Reported: FEB 05, 2023 Date Verified: FEB 05, 2023 Wet End Helper E-Sig:/ES/PATTI VAZ Report: Ultrasound -- abdomen with [...] Primary Interpreting Staff: PATTI VAZ, RADIOLOGY ATTENDING (Wet End Helper) /PATTI VACA [facility] Feb 05, 2023 11:00 AM ULTRASOUND RUQ (GB,LIVER,BILIARY): AMAURI KHANNA [id number] -1960 [facility] Date: FEB 05, 2023@11:00 Req Phys: CHERI VASQUEZ Pat Loc: LIT PACT T (Req'g Loc) Img Loc: ULTRASOUND (OOS) Service: Unknown (Case [id number] COMPLETE) ULTRASOUND RUQ (GB,LIVER,BILIARY)(US Detailed) CPT:76592 Reason for Study: elevated ast Clinical History: daily etoh ? fibrosis Report Status: Verified Date Reported: FEB 05, 2023 Date Verified: FEB 05, 2023 Wet End Helper E-Sig:/ES/PATTI VAZ Report: Ultrasound -- abdomen with [...] Primary Interpreting Staff: PATTI VAZ, RADIOLOGY ATTENDING (Wet End Helper) /PATTI VACA [facility]
--- OUTSIDE RECORDS SUMMARY | 2023-10-15 16:18 | XMS_ITS | Encounter Summary ---
Author Name [facility] [place] [facility] [place] [facility] [place] Address [address] [place] [address] Care Team Providers Care Liquid Flavor Compounder Name Role Phone CHERI VASQUEZ Primary Care [...] Victor's Name Patient's Relationship to Policy Victor [facility] POINT OF SERVICE SOV ACTIV E SELEC TCAR Feb 15, 2018 [id number] SHANELL KHANNA PATIENT [employer] [facility] ([id number]) PRESCRIPT ION [facility] NT Feb 15, 2018 Q54A [id number] SHANELL KHANNA PATIENT Selected Encounter This section includes the information on record at [place] for the Encounter. Date/Time Encounter Type Encounter Description Reason Provider Source May 19, 2023 02:49 PM Outpatient Encounter SUBSTANCE USE DISORDER IND SHE CARRANZA Encounter Template Text not used by VA [...] 20 appointments. The data comes from all [place] treatment facilities. Appointment Date/Time Appointment Type Appointme nt Facility Name Jun 02, 2023 11:00 AM [facility] [place] [facility] Jun 02, 2023 12:00 PM [facility] [place] [facility] Jun 10, 2023 03:00 PM [facility] [place] [place] [facility] Jun 15, 2023 12:45 [facility] June 30, 2023 03:00 PM [facility] [place] [place] [facility] July 16, 2023 01:00 PM AM[facility] [place] [place] [facility] Jul 30, 2023 01:00 PM [facility] [place] [place] [facility] Aug 09, 2023 10:30 AM AMBULATORY - MEDICINE [facility] [place] [facility] Aug 09, 2023 11:15 AM AM[facility]AT[facility] [place] [place] [facility] Aug 13, 2023 12:00 PM [facility] [place] [facility] Aug 18, 2023 11:00 AM AM[facility] [place] [place] [facility] Sep 08, 2023 10:30 AM [facility] [place] [place] [facility] Oct 20, 2023 10:30 AM AMBULATORY [place] [place] [facility] Lab Results: +/- 30 days of the [...] Result - Unit Interpretation Reference Range Comment Jun 15, 2023 01:53 PM [facility] LIVER PROFILE Specimen Type: PLASMA Comment: , Tests performed on IPNetVoice SN:[id number]). Ordering Provider: PATRICIA ANTOINE Report Released Date/Time: Jun 02, 2023 01:18 PM Reporting Lab: [facility] [address] [address] Performing Lab: [place] [address] [address] PROTEIN, TOTAL 7.6 g/dL 6.0-8.5 ALBUMIN 4.1 g/dL 3.2-5.0 BILIRUBIN, TOTAL 0.7 mg/dL 0.2-1.2 ALKALINE PHOSPHATASE 55 U/L 40-150 ALT(SGPT) 25 U/L 7-52 AST(SGOT) 40 U/L H 5-34 Jun 15, 2023 01:53 PM [facility] DRUG SCREEN+ETG([facility]) Specimen Type: URINE Comment: This ETG test was developed and its performance characteristics determined by [place] clinical lab. The [place] Food and Drug Administration has not approved or cleared this test, FDA clearance or approval is not currently required for clinical use. ETG cutoff 500 ng/mL, Tests performed on Pérez Pure360 Mejía SN:[id number] (405) Requests for Confirmation testing will need to be phoned in to the lab [phone]. Ordering Provider: PATRICIA ANTOINE Report Released Date/Time: May 19, 2023 01:53 PM Reporting Lab: [place] [address] [address] Performing Lab: [place] [address] COCAINE SCREEN NONE DETECTED N one-Detec allen BENZODIAZEPINES SCREEN NONE DETECTED None-Detec allen OPIATES SCREEN NONE DETECTED N one-Detec allen CREATININE (URINE,RANDOM) 71.66 mg/dL CANNABINOID SCRN NONE DETECTED None-Detec allen AMPHETAMINE SCRN NONE DETECTED None-Detec allen METHADONE SCREEN([facility]) NONE DETECTED None-Detec allen pH CAROL 6.5 [pH] ETHYL GLUCURONIDE([facility]) SCRN POS None-Detec allen SPECIFIC GRAVITY CAROL 1.009 1.003-1.02 0 FENTANYL([facility])URI N E SCREEN NONE DETECTED None-Detec allen OXYCODONE SCREEN URINE([facility]) NONE DETECTED None-Detec allen ETOH URINE <10.0 mg/dL See_Com men t BUPRENORPHINE SCREEN URINE([facility]) NONE DETECTED None-Detec allen Jun 15, 2023 01:53 PM [facility] VIT D 25-OH([facility]) Specimen Type: SERUM Comment: , Tests performed on Pérez Pure360 Mejía SN:[id number] (405) Ordering Provider: CHERI VASQUEZ Report Released Date/Time: Jun 15, 2023 01:39 PM Reporting Lab: [facility] [address] [facility] [address] Performing Lab: [facility] [address] [facility] [address] VIT D 25-OH(WRJ) 10.3 ng/mL L 20.0-50.0 May 11, 2023 02:49 PM [facility] LIVER PROFILE Specimen Type: PLASMA Comment: , Tests performed on Pérez Saddle Stitching Machine Operator Dennis SN:[id number] (405). Ordering Provider: SHE CARRANZA Report Released Date/Time: May 11, 2023 02:41 PM Reporting Lab: [facility] [address] [facility] [address] Performing Lab: [facility] [address] [facility] [address] PROTEIN, TOTAL 7.9 g/dL 6.0-8.5 ALBUMIN 4.5 g/dL 3.2-5.0 BILIRUBIN, TOTAL 0.9 mg/dL 0.2-1.2 ALKALINE PHOSPHATASE 67 U/L 40-150 ALT(SGPT) 44 U/L 7-52 AST(SGOT) 54 U/L H 5-34 Social History: Smoking Status (Most current) and Tobacco Use (All prior to encounter date) This section includes the most current, and the historical, smoking and tobacco- related health factors from the [place] facility where the Encounter took place. Current Smoking Status This section includes the most current smoking, or tobacco-related health factor, from the [place] facility where the Encounter took place. Date/Time Current Smoking Status Comment Yayo itjeana Mar 17, 2023 11:00 AM VA-TOBACCO USER EVERY DAY [facility] Tobacco Use History This section includes a history of the smoking, or tobacco-related health factors, that were collected on or before the date of the Encounter. The data comes from the [place] facility where the Encounter took place. Date/Time Smoking Status/Tobacco Use Comment F acility Mar 17, 2023 11:00 AM VA-TOBACCO USE ADVICE [facility] Mar 17, 2023 11:00 AM VA-TOBACCO USE CUSTOMER STRATEGY MANAGER NO [facility] Mar 17, 2023 11:00 AM [facility] Mar 17, 2023 11:00 AM VA-TOBACCO USE WI 30 MIN OF WAKEUP [facility] Mar 17, 2023 11:00 AM [facility]AC[facility] US[facility] May 13, 2018 11:59 AM AH-BPR SMOKING DEPLOYMENT NO [facility] May 13, 2018 11:59 AM PREVIOUS SMOKER [facility] May 13, 2018 11:59 AM VA-TOBACCO DOESNT USE WI 30 MIN WAKEUP [facility] May 13, 2018 11:59 AM VA-TOBACCO USE 30 YEARS OR MORE [facility] May 13, 2018 11:59 AM VA-TOBACCO USE ADVICE [facility] May 13, 2018 11:59 AM VA-TOBACCO USE CUSTOMER STRATEGY MANAGER YES [facility] May 13, 2018 11:59 AM [facility]TOBACCO [facility] MED [facility] May 13, 2018 11:59 AM VA-TOBACCO USER EVERY DAY [facility] Encounter Notes: All associated encounter notes This section contains the clinical notes associated to the Encounter. Date/Time Encounter Note(s) Provider Source May 19, 2023 02:49 PM MENTAL HEALTH DIAG NOSTIC STUDY NOTE: LOCAL TITLE: Mental Health Diagnostic Study Note STANDARD TITLE: MENTAL HEALTH DIAGNOSTIC STUDY NOTE DATE OF NOTE: MAY 19, 2023@14:49:42 ENTRY DATE: MAY 19, 2023@14:49:42 AUTHOR: SHE CARRANZA EXP COSIGNER: URGENCY: STATUS: COMPLETED PTSD Screen - (PC-PTSD-5) Date Given: 05/19/2023 Clinician: She Carranza Location: [facility] [place]: Amauri Khanna SSN: [id number] : [birth year]) Gender: Man PC-PTSD-5 Screening Score: 3 The score on this administration is 3, which indicates a NEGATIVE screen for PTSD in the past month. Questions and Answers Sometimes things happen to people that are unusually or especially frightening, horrible, or traumatic. For example: A serious accident or fire A physical or sexual assault or abuse An earthquake or flood A war Seeing someone be killed or seriously injured Having a loved one through homicide or suicide 1. Have you ever experienced this kind of event? YES 2. Had nightmares about the event(s) when you did not want to? YES 3. Tried hard not to think about the event(s) or went out of your way to avoid situations that remind you of the event(s)? NO 4. Been constantly on guard, watchful, or easily startled? YES 5. [place] numb or detached from people, activities, or your surroundings? YES 6. [place] guilty or unable to stop blaming yourself or others for the event(s) or any problems the event(s) may have caused? NO Information contained in this note is based on a self-report assessment and is not sufficient to use alone for diagnostic purposes. Assessment results should be verified for accuracy and used in conjunction with other diagnostic activities and procedures. PC-PTSD-5, 2015, [employer] /es/ She Carranza MS [facility] Addiction Therapist Signed: 05/19/2023 16:06 SHE CARRANZA [facility]
--- OUTSIDE RECORDS SUMMARY | 2023-10-15 16:18 | XMS_ITS | Encounter Summary ---
Author Name [facility] [place] [facility] [place] [facility] [place] [facility] [place] Address [address] [place] [id number] Care Team Providers Care Press Reader Name Role Phone CHERI VASQUEZ Primary Care [...] Name Patient's Relationship to Policy Victor [facility] POINT OF SERVICE SOV ACTIV E SELEC TCAR Feb 15, 2018 [id number] SHANELL KHANNA PATIENT [employer] ([id number]) PRESCRIPT ION [facility] NT Feb 15, 2018 Q54A [id number] SHANELL KHANNA PATIENT Selected Encounter This section includes the information on record at [place] for the Encounter. Date/Time Encounter Type Encounter Description Reason Pro vider Source I[facility] Encounter Template Text not used by [place] Social History: Smoking Status (Most current) and Tobacco Use (All prior to encounter date) This section includes the most current, and the historical, smoking and tobacco- related health factors from the [place] facility where the Encounter took place. Current Smoking Status This section includes the most current smoking, or tobacco-related health factor, from the [place] facility where the Encounter took place. Date/Time Current Smoking Status Comment Facil ity May 13, 2018 11:59 AM [facility]
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
--- OUTSIDE RECORDS SUMMARY | 2023-10-15 16:18 | XMS_ITS | Encounter Summary ---
Author Name [facility] [place] [facility] [place] Address [address] [place] [address] Care Team Providers Care Inclusion Internship Name Role Phone CHERI VASQUEZ Primary Care [...] Victor's Name Patient's Relationship to Policy Victor [facility] POINT OF SERVICE SOV ACTIV E SELEC TCAR Feb 15, 2018 [id number] SHANELL KHANNA PATIENT [employer] ([id number]) PRESCRIPT ION [facility] NT Feb 15, 2018 Q54A [id number] SHANELL KHANNA PATIENT Selected Encounter This section includes the information on record at [facility] for the Encounter. Date/Time Encounter Type Encounter Description Reason Provider Source May 19, 2023 02:00 PM PSYTX W PT 60 MINUTES SUBSTANCE USE DISORDER IND ICD-10-CM F10.99 Alcohol use, unsp with unspecified alcohol-induced disorder BRIAN CARRANZA Encounter Template Text not used by [facility] Assessments - Encounter Diagnoses This section includes the primary and secondary diagnoses documented for the Encounter. Date/Time Primary/Secondary Diagnosis Diagnosis Name Provider Source May 21, 2023 12:26 PM PRIMARY Alcohol use, unsp with unspecified alcohol-induced disorder BRIAN CARRANZA [facility] May 21, 2023 12:26 PM SECONDARY Depression, unspecified BRIAN CARRANZA [facility] Plan of Treatment: Future Appointments (+ 6 months) and Future Tests (+/- 45 days) The Plan of Treatment section includes future care activities for the [facility] [place] [facility] This section includes future appointments and [...] 2023 11:00 AM AMBULATORY - PSYCHIATRY [facility] Jun 02, 2023 12:00 PM AMBULATORY - PSYCHIATRY [facility] Jun 10, 2023 03:00 PM AMBULATORY - PSYCHIATRY [facility] Jun 15, 2023 12:45 PM AMBULATORY - NONE [facility] June 30, 2023 03:00 PM AMBULATORY - PSYCHIATRY [facility] July 16, 2023 01:00 PM AMBULATORY - PSYCHIATRY [facility] Jul 30, 2023 01:00 PM AMBULATORY - PSYCHIATRY [facility] Aug 09, 2023 10:30 AM AMBULATORY - MEDICINE [facility] Aug 09, 2023 11:15 AM AM[facility]UL[facility] [place] [facility] Aug 13, 2023 12:00 PM AM[facility]ULATORY [facility] [place]RY [place] [facility] Aug 18, 2023 11:00 AM AM[facility]ULATORY - [place]IATRY [place] [facility] Sep 08, 2023 10:30 AM AMBULATORY [facility] [place]IATRY [place] [facility] Oct 20, 2023 10:30 AM [facility] Lab Results: +/- 30 days of the encounter This section includes the Chemistry and Hematology Lab Results on record with [place] for the patient. Radiology Reports and Pathology Reports are provided separately, in subsequent sections. Lab Results This section contains the Chemistry/Hematology Results that were resulted 30 days before or 30 daysafter the date of the Encounter. Date/Time Source Result Type Result - Unit Interpretation Reference Range Comment Jun 15, 2023 01:53 PM [facility] LIVER PROFILE Specimen Type: PLASMA Comment: , Tests performed on Pérez [employer] SN:[id number]). Ordering Provider: PATRICIA ANTOINE Report Released Date/Time: Jun 02, 2023 01:18 PM Reporting Lab: [facility] [address] [address] Performing Lab: [facility] [address] [address] PROTEIN, TOTAL 7.6 g/dL 6.0-8.5 ALBUMIN 4.1 g/dL 3.2-5.0 BILIRUBIN, TOTAL 0.7 mg/dL 0.2-1.2 ALKALINE PHOSPHATASE 55 U/L 40-150 ALT(SGPT) 25 U/L 7-52 AST(SGOT) 40 U/L H 5-34 Jun 15, 2023 01:53 PM [facility] DRUG SCREEN+ETG([facility]) Specimen Type: URINE Comment: This ETG test was developed and its performance characteristics determined by [place] clinical lab. The [place] Food and Drug Administration has not approved or cleared this test, FDA clearance or approval is not currently required for clinical use. ETG cutoff 500 ng/mL, Tests performed on Pérez [employer] Mejía SN:[id number] ([id number]) Requests for Confirmation testing will need to be phoned in to the lab [phone]. Ordering Provider: PATRICIA ANTOINE Report Released Date/Time: May 19, 2023 01:53 PM Reporting Lab: [facility] [address] [address] Performing Lab: [facility] [address] [facility] [address] COCAINE SCREEN NONE DETECTED N one-Detec allen BENZODIAZEPINES SCREEN NONE DETECTED None-Detec allen OPIATES SCREEN NONE DETECTED N one-Detec allen CREATININE (URINE,RANDOM) 71.66 mg/dL CANNABINOID SCRN NONE DETECTED None-Detec allen AMPHETAMINE SCRN NONE DETECTED None-Detec allen METHADONE SCREEN([facility]) NONE DETECTED None-Detec allen pH CAROL 6.5 [pH] ETHYL GLUCURONIDE([facility]) SCRN POS None-Detec allen SPECIFIC GRAVITY CAROL 1.009 1.003-1.02 0 FENTANYL([facility])URI N E SCREEN NONE DETECTED None-Detec allen OXYCODONE SCREEN URINE([facility]) NONE DETECTED None-Detec allen ETOH URINE <10.0 mg/dL See_Com men t BUPRENORPHINE SCREEN URINE([facility]) NONE DETECTED None-Detec allen Jun 15, 2023 01:53 PM [facility] VIT D 25-OH([facility]) Specimen Type: SERUM Comment: , Tests performed on Pérez [employer] Mejía SN:[id number] (405) Ordering Provider: CHERI VASQUEZ Report Released Date/Time: Jun 15, 2023 01:39 PM Reporting Lab: [facility] [address] [address] Performing Lab: [facility] [address] [facility] [address] VIT D 25-OH([facility]) 10.3 ng/mL L 20.0-50.0 May 11, 2023 02:49 PM [facility] LIVER PROFILE Specimen Type: PLASMA Comment: , Tests performed on Pérez Wyst SN:[id number] (405). Ordering Provider: BRIAN CARRANZA Report Released Date/Time: May 11, 2023 02:41 PM Reporting Lab: [facility] [address] [address] Performing Lab: [facility] [address] [address] PROTEIN, TOTAL 7.9 g/dL 6.0-8.5 ALBUMIN 4.5 [...] 2023 11:00 AM VA-TOBACCO USER EVERY DAY [facility] Tobacco Use History This section includes a history of the smoking, or tobacco-related health factors, that were collected on or before the date of the Encounter. The data comes from the [place] facility where the Encounter took place. 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 [place] [facility] Mar 17, 2023 11:00 AM VA-TOBACCO USE MED NO [place] [facility] Mar 17, 2023 11:00 AM VA-TOBACCO USE WI 30 MIN OF WAKEUP [facility] Mar 17, 2023 11:00 AM VA-TOBACCO USER EVERY DAY [facility] May 13, 2018 11:59 AM AH-BPR SMOKING DEPLOYMENT NO [facility] May 13, 2018 11:59 AM PREVIOUS SMOKER WH[facility] May 13, 2018 11:59 AM VA-TOBACCO DOESNT USE WI 30 MIN WAKEUP [facility] May 13, 2018 11:59 AM VA-TOBACCO USE 30 YEARS OR MORE [facility] May 13, 2018 11:59 AM VA-TOBACCO USE ADVICE [facility] May 13, 2018 11:59 AM VA-TOBACCO USE 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 Date/Time Encounter Note(s) Provider Source May 19, 2023 03:01 PM [facility] NOTE: LOCAL TITLE: SUBSTANCE USE DISORDER THERAPY NOTE STANDARD TITLE: [facility] NOTE DATE OF NOTE: MAY 19, 2023@15:01 ENTRY DATE: MAY 19, 2023@15:02:07 AUTHOR: BRIAN CARRANZA COSIGNER: URGENCY: STATUS: COMPLETED Patient was seen today for 60 minutes for treatment of the following diagnosis/diagnoses and problems: alcohol use disorder, moderate; depression Significant issues, symptoms, complaints: Hampton has decided to try naltrexone to help him decrease his alcohol use. He's picking it up at the pharmacy today. He said he's had a rough week and drank too much. He said his job is the source of the stress he medicates with alcohol. 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 He also has to make sure everything keeps running smoothly despite short staffing. He said today that he hasn't taken a vacation in a long time, and doesn't think he could leave the office for time off. He also said the thing that would improve his life the most would be another job. We completed some questionnaires, and diamante scored on the BD12 as moderately depressed. He's like to address this in therapy. Relevant mental status exam or other objective findings: Looks stressed, tight. Assessment: running on empty and doesn't think he can take the time to take care of himself. He's very frustrated with his job and would like to make a change, but seems stuck. Plan: 06/01 at 11am Janie /vicente/ Brian Carranza MS [facility] Addiction Therapist Signed: 05/21/2023 12:27 BRIAN CARRANZA [facility]
--- OUTSIDE RECORDS SUMMARY | 2023-10-15 16:18 | XMS_ITS | Encounter Summary ---
Author Name [facility] [place] [facility] [place] Address [address] [place] [address] Care Team Providers Care Program Evaluation Consultant Name Role Phone CHERI VASQUEZ Primary Care [...] Victor's Name Patient's Relationship to Policy Victor [facility] POINT OF SERVICE SOV ACTIV E SELEC TCAR Feb 15, 2018 [id number] SHANELL KHANNA PATIENT [employer] ([id number]) PRESCRIPT ION [facility] NT Feb 15, 2018 Q54A [id number] SHANELL KHANNA PATIENT Selected Encounter This section includes the information on record at [place] for the Encounter. Date/Time Encounter Type Encounter Description Reason Provider Source Aug 09, 2023 11:15 AM OFFICE O/P EST MOD 30 MIN SUBSTANCE USE DISORDER IND ICD-10-CM F10.99 Alcohol use, unsp with unspecified alcohol-induced disorder PATRICIA ANTOINE [facility] Encounter Template Text not used by [facility] Assessments - Encounter Diagnoses This section includes the primary and secondary diagnoses documented for the Encounter. Date/Time Primary/Secondary Diagnosis Diagnosis Name Provider Source Aug 09, 2023 01:37 PM PRIMARY Alcohol use, unsp with unspecified alcohol-induced disorder ELINAPATRICIA Jaclyn [facility] Aug 09, 2023 01:37 PM SECONDARY Nicotine dependence, chewing tobacco, w unsp disorders PATRICIA ANTOINE [facility] Plan of Treatment: Future Appointments (+ [...] Date/Time Appointment Type Appointme nt Facility Name Aug 13, 2023 12:00 PM AMBULATORY - PSYCHIATRY [facility] Aug 18, 2023 11:00 AM AMBULATORY - PSYCHIATRY [facility] Sep 08, 2023 10:30 AM AMBULATORY - PSYCHIATRY [facility] Oct 20, 2023 10:30 AM AMBULATORY - PSYCHIATRY [facility] Nov 23, 2023 11:45 AM AMBULATORY - NONE [facility] Lab Results: +/- 30 days of [...] Range Comment Aug 09, 2023 10:38 AM [facility] LIVER PROFILE Specimen Type: PLASMA Comment: Specimen 1+ Hemolysed, Tests performed on Pérez [employer] Mejía SN:[id number] (405) Ordering Provider: ZABRINA PASCAL Report Released Date/Time: Jun 15, 2023 02:08 PM Reporting Lab: [facility] [address] [facility] [address] Performing Lab: [facility] [address] [facility] [address] PROTEIN, TOTAL 8.2 g/dL 6.0-8.5 ALBUMIN 4.5 g/dL 3.2-5.0 BILIRUBIN, TOTAL 0.4 mg/dL 0.2-1.2 ALKALINE PHOSPHATASE 63 U/L 40-150 ALT(SGPT) 50 U/L 7-52 AST(SGOT) 71 U/L H 5-34 Aug 09, 2023 10:38 AM [facility] PT&INR Specimen Type: PLASMA Comment: Tests performed on IL ACL TOP 350 SN [id number] ([id number]) Ordering Provider: ZABRINA PASCAL Report Released Date/Time: Jun 15, 2023 02:08 PM Reporting Lab: [facility] [address] [facility] [address] Performing Lab: [facility] [address] [facility] [address] INR 0.9 {ratio} 0.9-1.1 PT 10.0 s 9.4-12.5 Vital Signs: All taken on the encounter date This section contains inpatient and outpatient Vital Signs collected on the date of the Encounter. Date/Time Temperature Pulse Blood Pressure Respiratory Rate SP02 Pain Height Weight Body Mass Index Source Aug 09, 2023 10:47 AM 86 160/98 18 99 0 155.8 22 [facility] Social History: Smoking Status (Most current) and Tobacco Use (All prior to encounter date) This section includes the most current, and the historical, smoking and tobacco- related health factors from the [place] facility where the Encounter took place. Current Smoking Status This section includes the most current smoking, or tobacco-related health factor, from the [place] facility where the Encounter took place. Date/Time Current Smoking Status Comment Yayo ity Mar 17, 2023 11:00 AM VA-TOBACCO USER EVERY DAY [facility] Tobacco Use History This section includes a history of the smoking, or tobacco-related health factors, that were collected on or before the date of the Encounter. The data comes from the [place] facility where the Encounter took place. Date/Time Smoking Status/Tobacco Use Comment F acility Mar 17, 2023 11:00 AM VA-TOBACCO USE ADVICE [facility] Mar 17, 2023 11:00 AM VA-TOBACCO USE PROGRAM COORDINATOR EXECUTIVE EDUCATION NO [facility] Mar 17, 2023 11:00 AM VA-TOBACCO USE MED NO [facility] Mar 17, 2023 11:00 AM VA-TOBACCO USE WI 30 MIN OF WAKEUP [facility] Mar 17, 2023 11:00 AM VA-TOBACCO USER EVERY DAY [facility] May 13, 2018 11:59 AM AH-BPR SMOKING DEPLOYMENT NO [facility] May 13, 2018 11:59 AM PREVIOUS SMOKER WHI [facility] May 13, 2018 11:59 AM VA-TOBACCO DOESNT USE WI 30 MIN WAKEUP [facility] May 13, 2018 11:59 AM VA-TOBACCO USE 30 YEARS OR MORE [facility] May 13, 2018 11:59 AM VA-TOBACCO USE ADVICE [facility] May 13, 2018 11:59 AM VA-TOBACCO USE PROGRAM COORDINATOR EXECUTIVE EDUCATION YES [facility] May 13, 2018 11:59 AM VA-TOBACCO USE MED NO [facility] May 13, 2018 11:59 AM VA-TOBACCO USER EVERY DAY [facility] Encounter Notes: All associated encounter notes This section contains the clinical notes associated to the Encounter. Date/Time Encounter Note(s) Provider Source Aug 09, 2023 11:59 AM [facility] MEDICATION MG T NOTE: LOCAL TITLE: SUBSTANCE USE DISORDER PRESCRIBER NOTE STANDARD TITLE: [facility] MGT NOTE DATE OF NOTE: AUG 09, 2023@11:59 ENTRY DATE: AUG 09, 2023@11:59:26 AUTHOR: PATRICIA ANTOINE EXP COSIGNER: URGENCY: STATUS: COMPLETED DIAGNOSES AND PROBLEMS TREATED THIS VISIT: Alcohol use disorder / Etoh dependence SIGNIFICANT ISSUES/SYMPTOMS/PROBLEMS: -Met with vet in follow up -HE had previously trialed naltrexone but stopped due to adverse side effects of frequent BMs. HE most recently trialed Acamprosate in late June but stopped after a few weeks reporting diarrhea and headaches from the medication. In addition, he found acamprosate ineffective for helping control etoh use. -He reports cont'd consumption of two to three 5% 24 oz beers. -He notes he is frustrated that he has not made progress -DIscussed with vet that at this pt he may want to consider abstinence rather than cutting back on his etoh. He states I think it is something I should think more about - but Im not ready to stop fully right now. -He states that he is 5/10 motivated to get his etoh use under control but acknowledges on a day to day basis it is easy to defer. HE states that he does not want to quit etoh entirely noting that it provides him anxiety relief after a long stressful day of work. -Denies SI/HI ___ Active Outpatient Medications (excluding Supplies): Active Outpatient Medications Status 1) ACAMPROSATE CA 333MG EC TAB TAKE TWO TABLETS BY MOUTH ACTIVE THREE TIMES A DAY TO MAINTAIN ABSTINENCE FROM ALCOHOL 2) CHOLECALCIF 50MCG (D3-2,000UNIT) TAB TAKE ONE [...] ONE PACKET ACTIVE INTRANASALLY TWICE DAILY NEEDED ___ MSE Appearance: Casually dressed, appropriately groomed. Behavior: Calm and cooperative with interview. Good eye contact. Movement: No prominent tremor, gait abnormalities, or involuntary movements. Speech: Reg rate and volume Mood and Affect: OK / Broad Thought process: Linear. Thought content: Denies Si/HI Cognition/Orientation: Grossly intact to conversation ___ ASSESSMENT: -Vet reports frustration with lack of progress in cutting back his etoh use. -He trialed both naltrexone and then acamprosate - and reports intolerable side effects of both with questionable benefit. -DIscussed with vet that he may wish to consider abstinence at this point as it may be a more effective strategy given that he has been unable to cut down on his etoh use. He maintains that he does not want abstinence at this time - though acknowledges it might be something he may need to consider if he continues to struggle in his goal of cutting back. -We discussed that there are more options - particularl topiramate and gabapentin - but given difficulties tolerating recent med trials he would like to hold off. Additional, he will meet with new psychiatric provder Dr Cadet next week and may consider psychotropics at that time. For now discontinued acamprosate and will defer. PLAN: -DISCONTINUE acamprosate -Vet will continue in therapy with She Marsh -Vet will meet with new psychiatric provider - Dr Cadet - could consider topiramate/gabapentin in future visits /es/ PATRICIA ANTOINE Staff Psychiatrist Signed: 08/09/2023 13:37 Receipt Acknowledged By: 08/09/2023 14:42 /vicente/ PATRICIA CLEARY [facility]
--- OUTSIDE RECORDS SUMMARY | 2023-10-15 16:18 | XMS_ITS | Encounter Summary ---
Author Name [facility] [place] Address [address] [place] [address] Care Team Providers Care Supervisor Airplane Flight Attendant Name Role Phone CHERI VASQUEZ Primary Care [...] Victor's Name Patient's Relationship to Policy Victor [facility] POINT OF SERVICE SOV ACTIV E SELEC TCAR Feb 15, 2018 [id number] SHANELL KHANNA PATIENT [facility] ([id number]) PRESCRIPT ION [facility] NT Feb 15, 2018 Q54A [id number] SHANELL KHANNA PATIENT Selected Encounter This section includes the information on record at VA for the Encounter. Date/Time Encounter Type Encounter Description Reason Provider Source May 11, 2023 02:00 PM ALCOHOL AND/OR DRUG SERVICES SUBSTANCE USE DISORDER IND ICD-10-CM F10.99 Alcohol use, unsp with unspecified alcohol-induced disorder SHE CARRANZA Encounter Template Text not used by VA Assessments - Encounter Diagnoses This section includes the primary and secondary diagnoses documented for the Encounter. Date/Time Primary/Secondary Diagnosis Diagnosis Name Provider Source May 12, 2023 12:55 PM PRIMARY Alcohol use, unsp with unspecified alcohol-induced disorder VERONICA CARRANZAA [place] MYLES HOLM [facility] Plan of Treatment: Future Appointments (+ 6 months) and Future Tests (+/- 45 days) The Plan of Treatment section includes future care activities for the patient from all [place] [facility]. This section includes future appointments and future orders which are active, pending or scheduled. Future Appointments This section includes appointments that were scheduled to occur 6 months from the date of the Encounter, up to a maximum of 20 appointments. The data comes from all [place] treatment facilities. Appointment Date/Time Appointment Type Appointme nt Facility Name May 19, 2023 12:45 PM AM[place]ULATORY [place] [facility] May 19, 2023 02:00 PM [place]ULAT[place] [facility] Jun 02, 2023 11:00 AM AM[place] [facility] Jun 02, 2023 12:00 PM [place] [facility] Jun 10, 2023 03:00 PM AM[place]ATORY [place] [facility] Jun 15, 2023 12:45 PM AMBULATORY - NONE [place] [facility] June 30, 2023 03:00 PM AM[place]AT[place] [facility] July 16, 2023 01:00 PM AM[place]AT[place] [facility] Jul 30, 2023 01:00 PM AM[place] [facility] Aug 09, 2023 10:30 AM AMBULATORY - [facility]IC[place] [facility] [place] [facility] Aug 09, 2023 11:15 AM [place] [facility] Aug 13, 2023 12:00 PM [place] [facility] Aug 18, 2023 11:00 AM AM[place]AT[place] [facility] Sep 08, 2023 10:30 AM AM[place] [facility] Oct 20, 2023 10:30 AM AM[place]ULAT[place] [facility] Lab Results: +/- 30 days of the [...] Range Comment May 11, 2023 02:49 PM [facility] LIVER PROFILE Specimen Type: PLASMA Comment: , Tests performed on [employer] [id number]). Ordering Provider: VERONICA CARRANZA Report Released Date/Time: May 11, 2023 02:41 PM Reporting Lab: [facility] [address] [address] Performing Lab: [facility] [address] [facility] [address] PROTEIN, TOTAL 7.9 g/dL 6.0-8.5 ALBUMIN 4.5 [...] [place]-TOBACCO [place] 30 MIN OF WAKEUP [facility] Tobacco Use History This section includes a history of the smoking, or tobacco-related health factors, that were collected on or before the date of the Encounter. The data comes from the [place] facility where the Encounter took place. Date/Time Smoking Status/Tobacco Use Comment F acility Mar 17, 2023 11:00 AM VA-TOBACCO USE ADVICE [facility] Mar 17, 2023 11:00 AM VA-TOBACCO USE FAN BLADE TRUER NO [facility] Mar 17, 2023 11:00 AM VA-TOBACCO USE MED NO [facility] Mar 17, 2023 11:00 AM VA-TOBACCO USE [place] 30 MIN OF WAKEUP [facility] Mar 17, 2023 11:00 AM VA-TOBACCO USER EVERY DAY [facility] May 13, 2018 11:59 AM AH-BPR SMOKING DEPLOYMENT NO [facility] May 13, 2018 11:59 AM PREVIOUS SMOKER WHI [place] [facility] May 13, 2018 11:59 AM VA-TOBACCO DOESNT USE WI [address] [facility] May 13, 2018 11:59 AM VA-TOBACCO USE [address] [facility] May 13, 2018 11:59 AM VA-TOBACCO USE ADVICE [facility] May 13, 2018 11:59 AM VA-TOBACCO USE FAN BLADE TRUER YES [facility] May 13, 2018 11:59 AM VA-TOBACCO USE MED NO [facility] May 13, 2018 11:59 AM VA-TOBACCO USER EVERY DAY [facility] Encounter Notes: All associated encounter notes This section contains the clinical notes associated to the Encounter. Date/Time Encounter Note(s) Provider Source May 11, 2023 02:47 PM SATP CONSULT: LOCAL TITLE: CONSULT - SUBSTANCE USE DISORDER STANDARD TITLE: SATP CONSULT DATE OF NOTE: MAY 11, 2023@14:47 ENTRY DATE: MAY 11, 2023@14:47:22 AUTHOR: SHE CARRANZA COSIGNER: URGENCY: STATUS: COMPLETED CONSULT - SUBSTANCE USE DISORDER Has ADDENDA Patient was seen today for 45 - 50 minutes for treatment of the following diagnosis/diagnoses and problems: alcohol use disorder, moderate Significant issues, symptoms, complaints: requested an appointment with JOEL to talk about decreasing alcohol use. (see Apr 10 2023 consult note by Joni Fishman) He said he drinks 3 24oz beers every day after work. He said he thinks this is too much and he is worried about his health. He also said his spouse would like to see him decrease his drinking. [place] said he has had no consequences related to alcohol other that health issues (see gastroenterology note dated 04/19/23 by Kim Bowser). He has never lost a job, has never had any legal issues. He said he does have a lot of stress at work and that contributes to his drinking. He is adamant that he does not want to stop alcohol use altogether, but is interested in medication that could help him decrease his consumption. Relevant mental status exam or other objective findings: Somewhat anxious, pleasant. Assessment: seeking help to decrease the amount he drinks. He said he tried on his own but failed after 2 days. He drinks the equivalent of 3 beers each day (KR previous note states 5). He is interested in medication as well as counseling support. Plan: 05/18 at 2pm F@F /vicente/ She Carranza [facility] Addiction Therapist Signed: 05/12/2023 12:56 Receipt Acknowledged By: 05/13/2023 15:17 /vicente/ PATRICIA ANTOINE Staff Psychiatrist 05/13/2023 ADDENDUM STATUS: COMPLETED scheduled with resident and myself on 05/18 @ 1245p /vicente/ PATRICIA ANTOINE Staff Psychiatrist Signed: 05/13/2023 15:17 SHE CARRANZA [facility]
--- OUTSIDE RECORDS SUMMARY | 2023-10-15 16:18 | XMS_ITS | Encounter Summary ---
Author Name [facility] [place] Organization [facility] [place] Address [address] [place] [address] Care Team Providers Care Library Circulation Clerk Name Role Phone CHERI VASQUEZ Primary Care [...] Victor's Name Patient's Relationship to Policy Victor [facility] POINT OF SERVICE SOV ACTIV E SELEC TCAR Feb 15, 2018 [id number] SHANELL KHANNA PATIENT [employer] [facility] ([id number]) PRESCRIPT ION [facility] NT Feb 15, 2018 [id number] SHANELL KHANNA PATIENT Selected Encounter This section includes the information on record at VA for the Encounter. Date/Time Encounter Type Encounter Description Reason Provider Source Jun 10, 2023 03:00 PM PSYTX W PT 60 MINUTES SUBSTANCE USE DISORDER IND ICD-10-CM F10.99 Alcohol use, unsp with unspecified alcohol-induced disorder SHE CARRANZA Encounter Template Text not used by [facility] Assessments - Encounter Diagnoses This section includes the primary and secondary diagnoses documented for the Encounter. Date/Time Primary/Secondary Diagnosis Diagnosis Name Provider Source Jun 10, 2023 04:07 PM PRIMARY Alcohol use, unsp with unspecified alcohol-induced disorder SHE CARRANZA [facility] Jun 10, 2023 04:07 PM SECONDARY Depression, unspecified SHE CARRANZA [facility] Plan of Treatment: Future Appointments (+ 6 months) and Future Tests (+/- 45 days) The Plan of Treatment section includes future care activities for the patient [facility] [place] [facility]. This section includes future appointments and future orders which are active, pending or scheduled. Future Appointments This section includes appointments that were scheduled to occur 6 months from the date of the Encounter, up to a maximum of 20 appointments. The data comes from all [place] treatment facilities. Appointment Date/Time Appointment Type Appointme nt Facility Name Jun 15, 2023 12:45 PM AMBULATORY - NONE [place] [facility] June 30, 2023 03:00 [facility] 16, 2023 01:00 PM [facility] [place] [facility] Jul 30, 2023 01:00 PM [facility] Aug 09, 2023 10:30 AM [facility] [place] [facility] Aug 09, 2023 11:15 AM AMBULATORY - PS[facility]CHIATRY [facility] Aug 13, 2023 12:00 PM [facility] Aug 18, 2023 11:00 AM AM[place]ULATORY [place]IATRY [place] [facility] Sep 08, 2023 10:30 AM AM[place]ULATORY [place] [facility] Oct 20, 2023 10:30 AM AM[place]ULATORY - [place]IATRY [place] [facility] Nov 23, 2023 11:45 AM AMBULATORY - NONE [place] [facility] Lab Results: +/- 30 days of the encounter This section includes the Chemistry and Hematology Lab Results on record with MD for the patient. Radiology Reports and Pathology Reports are provided separately, in subsequent sections. Lab Results This section contains the Chemistry/Hematology Results that were resulted 30 days before or 30 daysafter the date of the Encounter. Date/Time Source Result Type Result - Unit Interpretation Reference Range Comment Jun 15, 2023 01:53 PM [facility] LIVER PROFILE Specimen Type: PLASMA Comment: , Tests performed on [employer] SN:[id number]). Ordering Provider: PATRICIA ANTOINE Report Released Date/Time: Jun 02, 2023 01:18 PM Reporting Lab: [facility] [address] [facility] [address] Performing Lab: [place] [address] PROTEIN, TOTAL 7.6 g/dL 6.0-8.5 ALBUMIN 4.1 g/dL 3.2-5.0 BILIRUBIN, TOTAL 0.7 mg/dL 0.2-1.2 ALKALINE PHOSPHATASE 55 U/L 40-150 ALT(SGPT) 25 U/L 7-52 AST(SGOT) 40 U/L H 5-34 Jun 15, 2023 01:53 PM [facility] DRUG SCREEN+ETG([facility]) Specimen Type: URINE Comment: This ETG test was developed and its performance characteristics determined by [place] clinical lab. The [place] Food and Drug Administration has not approved or cleared this test, FDA clearance or approval is not currently required for clinical use. ETG cutoff 500 ng/mL, Tests performed on [employer] SN:[id number] (405) Requests for Confirmation testing will need to be phoned in to the lab [phone]. Ordering Provider: PATRICIA ANTOINE Report Released Date/Time: May 19, 2023 01:53 PM Reporting Lab: [facility] [address] [facility] [address] Performing Lab: [facility] [address] [facility] [address] COCAINE SCREEN NONE DETECTED N one-Detec allen BENZODIAZEPINES SCREEN NONE DETECTED None-Detec allen OPIATES SCREEN NONE DETECTED N one-Detec allen CREATININE (URINE,RANDOM) 71.66 mg/dL CANNABINOID SCRN NONE DETECTED None-Detec allen AMPHETAMINE SCRN NONE DETECTED None-Detec allen METHADONE SCREEN([facility]) NONE DETECTED None-Detec allen pH CAROL 6.5 [pH] ETHYL GLUCURONIDE([facility]) SCRN POS None-Detec allen SPECIFIC GRAVITY CAROL 1.009 1.003-1.02 0 FENTANYL([facility])URI N E SCREEN NONE DETECTED None-Detec allen OXYCODONE SCREEN URINE([facility]) NONE DETECTED None-Detec allen ETOH URINE <10.0 mg/dL See_Com men t BUPRENORPHINE SCREEN URINE([facility]) NONE DETECTED None-Detec allen Jun 15, 2023 01:53 PM [facility] VIT D 25-OH([facility]) Specimen Type: SERUM Comment: , Tests performed on [employer] SN:[id number] (405) Ordering Provider: CHERI VASQUEZ Report Released Date/Time: Jun 15, 2023 01:39 PM Reporting Lab: [facility] [address] [address] Performing Lab: [facility] [address] [address] VIT D 25-OH([facility]) 10.3 ng/mL L 20.0-50.0 Social History: Smoking Status (Most current) and Tobacco Use (All prior to encounter date) This section includes the most current, and the historical, smoking and tobacco- related health factors from the [place] facility where the Encounter took place. Current Smoking Status This section includes the most current smoking, or tobacco-related health factor, from the [place] facility where the Encounter took place. Date/Time Current Smoking Status Comment Yayo sawant Mar 17, 2023 11:00 AM VA-TOBACCO USER EVERY DAY [facility] Tobacco Use History This section includes a history of the smoking, or tobacco-related health factors, that were collected on or before the date of the Encounter. The data comes from the [place] facility where the Encounter took place. 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 [facility] Mar 17, 2023 11:00 AM VA-TOBACCO USE MED NO [facility] Mar 17, 2023 11:00 AM VA-TOBACCO USE [place] 30 MIN OF WAKEUP [facility] Mar 17, 2023 11:00 AM VA-TOBACCO USER EVERY DAY [facility] May 13, 2018 11:59 AM AH-BPR SMOKING DEPLOYMENT NO [facility] May 13, 2018 11:59 AM PREVIOUS SMOKER WHI [facility] May 13, 2018 11:59 AM VA-TOBACCO DOESNT USE [place] 30 MIN WAKEUP [facility] May 13, 2018 11:59 AM VA-TOBACCO USE 30 YEARS OR MORE [facility] May 13, 2018 11:59 AM VA-TOBACCO USE ADVICE [facility] May 13, 2018 11:59 AM VA-TOBACCO USE 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 May 13, 2018 11:59 AM VA-TOBACCO USE MED NO [place] [facility] May 13, 2018 11:59 AM VA-TOBACCO USER EVERY DAY [facility] Encounter Notes: All associated encounter notes This section contains the clinical notes associated to the Encounter. Date/Time Encounter Note(s) Provider Source Jun 10, 2023 04:01 PM MENTAL HEALTH NOTE : LOCAL TITLE: Mental Health Note STANDARD TITLE: MENTAL HEALTH NOTE DATE OF NOTE: JUN 10, 2023@16:01 ENTRY DATE: JUN 10, 2023@16:02:01 AUTHOR: SHE CARRANZA EXP COSIGNER: URGENCY: STATUS: COMPLETED COGNITIVE BEHAVIORAL THERAPY FOR DEPRESSION (CBT-D): INITIAL PHASE Time in session (in minutes): 53 SESSION NUMBER: 2 SESSION FORMAT [id number] session SESSION LOCATION [facility] DIAGNOSIS: Primary (focus of treatment): Depression Secondary (if applicable): alcohol use disorder SESSION CONTENT: In this initial phase session of Cognitive Behavioral Therapy for Depression (CBT-D), the following therapeutic activities were performed: TREATMENT GOALS [place]'s presenting problem: depression Treatment goals: less procrastination more motivated be more engaging with others COLLABORATIVE HOMEWORK ASSIGNMENT: The homework assignment for this session was: pleasant events schedule The therapist inquired about 's understanding of the homework assignment and its rationale. Therapist and discussed the likelihood that the [place] will do the homework. FINAL SUMMARY AND FEEDBACK: scored 16 on the BD12, 21 last week. Will continue to monitor. He continues to feel sad, doesn't know the exact cause although being trapped in his job is probably contributing. COLLABORATION The degree of collaboration between the [place] and the therapist in the current session was high. Description of collaboration in this session: PLAN Next session planned for agreed upon date/time of: 06/30/2023 at 3pm /es/ She Carranza [facility] Addiction Therapist Signed: 06/10/2023 16:07 SHE CARRANZA [facility]
--- OUTSIDE RECORDS SUMMARY | 2023-10-15 16:18 | XMS_ITS | Encounter Summary ---
Author Name [facility] Organization [facility] [place] Address [address] [place] [address] Care Team Providers Care Guide Dog Trainer Name Role Phone CHERI VASQUEZ Primary Care [...] Name Patient's Relationship to Policy Victor [facility] POINT OF SERVICE SOV ACTIV E SELEC TCAR Feb 15, 2018 [id number] SHANELL KHANNA PATIENT [facility] ([id number]) PRESCRIPT ION [facility] NT Feb 15, 2018 Q54A [id number] SHANELL KHANNA PATIENT Selected Encounter This section includes the information on record at VA for the Encounter. Date/Time Encounter Type Encounter Description Reason Provider Source July 16, 2023 01:00 PM PSYTX W PT 60 MINUTES SUBSTANCE USE DISORDER IND ICD-10-CM F10.99 Alcohol use, unsp with unspecified alcohol-induced disorder SHE CARRANZA Encounter Template Text not used by VA Assessments - Encounter Diagnoses This section includes the primary and secondary diagnoses documented for the Encounter. Date/Time Primary/Secondary Diagnosis Diagnosis Name Provider Source July 16, 2023 03:00 PM PRIMARY Alcohol use, unsp with unspecified alcohol-induced disorder SHE CARRANZA [facility] July 16, 2023 03:00 PM SECONDARY Depression, unspecified SHE CARRANZA [facility] Plan of Treatment: Future Appointments (+ 6 months) and Future Tests (+/- 45 days) The Plan of Treatment section includes future care activities for the patient from all [place] [facility]. This section includes future appointments and future orders which are active, pending or scheduled. Future Appointments This section includes appointments that were scheduled to occur 6 months from the date of the Encounter, up to a maximum of 20 appointments. The data comes from all [place] treatment facilities. Appointment Date/Time Appointment Type Appointme nt Facility Name Jul 30, 2023 01:00 PM AMBULATORY - PSYCHIATRY [facility] Aug 09, 2023 10:30 AM AMBULATORY - MEDICINE [facility] Aug 09, 2023 11:15 AM AMBULATORY - PSYCHIATRY [facility] Aug 13, 2023 12:00 PM AMBULATORY - PSYCHIATRY [facility] Aug 18, 2023 11:00 AM AMBULATORY - PSYCHIATRY [facility] Sep 08, 2023 10:30 AM AMBULATORY - PSYCHIATRY [facility] Oct 20, 2023 10:30 AM AMBULATORY - PSYCHIATRY [facility] Nov 23, 2023 11:45 AM AMBULATORY - NONE [facility] Lab Results: +/- 30 days of the encounter This section includes the Chemistry and Hematology Lab Results on record with OR for the patient. Radiology Reports and Pathology Reports are provided separately, in subsequent sections. Lab Results This section contains the Chemistry/Hematology Results that were resulted 30 days before or 30 daysafter the date of the Encounter. Date/Time Source Result Type Result - Unit Interpretation Reference Range Comment Aug 09, 2023 10:38 AM [facility] PT&INR Specimen Type: PLASMA Comment: Tests performed on IL ACL TOP 350 SN [id number] ([id number]) Ordering Provider: ZABRINA PASCAL Report Released Date/Time: Jun 15, 2023 02:08 PM Reporting Lab: [facility] [address] [facility] [address] Performing Lab: [facility] [address] [facility] [address] INR 0.9 {ratio} 0.9-1.1 PT 10.0 s 9.4-12.5 Aug 09, 2023 10:38 AM [facility] LIVER PROFILE Specimen Type: PLASMA Comment: Specimen 1+ Hemolysed, Tests performed on [facility] Mejía SN:[id number] (405) Ordering Provider: ZABRINA PASCAL Report Released Date/Time: Jun 15, 2023 02:08 PM Reporting Lab: [facility] [address] [facility] [address] Performing Lab: [facility] [address] [facility] [address] PROTEIN, TOTAL 8.2 g/dL 6.0-8.5 ALBUMIN 4.5 g/dL 3.2-5.0 BILIRUBIN, TOTAL 0.4 mg/dL 0.2-1.2 ALKALINE PHOSPHATASE 63 U/L 40-150 ALT(SGPT) 50 U/L 7-52 AST(SGOT) 71 U/L H 5-34 Social History: Smoking Status (Most current) and Tobacco Use (All prior to encounter date) This section includes the most current, and the historical, smoking and tobacco- related health factors from the [place] facility where the Encounter took place. Current Smoking Status This section includes the most current smoking, or tobacco-related health factor, from the [place] facility where the Encounter took place. Date/Time Current Smoking Status Comment Yayo itjeana Mar 17, 2023 11:00 AM VA-TOBACCO USER EVERY DAY [facility] Tobacco Use History This section includes a history of the smoking, or tobacco-related health factors, that were collected on or before the date of the Encounter. The data comes from the [place] facility where the Encounter took place. 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 NO [facility] Mar 17, 2023 11:00 AM VA-TOBACCO USE MED NO [facility] Mar 17, 2023 11:00 AM VA-TOBACCO USE WI 30 MIN OF WAKEUP [facility] Mar 17, 2023 11:00 AM VA-TOBACCO USER EVERY DAY [facility] May 13, 2018 11:59 AM AH-BPR SMOKING DEPLOYMENT NO [facility] May 13, 2018 11:59 AM PREVIOUS SMOKER [facility] May 13, 2018 11:59 AM VA-TOBACCO DOESNT USE WI 30 MIN WAKEUP [facility] May 13, 2018 11:59 AM VA-TOBACCO USE 30 YEARS OR MORE [facility] May 13, 2018 11:59 AM VA-TOBACCO USE ADVICE [facility] May 13, 2018 11:59 AM VA-TOBACCO USE 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 Date/Time Encounter Note(s) Provider Source Jul 26, 2023 07:28 AM MENTAL HEALTH RISHI TMENT PLAN NOTE: LOCAL TITLE: Mental Health Treatment Plan STANDARD TITLE: MENTAL HEALTH TREATMENT PLAN NOTE DATE OF NOTE: JUL 26, 2023@07:28 ENTRY DATE: JUL 26, 2023@07:29:12 AUTHOR: SHE CARRANZA EXP COSIGNER: URGENCY: STATUS: COMPLETED MENTAL HEALTH TREATMENT PLAN - Jul, @ 07:28AM Visit Date: June, @ 13:00 - [facility] JOEL THERAPIST [facility] not assigned TEAM MEMBERS: SHE CARRANZA: ADDICTION THERAPIST RISK ASSESSMENT (DANGER TO SELF AND OTHERS): Substance Abuse/Dependence Relapse PATIENT'S PERCEPTION OF NEEDS AND PREFERENCES: I need to learn about my illness PATIENT'S STRENGTHS/ABILITIES: Insightful - aware of illness Expressed desire/motivation for change Employed or has income/benefits Has supportive family and/or friends Education Housing Community involvement PATIENT'S BARRIERS TO CARE: Substance abuse/dependence MENTAL HEALTH DIAGNOSES AND RELEVANT MEDICAL CONDITIONS: Reactive depression (situational) (SCT 09825904) Alcohol intake above recommended sensible limits (SCT [id number]) TREATMENT PLAN: Problem: Problem/Need: [DEPRESSION]: I am experiencing depressive symptoms that include: hopelessness. Goal: I want to decrease depression and improve mood. Objective: I will practice expressing positive thoughts. Progress will be measured through self report Projected Target Date: 10/26/2023 Intervention: [MONITOR] My provider will help me track my positive thoughts through a bi-weekly self-monitor. Providers: SHE CARRANZA Time Frame: One time every 2 weeks for 3 months Treating Specialty: Outpatient Care Renewal Date: 08/25/2023 Entered Treatment: 07/26/2023 @ 07:23AM Anticipated Discharge: 11/16/2023 Actual Discharge: None PARTICIPATION IN TREATMENT PLANNING: AGREED TO PLAN DISCUSSED. FAMILY PARTICIPATION IN TREATMENT PLANNING: DECLINED FAMILY PARTICIPATION. /vicente/ She Carranza MS [facility] Addiction Therapist Signed: 07/26/2023 07:29 SHE CARRANZA [facility] July 16, 2023 02:23 PM SATP NOTE: LOCAL TITLE: SUBSTANCE USE DISORDER THERAPY NOTE STANDARD TITLE: SATP NOTE DATE OF NOTE: JULY 16, 2023@14:23 ENTRY DATE: JULY 16, 2023@14:23:48 AUTHOR: SHE CARRANZA EXP COSIGNER: URGENCY: STATUS: COMPLETED is not currently located at address listed in CPRS enter current physician location here: 's current address: [address] [place] [address] [place]'s telephone number: [phone] Additional contact information (i.e. neighbors/relatives): e-911: Call [phone] to speak with an agent who can put you in touch with a doubling machine operator at the Patient's location. You must have the physical location (address) where the Patient is currently located. Verbal informed consent has been obtained. Patient was seen today for 53 minutes for treatment of the following diagnosis/diagnoses and problems: alcohol use disorder; depression Significant issues, symptoms, complaints: said he has maintained his decreased alcohol use, hasn't decreased further. States depression is a 7 out of 10. He continues to be discouraged at work, with no real solution to the understaffing problem. 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 He does delegate to other employees when he is able. Things at home are good. Today we reviewed the CBT booklet together and agreed we would come up with a SMART treatment plan next appointment. Relevant mental status exam or other objective findings: Quiet, reserved. Assessment: [place] maintaining status quo. Plan: 07/29 at 1pm C /vicente/ She Carranza MS [facility] Addiction Therapist Signed: 07/16/2023 15:00 SHE CARRANZA [facility]
--- OUTSIDE RECORDS SUMMARY | 2023-10-15 16:18 | XMS_ITS | Encounter Summary ---
Author Name [facility] of [facility] ([place]) Organization [facility] [place] [facility] [place] Address [address] [place] [address] Care Team Providers Care Costume Specialist Name Role Phone CHERI VASQUEZ Primary [...] Victor's Name Patient's Relationship to Policy Victor [facility] POINT OF SERVICE SOV ACTIV E SELEC TCAR Feb 15, 2018 [id number] SHANELL KHANNA PATIENT [facility] ([id number]) PRESCRIPT ION [facility] NT Feb 15, 2018 Q54A [id number] SHANELL KHANNA PATIENT Selected Encounter This section includes the information on record at [place] for the Encounter. Date/Time Encounter Type Encounter Description Reason Provider Source Jun 02, 2023 12:00 PM OFFICE O/P EST MOD 30 MIN SUBSTANCE USE DISORDER IND ICD-10-CM F10.99 Alcohol use, unsp with unspecified alcohol-induced disorder PATRICIA ANTOINE [facility] Encounter Template Text not used by VA Assessments - Encounter Diagnoses This section includes the primary and secondary diagnoses documented for the Encounter. Date/Time Primary/Secondary Diagnosis Diagnosis Name Provider Source Jun 02, 2023 01:18 PM PRIMARY Alcohol use, unsp with unspecified alcohol-induced disorder PATRICIA ANTOINE [facility] Plan of Treatment: Future Appointments (+ 6 months) and Future Tests (+/- 45 days) The Plan of Treatment section includes future care activities for the patient from all [place] [facility]. This section includes future appointments and future orders which are active, pending or scheduled. Future Appointments This section includes appointments that were scheduled to occur 6 months from the date of the Encounter, up to a maximum of 20 appointments. The data comes from all [place] treatment facilities. Appointment Date/Time Appointment Type Appointme nt Facility Name Jun 10, 2023 03:00 PM [facility] [place] [facility] Jun 15, 2023 12:45 PM AMBULATORY - NONE [facility] [place] [facility] June 30, 2023 03:00 PM [facility] [place] [facility] July 16, 2023 01:00 PM [facility] [place] [facility] Jul 30, 2023 01:00 PM [facility] [place] [facility] Aug 09, 2023 10:30 AM AMBULATORY - MEDICINE [facility] [place] [facility] Aug 09, 2023 11:15 AM [facility] [place] [facility] Aug 13, 2023 12:00 PM [facility] [place] [facility] Aug 18, 2023 11:00 AM [facility] [place] [facility] Sep 08, 2023 10:30 AM [facility] [place] [facility] Oct 20, 2023 10:30 AM [facility] [place] [facility] Nov 23, 2023 11:45 AM AMBULATORY - NONE [facility] [place] [facility] Lab Results: +/- 30 days [...] Range Comment Jun 15, 2023 01:53 PM [facility] LIVER PROFILE Specimen Type: PLASMA Comment: , Tests performed on Pérez Click Quote Save Dennis SN:[id number]). Ordering Provider: PATRICIA ANTOINE Report Released Date/Time: Jun 02, 2023 01:18 PM Reporting Lab: [facility] [address] [facility] [address] Performing Lab: [place] [address] PROTEIN, TOTAL 7.6 g/dL 6.0-8.5 ALBUMIN 4.1 g/dL 3.2-5.0 BILIRUBIN, TOTAL 0.7 mg/dL 0.2-1.2 ALKALINE PHOSPHATASE 55 U/L 40-150 ALT(SGPT) 25 U/L 7-52 AST(SGOT) 40 U/L H 5-34 Jun 15, 2023 01:53 PM [facility] DRUG SCREEN+ETG([facility]) Specimen Type: URINE Comment: This ETG test was developed and its performance characteristics determined by [place] clinical lab. The [place] Food and Drug Administration has not approved or cleared this test, FDA clearance or approval is not currently required for clinical use. ETG cutoff 500 ng/mL, Tests performed on Pé[employer] Save Mejía SN:[id number] ([id number]) Requests for Confirmation testing will need to be phoned in to the lab [phone]. Ordering Provider: PATRICIA ANTOINE Report Released Date/Time: May 19, 2023 01:53 PM Reporting Lab: [facility] [address] [facility] [address] Performing Lab: [place] [address] COCAINE SCREEN NONE DETECTED N one-Detec allen BENZODIAZEPINES SCREEN NONE DETECTED None-Detec allen OPIATES SCREEN NONE DETECTED N one-Detec allen CREATININE (URINE,RANDOM) 71.66 mg/dL CANNABINOID SCRN NONE DETECTED None-Detec allen AMPHETAMINE SCRN NONE DETECTED None-Detec allen METHADONE SCREEN([facility]) NONE DETECTED None-Detec allen pH CAROL 6.5 [pH] ETHYL GLUCURONIDE([facility]) SCRN POS None-Detec allen SPECIFIC GRAVITY CAROL 1.009 1.003-1.02 0 FENTANYL([facility])URI N E SCREEN NONE DETECTED None-Detec allen OXYCODONE SCREEN URINE(wrj) NONE DETECTED None-Detec allen ETOH URINE <10.0 mg/dL See_Com men t BUPRENORPHINE SCREEN URINE(wrj) NONE DETECTED None-Detec allen Jun 15, 2023 01:53 PM [facility] VIT D 25-[place]([facility]) Specimen Type: SERUM Comment: , Tests performed on Pérez [employer] Mejía SN:[id number] (405) Ordering Provider: CHERI VASQUEZ Report Released Date/Time: Jun 15, 2023 01:39 PM Reporting Lab: [facility] [address] [facility] [address] Performing Lab: [facility] [address] [facility] [address] VIT D 25-OH([facility]) 10.3 ng/mL L 20.0-50.0 May 11, 2023 02:49 PM [facility] LIVER PROFILE Specimen Type: PLASMA Comment: , Tests performed on Pérez Click Qu[employer] Save Dennis SN:[id number] (405). Ordering Provider: SHE HERNANDEZ Report Released Date/Time: May 11, 2023 02:41 PM Reporting Lab: [facility] [address] [facility] [address] Performing Lab: [facility] [address] [facility] [address] PROTEIN, TOTAL 7.9 g/dL 6.0-8.5 ALBUMIN 4.5 g/dL 3.2-5.0 BILIRUBIN, TOTAL 0.9 mg/dL 0.2-1.2 ALKALINE PHOSPHATASE 67 U/L 40-150 ALT(SGPT) 44 U/L 7-52 AST(SGOT) 54 U/L H 5-34 Social History: Smoking Status (Most current) and Tobacco Use (All prior to encounter date) This section includes the most current, and the historical, smoking and tobacco- related health factors from the [place] facility where the Encounter took place. Current Smoking Status This section includes the most current smoking, or tobacco-related health factor, from the [place] facility where the Encounter took place. Date/Time Current Smoking Status Comment Facil jese Mar 17, 2023 11:00 AM VA-TOBACCO USER EVERY DAY [facility] Tobacco Use History This section includes a history of the smoking, or tobacco-related health factors, that were collected on or before the date of the Encounter. The data comes from the [place] facility where the Encounter took place. Date/Time Smoking Status/Tobacco Use Comment F acility Mar 17, 2023 11:00 AM VA-TOBACCO USE ADVICE [place] [facility] Mar 17, 2023 11:00 AM VA-TOBACCO USE NUTRITIONAL HEALTH COACH NO [place] [facility] Mar 17, 2023 11:00 AM VA-TOBACCO USE MED NO [place] [facility] Mar 17, 2023 11:00 AM VA-TOBACCO USE WI 30 MIN OF WAKEUP [place] [facility] Mar 17, 2023 11:00 AM VA-TOBACCO USER EVERY DAY [place] [facility] May 13, 2018 11:59 AM AH-BPR SMOKING DEPLOYMENT NO [place] [facility] May 13, 2018 11:59 AM PREVIOUS SMOKER [place] [facility] May 13, 2018 11:59 AM VA-TOBACCO DOESNT USE WI 30 MIN WAKEUP [facility] May 13, 2018 11:59 AM VA-TOBACCO USE 30 YEARS OR MORE [place] [facility] May 13, 2018 11:59 AM VA-TOBACCO USE ADVICE [place] [facility] May 13, 2018 11:59 AM VA-TOBACCO USE NUTRITIONAL HEALTH COACH YES [place] [facility] May 13, 2018 11:59 AM VA-TOBACCO USE MED NO [place] [facility] May 13, 2018 11:59 AM VA-TOBACCO USER EVERY DAY [facility] Encounter Notes: All associated encounter notes This section contains the clinical notes associated to the Encounter. Date/Time Encounter Note(s) Provider Source Jun 02, 2023 01:13 PM SATP MEDICATION MG T NOTE: LOCAL TITLE: SUBSTANCE USE DISORDER PRESCRIBER NOTE STANDARD TITLE: SATP MEDICATION MGT NOTE DATE OF NOTE: JUN 02, 2023@13:13 ENTRY DATE: JUN 02, 2023@13:13:09 AUTHOR: PATRICIA ANTOINE EXP COSIGNER: URGENCY: STATUS: COMPLETED DIAGNOSES AND PROBLEMS TREATED THIS VISIT: Alcohol use disorder / Etoh dependence SIGNIFICANT ISSUES/SYMPTOMS/PROBLEMS: -Met with vet in follow up -Started naltrexone 2 weeks ago. -He reports overall doing ok. He reports drinking two 24 oz beers recently, whereas previously he was drinking three. He states his goal is to continue to decrease and states ideally he would not drink on weekdays at all, and occasionally have drinks on the weekends. -He does believe the naltrexone has been beneficial in helping him limit his naltrexone. He wants to continue the medication. He does note that on Wednesday (2 days ago) he had some loose stools. Not sure if naltrexone related or not. Intends to resume naltrexone and montir side effect -He states no acute stressors. Notes that work is typically quite stressful with a lot on his plate. Acknowledges that he looks to alcohol to relax after stressful days. Discusses that he does enjoy walks/snow shoe-ing as ways to decompress. -Denies SI/HI ___ Active Outpatient Medications (excluding [...] 50MG TAB TAKE ONE TABLET BY ACTIVE (S) MOUTH DAILY TO MAINTAIN ABSTINENCE FROM ALCOHOL 5) SINUS RINSE NEILMED REGULAR KIT USE ONE PACKET ACTIVE INTRANASALLY TWICE DAILY NEEDED Active Non-VA Medications Status 1) Non-VA CALCIUM CARBONATE TAB,CHEWABLE 550MG BY MOUTH ACTIVE NEEDED 6 Total Medications ___ MSE Appearance: Casually dressed, appropriately groomed. Behavior: Calm and cooperative with interview. Good eye contact. Movement: No prominent tremor, gait abnormalities, or involuntary movements. Speech: Reg rate and volume Mood and Affect: OK / Broad Thought process: Linear. Thought content: Denies Si/HI Cognition/Orientation: Grossly intact to conversation ___ ASSESSMENT: -Vet reports being successful in cutting down his etoh consumption -He believes naltrexone has been helpful in this regard. Does note loose stools but intends to resume and monitor whether a side effect of naltrexone. -Continues in therapist with [facility] PLAN: -Continue Naltrexone 50mg qd -LFTs ordered at next visit -Will plan to f/u with vet in 4-6 weeks. Will arrange appt in coordination with therapy appt /vicente/ PATRICIA ANTOINE Staff Psychiatrist Signed: 06/02/2023 13:18 PATRICIA ANTOINE [facility]
--- OUTSIDE RECORDS SUMMARY | 2023-10-15 16:18 | XMS_ITS | Encounter Summary ---
Author Name [facility] [place] [facility] [place] Address [address] [place] [address] Care Team Providers Care Fairground Operator Name Role Phone CHERI VASQUEZ Primary [...] Victor's Name Patient's Relationship to Policy Victor [facility] POINT OF SERVICE SOV ACTIV E SELEC TCAR Feb 15, 2018 [id number] CLEMENCIASHANELL ERT PATIENT EXPRESS S[facility]IPTS ([id number]) PRESCRIPT ION [facility] NT Feb 15, 2018 Q54A [id number] SHANELL KHANNA ERT PATIENT Selected Encounter This section includes the information on record at [place] for the Encounter. Date/Time Encounter Type Encounter Description Reason Provider Source Jun 15, 2023 07:13 AM Outpatient Encounter PROSTHETICS/ORTHOTI CS CHERI VASQUEZ IHE Encounter Template Text not [...] 20 appointments. The data comes from all [place] treatment facilities. Appointment Date/Time Appointment Type Appointme nt Facility Name June 30, 2023 03:00 PM [facility] [place] [place] [facility] July 16, 2023 01:00 PM [place] [facility] Jul 30, 2023 01:00 PM [facility] [place] [facility] Aug 09, 2023 10:30 AM AMBULATORY - MEDICINE [facility] [place] [facility] Aug 09, 2023 11:15 AM [facility]AT[facility] [place]RY [place] [facility] Aug 13, 2023 12:00 PM [facility] [place] [facility] Aug 18, 2023 11:00 AM [facility] [place] [facility] Sep 08, 2023 10:30 AM AM[facility]UL[facility] - [facility]ATRY [place] [facility] Oct 20, 2023 10:30 AM [facility] [place]RY [place] [facility] Nov 23, 2023 11:45 AM [facility] NONE [facility] Lab Results: +/- 30 days of the [...] Range Comment Jun 15, 2023 01:53 PM [facility] LIVER PROFILE Specimen Type: PLASMA Comment: , Tests performed on Incentive SN:[id number]). Ordering Provider: PATRICIA ANTOINE Report Released Date/Time: Jun 02, 2023 01:18 PM Reporting Lab: [facility] [address] [facility] [address] Performing Lab: [facility] [address] [facility] [address] PROTEIN, TOTAL 7.6 g/dL 6.0-8.5 ALBUMIN 4.1 g/dL 3.2-5.0 BILIRUBIN, TOTAL 0.7 mg/dL 0.2-1.2 ALKALINE PHOSPHATASE 55 U/L 40-150 ALT(SGPT) 25 U/L 7-52 AST(SGOT) 40 U/L H 5-34 Jun 15, 2023 01:53 PM [facility] DRUG SCREEN+ETG([facility]) Specimen Type: URINE Comment: This ETG test was developed and its performance characteristics determined by [place] clinical lab. The [place] Food and Drug Administration has not approved or cleared this test, FDA clearance or approval is not currently required for clinical use. ETG cutoff 500 ng/mL, Tests performed on Meditech SN:[id number]) Requests for Confirmation testing will need to be phoned in to the lab [phone]. Ordering Provider: PATRICIA ANTOINE Report Released Date/Time: May 19, 2023 01:53 PM Reporting Lab: [facility] [address] [facility] [address] Performing Lab: [place] [id number] COCAINE SCREEN NONE DETECTED N one-Detec allen BENZODIAZEPINES SCREEN NONE DETECTED None-Detec allen OPIATES SCREEN NONE DETECTED N one-Detec allen CREATININE (URINE,RANDOM) 71.66 mg/dL CANNABINOID SCRN NONE DETECTED None-Detec allen AMPHETAMINE SCRN NONE DETECTED None-Detec allen METHADONE SCREEN([facility]) NONE DETECTED None-Detec allen pH CAROL 6.5 [pH] ETHYL GLUCURONIDE([facility]) SCRN POS None-Detec allen SPECIFIC GRAVITY CAROL 1.009 1.003-1.02 0 FENTANYL([facility])URI N E SCREEN NONE DETECTED None-Detec allen OXYCODONE SCREEN URINE([facility]) NONE DETECTED None-Detec allen ETOH URINE <10.0 mg/dL See_Com men t BUPRENORPHINE SCREEN URINE([facility]) NONE DETECTED None-Detec allen Jun 15, 2023 01:53 PM [facility] VIT D 25-OH([facility]) Specimen Type: SERUM Comment: , Tests performed on Pérez CytRx SN:[id number] ([id number]) Ordering Provider: CHERI VASQUEZ Report Released Date/Time: Jun 15, 2023 01:39 PM Reporting Lab: [facility] [address] [facility] [address] Performing Lab: [facility] [address] [facility] [address] VIT D 25-OH(WR[facility]) 10.3 ng/mL L 20.0-50.0 Vital Signs: All taken on the encounter date This section contains inpatient and outpatient Vital Signs collected on the date of the Encounter. Date/Time Temperature Pulse Blood Pressure Respiratory Rate SP02 Pain Height Weight Body Mass Index Source Jun 15, 2023 01:01 PM 97.6 85 117/71 18 99 0 161.3 23 [facility] Social History: Smoking Status (Most current) and Tobacco Use (All prior to encounter date) This section includes the most current, and the historical, smoking and tobacco- related health factors from the [place] facility where the Encounter took place. Current Smoking Status This section includes the most current smoking, or tobacco-related health factor, from the [place] facility where the Encounter took place. Date/Time Current Smoking Status Comment Yayo ity Mar 17, 2023 11:00 AM VA-TOBACCO USER EVERY DAY [facility] Tobacco Use History This section includes a history of the smoking, or tobacco-related health factors, that were collected on or before the date of the Encounter. The data comes from the [place] facility where the Encounter took place. Date/Time Smoking Status/Tobacco Use Comment F acility Mar 17, 2023 11:00 AM VA-TOBACCO USE ADVICE [facility] Mar 17, 2023 11:00 AM VA-TOBACCO USE MOLD MAKING SUPERVISOR NO [facility] Mar 17, 2023 11:00 AM VA-TOBACCO USE MED NO [facility] Mar 17, 2023 11:00 AM VA-TOBACCO USE WI 30 MIN OF WAKEUP [facility] Mar 17, 2023 11:00 AM VA-TOBACCO USER EVERY DAY [facility] May 13, 2018 11:59 AM AH-BPR SMOKING DEPLOYMENT NO [facility] May 13, 2018 11:59 AM PREVIOUS SMOKER WHI [facility] May 13, 2018 11:59 AM VA-TOBACCO DOESNT USE WI 30 MIN WAKEUP [facility] May 13, 2018 11:59 AM VA-TOBACCO USE 30 YEARS OR MORE [facility] May 13, 2018 11:59 AM VA-TOBACCO USE ADVICE [facility] May 13, 2018 11:59 AM VA-TOBACCO USE MOLD MAKING SUPERVISOR YES [facility] May 13, 2018 11:59 AM VA-TOBACCO USE MED NO [facility] May 13, 2018 11:59 AM VA-TOBACCO USER EVERY DAY [facility]
--- OUTSIDE RECORDS SUMMARY | 2023-10-15 16:18 | XMS_ITS | Encounter Summary ---
Author Name [facility] [place] Address [address] [place] [address] Care Team Providers Care Diesel Crane Operator Name Role Phone CHERI VASQUEZ Primary [...] Victor's Name Patient's Relationship to Policy Victor [facility] POINT OF SERVICE SOV ACTIV E SELEC TCAR Feb 15, 2018 [id number] SHANELL KHANNA PATIENT [employer] [facility] ([id number]) PRESCRIPT ION [facility] NT Feb 15, 2018 Q54A [id number] SHANELL KHANNA PATIENT Selected Encounter This section includes the information on record at [place] for the Encounter. Date/Time Encounter Type Encounter Description Reason Provider Source Jun 10, 2023 03:49 PM Outpatient Encounter SUBSTANCE USE DISORDER IND [...] 20 appointments. The data comes from all [place] treatment facilities. Appointment Date/Time Appointment Type Appointme nt Facility Name Jun 15, 2023 12:45 PM AMBULATORY - NONE [place] [facility] June 30, 2023 03:00 PM AM[place]ATORY [place]RY [place] [facility] July 16, 2023 01:00 PM AM[place]ATORY [place]RY [place] [facility] Jul 30, 2023 01:00 PM AM[place]ATORY - [place]IATRY [place] [facility] Aug 09, 2023 10:30 AM AMBULATORY - MEDICINE [facility] [place] [facility] Aug 09, 2023 11:15 AM AM[place]ULATORY - [place]IATRY [place] [facility] Aug 13, 2023 12:00 PM AMBULATORY - [place]IATRY [place] [facility] Aug 18, 2023 11:00 AM AMBULATORY - [place]IATRY [place] [facility] Sep 08, 2023 10:30 AM AM[place]ULATORY - [place]IATRY [place] [facility] Oct 20, 2023 10:30 AM AM[place]ULATORY - [place]IATRY [place] [facility] Nov 23, 2023 11:45 AM AMBULATORY - NONE [place] [facility] Lab Results: +/- 30 days [...] Range Comment Jun 15, 2023 01:53 PM [facility] LIVER PROFILE Specimen Type: PLASMA Comment: , Tests performed on Pango SN:[id number] ([id number]). Ordering Provider: PATRICIA ANTOINE Report Released Date/Time: Jun 02, 2023 01:18 PM Reporting Lab: [facility] [address] [address] Performing Lab: [facility] [address] [facility] [address] PROTEIN, TOTAL 7.6 g/dL 6.0-8.5 ALBUMIN 4.1 g/dL 3.2-5.0 BILIRUBIN, TOTAL 0.7 mg/dL 0.2-1.2 ALKALINE PHOSPHATASE 55 U/L 40-150 ALT(SGPT) 25 U/L 7-52 AST(SGOT) 40 U/L H 5-34 Jun 15, 2023 01:53 PM [facility] DRUG SCREEN+ETG([facility]) Specimen Type: URINE Comment: This ETG test was developed and its performance characteristics determined by [place] clinical lab. The [place] Food and Drug Administration has not approved or cleared this test, FDA clearance or approval is not currently required for clinical use. ETG cutoff 500 ng/mL, Tests performed on SiNode Systems SN:[id number] (357) Requests for Confirmation testing will need to be phoned in to the lab [phone]. Ordering Provider: PATRICIA ANTOINE Report Released Date/Time: May 19, 2023 01:53 PM Reporting Lab: [facility] [address] [address] Performing Lab: [address] [address] COCAINE SCREEN NONE DETECTED N one-Detec allen BENZODIAZEPINES SCREEN NONE DETECTED None-Detec allen OPIATES SCREEN NONE DETECTED N one-Detec allen CREATININE (URINE,RANDOM) 71.66 mg/dL CANNABINOID SCRN NONE DETECTED None-Detec allen AMPHETAMINE SCRN NONE DETECTED None-Detec allen METHADONE SCREEN([facility]) NONE DETECTED None-Detec allen pH CAROL 6.5 [pH] ETHYL GLUCURONIDE([facility]) SCRN POS None-Detec allen SPECIFIC GRAVITY CAROL 1.009 1.003-1.02 0 FENTANYL([facility])URI N E SCREEN NONE DETECTED None-Detec allen OXYCODONE SCREEN URINE([facility]) NONE DETECTED None-Detec allen ETOH URINE <10.0 mg/dL See_Com men t BUPRENORPHINE SCREEN URINE([facility]) NONE DETECTED None-Detec allen Jun 15, 2023 01:53 PM [facility] VIT D 25-OH([facility]) Specimen Type: SERUM Comment: , Tests performed on Péerz Estify SN:[id number] (405) Ordering Provider: CHERI VASQUEZ Report Released Date/Time: Jun 15, 2023 01:39 PM Reporting Lab: [facility] [address] [address] Performing Lab: [facility] [address] [address] VIT D 25-OH([facility]) 10.3 ng/mL L 20.0-50.0 Social History: Smoking Status (Most current) and Tobacco Use (All prior to encounter date) This section includes the most current, and the historical, smoking and tobacco- related health factors from the [place] facility where the Encounter took place. Current Smoking Status This section includes the most current smoking, or tobacco-related health factor, from the [place] facility where the Encounter took place. Date/Time Current Smoking Status Comment Facil ity Mar 17, 2023 11:00 AM VA-TOBACCO USER EVERY DAY [facility] Tobacco Use History This section includes a history of the smoking, or tobacco-related health factors, that were collected on or before the date of the Encounter. The data comes from the [place] facility where the Encounter took place. Date/Time Smoking Status/Tobacco Use Comment F acility Mar 17, 2023 11:00 AM VA-TOBACCO USE ADVICE [facility] Mar 17, 2023 11:00 AM VA-TOBACCO USE HAND LOOM WEAVER NO [facility] Mar 17, 2023 11:00 AM VA-TOBACCO USE MED NO [facility] Mar 17, 2023 11:00 AM VA-TOBACCO USE WI 30 MIN OF WAKEUP [facility] Mar 17, 2023 11:00 AM VA-TOBACCO USER EVERY DAY [facility] May 13, 2018 11:59 AM AH-BPR SMOKING DEPLOYMENT NO [facility] May 13, 2018 11:59 AM PREVIOUS SMOKER WHI [facility] May 13, 2018 11:59 AM VA-TOBACCO DOESNT USE WI 30 MIN WAKEUP [facility] May 13, 2018 11:59 AM VA-TOBACCO USE 30 YEARS OR MORE [facility] May 13, 2018 11:59 AM VA-TOBACCO USE ADVICE [facility] May 13, 2018 11:59 AM VA-TOBACCO USE HAND LOOM WEAVER YES [facility] May 13, 2018 11:59 AM VA-TOBACCO USE MED NO [place] [facility] May 13, 2018 11:59 AM VA-TOBACCO USER EVERY DAY [facility] Encounter Notes: All associated encounter notes This section contains the clinical notes associated to the Encounter. Date/Time Encounter Note(s) Provider Source Jun 10, 2023 03:49 PM MENTAL HEALTH DIAG NOSTIC STUDY NOTE: LOCAL TITLE: Mental Health Diagnostic Study Note STANDARD TITLE: MENTAL HEALTH DIAGNOSTIC STUDY NOTE DATE OF NOTE: JUN 10, 2023@15:49:47 ENTRY DATE: JUN 10, 2023@15:49:47 AUTHOR: SHE CARRANZA EXP COSIGNER: URGENCY: STATUS: COMPLETED [place] Depression Inventory--Second Edition Date Given: 06/10/2023 Clinician: She Carranza Location: [facility] L1ra [place]: Amauri Khanna SSN: [id number] : [birth year] ([birth year]) Gender: Man BDI2 Score: 16 indicates mild depression. The overall range is 0 to 63 with mild depression between 14 - 19. 1 point = mild symptom level 2 points = moderate symptom level 3 points = severe symptom level Questions and answers 1. I feel sad much of the time. (1 point) 2. I feel more discouraged about my future than I used to be. (1 point) 3. I do not feel like a failure. (0 points) 4. I don't enjoy things as much as I used to. (1 point) 5. I don't feel particularly guilty. (0 points) 6. I don't feel I am being punished. (0 points) 7. I have lost confidence in myself. (1 point) 8. I am more critical of myself than I used to be. (1 point) 9. I don't have any thoughts of killing myself. (0 points) 10. I cry more than I used to. (1 point) 11. I feel more restless or wound up than usual. (1 point) 12. I have lost most of my interest in other people or things. (2 points) 13. I make decisions about as well as ever. (0 points) 14. I do not feel I am worthless. (0 points) 15. I have less energy than I used to have. (1 point) 16. I sleep somewhat more than usual. (1 point) 17. I am much more irritable than usual. (2 points) 18. I have not experienced any change in my appetite. (0 points) 19. I can't concentrate as well as usual. (1 point) 20. I get more tired or fatigued more easily than usual. (1 point) 21. I am less interested in sex than I used to be. (1 point) Second Edition (BDI-II). Copyright (c) 1995 Stalin [place]alona. Reproduced, adapted and translated with permission of Publisher [facility] [employer] All rights reserved. Information contained in this note is based on a self-report assessment and is not sufficient to use alone for diagnostic purposes. Assessment results should be verified for accuracy and used in conjunction with other diagnostic activities and procedures. /vicente/ She Carranza MS [facility] Addiction Therapist Signed: 06/10/2023 15:50 SHE CARRANZA [facility]
--- OUTSIDE RECORDS SUMMARY | 2023-10-15 16:18 | XMS_ITS ---
Author Name [facility] [place] Address [address] [place] [address] Care Team Providers Care Synoptic Meteorologist Name Role Phone CHERI VASQUEZ Primary Care [...] Patient's Relationship to Policy Victor [facility] POINT OF SERVICE SOV ACTIV E SELEC TCAR Feb 15, 2018 [id number] SHANELL KHANNA PATIENT [employer] [facility] ([id number]) PRESCRIPT ION [facility] NT Feb 15, 2018 Q54A [id number] SHANELL KHANNA PATIENT Selected Encounter This section includes the information on record at [place] for the Encounter. Date/Time Encounter Type Encounter Description Reason Provider Source June 30, 2023 03:00 PM Outpatient Encounter SUBSTANCE USE DISORDER IND [...] 20 appointments. The data comes from all [place] treatment facilities. Appointment Date/Time Appointment Type Appointme nt Facility Name July 16, 2023 01:00 PM AMBULATORY - PSYCHIATRY [facility] Jul 30, 2023 01:00 PM AMBULATORY - PSYCHIATRY ITE [facility] Aug 09, 2023 10:30 AM AMBULATORY - MEDICINE [facility] E [facility] Aug 09, 2023 11:15 AM AMBULATORY - PSYCHIATRY ITE [facility] Aug 13, 2023 12:00 PM AMBULATORY - PSYCHIATRY ITE [facility] Aug 18, 2023 11:00 AM AMBULATORY - PSYCHIATRY [facility] Sep 08, 2023 10:30 AM AMBULATORY - PSYCHIATRY ITE [facility] Oct 20, 2023 10:30 AM AMBULATORY - PSYCHIATRY [facility] Nov 23, 2023 11:45 AM AMBULATORY - NONE [facility] Lab Results: +/- 30 days [...] Range Comment Jun 15, 2023 01:53 PM [facility] LIVER PROFILE Specimen Type: PLASMA Comment: , Tests performed on RentJiffy SN:[id number] ([id number]). Ordering Provider: PATRICIA ANTOINE Report Released Date/Time: Jun 02, 2023 01:18 PM Reporting Lab: [facility] [address] [facility] [address] Performing Lab: [facility] [address] [facility] [address] PROTEIN, TOTAL 7.6 g/dL 6.0-8.5 ALBUMIN 4.1 g/dL 3.2-5.0 BILIRUBIN, TOTAL 0.7 mg/dL 0.2-1.2 ALKALINE PHOSPHATASE 55 U/L 40-150 ALT(SGPT) 25 U/L 7-52 AST(SGOT) 40 U/L H 5-34 Jun 15, 2023 01:53 PM [facility] DRUG SCREEN+ETG([facility]) Specimen Type: URINE Comment: This ETG test was developed and its performance characteristics determined by [place] clinical lab. The [place] Food and Drug Administration has not approved or cleared this test, FDA clearance or approval is not currently required for clinical use. ETG cutoff 500 ng/mL, Tests performed on LearnUp SN:[id number] (405) Requests for Confirmation testing will need to be phoned in to the lab [phone]. Ordering Provider: PATRICIA ANTOINE Report Released Date/Time: May 19, 2023 01:53 PM Reporting Lab: [facility] [address] [facility] [address] Performing Lab: [facility] [address] [facility] [address] COCAINE SCREEN NONE DETECTED N one-Detec allen BENZODIAZEPINES SCREEN NONE DETECTED None-Detec allen OPIATES SCREEN NONE DETECTED N one-Detec allen CREATININE (URINE,RANDOM) 71.66 mg/dL CANNABINOID SCRN NONE DETECTED None-Detec allen AMPHETAMINE SCRN NONE DETECTED None-Detec allen METHADONE SCREEN([facility]) NONE DETECTED None-Detec allen pH CAROL 6.5 [pH] ETHYL GLUCURONIDE([facility]) SCRN POS None-Detec allen SPECIFIC GRAVITY CAROL 1.009 1.003-1.02 0 FENTANYL([facility])URI N E SCREEN NONE DETECTED None-Detec allen OXYCODONE SCREEN URINE([facility]) NONE DETECTED None-Detec allen ETOH URINE <10.0 mg/dL See_Com men t BUPRENORPHINE SCREEN URINE([facility]) NONE DETECTED None-Detec allen Jun 15, 2023 01:53 PM [facility] VIT D 25-OH([facility]) Specimen Type: SERUM Comment: , Tests performed on LearnUp SN:[id number] (405) Ordering Provider: CHERI VASQUEZ Report Released Date/Time: Jun 15, 2023 01:39 PM Reporting Lab: [facility] [address] [facility] [address] Performing Lab: [facility] [address] [facility] [address] VIT D 25-OH([facility]) 10.3 ng/mL L 20.0-50.0 Social History: Smoking Status (Most current) and Tobacco Use (All prior to encounter date) This section includes the most current, and the historical, smoking and tobacco- related health factors from the [place] facility where the Encounter took place. Current Smoking Status This section includes the most current smoking, or tobacco-related health factor, from the [place] facility where the Encounter took place. Date/Time Current Smoking Status Comment Yayo ity Mar 17, 2023 11:00 AM VA-TOBACCO USER EVERY DAY [facility] Tobacco Use History This section includes a history of the smoking, or tobacco-related health factors, that were collected on or before the date of the Encounter. The data comes from the [place] facility where the Encounter took place. 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 [facility] Mar 17, 2023 11:00 AM VA-TOBACCO USE MED NO [facility] Mar 17, 2023 11:00 AM VA-TOBACCO USE WI 30 MIN OF WAKEUP [facility] Mar 17, 2023 11:00 AM VA-TOBACCO USER EVERY DAY [place] [facility] May 13, 2018 11:59 AM AH-BPR SMOKING DEPLOYMENT NO [place] [facility] May 13, 2018 11:59 AM PREVIOUS SMOKER [place] [facility] May 13, 2018 11:59 AM VA-TOBACCO DOESNT USE WI 30 MIN WAKEUP [facility] May 13, 2018 11:59 AM VA-TOBACCO USE 30 YEARS OR MORE [place] [facility] May 13, 2018 11:59 AM VA-TOBACCO USE ADVICE [place] [facility] May 13, 2018 11:59 AM VA-TOBACCO USE 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 Date/Time Encounter Note(s) Provider Source June 30, 2023 03:57 PM SATP NOTE: LOCAL TITLE: SUBSTANCE USE DISORDER THERAPY NOTE STANDARD TITLE: SATP NOTE DATE OF NOTE: JUNE 30, 2023@15:57 ENTRY DATE: JUNE 30, 2023@15:57:45 AUTHOR: SHE CARRANZA COSIGNER: URGENCY: STATUS: COMPLETED COGNITIVE BEHAVIORAL THERAPY FOR DEPRESSION (CBT-D): INITIAL PHASE Time in session (in minutes): 53 SESSION NUMBER: 3 SESSION FORMAT [id number] session SESSION LOCATION Substance Use Disorder ([facility]) clinic DIAGNOSIS: Primary (focus of treatment): depression Secondary (if applicable): alcohol use disorder ASSESSMENT No data available OTHER ASSESSMENT MEASURES BD12 score 21 SESSION CONTENT: In this initial phase session of Cognitive Behavioral Therapy for Depression (CBT-D), the following therapeutic activities were performed: TREATMENT GOALS [place]'s presenting problem: depression, alcohol use disorder Treatment goals: Decrease alcohol use over time, improve mood COLLABORATIVE HOMEWORK ASSIGNMENT: The homework assignment for this session was: no alcohol Wednesday evening The therapist inquired about 's understanding of the homework assignment and its rationale. Therapist and [place] discussed the likelihood that the [place] will do the homework. PLAN Next session planned for agreed upon date/time of: 07/15 at 1pm C /vicente/ She Carranza MS [facility] Addiction Therapist Signed: 06/30/2023 16:02 SHE CARRANZA [facility]
--- OUTSIDE RECORDS SUMMARY | 2023-10-15 16:18 | XMS_ITS | Encounter Summary ---
Author Name [facility] [place] [facility] [place] Address [address] [place] [address] Care Team Providers Care Communication Professor Name Role Phone CHERI VASQUEZ Primary Care [...] Victor's Name Patient's Relationship to Policy Victor [facility] POINT OF SERVICE SOV ACTIV E SELEC TCAR Feb 15, 2018 [id number] SHANELL KHANNA PATIENT [employer] ([id number]) PRESCRIPT ION [facility] NT Feb 15, 2018 [id number] SHANELL KHANNA PATIENT Selected Encounter This section includes the information on record at [facility] for [facility]counter. Date/Time Encounter Type Encounter Description Reason Provider Source June 30, 2023 03:45 PM PSYTX W PT 60 MINUTES SUBSTANCE USE DISORDER IND ICD-10-CM F10.99 Alcohol use, unsp with unspecified alcohol-induced disorder BRIAN HERNANDEZ Encounter Template Text not used by [facility] Assessments - Encounter Diagnoses This section includes the primary and secondary diagnoses documented for the Encounter. Date/Time Primary/Secondary Diagnosis Diagnosis Name Provider Source June 30, 2023 03:45 PM PRIMARY Alcohol use, unsp with unspecified alcohol-induced disorder BRIAN HERNANDEZ [facility] June 30, 2023 03:45 PM SECONDARY Depression, unspecified BRIAN HERNANDEZ [facility] Plan of Treatment: Future Appointments (+ 6 months) and Future Tests (+/- 45 days) The Plan of Treatment section includes [facility] care activities for the [facility] [place] [facility]. This section includes future appointments [...] 16, 2023 01:00 PM AMBULATORY - PSYCHIATRY [facility] Jul 30, 2023 01:00 PM AMBULATORY - PSYCHIATRY [facility] Aug 09, 2023 10:30 AM AMBULATORY - MEDICINE [facility] Aug 09, 2023 11:15 AM AMBULATORY - PSYCHIATRY [facility] Aug 13, 2023 12:00 PM AMBULATORY - PSYCHIATRY [facility] Aug 18, 2023 11:00 AM AMBULATORY - PSYCHIATRY [facility] Sep 08, 2023 10:30 AM AMBULATORY - PSYCHIATRY [facility] Oct 20, 2023 10:30 AM AMBULATORY - PSYCHIATRY [facility] Nov 23, 2023 11:45 AM AMBULATORY - NONE [facility] Lab Results: +/- 30 days of the encounter This section includes the Chemistry and Hematology Lab Results on record with [place] for the patient. Radiology Reports and Pathology Reports are provided separately, in subsequent sections. Lab Results This section contains the Chemistry/Hematology Results that were resulted 30 days before or 30 daysafter the date of the Encounter. Date/Time Source Result Type Result - Unit Interpretation Reference Range Comment Jun 15, 2023 01:53 PM [facility] LIVER PROFILE Specimen Type: PLASMA Comment: , Tests performed on [employer] SN:[id number]). Ordering Provider: PATRICIA ANTOINE Report Released Date/Time: Jun 02, 2023 01:18 PM Reporting Lab: [facility] [address] [id number] Performing Lab: [place] [address] PROTEIN, TOTAL 7.6 g/dL 6.0-8.5 ALBUMIN 4.1 g/dL 3.2-5.0 BILIRUBIN, TOTAL 0.7 mg/dL 0.2-1.2 ALKALINE PHOSPHATASE 55 U/L 40-150 ALT(SGPT) 25 U/L 7-52 AST(SGOT) 40 U/L H 5-34 Jun 15, 2023 01:53 PM [facility] DRUG SCREEN+ETG([facility]) Specimen Type: URINE Comment: This ETG test was developed and its performance characteristics determined by [place] clinical lab. The [place] Food and Drug Administration has not approved or cleared this test, FDA clearance or approval is not currently required for clinical use. ETG cutoff 500 ng/mL, Tests performed on [email or web address]ía SN:[id number] (405) Requests for Confirmation testing will need to be phoned in to the lab [phone]. Ordering Provider: PATRICIA ANTOINE Report Released Date/Time: May 19, 2023 01:53 PM Reporting Lab: [facility] [address] [address] Performing Lab: [place] [address] COCAINE SCREEN NONE DETECTED N one-Detec allen BENZODIAZEPINES SCREEN NONE DETECTED None-Detec allen OPIATES SCREEN NONE DETECTED N one-Detec allen CREATININE (URINE,RANDOM) 71.66 mg/dL CANNABINOID SCRN NONE DETECTED None-Detec allen AMPHETAMINE SCRN NONE DETECTED None-Detec allen METHADONE SCREEN([facility]) NONE DETECTED None-Detec allen pH CAROL 6.5 [pH] ETHYL GLUCURONIDE([facility]) SCRN POS None-Detec allen SPECIFIC GRAVITY CAROL 1.009 1.003-1.02 0 FENTANYL([facility])URI N E SCREEN NONE DETECTED None-Detec allen OXYCODONE SCREEN URINE([facility]) NONE DETECTED None-Detec allen ETOH URINE <10.0 mg/dL See_Com men t BUPRENORPHINE SCREEN URINE([facility]) NONE DETECTED None-Detec allen Jun 15, 2023 01:53 PM [facility] VIT D 25-OH([facility]) Specimen Type: SERUM Comment: , Tests performed on [employer] SN:[id number] ([id number]) Ordering Provider: CHERI VASQUEZ Report Released Date/Time: Jun 15, 2023 01:39 PM Reporting Lab: [facility] [address] [address] Performing Lab: [facility] [address] [address] VIT D 25-OH([facility]) 10.3 ng/mL L 20.0-50.0 Social History: Smoking [...] 2023 11:00 AM VA-TOBACCO USER EVERY DAY [facility] Tobacco Use History This section includes a history of the smoking, or tobacco-related health factors, that were collected on or before the date of the Encounter. The data comes from the [place] facility where the Encounter took place. Date/Time Smoking Status/Tobacco Use Comment F acdavid Mar 17, 2023 11:00 AM VA-TOBACCO USE ADVICE [facility] Mar 17, 2023 11:00 AM VA-TOBACCO USE ALCOHOL AND DRUG COUNSELOR NO [facility] Mar 17, 2023 11:00 AM VA-TOBACCO USE MED NO [facility] Mar 17, 2023 11:00 AM [place]-TOBACCO USE [place] 30 MIN OF WAKEUP [facility] Mar 17, 2023 11:00 AM VA-TOBACCO USER EVERY DAY [facility] May 13, 2018 11:59 AM AH-BPR SMOKING DEPLOYMENT NO [facility] May 13, 2018 11:59 AM PREVIOUS SMOKER WHI GLEN HOLM [facility] May 13, 2018 11:59 AM VA-TOBACCO DOESNT USE [place] 30 MIN WAKEUP [facility] May 13, 2018 11:59 AM VA-TOBACCO USE 30 YEARS OR MORE [facility] May 13, 2018 11:59 AM VA-TOBACCO USE ADVICE [facility] May 13, 2018 11:59 AM VA-TOBACCO USE ALCOHOL AND DRUG COUNSELOR YES [facility] May 13, 2018 11:59 AM VA-TOBACCO USE MED NO [facility] May 13, 2018 11:59 AM VA-TOBACCO USER EVERY DAY MYLES HOLM [facility]
--- OUTSIDE RECORDS SUMMARY | 2023-10-15 16:18 | XMS_ITS | Encounter Summary ---
Author Name [facility] [place] [facility] [place] [facility] [place] Address [address] [place] [address] Care Team Providers Care Research Assistant Professor Name Role Phone CHERI VASQUEZ Primary [...] Name Patient's Relationship to Policy Victor [facility] POINT OF SERVICE SOV ACTIV E SELEC TCAR Feb 15, 2018 [id number] SHANELL KHANNA PATIENT [facility] ([id number]) PRESCRIPT ION [facility] NT Feb 15, 2018 [id number] SHANELL KHANNA PATIENT Selected Encounter This section includes the information on record at [facility] for [facility]counter. Date/Time Encounter Type Encounter Description Reason Provider Source May 19, 2023 12:45 PM OFFICE O/P NEW LOW 30 MIN SUBSTANCE USE DISORDER IND ICD-10-CM F10.99 Alcohol use, unsp with unspecified alcohol-induced disorder PATRICIA ANTOINE IHMaximo Encounter Template Text not used by [facility] Assessments - Encounter Diagnoses This section includes the primary and secondary diagnoses documented for the Encounter. Date/Time Primary/Secondary Diagnosis Diagnosis Name Provider Source Jun 01, 2023 01:38 PM PRIMARY Alcohol use, unsp with unspecified alcohol-induced disorder [place] [place] Maximo [facility] Plan of Treatment: Future Appointments (+ 6 months) and Future Tests (+/- 45 days) The Plan of Treatment section includes future care activities for the patient from all [place] treatment[place]idence healthities. This section includes future appointments and future orders which are active, pending or scheduled. Future Appointments This section includes appointments that were scheduled to occur 6 months from the date of the Encounter, up to a maximum of 20 appointments. The data comes from all [place] treatment facilities. Appointment Date/Time Appointment Type Appointme nt Facility Name Jun 02, 2023 11:00 AM [facility] Jun 02, 2023 12:00 PM [facility] Jun 10, 2023 03:00 PM [facility] Jun 15, 2023 12:45 PM AMBULATORY - NONE [facility] June 30, 2023 03:00 PM [facility] July 16, 2023 01:00 PM [facility] Jul 30, 2023 01:00 PM [facility] Aug 09, 2023 10:30 AM AM[facility] - [facility] Aug 09, 2023 11:15 AM [facility] Aug 13, 2023 12:00 PM [facility] Aug 18, 2023 11:00 AM [facility] Sep 08, 2023 10:30 AM [facility] Oct 20, 2023 10:30 AM [facility] Range Comment Jun 15, 2023 01:53 PM [facility] LIVER PROFILE Specimen Type: PLASMA Comment: , Tests performed on Pérez m2fx Dennis SN:[id number]). Ordering Provider: PATRICIA ANTOINE Report Released Date/Time: Jun 02, 2023 01:18 PM Reporting Lab: [facility] [address] [facility] [address] Performing Lab: [address] [address] PROTEIN, TOTAL 7.6 g/dL 6.0-8.5 ALBUMIN 4.1 g/dL 3.2-5.0 BILIRUBIN, TOTAL 0.7 mg/dL 0.2-1.2 ALKALINE PHOSPHATASE 55 U/L 40-150 ALT(SGPT) 25 U/L 7-52 AST(SGOT) 40 U/L H 5-34 Jun 15, 2023 01:53 PM [facility] DRUG SCREEN+ETG([facility]) Specimen Type: URINE Comment: This ETG test was developed and its performance characteristics determined by [place] clinical lab. The [place] Food and Drug Administration has not approved or cleared this test, FDA clearance or approval is not currently required for clinical use. ETG cutoff 500 ng/mL, Tests performed on Pérez m2fx Mejía SN:[id number] ([id number]) Requests for Confirmation testing will need to be phoned in to the lab [phone]. Ordering Provider: PATRICIA ANTOINE Report Released Date/Time: May 19, 2023 01:53 PM Reporting Lab: [facility] [address] [facility] [address] Performing Lab: [facility] [address] [facility] [address] COCAINE SCREEN NONE DETECTED N one-Detec allen BENZODIAZEPINES SCREEN NONE DETECTED None-Detec allen OPIATES SCREEN NONE DETECTED N one-Detec allen CREATININE (URINE,RANDOM) 71.66 mg/dL CANNABINOID SCRN NONE DETECTED None-Detec allen AMPHETAMINE SCRN NONE DETECTED None-Detec allen METHADONE SCREEN([facility]) NONE DETECTED None-Detec allen pH CAROL 6.5 [pH] ETHYL GLUCURONIDE([facility]) SCRN POS None-Detec allen SPECIFIC GRAVITY CAROL 1.009 1.003-1.02 0 FENTANYL([facility])URI N E SCREEN NONE DETECTED None-Detec allen OXYCODONE SCREEN URINE([facility]) NONE DETECTED None-Detec allen ETOH URINE <10.0 mg/dL See_Com men t BUPRENORPHINE SCREEN URINE([facility]) NONE DETECTED None-Detec allen Jun 15, 2023 01:53 PM [facility] VIT D 25-OH([facility]) Specimen Type: SERUM Comment: , Tests performed on Pérez Membership Sales Advisor Mejía SN:[id number] ([id number]) Ordering Provider: CHERI VASQUEZ Report Released Date/Time: Jun 15, 2023 01:39 PM Reporting Lab: [facility] [address] [facility] [address] Performing Lab: [facility] [address] [facility] [address] VIT D 25-OH([facility]) 10.3 ng/mL L 20.0-50.0 May 11, 2023 02:49 PM [facility] LIVER PROFILE Specimen Type: PLASMA Comment: , Tests performed on Pérez m2fx Dennis SN:[id number] ([id number]). Ordering Provider: SHE CARRANZA Report Released Date/Time: May 11, 2023 02:41 PM Reporting Lab: [facility] [address] [facility] [address] Performing Lab: [facility] [address] [facility] [address] PROTEIN, TOTAL 7.9 g/dL 6.0-8.5 ALBUMIN 4.5 g/dL 3.2-5.0 BILIRUBIN, TOTAL 0.9 mg/dL 0.2-1.2 ALKALINE PHOSPHATASE 67 U/L 40-150 ALT(SGPT) 44 U/L 7-52 AST(SGOT) 54 U/L H 5-34 Social History: Smoking Status (Most current) and Tobacco Use (All prior to encounter date) This section includes the most current, and the historical, smoking and tobacco- related health factors from the [place] facility where the Encounter took place. Current Smoking Status This section includes the most current smoking, or tobacco-related health factor, from the [place] facility where the Encounter took place. Date/Time Current Smoking Status Comment Facil jese Mar 17, 2023 11:00 AM VA-TOBACCO USER EVERY DAY [facility] Tobacco Use History This section includes a history of the smoking, or tobacco-related health factors, that were collected on or before the date of the Encounter. The data comes from the [place] facility where the Encounter took place. 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 NO [facility] Mar 17, 2023 11:00 AM VA-TOBACCO USE MED NO [facility] Mar 17, 2023 11:00 AM VA-TOBACCO USE WI 30 MIN OF WAKEUP [facility] Mar 17, 2023 11:00 AM VA-TOBACCO USER EVERY DAY [facility] May 13, 2018 11:59 AM AH-BPR SMOKING DEPLOYMENT NO [facility] May 13, 2018 11:59 AM PREVIOUS SMOKER [facility]I [facility] May 13, 2018 11:59 AM VA-TOBACCO DOESNT USE WI 30 MIN WAKEUP [facility] May 13, 2018 11:59 AM VA-TOBACCO USE 30 YEARS OR MORE [facility] May 13, 2018 11:59 AM VA-TOBACCO USE ADVICE [facility] May 13, 2018 11:59 AM VA-TOBACCO USE MANAGER MANUFACTURING YES [facility] May 13, 2018 11:59 AM VA-TOBACCO USE MED NO [facility] May 13, 2018 11:59 AM VA-TOBACCO USER EVERY DAY [facility] Encounter Notes: All associated encounter notes This section contains the clinical notes associated to the Encounter. Date/Time Encounter Note(s) Provider Source May 19, 2023 10:46 AM [facility] NOTE: LOCAL TITLE: SUBSTANCE USE DISORDER EVALUATION NOTE STANDARD TITLE: [facility] NOTE DATE OF NOTE: MAY 19, 2023@10:46 ENTRY DATE: MAY 19, 2023@10:46:52 AUTHOR: SUKI OH EXP COSIGNER: URGENCY: STATUS: COMPLETED SUBSTANCE USE DISORDER SCREENING TEMPLATE HISTORY AND PATTERNS OF SUBSTANCE MISUSE Mr. 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 He currently drinks 3 x 24 oz [place] Ice (beer) per day, which represents an increase in his use dating back a couple years. Previously, he drank beer mostly just on weekends. His primary motivation for cutting back his alcohol use is to improve his physical health and energy, noting that he recently had a liver ultrasound that showed steatosis and had blood work with elevated AST. He would like to prioritize his relationships with his and child, with whom he lives, and spend more time outside. He recently started seeing a psychotherapist through the [place], with his next appointment later this afternoon. 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 The frequency or amount of his alcohol consumption has not changed, though he notices that his alcohol use both alleviates (temporarily) and exacerbates (the next day) his feelings of stress. His sleep has been good, with no trouble falling asleep and no nighttime awakenings. His mood has been poor and he does not enjoy previously pleasurable activities. No reported suicidal ideation, and he has never had thoughts either now or in the past of being better off than alive. He is interested in pharmacologic management to support his goal of cutting back on alcohol. We discuss risks, benefits, and adverse effects of naltrexone, acamprosate, disulfiram, and gabapentin. He expresses a preference for naltrexone, and agrees to try 50 mg daily and follow up with Dr. Patricia Antoine in 2 weeks (04/03/23 at 12:00 PM). Alcohol: 3 x 24 oz [place] Ice (beer) per day Age of first use: 17 Age of continuous use: regular weekly use since mid-20s, though not a problem until a couple years ago Date of last use: yesterday Longest period of abstinence: several months during deployment to [place] (2007) History of complicated withdrawal: None Became problematic: A few years ago Last 12 months: 3 x 24 oz [place] Ice (beer) per day SUMMARY: No other illicit substance use. Behavioral Addictions (e.g. Pornography, Gambling, etc.): None Caffeine Use Pattern: None (drinks decaffinated coffee) Nicotine Use Pattern: -Age of first use: 19 -Currently uses 1 can of chew tobacco daily -Has previously tried to quit but has returned to use; not interested in cutting back currently HISTORY OF OVERDOSE: (describe which substance(s), approximate dates, accidental vs. intentional, and outcome: None Are you currently prescribed a controlled substance? No Medication/Dosage/Prescribed for what condition/Prescriber ([facility] or outside Provider): NA PAST INTERVENTIONS FOR JOEL -Detoxifications: None -Outpatient: Received support for quitting [place] in 2018 from [place] -Intensive Outpatient: None -Medication Assisted Treatment (MAT): None -Other (e.g. AA, Rational Recovery, Celebrate Recovery): None CONSEQUENCES OF JOEL: See HPI. PAST PSYCHIATRIC HISTORY Diagnoses: None Hospitalizations: None Psychiatric evaluations/treatment: None Psychotherapy/counseling: Started seeing She Carranza for psychotherapy a few weeks ago Current psychiatrist/Prescriber: None Current therapist: She Carranza Is stabilized on medication i.e. psychosis or bipolar disorder? NA A [place] AND HOMICIDE ASSESSMENTS NEEDS TO BE COMPLETED IN A STAND-ALONE NOTE. Have you ever attempted suicide? No Have you ever seriously thought about suicide (i.e. 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 Did not discuss Race/Ethnicity: Did not discuss Primary Language: white Any special Cultural/Linguistic Needs? Did not discuss Is there any possibility that you may currently be ? 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 [employer] Discharge Status: 2011 Family History of Mental Illness: None Family History of Substance Use or Addictive Behaviors: None Childhood/Adult history of Abuse or Neglect: None Role of Spirituality or Restorationism in Life and Recovery (if applicable): Did not discuss Leisure Activities: Getting outside Strengths: Insightful, motivated Veterans Stated Treatment Goals: Would like to slowly decrease alcohol consumption from 3 to 2 to 1 to 0 cans a day over several weeks Veterans Stated Treatment Preferences or Requests, if present: Would like to try medication to support cutting back on alcohol PERTINENT MEDICAL HISTORY: hypertension (maintained on lisinopril), chronic back pain, Raynaud's, osteopenia, Wenckebach block, brain tumor as a child (surgically removed), and hepatic steatosis (diagnosed in 02/2023) How would you rate your level of pain on scale of 0-10, with 0 indicating no pain? 0 ACTIVE MEDICATIONS: Lisinopril 20 mg daily HAVE YOU FALLEN RECENTLY OR HAD AN UNEXPLAINED FALL? Did not discuss MENTAL STATUS EXAM APPEARANCE AND BEHAVIOR: neatly dressed, excellent attention to grooming and hygiene SPEECH: normal rate, tone, volume, and prosody MOOD AND AFFECT: Not great./anxious, restricted THOUGHT CONTENT (delusions, obsessions etc.): reality based and focused on cutting back on alcohol; no delusions elicited in the course of the interview, no reported SI JUDGMENT/INSIGHT: good/good SUICIDAL OR VIOLENT IDEATION: None MEMORY: Able to recall both recent and remote events ATTENTION/CONCENTRATION: Intact FUND OF KNOWLEDGE: Appropriate Medical issues that could interfere with treatment: None SUMMARY AND FORMULATION: Mr. 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 Diagnostically, presentation is consistent with alcohol use disorder. He is interested in pharmacologic support to cut back on alcohol consumption. After discussing risks/benefits/adverse effects of evidence-based medications for alcohol use disorder, Mr. Khanna expressed a preference for a trial of naltrexone, with planned follow up in [address] Patricia Antoine. At that time, it is also recommended to complete blood work to monitor liver enzymes. Recommendations: -Start naltrexone 50 mg daily. -Continue psychotherapy with She Carranza. -Encourage lifestyle changes to promote recovery, including healthy diet, regular exercise, stress management, inclusion of social supports, sleep hygiene, avoidance of triggers, and setting realistic goals. -Follow up with Dr. Patricia Antoine 06/02/23. READINESS FOR CHANGE: TRANSTHEORETICAL STAGES OF CHANGE MODEL Please check: ( ) Precontemplation Stage ( ) Contemplation Stage ( ) Preparation Stage ( x) Action Stage ( ) Maintenance Stage [employer] [employer] ([employer]) PATIENT PLACEMENT CRITERIA: Is at risk of withdrawal? (check one) LEVEL: 0. ( ) No 1. ( x ) Minimal (Outpatient) 2. ( ) Minimal - Moderate (Intensive Outpatient Program) 3. ( ) No severe risk, moderate but manageable (Residential [facility] Tx ) 4. ( ) Severe life threatening (admission required) Does the [facility] have biomedical conditions or complications? (check one) LEVEL: 0. ( ) No or minimal symptoms - able to be fully functional 1. ( x ) None or very stable - able to cope (OP) 2. ( ) None or not a distraction from treatment (IOP) 3. ( ) None or stable ([facility] T[facility]) 4. ( ) Patient requires 24 hour medical and nursing care Does the have emotional/behavioral conditions or complications? (check one) LEVEL: 0. ( ) None or very stable 1. ( x ) None or very stable (OP) 2. ( ) Mild severity, potential to distract from recovery, needs monitoring (IOP) 3. ( ) Mild to moderate severity, needs structure to focus on recovery ([facility]) 4. ( ) Severe problems requires 24 hr. psychiatric care with concomitant addiction treatment Is the accepting or resistant to treatment? (check one) LEVEL 0. ( x ) Willing to understand how current use may affect personal goals 1. ( ) Willing to cooperate but needs motivating and monitoring strategies (OP) 2. ( ) Resistance high enough to require structured program but not so high as to render outpatient treatment ineffective (IOP) 3. ( ) Little awareness; needs interventions only available at level 111.3 to engage and keep in treatment ([facility]) 4. ( ) Problems in this dimension do not qualify for this level of service (hospitalization) What is the [facility]'s relapse/continued use potential? (check one) LEVEL 0. ( ) Needs understanding of or skills to change current use patterns 1. ( x ) Able to maintain abstinence or control use and pursue recovery goals with minimal support (OP) 2. ( ) Intensification of addiction symptoms despite active participation in level 1, and high likelihood of relapse or continued use without close monitoring and support (IOP) 3. ( ) [facility] does not recognize relapse triggers//despite previous participation in a less intensive level of care, [facility] is at high risk to continue to use substances with imminent serious consequences without 24-hour monitoring and structured treatment ([facility]idential [facility] tx ) 4. ( ) No criteria What is the status of the 's recovery environment? (check one) LEVEL 0. ( ) Support system increases risk for personal conflict about substance use 1. ( x ) Supportive recovery environment, patient has the skills to cope (OP) 2. ( ) Environment unsupportive, but with structure and support the can cope (IOP) 3. ( ) Environment is dangerous, needs 24-hr structure to learn to cope ([facility] ) 4. No criteria /es/ SUKI OH Signed: 05/19/2023 14:16 SUKI [facility]
--- OUTSIDE RECORDS SUMMARY | 2023-10-15 16:18 | XMS_ITS | Encounter Summary ---
Author Name [facility] [place] [facility] [place] Address [address] [place] [address] Care Team Providers Care Manager Insurance Name Role Phone CHERI VASQUEZ Primary Care [...] Name Patient's Relationship to Policy Victor [facility] POINT OF SERVICE SOV ACTIV E SELEC TCAR Feb 15, 2018 [id number] SHANELL KHANNA PATIENT [employer] S[employer]IPTS ([id number]) PRESCRIPT ION [facility] NT Feb 15, 2018 Q54A [id number] SHANELL KHANNA PATIENT Selected Encounter This section includes the information on record at [facility] for the Encounter. Date/Time Encounter Type Encounter Description Reason Provider Source Jun 02, 2023 11:00 AM PSYTX W PT 60 MINUTES SUBSTANCE USE DISORDER IND ICD-10-CM F10.99 Alcohol use, unsp with unspecified alcohol-induced disorder SHE CARRANZA Encounter Template Text not used by [facility] Assessments - Encounter Diagnoses This section includes the primary and secondary diagnoses documented for the Encounter. Date/Time Primary/Secondary Diagnosis Diagnosis Name Provider Source Jun 02, 2023 01:23 PM PRIMARY Alcohol use, unsp with unspecified alcohol-induced disorder SHE CARRANZA [facility] Jun 02, 2023 01:23 PM SECONDARY Depression, unspecified SHE CARRANZA [facility] Plan of Treatment: Future Appointments (+ 6 months) and Future Tests (+/- 45 days) The Plan of Treatment section includes future care activities for the patient from all [place] [facility]. This section includes future appointments [...] 10, 2023 03:00 PM [facility] 15, [facility]23 12:45 PM AMBULATORY - NONE [place] [facility] June 30, 2023 03:00 PM [facility]BULATORY - PSYCHIATRY [facility] July 16, 2023 01:00 PM [place] [facility] Jul 30, 2023 01:00 PM [place]RY [place] [facility] Aug 09, 2023 10:30 AM AMBULATORY - MEDICINE [facility] Aug 09, 2023 11:15 AM AMBULATORY - PSYCHIATRY I[facility] Aug 13, 2023 12:00 PM [facility] [place]RY [place] [facility] Aug 18, 2023 11:00 AM [facility]RY [place] [facility] Sep 08, 2023 10:30 AM [facility]RY [place] [facility] Oct 20, 2023 10:30 AM [facility]RY [place] [facility] Nov 23, 2023 11:45 AM AMBULATORY - NONE [place] [facility] Lab Results: +/- 30 days of [...] Range Comment Jun 15, 2023 01:53 PM [facility] DRUG SCREEN+ETG([facility]) Specimen Type: URINE Comment: This ETG test was developed and its performance characteristics determined by [place] clinical lab. The [place] Food and Drug Administration has not approved or cleared this test, FDA clearance or approval is not currently required for clinical use. ETG cutoff 500 ng/mL, Tests performed on [employer] Mejía SN:[id number] ([id number]) Requests for Confirmation testing will need to be phoned in to the lab [phone]. Ordering Provider: PATRICIA ANTOINE Report Released Date/Time: May 19, 2023 01:53 PM Reporting Lab: [facility] [address] [address] Performing Lab: [facility] [address] [address] COCAINE SCREEN NONE DETECTED N one-Detec allen BENZODIAZEPINES SCREEN NONE DETECTED None-Detec allen OPIATES SCREEN NONE DETECTED N one-Detec allen CREATININE (URINE,RANDOM) 71.66 mg/dL CANNABINOID SCRN NONE DETECTED None-Detec allen AMPHETAMINE SCRN NONE DETECTED None-Detec allen METHADONE SCREEN([facility]) NONE DETECTED None-Detec allen pH CAROL 6.5 [pH] ETHYL GLUCURONIDE([facility]) SCRN POS None-Detec allen SPECIFIC GRAVITY CAROL 1.009 1.003-1.02 0 FENTANYL([facility])URI N E SCREEN NONE DETECTED None-Detec allen OXYCODONE SCREEN URINE([facility]) NONE DETECTED None-Detec allen ETOH URINE <10.0 mg/dL See_Com men t BUPRENORPHINE SCREEN URINE([facility]) NONE DETECTED None-Detec allen Jun 15, 2023 01:53 PM [facility] LIVER PROFILE Specimen Type: PLASMA Comment: , Tests performed on [employer] Dennis SN:[id number]). Ordering Provider: PATRICIA ANTOINE Report Released Date/Time: Jun 02, 2023 01:18 PM Reporting Lab: [facility] [address] [address] Performing Lab: [facility] [address] [address] PROTEIN, TOTAL 7.6 g/dL 6.0-8.5 ALBUMIN 4.1 g/dL 3.2-5.0 BILIRUBIN, TOTAL 0.7 mg/dL 0.2-1.2 ALKALINE PHOSPHATASE 55 U/L 40-150 ALT(SGPT) 25 U/L 7-52 AST(SGOT) 40 U/L H 5-34 Jun 15, 2023 01:53 PM [facility] VIT D 25-OH([facility]) Specimen Type: SERUM Comment: , Tests performed on Pérez [employer] Mejía SN:[id number]) Ordering Provider: CHERI VASQUEZ Report Released Date/Time: Jun 15, 2023 01:39 PM Reporting Lab: [facility] [address] [address] Performing Lab: [facility] [address] [address] VIT D 25-OH([facility]) 10.3 ng/mL L 20.0-50.0 May 11, 2023 02:49 PM [facility] LIVER PROFILE Specimen Type: PLASMA Comment: , Tests performed on [employer] Dennis SN:[id number]). Ordering Provider: SHE CARRAZNA Report Released Date/Time: May 11, 2023 02:41 PM Reporting Lab: [facility] [address] [address] Performing Lab: [facility] [address] [address] PROTEIN, TOTAL 7.9 g/dL 6.0-8.5 ALBUMIN 4.5 [...] VA-TOBACCO USE [place] 30 MIN OF WAKEUP [facility] Tobacco Use History This section includes a history of the smoking, or tobacco-related health factors, that were collected on or before the date of the Encounter. The data comes from the [place] facility where the Encounter took place. 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 [place] [facility] Mar 17, 2023 11:00 AM VA-TOBACCO USE MED NO [place] [facility] Mar 17, 2023 11:00 AM VA-TOBACCO USE WI 30 MIN OF WAKEUP [place] [facility] Mar 17, 2023 11:00 AM VA-TOBACCO USER EVERY DAY [place] [facility] May 13, 2018 11:59 AM AH-BPR SMOKING DEPLOYMENT NO [place] [facility] May 13, 2018 11:59 AM PREVIOUS SMOKER [place] [facility] May 13, 2018 11:59 AM VA-TOBACCO DOESNT USE WI [facility] MIN [facility] May 13, 2018 11:59 AM VA-TOBACCO USE 30 YEARS OR MORE [place] [facility] May 13, 2018 11:59 AM VA-TOBACCO USE ADVICE [facility] May 13, 2018 11:59 AM 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 Date/Time Encounter Note(s) Provider Source Jun 02, 2023 11:29 AM MENTAL HEALTH NOTE : LOCAL TITLE: Mental Health Note STANDARD TITLE: MENTAL HEALTH NOTE DATE OF NOTE: JUN 02, 2023@11:29 ENTRY DATE: JUN 02, 2023@11:29:51 AUTHOR: SHE CARRANZA COSIGNER: URGENCY: STATUS: COMPLETED COGNITIVE BEHAVIORAL THERAPY FOR DEPRESSION (CBT-D): INITIAL PHASE Time in session (in minutes): 55 SESSION NUMBER: 1 SESSION FORMAT [id number] session SESSION LOCATION Substance Use Disorder ([facility]) clinic DIAGNOSIS: Primary (focus of treatment): Depression Secondary (if applicable): alcohol use disorder SESSION CONTENT: In this initial phase session of Cognitive Behavioral Therapy for Depression (CBT-D), the following therapeutic activities were performed: SOCIALIZATION TO CBT Provided a brief description of CBT and how CBT relates to the treatment goals. Provided information about the efficacy of CBT. Described prioritized agenda setting. Described how the PHQ-9 will be completed and scored for each session. Described how homework will be assigned and discussed each session. Reviewed the length (16 sessions) and frequency (weekly or biweekly) of treatment. Told that treatment could last from 10-16 sessions. We are able to continue via [facility] if he prefers. TREATMENT GOALS 's presenting problem: Depression Treatment goals: Increased motivation Less procrastination Be more engaging with others COLLABORATIVE HOMEWORK ASSIGNMENT: The homework assignment for this session was: activity monitoring form, CBT online The homework assignment and goal of the assignment was written down. The therapist inquired about [place]'s understanding of the homework assignment and its rationale. Therapist and [place] discussed the likelihood that the [place] will do the homework. Specific roadblocks or challenges for doing the homework were discussed. None FINAL SUMMARY AND FEEDBACK: is engaging in CBT for depression. He is open to the process, including homework although he seemed a little overwhelmed today. He is very unhappy in his job, but has to stay there another 30 months to be eligible for his pension. Finding ways to make his job tolerable, maybe even pleasant would be a very helpful goal. COLLABORATION The degree of collaboration between the [place] and the therapist in the current session was high. Description of collaboration in this session: Processing isues, reviewing homework. PLAN Next session planned for agreed upon date/time of: 06/09 at 3pm Janie /vicente/ She Carranza MS [facility] Addiction Therapist Signed: 06/02/2023 13:24 SHE CARRANZA [facility]
--- OUTSIDE RECORDS SUMMARY | 2023-10-15 16:18 | XMS_ITS | Encounter Summary ---
Author Name [facility] [place] [facility] [place] Address [address] [place] [address] Care Team Providers Care Building Official Name Role Phone CHERI VASQUEZ Primary Care [...] Member ID Insurance Provider's Telephone Number Policy Victro's Name Patient's Relationship to Policy Victor [facility] POINT OF SERVICE SOV ACTIV E SELEC TCAR Feb 15, 2018 [id number] SHANELL KHANNA PATIENT [employer] ([id number]) PRESCRIPT ION [facility] NT Feb 15, 2018 Q54A [id number] SHANELL KHANNA PATIENT Selected Encounter This section includes the information on record at [place] for the Encounter. Date/Time Encounter Type Encounter Description Reason Provider Source July 05, 2023 12:14 PM Outpatient Encounter TELEPHONE [place] ICD-10-CM F10.99 Alcohol use, unsp with unspecified alcohol-induced disorder PATRICIA ANTOINE Encounter Template Text not used by [facility] Assessments - Encounter Diagnoses This section includes the primary and secondary diagnoses documented for the Encounter. Date/Time Primary/Secondary Diagnosis Diagnosis Name Provider Source July 05, 2023 12:14 PM PRIMARY Alcohol use, unsp with unspecified alcohol-induced disorder PATRICIA ANTOINE [facility] July 05, 2023 12:14 PM SECONDARY Nicotine dependence, chewing tobacco, w unsp disorders PATRICIA ANTOINE [facility] Plan of Treatment: Future Appointments (+ 6 months) and Future Tests (+/- 45 days) The Plan of Treatment section includes future care activities for the patient from all [place] [facility]. This section includes future appointments and future orders which are active, pending or scheduled. Future Appointments This section includes appointments that were scheduled to occur 6 months from the date of the Encounter, up to a maximum of 20 appointments. The data comes from all [place] treatment facilities. Appointment Date/Time Appointment Type Appointme nt Facility Name July 16, 2023 01:00 PM AMBULATORY - PSYCHIATRY ITE [facility] Jul 30, 2023 01:00 PM AMBULATORY - PSYCHIATRY ITE [facility] Aug 09, 2023 10:30 AM AMBULATORY - MEDICINE [facility] Aug 09, 2023 11:15 AM AMBULATORY - PSYCHIATRY ITE [facility] Aug 13, 2023 12:00 PM AMBULATORY - PSYCHIATRY ITE [facility] Aug 18, 2023 11:00 AM AMBULATORY - PSYCHIATRY ITE [facility] Sep 08, 2023 10:30 AM AMBULATORY - PSYCHIATRY ITE [facility] Oct 20, 2023 10:30 AM AMBULATORY - PSYCHIATRY ITE [facility] Nov 23, 2023 11:45 AM AMBULATORY - NONE [facility] Lab Results: +/- 30 days [...] Comment Jun 15, 2023 01:53 PM [facility] LIVER PROFILE Specimen Type: PLASMA Comment: , Tests performed on [place] SN:[id number] ([id number]). Ordering Provider: PATRICIA ANTOINE Report Released Date/Time: Jun 02, 2023 01:18 PM Reporting Lab: [facility] [address] [address] Performing Lab: [place] [address] PROTEIN, TOTAL 7.6 g/dL 6.0-8.5 ALBUMIN 4.1 g/dL 3.2-5.0 BILIRUBIN, TOTAL 0.7 mg/dL 0.2-1.2 ALKALINE PHOSPHATASE 55 U/L 40-150 ALT(SGPT) 25 U/L 7-52 AST(SGOT) 40 U/L H 5-34 Jun 15, 2023 01:53 PM [facility] DRUG SCREEN+ETG([facility]) Specimen Type: URINE Comment: This ETG test was developed and its performance characteristics determined by [place] clinical lab. The [place] Food and Drug Administration has not approved or cleared this test, FDA clearance or approval is not currently required for clinical use. ETG cutoff 500 ng/mL, Tests performed on Student [employer] Mejía SN:[id number] ([id number]) Requests for Confirmation testing will need to be phoned in to the lab [phone]. Ordering Provider: PATRICIA ANTOINE Report Released Date/Time: May 19, 2023 01:53 PM Reporting Lab: [address] [address] Performing Lab: [place] [address] COCAINE SCREEN NONE DETECTED N one-Detec allen BENZODIAZEPINES SCREEN NONE DETECTED None-Detec allen OPIATES SCREEN NONE DETECTED N one-Detec allen CREATININE (URINE,RANDOM) 71.66 mg/dL CANNABINOID SCRN NONE DETECTED None-Detec allen AMPHETAMINE SCRN NONE DETECTED None-Detec allen METHADONE SCREEN([facility]) NONE DETECTED None-Detec allen pH CAROL 6.5 [pH] ETHYL GLUCURONIDE([facility]) SCRN POS None-Detec allen SPECIFIC GRAVITY CAROL 1.009 1.003-1.02 0 FENTANYL([facility])URI N E SCREEN NONE DETECTED None-Detec allen OXYCODONE SCREEN URINE([facility]) NONE DETECTED None-Detec allen ETOH URINE <10.0 mg/dL See_Com men t BUPRENORPHINE SCREEN URINE([facility]) NONE DETECTED None-Detec allen Jun 15, 2023 01:53 PM [place] [facility] VIT D 25-OH([place]) Specimen Type: SERUM Comment: , Tests performed on P[employer]rez [employer] Mejía SN:[id number] ([id number]) Ordering Provider: CHERI VASQUEZ Report Released Date/Time: Jun 15, 2023 01:39 PM Reporting Lab: [facility] [address] [address] Performing Lab: [facility] [address] [address] VIT D 25-OH([facility]) 10.3 ng/mL L 20.0-50.0 Social History: Smoking Status (Most current) and Tobacco Use (All prior to encounter date) This section includes the most current, and the historical, smoking and tobacco- related health factors from the [place] facility where the Encounter took place. Current Smoking Status This section includes the most current smoking, or tobacco-related health factor, from the [place] facility where the Encounter took place. Date/Time Current Smoking Status Comment Yayo sawant Mar 17, 2023 11:00 AM VA-TOBACCO USER EVERY DAY [facility] Tobacco Use History This section includes a history of the smoking, or tobacco-related health factors, that were collected on or before the date of the Encounter. The data comes from the [place] facility where the Encounter took place. Date/Time Smoking Status/Tobacco Use Comment F acility Mar 17, 2023 11:00 AM VA-TOBACCO USE ADVICE [facility] Mar 17, 2023 11:00 AM VA-TOBACCO USE RN OCCUPATIONAL HEALTH NO [facility] Mar 17, 2023 11:00 AM VA-TOBACCO USE MED NO [place] [facility] Mar 17, 2023 11:00 AM VA-TOBACCO USE WI 30 MIN OF WAKEUP [place] [facility] Mar 17, 2023 11:00 AM VA-TOBACCO USER EVERY DAY [place] [facility] May 13, 2018 11:59 AM AH-BPR SMOKING DEPLOYMENT NO [place] [facility] May 13, 2018 11:59 AM PREVIOUS SMOKER [place] [facility] May 13, 2018 11:59 AM VA-TOBACCO DOESNT USE WI 30 MIN WAKEUP [facility] May 13, 2018 11:59 AM VA-TOBACCO USE 30 YEARS OR MORE [place] [facility] May 13, 2018 11:59 AM VA-TOBACCO USE ADVICE [facility] May 13, 2018 11:59 AM VA-TOBACCO USE RN OCCUPATIONAL HEALTH YES [facility] May 13, 2018 11:59 AM VA-TOBACCO USE MED NO [facility] May 13, 2018 11:59 AM VA-TOBACCO USER EVERY DAY [facility] Encounter Notes: All associated encounter notes This section contains the clinical notes associated to the Encounter. Date/Time Encounter Note(s) Provider Source July 05, 2023 12:14 PM MENTAL HEALTH TELE PHONE ENCOUNTER NOTE: LOCAL TITLE: Telephone Note/Mental Health STANDARD TITLE: MENTAL HEALTH TELEPHONE ENCOUNTER NOTE DATE OF NOTE: JULY 05, 2023@12:14 ENTRY DATE: JULY 05, 2023@12:14:31 AUTHOR: PATRICIA ANTOINE EXP COSIGNER: URGENCY: STATUS: COMPLETED Telephone Note/Mental Health Has ADDENDA xxx /es/ PATRICIA ANTOINE Staff Psychiatrist Signed: 07/05/2023 12:15 07/05/2023 ADDENDUM STATUS: COMPLETED Spoke with vet by phone. Duration of phone call: 12 min. DX: Alcohol use disorder/ alcohol dependence S: -Vet reports doing ok -Since last appt he notes that he stopped naltrexone due to GI upset. He notes he had a lot of gas. He notes he had increase in BMs such that he was having to wake up in the middle of the night for BMs - which has never been the case. He did think that the naltrexone did provide some benefits - I do think it helped - I would have beer but it didn't have the same effect, it was more like drinking a selzter or something, and it helped me stop at just one or two. -He notes that he has usually been drinking two 24 oz beers a day, down from his typical three. He says that he is pleased with the slow and steady progress though thinks at times he should be cutting down more. He acknowledges that there are occasions when he does drink more - typically after a stressful/bad day at work. -He has never trialed acamprosate before. his goal remains controlled cutting back of etoh - not abstinence. ___ Calm and cooperative with interview. Behavior: Cooperative with interview Speech: Reg rate and volume Mood and Affect: doing ok / Broad Thought process: Linear. Thought content: Does not endorse SI/HI Cognition: Alerted and oriented ___ ASSESSMENT: -Vet reports difficulties tolerating naltrexone though did perceive some benefits from medication. -Discussed discontinuation of naltrexone in favor of acamprosate. Discussed R/b/SEs - agreeable to trial. PLAN: -DISCONTINUE naltrexone -START acamprosate 666mg TID -Follow up August 08 @ 1115a /es/ PATRICIA ANTOINE Staff Psychiatrist Signed: 07/05/2023 12:23 PATRICIA ANTOINE [facility]
--- OUTSIDE RECORDS SUMMARY | 2023-10-15 16:18 | XMS_ITS | Encounter Summary ---
Author Name [facility] [place] [facility] [place] Address [address] [place] [address] Care Team Providers Care Survey Coordinator Name Role Phone CHERI VASQUEZ Primary [...] Patient's Relationship to Policy Victor [facility] POINT OF SERVICE SOV ACTIV E SELEC TCAR Feb 15, 2018 [id number] SHANELL KHANNA PATIENT [facility] ([id number]) PRESCRIPT ION [facility] Feb 15, 2018 [id number] SHANELL KHANNA PATIENT Selected Encounter This section includes the information on record at [facility] for the Encounter. Date/Time Encounter Type Encounter Description Reason Provider Source Jul 30, 2023 01:00 PM PSYTX W PT 45 MINUTES SUBSTANCE USE DISORDER IND ICD-10-CM F32.A Depression, unspecified BRIAN CARRANZA Encounter Template Text not used by [facility] Assessments - Encounter Diagnoses This section includes the primary and secondary diagnoses documented for the Encounter. Date/Time Primary/Secondary Diagnosis Diagnosis Name Provider Source Jul 30, 2023 02:26 PM PRIMARY Depression, unspecified [facility] Jul 30, 2023 02:26 PM SECONDARY Alcohol dependence, uncomplicated [facility] Plan of Treatment: Future Appointments (+ 6 months) and Future Tests (+/- 45 days) The Plan of Treatment section includes future care activities for the patient from all [place] [facility] This section includes future appointments and future orders which are active, pending or scheduled. Future Appointments This section includes appointments that were scheduled to occur 6 months from the date of the Encounter, up to a maximum of 20 appointments. The data comes from all [place] treatment facilities. Appointment Date/Time Appointment Type Appointme nt Facility Name Aug 09, 2023 10:30 AM AMBULATORY - MEDICINE [facility] Aug 09, 2023 11:15 AM AMBULATORY - PSYCHIATRY [facility] Aug 13, 2023 12:00 PM AMBULATORY - PSYCHIATRY [facility] Aug 18, 2023 11:00 AM AMBULATORY - PSYCHIATRY [facility] Sep 08, 2023 10:30 AM AMBULATORY - PSYCHIATRY [facility] Oct 20, 2023 10:30 AM AMBULATORY - PSYCHIATRY [facility] Nov 23, 2023 11:45 AM AMBULATORY - NONE [facility] Lab Results: +/- 30 [...] Range Comment Aug 09, 2023 10:38 AM [facility] PT&INR Specimen Type: PLASMA Comment: Tests performed on [place] ACL TOP 350 SN [id number]) Ordering Provider: ZABRINA PASCAL Report Released Date/Time: Jun 15, 2023 02:08 PM Reporting Lab: [facility] [address] [address] Performing Lab: [facility] [address] [address] INR 0.9 {ratio} 0.9-1.1 PT 10.0 s 9.4-12.5 Aug 09, 2023 10:38 AM [facility] LIVER PROFILE Specimen Type: PLASMA Comment: Specimen 1+ Hemolysed, Tests performed on [employer] Mejía SN:[id number] ([id number]) Ordering Provider: ZABRINA PASCAL Report Released Date/Time: Jun 15, 2023 02:08 PM Reporting Lab: [facility] [address] [address] Performing Lab: [facility] [address] [address] PROTEIN, TOTAL 8.2 g/dL 6.0-8.5 ALBUMIN 4.5 g/dL 3.2-5.0 BILIRUBIN, TOTAL 0.4 mg/dL 0.2-1.2 ALKALINE PHOSPHATASE 63 U/L 40-150 ALT(SGPT) 50 U/L 7-52 AST(SGOT) 71 U/L H 5-34 Social History: Smoking Status (Most current) and Tobacco Use (All prior to encounter date) This section includes the most current, and the historical, smoking and tobacco- related health factors from the [place] facility where the Encounter took place. Current Smoking Status This section includes the most current smoking, or tobacco-related health factor, from the [place] facility where the Encounter took place. Date/Time Current Smoking Status Comment Yayo ity Mar 17, 2023 11:00 AM VA-TOBACCO USE WI 30 MIN OF WAKEUP [facility] Tobacco Use History This section includes a history of the smoking, or tobacco-related health factors, that were collected on or before the date of the Encounter. The data comes from the [place] facility where the Encounter took place. Date/Time Smoking Status/Tobacco Use Comment F acility Mar 17, 2023 11:00 AM VA-TOBACCO USE ADVICE [facility] Mar 17, 2023 11:00 AM VA-TOBACCO USE CARD DECORATOR NO [facility] Mar 17, 2023 11:00 AM VA-TOBACCO USE MED NO [facility] Mar 17, 2023 11:00 AM VA-TOBACCO USE WI 30 MIN OF WAKEUP [facility] Mar 17, 2023 11:00 AM [facility] May 13, 2018 11:59 AM AH-BPR SMOKING DEPLOYMENT NO [facility] May 13, 2018 11:59 AM PREVIOUS SMOKER [facility] May 13, 2018 11:59 AM VA-TOBACCO DOESNT USE WI 30 MIN WAKEUP [facility] May 13, 2018 11:59 AM VA-TOBACCO USE 30 YEARS OR MORE [facility] May 13, 2018 11:59 AM VA-TOBACCO USE ADVICE [facility] May 13, 2018 11:59 AM VA-TOBACCO USE CARD DECORATOR YES [facility] May 13, 2018 11:59 AM VA-TOBACCO USE MED NO [facility] May 13, 2018 11:59 AM VA-TOBACCO USER EVERY DAY [facility] Encounter Notes: All associated encounter notes This section contains the clinical notes associated to the Encounter. Date/Time Encounter Note(s) Provider Source Jul 30, 2023 01:38 PM SATP NOTE: LOCAL TITLE: SUBSTANCE USE DISORDER THERAPY NOTE STANDARD TITLE: SATP NOTE DATE OF NOTE: JUL 30, 2023@13:38 ENTRY DATE: JUL 30, 2023@13:38:40 AUTHOR: BRIAN CARRANZA COSIGNER: URGENCY: STATUS: COMPLETED Kathleen is not currently located at address listed in [facility] enter current physician location here: Kathleen's current address: [address] [place] [address] 's telephone number: [phone] Additional contact information (i.e. neighbors/relatives): e-911: Call [phone] to speak with an agent who can put you in touch with a pipeline dispatch operator at the Patient's location. You must have the physical location (address) where the Patient is currently located. Verbal informed consent has been obtained. Patient was seen today for 38 minutes for treatment of the following diagnosis/diagnoses and problems: Depression, alcohol use disorder, moderate Significant issues, symptoms, complaints: quite dejected this afternoon. States he hasn't been doing any of the activities he said he would do to help with depression and alcohol use. He is still drinking 2-3 24oz beers each night after work. He said no one forced me to come here so I obviously wanted to make changes. He just feels stuck. He said he hasn't noticed any difference in desire to drink taking acamprosate. His goal is still to have alcohol only on weekends. Depression is wearing him down. He admitted to a lot of negative self talk, especially at work. Home life continues to be good. Relevant mental status exam or other objective findings: Appears depressed, head down, looking at the table in front of him. Assessment: Kathleen was open to suggestions regarding changing negative self talk, and we discussed the importance of changing his evening routine to be able to cut down alcohol use. We rehearsed changing negative self talk. He would like to talk to a psychiatrist about depression, will submit a [facility] consult. Plan: refer to [facility] Meet again in 2 weeks. /vicente/ Brian Carranza MS [facility] Addiction Therapist Signed: 07/30/2023 14:26 [facility]
--- OUTSIDE RECORDS SUMMARY | 2023-10-15 16:18 | XMS_ITS ---
Author Name [facility] [place] Organization [facility] [place] Address [address] [place] [address] Care Team Providers Care Manager Meeting Name Role Phone CHERI VASQUEZ Primary Care [...] Name Patient's Relationship to Policy Victor [facility] POINT OF SERVICE SOV ACTIV E SELEC TCAR Feb 15, 2018 [id number] SHANELL KHANNA PATIENT [facility] ([id number]) PRESCRIPT ION [facility] NT Feb 15, 2018 [id number] SHANELL KHANNA PATIENT Selected Encounter This section includes the information on record at [place] for the Encounter. Date/Time Encounter Type Encounter Description Reason Provider Source May 19, 2023 02:46 PM Outpatient Encounter SUBSTANCE USE DISORDER IND [...] AM [facility] Jun 02, 2023 12:00 PM [facility] Jun 10, 2023 03:00 PM [facility] Jun 15, 2023 12:45 PM [facility] June 30, 2023 03:00 PM [facility] July 16, 2023 01:00 PM [facility] Jul 30, 2023 01:00 PM [facility] Aug 09, 2023 10:30 AM [facility] Aug 09, 2023 11:15 AM [facility] Aug 13, 2023 12:00 PM [facility] Aug 18, 2023 11:00 AM [facility] Sep 08, 2023 10:30 AM [facility] Oct 20, 2023 10:30 AM [facility] Lab Results: +/- 30 days of the [...] Comment Jun 15, 2023 01:53 PM [facility] LIVER PROFILE Specimen Type: PLASMA Comment: , Tests performed on [employer] SN:[id number] ([id number]). Ordering Provider: PATRICIA ANTOINE Report Released Date/Time: Jun 02, 2023 01:18 PM Reporting Lab: [facility] [address] [address] Performing Lab: [place] [address] [address] PROTEIN, TOTAL 7.6 g/dL 6.0-8.5 ALBUMIN 4.1 g/dL 3.2-5.0 BILIRUBIN, TOTAL 0.7 mg/dL 0.2-1.2 ALKALINE PHOSPHATASE 55 U/L 40-150 ALT(SGPT) 25 U/L 7-52 AST(SGOT) 40 U/L H 5-34 Jun 15, 2023 01:53 PM [facility] DRUG SCREEN+ETG([facility]) Specimen Type: URINE Comment: This ETG test was developed and its performance characteristics determined by [place] clinical lab. The [place] Food and Drug Administration has not approved or cleared this test, FDA clearance or approval is not currently required for clinical use. ETG cutoff 500 ng/mL, Tests performed on [employer] Mejía SN:[id number] ([id number]) Requests for Confirmation testing will need to be phoned in to the lab [phone]. Ordering Provider: PATRICIA ANTOINE Report Released Date/Time: May 19, 2023 01:53 PM Reporting Lab: [place] [address] [address] Performing Lab: [place] [address] COCAINE SCREEN NONE DETECTED N one-Detec allen BENZODIAZEPINES SCREEN NONE DETECTED None-Detec allen OPIATES SCREEN NONE DETECTED N one-Detec allen CREATININE (URINE,RANDOM) 71.66 mg/dL CANNABINOID SCRN NONE DETECTED None-Detec allen AMPHETAMINE SCRN NONE DETECTED None-Detec allen METHADONE SCREEN([facility]) NONE DETECTED None-Detec allen pH CAROL 6.5 [pH] ETHYL GLUCURONIDE([facility]) SCRN POS None-Detec allen SPECIFIC GRAVITY CAROL 1.009 1.003-1.02 0 FENTANYL([facility])URI N E SCREEN NONE DETECTED None-Detec allen OXYCODONE SCREEN URINE([facility]) NONE DETECTED None-Detec allen ETOH URINE <10.0 mg/dL See_Com men t BUPRENORPHINE SCREEN URINE([facility]) NONE DETECTED None-Detec allen Jun 15, 2023 01:53 PM [facility] VIT D 25-OH([facility]) Specimen Type: SERUM Comment: , Tests performed on [employer] SN:[id number] ([id number]) Ordering Provider: CHERI VASQUEZ Report Released Date/Time: Jun 15, 2023 01:39 PM Reporting Lab: [facility] [address] [facility] [address] Performing Lab: [facility] [address] [facility] [address] VIT D 25-OH([facility]) 10.3 ng/mL L 20.0-50.0 May 11, 2023 02:49 PM [facility] LIVER PROFILE Specimen Type: PLASMA Comment: , Tests performed on [employer] SN:[id number] ([id number]). Ordering Provider: SHE CARRANZA Report Released Date/Time: May 11, 2023 02:41 PM Reporting Lab: [facility] [address] [facility] [address] Performing Lab: [facility] [address] [facility] [address] PROTEIN, TOTAL 7.9 g/dL 6.0-8.5 ALBUMIN 4.5 [...] 2023 11:00 AM VA-TOBACCO USER EVERY DAY [facility] Tobacco Use History This section [...] Mar 17, 2023 11:00 AM VA-TOBACCO USE NEWBORN HEARING SCREENER NO [facility] Mar 17, 2023 11:00 AM VA[facility]ACCO [facility] Mar 17, 2023 11:00 AM VA-TOBACCO USE WI 30 MIN OF WAKEUP [facility] Mar 17, 2023 11:00 AM VA-TOBACCO USER EVERY DAY [facility] May 13, 2018 11:59 AM AH-BPR SMOKING DEPLOYMENT NO [facility] May 13, 2018 11:59 AM PREVIOUS SMOKER WHI [facility] May 13, 2018 11:59 AM VA-TOBACCO DOESNT USE WI 30 MIN WAKEUP [facility] May 13, 2018 11:59 AM VA-TOBACCO USE 30 YEARS OR MORE [facility] May 13, 2018 11:59 AM VA-TOBACCO USE ADVICE [facility] May 13, 2018 11:59 AM VA-TOBACCO USE NEWBORN HEARING SCREENER YES [facility] May 13, 2018 11:59 AM VA-TOBACCO USE MED NO [facility] May 13, 2018 11:59 AM VA-TOBACCO USER EVERY DAY [facility] Encounter Notes: All associated encounter notes This section contains the clinical notes associated to the Encounter. Date/Time Encounter Note(s) Provider Source May 19, 2023 02:47 PM MENTAL HEALTH DIAG NOSTIC STUDY NOTE: LOCAL TITLE: Mental Health Diagnostic Study Note STANDARD TITLE: MENTAL HEALTH DIAGNOSTIC STUDY NOTE DATE OF NOTE: MAY 19, 2023@14:47:05 ENTRY DATE: MAY 19, 2023@14:47:05 AUTHOR: SHE CARRANZA EXP COSIGNER: URGENCY: STATUS: COMPLETED PCL-5 WEEKLY Date Given: 05/19/2023 Clinician: She Carranza Location: [facility] L1ra : Amauri Khanna SSN: [id number] : [birth year] ([birth year]) Gender: Man PCL-5 Weekly Score: 23 This measure assesses an individual's perception of the distress associated with possible PTSD symptoms. It is not used to diagnose PTSD. Symptoms are rated from 0-4 in terms of distress they cause the individual. Scores that are greater than or equal to 31-33 suggest that the may meet the criteria for a PTSD diagnosis. However, it is important to use caution when using this cutoff since it is possible for some Veterans with scores lower than 31-33 to meet criteria for PTSD. Additional testing using a structured diagnostic interview, such as the Clinician Administered PTSD Scale for DSM-5, is recommended to confirm diagnostic status. Values range from 0 to 80 with higher scores indicating more probable PTSD. Questions and Answers: 1. Repeated, disturbing, and unwanted memories of the stressful experience? A little bit 2. Repeated, disturbing dreams of the stressful experience? Not at all 3. Suddenly feeling or acting as if the stressful experience were actually happening again (as if you were actually back there reliving it)? Not at all 4. Feeling very upset when something reminded you of the stressful experience? A little bit 5. Having strong physical reactions when something reminded you of the stressful experience (for example, heart pounding, trouble breathing, sweating)? A little bit 6. Avoiding memories, thoughts, or feelings related to the stressful experience? A little bit 7. Avoiding external reminders of the stressful experience (for example, people, places, conversations, activities, objects, or situations)? Moderately 8. Trouble remembering important parts of the stressful experience? Moderately 9. Having strong negative beliefs about yourself, other people, or the world (for example, having thoughts such as: I am bad, there is something seriously wrong with me, no one can be trusted, the world is completely dangerous)? A little bit 10. Blaming yourself or someone else for the stressful experience or what happened after it? A little bit 11. Having strong negative feelings such as fear, horror, anger, guilt, or shame? A little bit 12. Loss of interest in activities that you used to enjoy? Moderately 13. Feeling distant or cut off from other people? Moderately 14. Trouble experiencing positive feelings (for example, being unable to feel happiness or have loving feelings for people close to you)? Moderately 15. Irritable behavior, angry outbursts, or acting aggressively? Moderately 16. Taking too many risks or doing things that could cause you harm? Not at all 17. Being superalert or watchful or on guard? A little bit 18. Feeling jumpy or easily startled? A little bit 19. Having difficulty concentrating? Moderately 20. Trouble falling or staying asleep? Not at all Information contained in this note is based on a self-report assessment and is not sufficient to use alone for diagnostic purposes. Assessment results should be verified for accuracy and used in conjunction with other diagnostic activities and procedures. /vicente/ She Carranza MS [facility] Addiction Therapist Signed: 05/19/2023 16:06 SHE CARRANZA [facility]
--- OUTSIDE RECORDS SUMMARY | 2023-10-15 16:18 | XMS_ITS | Encounter Summary ---
Author Name [facility] [place] Organization [facility] [place] [facility] [place] Address [address] [place] [address] Care Team Providers Care Battery Assembler Dry Cell Name Role Phone CHERI VASQUEZ Primary Care [...] Name Patient's Relationship to Policy Victor [facility] POINT OF SERVICE SOV ACTIV E SELEC TCAR Feb 15, 2018 [id number] SHANELL KHANNA PATIENT EXPRESS SCRIPTS ([id number]) PRESCRIPT ION [facility] NT Feb 15, 2018 Q54A [id number] SHANELL KHANNA PATIENT Selected Encounter This section includes the information on record at OR for the Encounter. Date/Time Encounter Type Encounter Description Reason Provider Source June 30, 2023 03:26 PM Outpatient Encounter SUBSTANCE USE DISORDER IND [...] 09, 2023 10:30 AM AMBULATORY - MEDICINE [facility] E [facility] Aug 09, 2023 11:15 AM AMBULATORY - PSYCHIATRY ITE [facility] Aug 13, 2023 12:00 PM AMBULATORY - PSYCHIATRY ITE [facility] Aug 18, 2023 11:00 AM AMBULATORY - PSYCHIATRY ITE [facility] Sep 08, 2023 10:30 AM AMBULATORY - PSYCHIATRY ITE [facility] Oct 20, 2023 10:30 AM AMBULATORY - PSYCHIATRY ITE [facility] Nov 23, 2023 11:45 AM AMBULATORY - NONE [facility] Lab Results: +/- 30 days of [...] Range Comment Jun 15, 2023 01:53 PM [facility] DRUG SCREEN+ETG(WR) Specimen Type: URINE Comment: This ETG test was developed and its performance characteristics determined by [place] clinical lab. The US Food and Drug Administration has not approved or cleared this test, FDA clearance or approval is not currently required for clinical use. ETG cutoff 500 ng/mL, Tests performed on [employer] Mejía SN:[id number] ([id number]) Requests for Confirmation testing will need to be phoned in to the lab [phone]. Ordering Provider: PATRICIA ANTOINE Report Released Date/Time: May 19, 2023 01:53 PM Reporting Lab: [facility] [address] [facility] [address] Performing Lab: [facility] [address] [facility] [address] COCAINE SCREEN NONE DETECTED N one-Detec allen BENZODIAZEPINES SCREEN NONE DETECTED None-Detec allen OPIATES SCREEN NONE DETECTED N one-Detec allen CREATININE (URINE,RANDOM) 71.66 mg/dL CANNABINOID SCRN NONE DETECTED None-Detec allen AMPHETAMINE SCRN NONE DETECTED None-Detec allen METHADONE SCREEN([facility]) NONE DETECTED None-Detec allen pH CAROL 6.5 [pH] ETHYL GLUCURONIDE([facility]) SCRN POS None-Detec allen SPECIFIC GRAVITY CAROL 1.009 1.003-1.02 0 FENTANYL([facility])URI N E SCREEN NONE DETECTED None-Detec allen OXYCODONE SCREEN URINE([facility]) NONE DETECTED None-Detec allen ETOH URINE <10.0 mg/dL See_Com men t BUPRENORPHINE SCREEN URINE([facility]) NONE DETECTED None-Detec allen Jun 15, 2023 01:53 PM [facility] LIVER PROFILE Specimen Type: PLASMA Comment: , Tests performed on [employer] SN:[id number] ([id number]). Ordering Provider: PATRICIA ANTOINE Report Released Date/Time: Jun 02, 2023 01:18 PM Reporting Lab: [facility] [address] [facility] [address] Performing Lab: [place] [id number] PROTEIN, TOTAL 7.6 g/dL 6.0-8.5 ALBUMIN 4.1 g/dL 3.2-5.0 BILIRUBIN, TOTAL 0.7 mg/dL 0.2-1.2 ALKALINE PHOSPHATASE 55 U/L 40-150 ALT(SGPT) 25 U/L 7-52 AST(SGOT) 40 U/L H 5-34 Jun 15, 2023 01:53 PM [facility] VIT D 25-OH([facility]) Specimen Type: SERUM Comment: , Tests performed on [employer] Alfonzo SN:[id number] ([id number]) Ordering Provider: CHERI VASQUEZ Report Released Date/Time: Jun 15, 2023 01:39 PM Reporting Lab: [facility] [address] [facility] [address] Performing Lab: [facility] [address] [facility] [address] VIT D 25-OH(WRJ) 10.3 ng/mL L 20.0-50.0 [...] [place] 30 MIN OF WAKEUP [place] [facility] Tobacco Use History This section includes a history of the smoking, or tobacco-related health factors, that were collected on or before the date of the Encounter. The data comes from the [place] facility where the Encounter took place. 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 NO [place] [facility]3] Mar 17, 2023 11:00 AM VA-TOBACCO USE MED NO [place] [facility]3] Mar 17, 2023 11:00 AM VA-TOBACCO USE [place] 30 MIN OF WAKEUP [place] [facility]3] Mar 17, 2023 11:00 AM VA-TOBACCO USER EVERY DAY [place] [facility]3] May 13, 2018 11:59 AM AH-BPR SMOKING DEPLOYMENT NO [place] [facility]3] May 13, 2018 11:59 AM PREVIOUS SMOKER [place] [facility]3] May 13, 2018 11:59 AM VA-TOBACCO DOESNT USE [place] 30 MIN WAKEUP [place] [facility]3] May 13, 2018 11:59 AM VA-TOBACCO USE 30 YEARS OR MORE [place] [facility]3] May 13, 2018 11:59 AM VA-TOBACCO USE ADVICE [place] [facility]3] May 13, 2018 11:59 AM VA-TOBACCO USE SPIRAL WINDING MACHINE HELPER YES [place] [facility]3] May 13, 2018 11:59 AM VA-TOBACCO USE MED NO [place] [facility]3] May 13, 2018 11:59 AM VA-TOBACCO USER EVERY DAY [place] [facility]3] Encounter Notes: All associated encounter notes This section contains the clinical notes associated to the Encounter. Date/Time Encounter Note(s) Provider Source June 30, 2023 03:26 PM MENTAL HEALTH DIAG NOSTIC STUDY NOTE: LOCAL TITLE: Mental Health Diagnostic Study Note STANDARD TITLE: MENTAL HEALTH DIAGNOSTIC STUDY NOTE DATE OF NOTE: JUNE 30, 2023@15:26:40 ENTRY DATE: JUNE 30, 2023@15:26:40 AUTHOR: SHE CARRANZA EXP COSIGNER: URGENCY: STATUS: COMPLETED [place] Depression Inventory--Second Edition Date Given: 06/30/2023 Clinician: She Carranza Location: [address] [place]: Amauri Khanna SSN: [id number] : [birth year]) Gender: Man BDI2 Score: 21 indicates moderate depression. The overall range is 0 to 63 with moderate depression between 20 - 28. 1 point = mild symptom level 2 points = moderate symptom level 3 points = severe symptom level Questions and answers 1. I feel sad much of the time. (1 point) 2. I feel more discouraged about my future than I used to be. (1 point) 3. I have failed more than I should have. (1 point) 4. I get very little pleasure from the things I used to enjoy. (2 points) 5. I feel guilty over many things I have done or should have done. (1 point) 6. I don't feel I am being punished. (0 points) 7. I am disappointed in myself. (2 points) 8. I am more critical of myself than I used to be. (1 point) 9. I don't have any thoughts of killing myself. (0 points) 10. I cry more than I used to. (1 point) 11. I feel more restless or wound up than usual. (1 point) 12. I am less interested in other people or things than before. (1 point) 13. I find it more difficult to make decisions than usual. (1 point) 14. I do not feel I am worthless. (0 points) 15. I have less energy than I used to have. (1 point) 16. I sleep a lot more than usual. (2 points) 17. I am much more irritable than usual. (2 points) 18. My appetite is somewhat less than usual. (1 point) 19. I can't concentrate as well as usual. (1 point) 20. I get more tired or fatigued more easily than usual. (1 point) 21. I have not noticed any recent changes in my interest in sex. (0 points) Second Edition (BDI-II). Copyright (c) 1995 Stalin [employer]. Reproduced, adapted and translated with permission of [employer] All rights reserved. Information contained in this note is based on a self-report assessment and is not sufficient to use alone for diagnostic purposes. Assessment results should be verified for accuracy and used in conjunction with other diagnostic activities and procedures. /vicente/ She Carranza MS [facility] Addiction Therapist Signed: 07/01/2023 09:38 SHE CARRANZA [facility]
--- OUTSIDE RECORDS SUMMARY | 2023-10-15 16:18 | XMS_ITS | Encounter Summary ---
Author Name [facility] [place] Organization [facility] [place] Address [address] [place] [address] Care Team Providers Care Framing And Hanging Name Role Phone CHERI VASQUEZ Primary Care [...] Victor's Name Patient's Relationship to Policy Victor [facility] POINT OF SERVICE SOV ACTIV E SELEC TCAR Feb 15, 2018 [id number] SHANELL KHANNA PATIENT EXPRESS SCRIPTS ([id number]) PRESCRIPT ION [facility] NT Feb 15, 2018 Q54A [id number] SHANELL KHANNA PATIENT Selected Encounter This section includes the information on record at [place] for the Encounter. Date/Time Encounter Type Encounter Description Reason Provider Source May 19, 2023 02:34 PM Outpatient Encounter SUBSTANCE USE DISORDER IND [...] 20 appointments. The data comes from all [place] treatment facilities. Appointment Date/Time Appointment Type Appointme nt Facility Name Jun 02, 2023 11:00 AM AMBULATORY - [facility]RY [facility] [facility] Jun 02, 2023 12:00 PM AMBULATORY - [facility]CHIATRY [facility] [facility] Jun 10, 2023 03:00 PM AMBULATORY - [facility]CHIATRY [facility] [facility] Jun 15, 2023 12:45 PM AMBULATORY - NONE [facility] June 30, 2023 03:00 PM AMBULATORY - PS[facility]CHIATRY [facility] [facility] July 16, 2023 01:00 PM AM[facility]ULATORY [facility] Jul 30, 2023 01:00 PM AMBULATORY - PS[facility]CHIATRY [facility] [facility] Aug 09, 2023 10:30 AM AMBULATORY - MEDICINE [facility] [place] [facility] Aug 09, 2023 11:15 AM AMBULATORY [facility]IATRY [facility] [facility] Aug 13, 2023 12:00 PM AMBULATORY [facility]RY [facility] [facility] Aug 18, 2023 11:00 AM AM[facility]ULAT[facility] [place] [facility] Sep 08, 2023 10:30 AM AMBULATORY - PS[facility]CHIATRY [facility] [facility] [facility] Oct 20, 2023 10:30 AM AMBULATORY - PS[place]CHIATRY [place] [facility] [facility] Lab Results: +/- 30 days of the encounter This section includes the Chemistry and Hematology Lab Results on record with [place] for the patient. Radiology Reports and Pathology Reports are provided separately, in subsequent sections. Lab Results This section contains the Chemistry/Hematology Results that were resulted 30 days before or 30 daysafter the date of the Encounter. Date/Time Source Result Type Result - Unit Interpretation Reference Range Comment Jun 15, 2023 01:53 PM [place] [facility] DRUG SCREEN+ETG([facility]) Specimen Type: URINE Comment: This ETG test was developed and its performance characteristics determined by [place] clinical lab. The [place] Food and Drug Administration has not approved or cleared this test, FDA clearance or approval is not currently required for clinical use. ETG cutoff 500 ng/mL, Tests performed on [employer] Mejía SN:[id number] (405) Requests for Confirmation testing will need to be phoned in to the lab [phone]. Ordering Provider: PATRICIA ANTOINE Report Released Date/Time: May 19, 2023 01:53 PM Reporting Lab: [facility] [address] [facility] [address] Performing Lab: [address] [address] COCAINE SCREEN NONE DETECTED N one-Detec allen [...] allen SPECIFIC GRAVITY CAROL 1.009 1.003-1.02 0 FENTANYL([facility])URI N E SCREEN NONE DETECTED None-Detec allen OXYCODONE SCREEN URINE([facility]) NONE DETECTED None-Detec allen ETOH URINE <10.0 mg/dL See_Com men t BUPRENORPHINE SCREEN URINE([facility]) NONE DETECTED None-Detec allen Jun 15, 2023 01:53 PM [facility] LIVER PROFILE Specimen Type: PLASMA Comment: , Tests performed on [employer] SN:[id number] (405). Ordering Provider: PATRICIA ANTOINE Report Released Date/Time: Jun 02, 2023 01:18 PM Reporting Lab: [address] [address] Performing Lab: [facility] [address] [facility] [address] PROTEIN, TOTAL 7.6 g/dL 6.0-8.5 ALBUMIN 4.1 g/dL 3.2-5.0 BILIRUBIN, TOTAL 0.7 mg/dL 0.2-1.2 ALKALINE PHOSPHATASE 55 U/L 40-150 ALT(SGPT) 25 U/L 7-52 AST(SGOT) 40 U/L H 5-34 Jun 15, 2023 01:53 PM [facility] VIT D 25-OH([facility]) Specimen Type: SERUM Comment: , Tests performed on [employer] SN:[id number] (405) Ordering Provider: CHERI VASQUEZ Report Released Date/Time: Jun 15, 2023 01:39 PM Reporting Lab: [facility] [address] [facility] [address] Performing Lab: [facility] [address] [facility] [address] VIT D 25-OH([facility]) 10.3 ng/mL L 20.0-50.0 May 11, 2023 02:49 PM [facility] LIVER PROFILE Specimen Type: PLASMA Comment: , Tests performed on Pérez [employer]ra[employer] Roller Inspector Dennis SN:[id number] (405). Ordering Provider: SHE CARRANZA Report Released Date/Time: May 11, 2023 02:41 PM Reporting Lab: [facility] [address] [facility] [address] Performing Lab: [facility] [address] [facility] [address] PROTEIN, TOTAL 7.9 g/dL 6.0-8.5 ALBUMIN 4.5 [...] 30 MIN OF WAKEUP [facility] Tobacco Use History This section includes a history of the smoking, or tobacco-related health factors, that were collected on or before the date of the Encounter. The data comes from the [place] facility where the Encounter took place. 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 Mar 17, 2023 11:00 AM [facility]ACCO [facility] Mar 17, 2023 11:00 AM VA-TOBACCO USE [place] 30 MIN OF WAKEUP [place] [facility] Mar 17, 2023 11:00 AM VA-TOBACCO USER EVERY DAY [place] [facility] May 13, 2018 11:59 AM AH-BPR SMOKING DEPLOYMENT NO [place] [facility] May 13, 2018 11:59 AM PREVIOUS SMOKER [place] [facility] May 13, 2018 11:59 AM VA-TOBACCO DOESNT USE [place] 30 MIN WA[facility]UP [facility] May 13, 2018 11:59 AM VA-TOBACCO USE 30 YEARS OR MORE [facility] May 13, 2018 11:59 AM [facility]ACCO [facility] May 13, 2018 11:59 AM VA-TOBACCO USE FORM BLOCK MAKER YES [facility] May 13, 2018 11:59 AM VA-TOBACCO USE MED [facility] May 13, 2018 11:59 AM VA-TOBACCO USER EVERY DAY [facility] Encounter Notes: All associated encounter notes This section contains the clinical notes associated to the Encounter. Date/Time Encounter Note(s) Provider Source May 19, 2023 02:34 PM MENTAL HEALTH DIAG NOSTIC STUDY NOTE: LOCAL TITLE: Mental Health Diagnostic Study Note STANDARD TITLE: MENTAL HEALTH DIAGNOSTIC STUDY NOTE DATE OF NOTE: MAY 19, 2023@14:34:48 ENTRY DATE: MAY 19, 2023@14:34:48 AUTHOR: SHE CARRANZA EXP COSIGNER: URGENCY: STATUS: COMPLETED Generalized Anxiety Disorder, 7 items Date Given: 05/19/2023 Clinician: She Carranza Location: [place] [id number] : Amauri Khanna SSN: [id number] : [birth year] ([birth year]) Gender: Man JING-7 score: 8 A low score indicates the absence of anxiety, a high score indicates the presence of anxiety symptoms; the range is 0 to 21. A score of 15 or greater is considered clinically significant, meriting active treatment for anxiety. A score of 10 to 14 indicates a condition that should be carefully evaluated. Questions and Answers 1. Feeling nervous, anxious or on edge Several days 2. Not being able to stop or control worrying Several days 3. Worrying too much about different things More than half the days 4. Trouble relaxing Several days 5. Being so restless that it is hard to sit still Not at all 6. Becoming easily annoyed or irritable Nearly every day 7. Feeling afraid as if something awful might happen Not at all Information contained in this note is based on a self-report assessment and is not sufficient to use alone for diagnostic purposes. Assessment results should be verified for accuracy and used in conjunction with other diagnostic activities and procedures. /vicente/ She Carranza MS [facility] Addiction Therapist Signed: 05/19/2023 16:05 SHE CARRANZA [facility]
--- OUTSIDE RECORDS SUMMARY | 2023-10-15 16:18 | XMS_ITS | Encounter Summary ---
Author Name [facility] [place] [facility] [place] Address [address] [place] [address] Care Team Providers Care Meter Setter Name Role Phone CHERI VASQUEZ Primary Care [...] ACTIV E SELEC TCAR Feb 15, 2018 [id number] SHANELL KHANNA PATIENT [facility] ([id number]) PRESCRIPT ION [facility] NT Feb 15, 2018 [id number] SHANELL KHANNA PATIENT Selected Encounter This section includes the information on record at [facility] for the Encounter. Date/Time Encounter Type Encounter Description Reason Pro vider Source Aug 09, 2023 10:30 AM OFFICE O/P EST LOW 20 MIN GASTROENTEROLOGY ICD-10-CM K76.0 Fatty (change of) liver, not elsewhere classified ZABRINA PASCAL Maximo Encounter Template Text not used by [facility] Assessments - Encounter Diagnoses This section includes the primary and secondary diagnoses documented for the Encounter. Date/Time Primary/Secondary Diagnosis Diagnosis Name Provider Source Aug 12, 2023 02:55 PM PRIMARY Fatty (change of) liver, not elsewhere classified ZABRINA PASCAL [facility] Aug 12, 2023 02:55 PM SECONDARY Alcohol use, unsp with unspecified alcohol-induced disorder ZABRINA PASCAL [facility] Plan of Treatment: Future Appointments (+ 6 months) and Future Tests (+/- 45 days) The Plan of Treatment section includes future care activities for the patient from all [place] treatmentfacilities. This section includes future appointments and future orders which are active, pending or scheduled. Future Appointments This section includes appointments that were scheduled to occur 6 months from the date of the Encounter, up to a maximum of 20 appointments. The data comes from all [place] treatment facilities. Appointment Date/Time Appointment Type Appointme nt Facility Name Aug 13, 2023 12:00 PM AMBULATORY - PSYCHIATRY [facility] Aug 18, 2023 11:00 AM AMBULATORY - PSYCHIATRY [facility] Sep 08, 2023 10:30 AM AMBULATORY - PSYCHIATRY [facility] Oct 20, 2023 10:30 AM AMBULATORY - PSYCHIATRY [facility] Nov 23, 2023 11:45 AM [...] Range Comment Aug 09, 2023 10:38 AM [facility] PT&INR Specimen Type: PLASMA Comment: Tests performed on IL ACL TOP 350 SN [id number] ([id number]) Ordering Provider: ZABRINA PASCAL Report Released Date/Time: Jun 15, 2023 02:08 PM Reporting Lab: [facility] [address] [facility] [address] Performing Lab: [facility] [address] [facility] [address] INR 0.9 {ratio} 0.9-1.1 PT 10.0 s 9.4-12.5 Aug 09, 2023 10:38 AM [facility] LIVER PROFILE Specimen Type: PLASMA Comment: Specimen 1+ Hemolysed, Tests performed on e-Zassi Mejía SN:[id number] ([id number]) Ordering Provider: ZABRINA PASCAL Report Released Date/Time: Jun 15, 2023 02:08 PM Reporting Lab: [facility] [address] [facility] [address] Performing Lab: [facility] [address] [facility] [address] PROTEIN, TOTAL 8.2 g/dL 6.0-8.5 ALBUMIN 4.5 g/dL 3.2-5.0 BILIRUBIN, TOTAL 0.4 mg/dL 0.2-1.2 ALKALINE PHOSPHATASE 63 U/L 40-150 ALT(SGPT) 50 U/L 7-52 AST(SGOT) 71 U/L H 5-34 Vital Signs: All taken on the encounter date This section contains inpatient and outpatient Vital Signs collected on the date of the Encounter. Date/Time Temperature Pulse Blood Pressure Respiratory Rate SP02 Pain Height Weight Body Mass Index Source Aug 09, 2023 10:47 AM 86 160/98 18 99 0 155.8 22 [facility] Social History: Smoking Status (Most current) and Tobacco Use (All prior to encounter date) This section includes the most current, and the historical, smoking and tobacco- related health factors from the [place] facility where the Encounter took place. Current Smoking Status This section includes the most current smoking, or tobacco-related health factor, from the [place] facility where the Encounter took place. Date/Time Current Smoking Status Comment Yayo ity Mar 17, 2023 11:00 AM VA-TOBACCO USER EVERY DAY [facility] Tobacco Use History This section includes a history of the smoking, or tobacco-related health factors, that were collected on or before the date of the Encounter. The data comes from the [place] facility where the Encounter took place. Date/Time Smoking Status/Tobacco Use Comment F acility Mar 17, 2023 11:00 AM VA-TOBACCO USE ADVICE [facility] Mar 17, 2023 11:00 AM VA-TOBACCO USE SYNTHETIC FILAMENT SPINNER NO [facility] Mar 17, 2023 11:00 AM VA-TOBACCO USE MED NO [facility] Mar 17, 2023 11:00 AM VA-TOBACCO USE WI 30 MIN OF WAKEUP [facility] Mar 17, 2023 11:00 AM VA-TOBACCO USER EVERY DAY [facility] May 13, 2018 11:59 AM AH-BPR SMOKING DEPLOYMENT NO [facility] May 13, 2018 11:59 AM PREVIOUS SMOKER WHI GLNE [facility] May 13, 2018 11:59 AM VA-TOBACCO DOESNT USE WI 30 MIN WAKEUP [facility] May 13, 2018 11:59 AM VA-TOBACCO USE 30 YEARS OR MORE [facility] May 13, 2018 11:59 AM VA-TOBACCO USE ADVICE [facility] May 13, 2018 11:59 AM VA-TOBACCO USE SYNTHETIC FILAMENT SPINNER YES [facility] May 13, 2018 11:59 AM VA-TOBACCO USE MED NO [facility] May 13, 2018 11:59 AM VA-TOBACCO USER EVERY DAY [facility] Encounter Notes: All associated encounter notes This section contains the clinical notes associated to the Encounter. Date/Time Encounter Note(s) Provider Source Aug 12, 2023 02:56 PM LETTERS: LOCAL TITLE: Letter To Patient STANDARD TITLE: LETTERS DATE OF NOTE: AUG 12, 2023@14:56 ENTRY DATE: AUG 12, 2023@14:57:02 AUTHOR: ZABRINA PASCAL COSIGNER: URGENCY: STATUS: COMPLETED DEPARTMENT OF [facility] [address] [place] [address] AUG 12, 2023 AMAURI KHANNA [address] [place] [id number] Dear AMAURI KHANNA: Just a quick note to let you know that your liver tests are mildly elevated as before. I would like to check a liver panel and iron studies again in November when you are here for your PCP visit. 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 If within one month,how many drinks on that day? (Alcoholic beverage equivalent: 1 drink = 1.5 oz liquor = 4 oz wine = 12 oz beer) Indication(s) for FibroScan: Assessment for clinically significant portal hypertension (CSPH) Alcohol associated liver disease After providing oral [...] without incident. Results: Number of Valid Measurements: 10 Liver Stiffness: FibroScan Value (median, kPa): 8.7 FibroScan IQR/Median %: 30 Liver Steatosis: Controlled Attenuation Parameter CAP Score: 253 CAP Level %: 16 Procedure Interpretation (provider): low risk for advanced liver disease + hepatc steatosis Reference Range FibroScan Reference Range F0-F1 (kPa) [...] /vicente/ ZABRINA PASCAL Nurse Practitioner, Hepatology Signed: 08/12/2023 14:56 ZABRINA PASCAL [facility] Aug 09, 2023 10:49 AM GASTROENTEROLOGY N OTE: LOCAL TITLE: Gastroenterology Note STANDARD TITLE: GASTROENTEROLOGY NOTE DATE OF NOTE: AUG 09, 2023@10:49 ENTRY DATE: AUG 09, 2023@10:49:17 AUTHOR: ZABRINA PASCAL EXP COSIGNER: URGENCY: STATUS: COMPLETED GI PROBLEM LIST: 1. Elevated liver tests 2/2 etoh 2. Hepatic Steatosis 2/2 ETOH 08/09/23 LSM 8.7 CAP 253 HISTORY OF PRESENT ILLNESS: Mr. Khanna is a 62 year old male with a history of elevated liver tests and hepatic steatosis on abdominal imaging. He does not have risks for metabolic liver disease. He does continue to drink alcohol on a near daily basis, was surprised at how difficult it is to quit. Is working with a counselor here in mental health. He denies a history of icteric illness, gi tract bleeding, ascites or confusion. PERTINANT TESTS: LAB TESTS SELECTED Collection DT Specimen Test Name Result Units Ref Range 08/09/2023 10:38 PLASMA!! PROTEIN, TOTAL 8.2 g/dL 6.0 - 8.5 08/09/2023 10:38 PLASMA!! ALBUMIN 4.5 g/dL 3.2 - 5.0 08/09/2023 10:38 PLASMA!! BILIRUBIN, TOTAL 0.4 mg/dL 0.2 - 1.2 08/09/2023 10:38 PLASMA!! ALKALINE PHOSPHAT 63 U/L 40 - 150 08/09/2023 10:38 PLASMA!! ALT(SGPT) 50 U/L 7 - 52 08/09/2023 10:38 PLASMA!! AST(SGOT) 71 H U/L 5 - 34 03/17/2023 10:27 SERUM !! HEP B SURFACE AG(Non Reactive Ref: Non Reactive 03/17/2023 10:28 SERUM !! HEP C AB(WRJ) Non-Reactive Ref: Non- Reactive 03/17/2023 10:28 SERUM !! FERRITIN 472 H ng/mL 22 - 275 03/17/2023 10:28 PLASMA!! IRON 170 H ug/dL 40 - 160 03/17/2023 10:28 PLASMA!! TIBC 255 ug/dL 03/17/2023 10:28 PLASMA!! IRON SATURATION(P 67 % Ref: >=15 SII - Macy Image Impression Date Procedure CPT Status Case # 02/05/2023 ULTRASOUND RUQ (GB,LIVER,BILIARY) [id number] Verified 783 1. 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 Appears younger than stated age. HEENT: sclera are anicteric, mucus membranes moist CV: RRR No murmurs, rubs, or gallops CHEST: CTA bilat A&P, no crackles or wheezes ABD: soft, nontender, non distended, no palp organmegaly EXT: no edema, no deformities ASSESSMENT AND PLAN: Mr. 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 He is encouraged to engage with the [facility] the [facility]. Currently trying Acamprosate after an AE with Naltrexone. Liver tests today and again in six months at PCP visit. will also repeat ferritin/iron sat in six monthss. RTC one year /vicente/ ZABRINA PASCAL Nurse Practitioner, Hepatology Signed: 08/12/2023 14:55 ZABRINA PASCAL [facility]
--- OUTSIDE RECORDS SUMMARY | 2023-10-15 16:18 | XMS_ITS | Encounter Summary ---
Author Name [facility] [facility] [place] Address [address] [place] [address] Care Team Providers Care Imaging Nurse Name Role Phone CHERI VASQUEZ Primary Care [...] ACTIV E SELEC TCAR Feb 15, 2018 [id number] SHANELL KHANNA PATIENT [facility] ([id number]) PRESCRIPT ION [facility] NT Feb 15, 2018 Q54A [id number] SHANELL KHANNA PATIENT Selected Encounter This section includes the information on record at [place] for the Encounter. Date/Time Encounter Type Encounter Description Reason Provider Source May 19, 2023 02:31 PM Outpatient Encounter SUBSTANCE USE DISORDER IND [...] AM [facility] Jun 02, 2023 12:00 PM [facility] Jun 10, 2023 03:00 PM [facility] [facility] Jun 15, 2023 12:45 PM [facility] June 30, 2023 03:00 PM [facility] [facility] July 16, 2023 01:00 PM [facility] Jul 30, 2023 01:00 PM [facility] Aug 09, 2023 10:30 AM AMBULATORY - MEDICINE [facility] Aug 09, 2023 11:15 AM [facility] [facility] Aug 13, 2023 12:00 PM [facility] [facility] Aug 18, 2023 11:00 AM [facility] Sep 08, 2023 10:30 AM [facility] [facility] Oct 20, 2023 10:30 AM [facility]BULAT[facility] Lab Results: +/- 30 days [...] Comment Jun 15, 2023 01:53 PM [facility] LIVER PROFILE Specimen Type: PLASMA Comment: , Tests performed on Accolo SN:[id number]). Ordering Provider: PATRICIA ANTOINE Report Released Date/Time: Jun 02, 2023 01:18 PM Reporting Lab: [facility] [address] [place] [address] Performing Lab: [place] [address] [place] [address] PROTEIN, TOTAL 7.6 g/dL 6.0-8.5 ALBUMIN 4.1 g/dL 3.2-5.0 BILIRUBIN, TOTAL 0.7 mg/dL 0.2-1.2 ALKALINE PHOSPHATASE 55 U/L 40-150 ALT(SGPT) 25 U/L 7-52 AST(SGOT) 40 U/L H 5-34 Jun 15, 2023 01:53 PM [facility] DRUG SCREEN+ETG([facility]) Specimen Type: URINE Comment: This ETG test was developed and its performance characteristics determined by [place] clinical lab. The [place] Food and Drug Administration has not approved or cleared this test, FDA clearance or approval is not currently required for clinical use. ETG cutoff 500 ng/mL, Tests performed on [employer] Mejía SN:[id number] (405) Requests for Confirmation testing will need to be phoned in to the lab [phone]. Ordering Provider: PATRICIA ANTOINE Report Released Date/Time: May 19, 2023 01:53 PM Reporting Lab: [place] [address] [place] [address] Performing Lab: [place] [address] COCAINE SCREEN NONE DETECTED N one-Detec allen BENZODIAZEPINES SCREEN NONE DETECTED None-Detec allen OPIATES SCREEN NONE DETECTED N one-Detec allen CREATININE (URINE,RANDOM) 71.66 mg/dL CANNABINOID SCRN NONE DETECTED None-Detec allen AMPHETAMINE SCRN NONE DETECTED None-Detec allen METHADONE SCREEN([facility]) NONE DETECTED None-Detec allen pH CAROL 6.5 [pH] ETHYL GLUCURONIDE([facility]) SCRN POS None-Detec allen SPECIFIC GRAVITY CAROL 1.009 1.003-1.02 0 FENTANYL([facility])URI N E SCREEN NONE DETECTED None-Detec allen OXYCODONE SCREEN URINE([facility]) NONE DETECTED None-Detec allen ETOH URINE <10.0 mg/dL See_Com men t BUPRENORPHINE SCREEN URINE([facility]) NONE DETECTED None-Detec allen Jun 15, 2023 01:53 PM [facility] VIT D 25-OH([facility]) Specimen Type: SERUM Comment: , Tests performed on [employer] Mejía SN:[id number] (405) Ordering Provider: CHERI VASQUEZ Report Released Date/Time: Jun 15, 2023 01:39 PM Reporting Lab: [facility] [address] [facility] [address] Performing Lab: [facility] [address] [facility] [address] VIT D 25-OH(WRJ) 10.3 ng/mL L 20.0-50.0 May 11, 2023 02:49 PM [facility] LIVER PROFILE Specimen Type: PLASMA Comment: , Tests performed on Pérez [employer] SN:[id number] ([id number]). Ordering Provider: SHE CARRANZA Report Released Date/Time: May 11, 2023 02:41 PM Reporting Lab: [facility] [address] [facility] [address] Performing Lab: [facility] [address] [facility] [address] PROTEIN, TOTAL 7.9 g/dL 6.0-8.5 ALBUMIN 4.5 [...] Mar 17, 2023 11:00 AM VA-TOBACCO USE NO BAKE MOLDER NO [facility] Mar 17, 2023 11:00 AM VA-TOBACCO USE MED NO [facility] Mar 17, 2023 11:00 AM VA-TOBACCO USE WI 30 MIN OF WAKEUP [facility] Mar 17, 2023 11:00 AM VA-TOBACCO USER EVERY DAY [facility] May 13, 2018 11:59 AM AH-BPR SMOKING DEPLOYMENT NO [facility] May 13, 2018 11:59 AM PREVIOUS SMOKER WHI GLEN [facility] May 13, 2018 11:59 AM VA-TOBACCO DOESNT USE WI 30 MIN WAKEUP [facility] May 13, 2018 11:59 AM VA-TOBACCO USE 30 YEARS OR MORE [facility] May 13, 2018 11:59 AM VA-TOBACCO USE ADVICE [facility] May 13, 2018 11:59 AM VA-TOBACCO USE NO BAKE MOLDER YES [facility] May 13, 2018 11:59 AM [facility] May 13, 2018 11:59 AM VA-TOBACCO USER EVERY DAY [facility] Encounter Notes: All associated encounter notes This section contains the clinical notes associated to the Encounter. Date/Time Encounter Note(s) Provider Source May 19, 2023 02:31 PM MENTAL HEALTH DIAG NOSTIC STUDY NOTE: LOCAL TITLE: Mental Health Diagnostic Study Note STANDARD TITLE: MENTAL HEALTH DIAGNOSTIC STUDY NOTE DATE OF NOTE: MAY 19, 2023@14:31:53 ENTRY DATE: MAY 19, 2023@14:31:53 AUTHOR: SHE CARRANZA EXP COSIGNER: URGENCY: STATUS: COMPLETED [place] Depression Inventory--Second Edition Date Given: 05/19/2023 Clinician: She Carranza Location: [facility] [address] [place]: Amauri Khanna SSN: [id number] : [birth year]) [...] like a failure. (0 points) 4. I get very little pleasure from the things I used to enjoy. (2 points) 5. I don't feel particularly guilty. (0 [...] people or things. (2 points) 13. I find it more difficult to make decisions than usual. (1 point) 14. I do not feel I am worthless. (0 points) 15. I don't have enough energy to do very much. (2 points) 16. I sleep a lot more than usual. (2 points) 17. I am much more irritable than usual. (2 points) 18. I have not experienced any change in my appetite. (0 points) 19. It's hard to keep my mind on anything for very long. (2 points) 20. I get more tired or fatigued more easily than usual. (1 point) 21. I have not noticed any recent changes in my interest in sex. (0 points) Second Edition (BDI-II). Copyright (c) 1995 Stalin [place]. Reproduced, adapted and translated with permission of Publisher [facility] [employer] All rights reserved. Information contained in this note is based on a self-report assessment and is not sufficient to use alone for diagnostic purposes. Assessment results should be verified for accuracy and used in conjunction with other diagnostic activities and procedures. /vicente/ She Carranza MS [facility] Addiction Therapist Signed: 05/19/2023 16:05 SHE CARRANZA [facility]
--- OUTSIDE RECORDS SUMMARY | 2023-10-15 16:19 | XMS_ITS | Encounter Summary ---
Author Name [facility] [place] Organization [facility] [place] [facility] [place] Address [address] [place] [address] Care Team Providers Care Lumber Marker Name Role Phone CHERI VASQUEZ Primary Care [...] Victor's Name Patient's Relationship to Policy Victor [facility] POINT OF SERVICE SOV ACTIV E SELEC TCAR Feb 15, 2018 [id number] KHANNA,SHANELL LEMON PATIENT [facility] ([id number]) PRESCRIPT ION [facility] NT Feb 15, 2018 Q54A [id number] CLEMENCIASHANELL ERT PATIENT Selected Encounter This section includes the information on record at [facility] for the Encounter. Date/Time Encounter Type Encounter Description Reason Pro vider Source Aug 09, 2023 12:00 AM Outpatient Encounter EVENT (HISTORICAL) [...] 13, 2023 12:00 [facility], 2023 11:00 [facility] Sep 08, 2023 10:30 AM [facility] Oct 20, 2023 10:30 AM [facility] Nov 23, 2023 11:45 AM AMBULATORY - NONE [facility] Lab Results: +/- 30 [...] Range Comment Aug 09, 2023 10:38 AM [facility] PT&INR Specimen Type: PLASMA Comment: Tests performed on eVigilo TOP 350 SN [id number] ([id number]) Ordering Provider: ZABRINA PASCAL Report Released Date/Time: Jun 15, 2023 02:08 PM Reporting Lab: [facility] [address] [facility] [address] Performing Lab: [facility] [address] [facility] [address] INR 0.9 {ratio} 0.9-1.1 PT 10.0 s 9.4-12.5 Aug 09, 2023 10:38 AM [facility] LIVER PROFILE Specimen Type: PLASMA Comment: Specimen 1+ Hemolysed, Tests performed on [employer] Mejía SN:[id number] (405) Ordering Provider: ZABRINA PASCAL Report Released Date/Time: Jun 15, 2023 02:08 PM Reporting Lab: [facility] [address] [facility] [address] Performing Lab: [facility] [address] [facility] [address] PROTEIN, TOTAL 8.2 g/dL 6.0-8.5 ALBUMIN 4.5 [...] 86 160/98 18 99 0 155.8 22 [facility] Social History: Smoking [...] 2023 11:00 AM VA-TOBACCO USER EVERY DAY [facility] Tobacco Use History This section includes a history of the smoking, or tobacco-related health factors, that were collected on or before the date of the Encounter. The data comes from the [place] facility where the Encounter took place. Date/Time Smoking Status/Tobacco Use Comment Deann ibarra Mar 17, 2023 11:00 AM VA-TOBACCO USE ADVICE [facility] Mar 17, 2023 11:00 AM VA-TOBACCO USE DIGITAL SALES EXECUTIVE NO [facility] Mar 17, 2023 11:00 AM VA-TOBACCO USE MED NO [facility] Mar 17, 2023 11:00 AM VA-TOBACCO USE WI 30 MIN OF WAKEUP [facility] Mar 17, 2023 11:00 AM VA-TOBACCO USER EVERY DAY [facility] May 13, 2018 11:59 AM AH-BPR SMOKING DEPLOYMENT NO [facility] May 13, 2018 11:59 AM PREVIOUS SMOKER WHI GLEN [facility] May 13, 2018 11:59 AM VA-TOBACCO DOESNT USE WI 30 MIN WAKEUP [facility] May 13, 2018 11:59 AM VA-TOBACCO USE 30 YEARS OR MORE [facility] May 13, 2018 11:59 AM VA-TOBACCO USE ADVICE [facility] May 13, 2018 11:59 AM VA-TOBACCO USE DIGITAL SALES EXECUTIVE YES [facility] May 13, 2018 11:59 AM VA-TOBACCO USE MED NO [facility] May 13, 2018 11:59 AM VA-TOBACCO USER EVERY DAY [facility]
--- OUTSIDE RECORDS SUMMARY | 2023-10-15 16:19 | XMS_ITS | Encounter Summary ---
Author Name [facility] [place] [facility] [place] Address [address] [place] [address] Care Team Providers Care Constitutional Law Professor Name Role Phone CHERI VASQUEZ Primary [...] Victor's Name Patient's Relationship to Policy Victor [facility] ACTIV E SELE[facility] TCAR Feb 15, 2018 [id number] SHANELL KHANNA PATIENT [employer] ([id number]) PRESCRIPT ION [facility] NT Feb 15, 2018 [id number] SHANELL KHANNA PATIENT Selected Encounter This section includes the information on record at [facility] for the Encounter. Date/Time Encounter Type Encounter Description Reason Provider Source Aug 13, 2023 12:00 PM PSYTX W PT 30 MINUTES SUBSTANCE USE DISORDER IND ICD-10-CM F10.99 Alcohol use, unsp with unspecified alcohol-induced disorder BRIAN CARRANZA Encounter Template Text not used by [facility] Assessments - Encounter Diagnoses This section includes the primary and secondary diagnoses documented for the Encounter. Date/Time Primary/Secondary Diagnosis Diagnosis Name Provider Source Aug 13, 2023 01:08 PM PRIMARY Alcohol use, unsp with unspecified alcohol-induced disorder BRIAN CARRANZA [facility] Aug 13, 2023 01:08 PM SECONDARY Depression, unspecified BRIAN CARRANZA [facility] Plan of Treatment: Future Appointments (+ 6 months) and Future Tests (+/- 45 days) The Plan of Treatment section includes future care activities for the patient from all [place] [facility]. This section includes future appointments and future orders which are active, pending or scheduled. Future Appointments This section includes appointments that were scheduled to occur 6 months from the date of the Encounter, up to a maximum of 20 appointments. The data comes from all [place] treatment facilities. Appointment Date/Time Appointment Type Appointme nt Facility Name Aug 18, 2023 11:00 AM AMBULATORY - PSYCHIATRY [facility] Sep 08, 2023 10:30 AM AMBULATORY - PSYCHIATRY [facility] Oct 20, 2023 10:30 AM AMBULATORY - PSYCHIATRY [facility] Nov 23, 2023 11:45 AM AMBULATORY - NONE [facility] Lab Results: +/- 30 days of the encounter This section includes the Chemistry and Hematology Lab Results on record with [place] for the patient. Radiology Reports and Pathology [...] Specimen 1+ Hemolysed, Tests performed on Pérez Squirrel Worker Mejía SN:[id number] (405) Ordering Provider: ZABRINA PASCAL Report Released Date/Time: Jun 15, 2023 02:08 PM Reporting Lab: [facility] [address] [address] Performing Lab: [facility] [address] [address] PROTEIN, TOTAL 8.2 g/dL 6.0-8.5 ALBUMIN 4.5 g/dL 3.2-5.0 BILIRUBIN, TOTAL 0.4 mg/dL 0.2-1.2 ALKALINE PHOSPHATASE 63 U/L 40-150 ALT(SGPT) 50 U/L 7-52 AST(SGOT) 71 U/L H 5-34 Aug 09, 2023 10:38 AM [facility] PT&INR Specimen Type: PLASMA Comment: Tests performed on IL ACL TOP 350 SN [id number] (405) Ordering Provider: ZABRINA PASCAL Report Released Date/Time: Jun 15, 2023 02:08 PM Reporting Lab: [facility] [address] [address] Performing Lab: [facility] [address] [address] INR 0.9 {ratio} 0.9-1.1 PT 10.0 s 9.4-12.5 Social History: Smoking Status (Most current) and Tobacco Use (All prior to encounter date) This section includes the most current, and the historical, smoking and tobacco- related health factors from the [place] facility where the Encounter took place. Current Smoking Status This section includes the most current smoking, or tobacco-related health factor, from the [place] facility where the Encounter took place. Date/Time Current Smoking Status Comment Yayo ity Mar 17, 2023 11:00 AM VA-TOBACCO USER EVERY DAY [facility] Tobacco Use History This section includes a history of the smoking, or tobacco-related health factors, that were collected on or before the date of the Encounter. The data comes from the [place] facility where the Encounter took place. Date/Time Smoking Status/Tobacco Use Comment F acility Mar 17, 2023 11:00 AM VA-TOBACCO USE ADVICE [facility] Mar 17, 2023 11:00 AM VA-TOBACCO USE EQUIPMENT MAINTENANCE SUPERVISOR NO [facility] Mar 17, 2023 11:00 AM VA-TOBACCO USE MED NO [facility] Mar 17, 2023 11:00 AM VA-TOBACCO USE WI 30 MIN OF WAKEUP [facility] Mar 17, 2023 11:00 AM VA-TOBACCO USER EVERY DAY [facility] May 13, 2018 11:59 AM AH-BPR SMOKING DEPLOYMENT NO [facility] May 13, 2018 11:59 AM PREVIOUS SMOKER [facility] May 13, 2018 11:59 AM VA-TOBACCO DOESNT USE WI 30 MIN WAKEUP [facility] [place] [facility] May 13, 2018 11:59 AM VA-TOBACCO USE 30 YEARS OR MORE [facility] [place] [facility] May 13, 2018 11:59 AM VA-TOBACCO USE ADVICE [facility]LES [facility] May 13, 2018 11:59 AM VA-TOBACCO USE EQUIPMENT MAINTENANCE SUPERVISOR YES [facility] [facility] May 13, 2018 11:59 AM VA-TOBACCO USE MED NO [place] [facility] May 13, 2018 11:59 AM VA-TOBACCO USER EVERY DAY [facility] Encounter Notes: All associated encounter notes This section contains the clinical notes associated to the Encounter. Date/Time Encounter Note(s) Provider Source Aug 13, 2023 12:21 PM SATP NOTE: LOCAL TITLE: SUBSTANCE USE DISORDER THERAPY NOTE STANDARD TITLE: SATP NOTE DATE OF NOTE: AUG 13, 2023@12:21 ENTRY DATE: AUG 13, 2023@12:21:29 AUTHOR: BRIAN CARRANZA COSIGNER: URGENCY: STATUS: COMPLETED [facility] appointment: Chauvin is not currently located at address listed in CPRS enter current physician location here: 's current address: [address] [place] [address] Chauvin's telephone number: [phone] Additional contact information (i.e. neighbors/relatives): e-911: Call [phone] to speak with an agent who can put you in touch with a plastic extrusion operator at the Patient's location. You must have the physical location (address) where the Patient is currently located. Verbal informed consent has been obtained. Patient was seen today for 20 - 30 minutes for treatment of the following diagnosis/diagnoses and problems: alcohol use disorder, moderate Significant issues, symptoms, complaints: is disappointed that he hasn't made progress on his goal to decrease alcohol use. We talked about switching to a lower alcohol content beer and he said he thought of that and picked some up. We both agreed that would at least be a little progress. Still overwhelmed at work, hoping to get a vacancy filled soon. Relevant mental status exam or other objective findings: depressed affect. Assessment: is not too forthcoming in session, so we stick to the basics which is coping with stress and decrease alcohol consumption. Plan: 7/12 at 12p /es/ Brian Carranza MS [facility] Addiction Therapist Signed: 08/13/2023 13:08 BRIAN CARRANZA [facility]
--- OUTSIDE RECORDS SUMMARY | 2023-10-15 16:22 | XMS_ITS | Encounter Summary ---
Author Organization [facility] [place] [address] Care Team Providers Care Core Winding Operator Name Role Phone Jossy Ventura APRN Primary Care Provider [phone] Encounter Details Date Type Department Care Team (Late st Contact Info) Description 10/24/2021 Telephone [facility] [place] [phone] Ashley Rodriguez Social History Tobacco Use Types Packs/Day Years Used Date Smoking Tobacco: Former Smokeless Tobacco: Current Chew Sex and Gender Information Value Date Recorded Sex Assigned at Not on file Gender Identity Not on file Sexual Orientation Not on file documented as of this encounter Miscellaneous Notes * Telephone Encounter - Ashley Rodriguez - 10/24/2021 4:30 PM EDT 10/24/2021 Returned patient call to discuss rescheduling upcoming appointment. Unable to reach patient, left voicemail to call us back. No [facility] account. documented in this encounter Plan of Treatment Not on file documented as of this encounter Visit Diagnoses Not on filedocumented in this encounter Care Teams Core Winding Operator Relationship Specialty Start Date End Date Jossy Ventura APRN [address] [place] [address] PCP - General Family Medicine 06/08/21 documented as of this encounter
--- OUTSIDE RECORDS SUMMARY | 2023-10-15 16:22 | XMS_ITS | Encounter Summary ---
Author Organization [facility] [address] Care Team Providers Care Scholastic Aptitude Test Grader Name Role Phone Lorenzo Jossy TEJADA Primary Care Provider [phone] Reason for Referral * Physical Therapy (Routine) - Closed Specialty Diagnoses / Procedures Referred By Nik proctor Referred To Contact Diagnoses Radiculitis of left cervical region Cervical spondylosis Myofascial pain Scapular dyskinesis Raz Cleveland MD [facility] [place] [address] Unknown None Referral ID Status Reason Start Date Expiration Date V isits Requested Visits Authorized [id number] Closed Evaluate and Treat Non PCP 08/14/2021 02/10/2022 12 12 Reason for Visit * Reason Comments Follow-up MRI Cervical Encounter Details Date Type Department Care Team (Late st Contact Info) Description 08/14/2021 11:30 AM EDT Office Visit [facility] [place] [address] Raz Cleveland MD [facility] [place] [address] Radiculitis of left cervical region; Cervical spondylosis; Myofascial pain; Scapular dyskinesis Social History Tobacco Use Types Packs/Day Years Used Date Smoking Tobacco: Former Smokeless Tobacco: Current Chew Sex and Gender Information Value Date Recorded Sex Assigned at Not on file Gender Identity Not on file Sexual Orientation Not on file documented as of this encounter Last Filed Vital Signs Vital Sign Reading Time Taken Comments Blood Pressure 145/76 08/14/2021 11:18 AM EDT Pulse 89 08/14/2021 11:18 AM EDT Temperature - - Respiratory Rate - - Oxygen Saturation - - Inhaled Oxygen Concentration - - Weight 74.8 kg (165 lb) 08/14/2021 11:18 AM EDT Height 177.8 cm (5' 10) 08/14/2021 11:18 AM EDT Body Mass Index 23.68 08/14/2021 11:18 AM EDT documented in this encounter Progress Notes * Raz Cleveland MD - 08/14/2021 11:30 AM EDT Interim history: The patient was last seen on 07/03/2021. He returns for follow-up after completion of cervical MRI on 08/11/2021. There has been a marked decrease in symptoms for the past week. He reports very mild intermittent tingling in left ring and small fingers. He notes improved cervical range of motion, no recent headache, no shoulder pain and no recent left upper extremity pain radiation. Interestingly, the patient's change in clinical status was immediately preceded by a further increase in left subscapular pain with radiation to posterior arm and an increase in numbness and tinglingin ring and small fingers. The patient reports no pain with shoulder range of motion. Cervical MRI is reviewed. 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 There are severe degenerative changes from C3-C4 through C6-C7, including endplate degenerative changes and osteophyte formation. Disc osteophyte complexes are present from C4-C5 through C7-T1. Intervertebral foraminal narrowing is moderate on the left at C7-T1. There is additional foraminal narrowing of moderate severity bilaterally at C6-C7 and, on the right, at C5-C6. There is severe right-sided intervertebral foraminal narrowing at C4-C5. Objective: BP 145/76 Pulse 89 Ht 177.8 cm (5' 10) Wt 74.8 kg (165 lb) BMI 23.68 kg/m?? The patient is seated comfortably and in no apparent distress. No pain behaviors are observed. Is normal. There is no difficulty performing bilateral heel or toe walking. The patient is able to perform tandem gait activities without difficulty. Neck is protracted. Right shoulder is elevated instanding. Active cervical flexion 45 degrees. Active extension 60 degrees. Mild restriction is noted in rightcervical rotation and in bilateral lateral flexion. There is no pain with cervical range of motion. Mild restriction is noted in all planes of motion at the left shoulder. Left scapulothoracic rhythmis impaired. Palpation: There is mild tenderness to palpation over left upper trapezius. There is no tenderness in the neck or throughout the left upper extremity. Motor: Left hand intrinsics 4 - to 4/5. Upper extremity motor examination otherwise 5/5 throughout. Sensation: Intact to light touch throughout the upper extremities. Muscle stretch reflexes: 2+ bilaterally for biceps, triceps and brachioradialis. Knee tone normal throughout the upper extremities. Santos's reflex absent in the upper extremities. Assessment: Encounter Diagnoses Name Primary? Radiculitis of left cervical region ??? Cervical spondylosis ??? Myofascial pain ??? Scapular dyskinesis There has been a marked improvement of the patient's symptoms since the last visit. Symptoms are currently limited to mild intermittent tingling in left ring and small fingers. Cervical MRI has been reviewed in detail with the patient and his . The study demonstrates the presence of intervertebral foraminal narrowing on the left at C7-T1. This likely accounts for the overall symptom complex. There is no indication for invasive procedures, given the marked decrease in symptoms over the pastweek. He continues to demonstrate evidence of myofascial tenderness, cervicothoracic postural dysfunction and impaired range of motion. I recommend outpatient PT treatment and have explained the rationale for such treatment to the patient in detail. He would like to proceed. A prescription has been written for postural cheondoism, myofascial therapy as needed to the neck and left shoulder girdle, active range of motion and stretching to neck and shoulders, cheondoism of normal scapulothoracic rhythm and progression to cervical and parascapular stabilization and strengthening. Plan: 1. Outpatient PT treatment. 2. Follow-up in 8 weeks during PT treatment. Total time spent on date of encounter = 42 minutes. Raz Cleveland MD, MS documented in this encounter Plan of Treatment Scheduled Referrals Name Type Priority Associated Diagnoses Orde r Schedule Referral to Physical Therapy Outpatient Referral Routine Radiculitis of left cervical region Cervical spondylosis Myofascial pain Scapular dyskinesis Ordered: 08/14/2021 documented as of this encounter Visit Diagnoses Diagnosis Radiculitis of left cervical region Brachial neuritis or radiculitis nos Cervical spondylosis Cervical spondylosis without myelopathy Myofascial pain Mylagia and myositis, unspecified Scapular dyskinesis Lack of coordination documented in this encounter Care Teams Scholastic Aptitude Test Grader Relationship Specialty Start Date End Date Jossy Ventura APRN [address] [place] [address] PCP - General Family Medicine 06/08/21 documented as of this encounter
--- OUTSIDE RECORDS SUMMARY | 2023-10-15 16:22 | XMS_ITS | Encounter Summary ---
Author Organization [facility] [place] [address] Care Team Providers Care Medical Record Librarian Name Role Phone Jossy Ventura APRN Primary Care Provider Encounter Details Date Type Department Care Team (Late st Contact Info) Description 08/25/2021 Telephone [facility] [place] [phone] Alina Forrester Social History Tobacco Use Types Packs/Day Years Used Date Smoking Tobacco: Former Smokeless Tobacco: Current Chew Sex and Gender Information Value Date Recorded Sex Assigned at Not on file Gender Identity Not on file Sexual Orientation Not on file documented as of this encounter Miscellaneous Notes * Telephone Encounter - Alina [facility] - 08/25/2021 11:11 AM EDT LVM to schedule 8 [address] follow up [address] Cleveland to check in about PT. documented in this encounter Plan of Treatment Not on file documented as of this encounter Visit Diagnoses Not on filedocumented in this encounter Care Teams Medical Record Librarian Relationship Specialty Start Date End Date Jossy Ventura APRN [address] [place] [address] PCP - General Family Medicine 06/08/21 documented as of this encounter
--- OUTSIDE RECORDS SUMMARY | 2023-10-15 16:22 | XMS_ITS | Encounter Summary ---
Author Organization [facility] [place] [address] Care Team Providers Care Inspector Handbag Frames Name Role Phone Lorenzo Jossy TEJADA Primary Care Provider Reason for Visit * Reason Comments Neck Pain Encounter Details Date Type Department Care Team (Late st Contact Info) Description 11/20/2021 11:30 AM EDT Office Visit [facility] [place] [address] Raz Cleveland MD [facility] [place] [address] Cervical spondylosis Social History Tobacco Use Types Packs/Day Years Used Date Smoking Tobacco: Former Smokeless Tobacco: Current Chew Sex and Gender Information Value Date Recorded Sex Assigned at Not on file Gender Identity Not on file Sexual Orientation Not on file documented as of this encounter Last Filed Vital Signs Vital Sign Reading Time Taken Comments Blood Pressure 154/78 11/20/2021 11:31 AM EDT Pulse 102 11/20/2021 11:31 AM EDT Temperature - - Respiratory Rate - - Oxygen Saturation - - Inhaled Oxygen Concentration - - Weight 74.8 kg (165 lb) 11/20/2021 11:31 AM EDT Height 177.8 cm (5' 10) 11/20/2021 11:31 AM EDT Body Mass Index 23.68 11/20/2021 11:31 AM EDT documented in this encounter Progress Notes * Raz Cleveland MD - 11/20/2021 11:30 AM EDT Interim history: The patient returns for follow-up during PT treatment. He was last seen in the office on 08/14/2021. He states that he has been doing well and has been essentially asymptomatic. He recalls having leftcervical radicular symptoms for approximately two days last month, but this has not recurred. He reports no pain at present. I have reviewed the PT progress note of 11/12/2021. Objective: BP 154/78 Pulse (!) 102 Ht 177.8 cm (5' 10) Wt 74.8 kg (165 lb) BMI 23.68 kg/m?? The patient is seated comfortably and in no apparent distress. No pain behaviors are observed during today's evaluation. Gait is normal. There is no difficulty performing bilateral heel or toe walking. The patient completes bilateral tandem gait activities without difficulty. Neck is protracted. This responds easily toverbal cues. Active cervical flexion 45 degrees, extension 50 degrees. Mild restriction is noted in bilateral cervical rotation and bilateral lateral flexion. There is no pain with active cervical range of motionin any plane. Palpation: Neck is nontender. There is tenderness over left upper trapezius. Shoulder girdles are otherwise nontender. Motor: 5/5 throughout the upper extremities. Sensation: Intact to light touch throughout the upper extremities. Muscle stretch reflexes: 2+ bilaterally for biceps, triceps and brachioradialis. Assessment: Encounter Diagnosis Name Primary? Cervical spondylosis The patient has had an excellent response to PT treatment. He reports isolated and self-limited left cervical radicular symptoms last month, but none since that time. Neurological examination is normal and non-focal. It appears that his cervical radicular symptoms have resolved. The patient and I reviewed postural cues for maintenance of anatomic head and neck positioning. Physical therapy may be discontinued and the patient released to an independent home exercise program. He has been encouraged to continue the home exercises on a daily basis over the long-term. Raz Cleveland MD, MS documented in this encounter Plan of Treatment Not on file documented as of this encounter Visit Diagnoses Diagnosis Cervical spondylosis Cervical spondylosis without myelopathy documented in this encounter Care Teams Inspector Handbag Frames Relationship Specialty Start Date End Date Jossy Ventura APRN [address] [place] [address] PCP - General Family Medicine 06/08/21 documented as of this encounter
--- OUTSIDE RECORDS SUMMARY | 2023-10-15 16:22 | XMS_ITS | Clinical Summary ---
Author Organization [facility] [place] [address] Care Team Providers Care Offal Worker Name Role Phone Jossy Ventura APRN Primary Care Provider [phone] Allergies No known active allergies Medications Medication Sig Dispensed Refills Start Date End Date Status lisinopriL (Zestril) 10 mg Tablet Take 20 mg by mouth daily. 04/28/2021 Active Active Problems No known active problems Social History Tobacco Use Types Packs/Day Years Used Date Smoking Tobacco: Former Smokeless Tobacco: Current Chew Sex and Gender Information Value Date Recorded Sex Assigned at Not on file Gender Identity Not on file Sexual Orientation Not on file Last Filed Vital Signs Vital Sign Reading [...] Mass Index 23.68 11/20/2021 11:31 AM EDT Plan of Treatment Health Maintenance Due Date Last Done Comments CT Colonography 1960 Colonoscopy 1960 Colorectal Cancer Screening 1960 FIT DNA 1960 FIT 1960 Sigmoidoscopy (10 year) with FIT yearly 1960 Sigmoidoscopy 1960 HIV screen 1978 Hepatitis C Screening 1978 Lipid Screening 1978 Tdap adult 12/13/1979 Tetanus vaccine 12/13/1979 Zoster vaccine (1 of 2) 2010 Advance Directive 12/13/2015 Covid-19 Vaccine (1 - season) 2022 Influenza (Flu) vaccine (1 o f 1 - Influenza standard series) 10/17/2023 Care Teams Offal Worker Relationship Specialty Start Date End Date Jossy Ventura APRN [address] [place] [address] PCP - General Family Medicine 06/08/21
--- OUTSIDE RECORDS SUMMARY | 2023-10-15 16:23 | XMS_ITS | Encounter Summary ---
Author Organization [facility] Address [address] [place] [address] Care Team Providers Care Transportation Consultant Name Role Phone Jossy Ventura GAMA Primary Care Provider [phone] Encounter Details Date Type Department Care Team (Late st Contact Info) Description 09/25/2021 Lab Requisition [facility] Pathology & Laboratory Medicine - [address] [address] Outr Resulting Lab, Provider Social History Tobacco Use Types Packs/Day Years Used Date Smoking Tobacco: Never Assessed Interpersonal Safety Answer Date Record ed Physically Hurt Never 05/17/2020 Verbally Threaten Not on file 05/17/2020 Sex and Gender Information Value Date Recorded Sex Assigned at Not on file Gender Identity Male 03/25/2021 15:14 EST Sexual Orientation Not on file documented as of this encounter Plan of Treatment Not on file documented as of this encounter Procedures Procedure Name Priority Date/Time Associated Diagnosis Comments PSA TOTAL, DIAGNOSTIC Routine 09/24/2021 15:40 EDT documented in this encounter Results * PSA TOTAL, DIAGNOSTIC (09/24/2021 15:40 EDT) PSA 2.1 <=4.5 ng/mL 09/25/2021 20:49 EDT [facility] Blood VENOUS BLOOD / Unknown 09/24/2021 15:40 EDT 09/25/2021 17:56 EDT Narrative [facility] - 09/25/2021 20:49 EDT NOTE: Serum PSA concentration should not be interpreted as absolute evidence for the presence or absence of malignant disease. Assayed on Siemens ADVIA Centaur XPT using chemiluminescent technology.??Values obtained by using different assay methods cannot be used interchangeably. Provider Outr Resulting Lab CHEMISTRY & BLOOD GAS ORDERABLES [facility] [address] [place] [address] documented in this encounter Visit Diagnoses Not on filedocumented in this encounter Care Teams Transportation Consultant Relationship Specialty Start Date End Date Jossy Ventura FNP [address] [place] [phone] PCP - General 10/16/20 documented as of this encounter
--- OUTSIDE RECORDS SUMMARY | 2023-10-15 16:23 | XMS_ITS | Encounter Summary ---
Author Organization [facility] Address [address] [place] [address] Care Team Providers Care Cable Mock Up Assembler Name Role Phone Jossy Ventura GAMA Primary Care Provider [phone] Encounter Details Date Type Department Care Team (Late st Contact Info) Description 05/17/2020 Lab Requisition [facility] Pathology & Laboratory Medicine - [address] [address] Outr Resulting Lab, Provider Social History Tobacco [...] Procedure Name Priority Date/Time Associated Diagnosis Comments HEPATITIS C AB W REFLEX TO HCV RNA BY PCR Routine 05/16/2020 15:17 EDT PSA TOTAL, DIAGNOSTIC Routine 05/16/2020 15:17 EDT documented in this encounter Results * PSA TOTAL, DIAGNOSTIC (05/16/2020 15:17 EDT) PSA 1.4 0.0 - 3.5 ng/mL 05/17/2020 17:32 EDT [facility] Blood VENOUS BLOOD / Unknown 05/16/2020 15:17 EDT 05/17/2020 16:03 EDT Narrative [facility] - 05/17/2020 17:32 EDT NOTE: Serum PSA concentration should not be interpreted as absolute evidence for the presence or absence of malignant disease. Assayed on Siemens ADVIA Centaur XPT using chemiluminescent technology.??Values obtained by using different assay methods cannot be used interchangeably. Provider Outr Resulting Lab CHEMISTRY & BLOOD GAS ORDERABLES Performing Organization Address City/[facility]/ZIP Co de Phone Number [facility] [address] [place] [address] * HEPATITIS C AB W REFLEX TO HCV RNA BY PCR (05/16/2020 15:17 EDT) Hep C Antibody Negative Negative 05/20/2020 11:13 EDT [facility] Blood VENOUS BLOOD / Unknown 05/16/2020 15:17 EDT 05/17/2020 16:03 EDT Provider Outr Resulting Lab CHEMISTRY & BLOOD GAS ORDERABLES Performing Organization Address [facility] Co de Phone Number [facility] [address] [place] [address] documented in this encounter Visit Diagnoses Not on filedocumented in this encounter Care Teams Cable Mock Up Assembler Relationship Specialty Start Date End Date Jossy Ventura FNP [address] [place] [id number] PCP - General 10/16/20 documented as of this encounter
--- OUTSIDE RECORDS SUMMARY | 2023-10-15 16:23 | XMS_ITS | Encounter Summary ---
Author Organization [facility] Address [address] [place] [address] Care Team Providers Care Wrapper Layer And Examiner Soft Work Name Role Phone Jossy Ventura GAMA Primary Care Provider [phone] Encounter Details Date Type Department Care Team (Late st Contact Info) Description 10/07/2022 Lab Requisition [facility] Pathology & Laboratory Medicine - [address] [address] Outr Resulting Lab, Provider Social History Tobacco [...] Associated Diagnosis Comments PSA TOTAL, DIAGNOSTIC Routine 10/06/2022 14:25 EDT documented in this encounter Results * PSA TOTAL, DIAGNOSTIC (10/06/2022 14:25 EDT) PSA 1.5 <=4.5 ng/mL 10/07/2022 21:48 EDT [facility] Blood VENOUS BLOOD / Unknown 10/06/2022 14:25 EDT 10/07/2022 17:37 EDT Narrative [facility] - 10/07/2022 21:48 EDT NOTE: Serum PSA concentration should not be interpreted as absolute evidence for the presence or absence of malignant disease. Assayed on Siemens ADVIA Centaur XPT using chemiluminescent technology.??Values obtained by using different assay methods cannot be used interchangeably. Provider Outr Resulting Lab CHEMISTRY & BLOOD GAS ORDERABLES [facility] [address] [place] [address] documented in this encounter Visit Diagnoses Not on filedocumented in this encounter Care Teams Wrapper Layer And Examiner Soft Work Relationship Specialty Start Date End Date Jossy Ventura FNP [address] [place] [id number] PCP - General 10/16/20 documented as of this encounter
--- OUTSIDE RECORDS SUMMARY | 2023-10-15 16:23 | XMS_ITS | Referral Summary ---
Author Organization Health system Address [address] [place] [address] Care Team Providers Care Mgmt Consultant Name Role Phone Jossy Ventura GAMA Primary Care Provider [phone] Encounters Date Type Department Care Team Description 09/14/2023 12:55 EDT - 09/14/2023 23:59 EDT Hospital Encounter [facility] Xray [address] [place] [address] Other specified disorders of bone density and structure, unspecified site Discharge Disposition: Home or Self Care from Last 3 Months Social History Tobacco Use Types Packs/Day Years Used Date Smoking Tobacco: Never Assessed Interpersonal Safety Answer Date Record ed Physically Hurt Never 05/17/2020 Verbally Threaten Not on file 05/17/2020 Sex and Gender Information Value Date Recorded Sex Assigned at Not on file Gender Identity Male 03/25/2021 15:14 EST Sexual Orientation Not on file Plan of Treatment Not on file Procedures Procedure Name Priority Date/Time Associated Diagnosis Comments DXA BONE DENSITY Routine 09/14/2023 13:1 9 EDT Other specified disorders of bone density and structure, unspecified site HEPATITIS C AB W REFLEX TO HCV RNA BY PCR Routine 05/16/2020 15:17 EDT from Last 3 Months or Most Recently Relevant to Health Maintenance Results * DXA BONE DENSITY (09/14/2023 13:19 EDT) Anatomical Region Laterality Modality DEXA Narrative 09/15/2023 15:39 EDT Table formatting from the original result was not included. Images from the original result were not included. Indication: ??Osteopenia; other specified disorders of bone density and structure, unspecified site Accession number: [id number] Clinical Information Provided by Patient: Has 3 or more alcoholic drinks per day ?? Has used the following medications: Vitamin D, Calcium Patient maximum height was 70 Does not regularly consume dairy products ?? Bone Density: Exam date 09/14/2023 Region BMD (g/cm2) T-score Z-score Classification AP Spine(L1-L4) 1.143 ??0.5 ??1.2 Normal Femoral Neck(Left) 0.733 -1.5 -0.5 Osteopenia Total Hip(Left) 0.955 -0.5 ??0.0 Normal World Health Organization criteria for BMD impression classify patients as Normal (T-score at or above -1.0), Osteopenia (T-score between -1.0 and -2.5), or Osteoporosis (T-score at or below -2.5). ?? 10-year Fracture Risk??: Major Osteoporotic Fracture 6.9% Hip Fracture 1.1% Reported Risk Factors: [place] (), Neck BMD=0.733, BMI=24.0, alcohol use ?? FRAX?? Version 3.08. Fracture probability calculated for an untreated patient. Fracture probability may be lower if the patient has received treatment. Previous Exams: ?? Region Exam Date Age BMD (g/cm2) T-score BMD Change vs. Baseline BMD Change vs. Previous AP Spine (L1-L4) 09/14/2023 62 1.143 ??0.5 0.034 (3.1%)* 0.034 (3.1%)* 03/25/2021 60 1.108 ??0.2 ?? Total Hip(Left) 09/14/2023 62 0.955 -0.5 0.008 (0.8%) 0.008 (0.8%) 03/25/2021 60 0.947 -0.6 ?? *Denotes significance at 95% confidence level, LSC for AP Spine = 0.022 g/cm2, ??LSC for Total Hip = 0.027 g/cm2 ? Impression: The patient has low bone mass, based on the Left Femoral Neck T-score. The patient has an estimated ten-year risk of hip fracture of 1.1% and an estimated ten-year risk of major fracture of 6.9%, based on the WHO FRAX algorithm. The patient has risk factors, including: excessive alcohol use. No significant bone loss was observed. Discussion: BONE DENSITY IS LOW AT ONE OR MORE SKELETAL SITES. This patient's lowest T-score is low at one or more skeletal sites. ??It meets the World Health Organization's (WHO) criteria for ? low bone mass? ?? (T-score between -1.0 and -2.5). ?? The patient's 10-year risk of fracture as calculated by FRAX is less than the threshold where pharmacological therapy is recommended by the National Osteoporosis Foundation (NOF). ??However, all treatment decisions require clinical judgment and consideration of individual patient factors, including patient preferences, comorbidities, previous drug use, risk factors not captured in the FRAX model (e.g., frailty, falls, vitamin D deficiency, increased bone turnover, interval significant decline in bone density) and possible under or overestimation of fracture risk by FRAX. The patient should follow a healthful lifestyle (good nutrition with adequate calcium and vitamin D, and appropriate weight-bearing exercise). *As indicated, always consider the FRAX assessment with all other relevant clinical risk factors. Follow-Up: Consider repeating this study in 2 to 3 years to reassess this patient's status, or sooner if there is some new clinical indication. Reported by: ?? Dudley Waller MD, on 09/14/2023 1:13:00 PM. Jossy Ventura ENGINEERING TEAM SUPERVISOR IMG DEXA ORDERABLES * HEPATITIS C AB W REFLEX TO HCV RNA BY PCR (05/16/2020 15:17 EDT) Hep C Antibody Negative Negative 05/20/2020 11:13 EDT [facility] Blood VENOUS BLOOD / Unknown 05/16/2020 15:17 EDT 05/17/2020 16:03 EDT Provider Outr Resulting Lab CHEMISTRY & BLOOD GAS ORDERABLES [facility] [address] [place] [address] from Last 3 Months or Most Recently Relevant to Health Maintenance Care Teams Mgmt Consultant Relationship Specialty Start Date End Date Jossy Ventura FNP [address] [facility] [place] [id number] PCP - General 10/16/20
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
--- OUTSIDE RECORDS SUMMARY | 2023-10-15 16:23 | XMS_ITS | Encounter Summary ---
[place] [address] Care Team Providers Care Refrigeration Plant Cork Insulator Name Role Phone Jossy Ventura APRN Primary Care Provider [phone] Reason for Referral * Consultation (Routine) - Closed Specialty Diagnoses / Procedures Referred By Contac t Referred To Contact [facility] and Spine Center Diagnoses Degeneration of lumbar intervertebral disc Cervicalgia Connective tissue and disc stenosis of intervertebral foramina of abdomen and other regions Spine - Cervical & lumbar degenerative spondylosis/ RUE pain/ XR (c&l) 05/26/21 in [facility] Jossy Ventura APRN [address] [place] [address] [facility] [place] [place] [address] Referral ID Status Reason Start Date Expiration Date V isits Requested Visits Authorized [id number] Closed Consult, Test & Treat PCP Updated and/or Approved 06/09/2021 06/09/2022 6 6 Encounter Details Date Type Department Care Team (Latest Contact Info) Description 06/09/2021 Transcribe Orders eD Incoming Referrals [phone] Jossy Ventura APRN [address] [place], [place] [address] Degeneration of lumbar intervertebral disc Social History Tobacco Use Types Packs/Day Years Used Date Smoking Tobacco: Never Assessed Sex and Gender Information Value Date Recorded Sex Assigned at Not on file Gender Identity Not on file Sexual Orientation Not on file documented as of this encounter Plan of Treatment Scheduled Referrals Name Type Priority Associated Diagnoses Orde r Schedule Referral to Spine Center Outpatient Referral Routine Degeneration of lumbar intervertebral disc Ordered: 06/09/2021 documented as of this encounter Visit Diagnoses Diagnosis Degeneration of lumbar intervertebral disc Degeneration of lumbar or lumbosacral intervertebral disc documented in this encounter Care Teams Refrigeration Plant Cork Insulator Relationship Specialty Start Date End Date Jossy Ventura APRN [address] [place] [address] PCP - General Family Medicine 06/08/21 documented as of this encounter
--- OUTSIDE RECORDS SUMMARY | 2023-10-15 16:23 | XMS_ITS | Encounter Summary ---
Author Organization [facility] [place] [address] Care Team Providers Care Soft Tile Setter Name Role Phone Jossy Ventura APRN Primary Care Provider [phone] Encounter Details Date Type Department Care Team (Late st Contact Info) Description 07/08/2021 Telephone [facility] [place] [phone] Karlene Fish Social History Tobacco Use Types Packs/Day Years Used Date Smoking Tobacco: Former Smokeless Tobacco: Current Sex and Gender Information Value Date Recorded Sex Assigned at Not on file Gender Identity Not on file Sexual Orientation Not on file documented as of this encounter Miscellaneous Notes * Telephone Encounter - Karlene Fish - 07/08/2021 1:07 PM EDT 07/08/2021 LVMM for patient to call back and schedule F/u to discuss MRI results with Dr Cleveland. MRI (08/11/21) documented in this encounter Plan of Treatment Not on file documented as of this encounter Visit Diagnoses Not on filedocumented in this encounter Care Teams Soft Tile Setter Relationship Specialty Start Date End Date Jossy Ventura APRN [address] [place] [address] PCP - General Family Medicine 06/08/21 documented as of this encounter
--- OUTSIDE RECORDS SUMMARY | 2023-10-15 16:23 | XMS_ITS | Encounter Summary ---
Author Organization [facility] Address [address] [place] [address] Care Team Providers Care Workforce Management Consultant Name Role Phone Jossy Ventura GAMA Primary Care Provider [phone] Encounter Details Date Type Department Care Team (Late st Contact Info) Description 11/04/2022 Lab Requisition [facility] Pathology & Laboratory Medicine - [address] [address] Outr Resulting Lab, Provider Social History Tobacco [...] Procedure Name Priority Date/Time Associated Diagnosis Comments PTH INTACT Routine 11/03/2022 16:00 EDT documented in this encounter Results * PTH INTACT (11/03/2022 16:00 EDT) Intact PTH 26 19 - 88 pg/mL 11/04/2022 19:10 EDT [facility] Blood VENOUS BLOOD / Unknown 11/03/2022 16:00 EDT 11/04/2022 17:24 EDT Provider Outr Resulting Lab CHEMISTRY & BLOOD GAS ORDERABLES [facility] [address] [place] [address] documented in this encounter Visit Diagnoses Not on filedocumented in this encounter Care Teams Workforce Management Consultant Relationship Specialty Start Date End Date Jossy Ventura FNP [address] [facility] [address] [place] [phone] PCP - General 10/16/20 documented as of this encounter
--- OUTSIDE RECORDS SUMMARY | 2023-10-15 16:23 | XMS_ITS | Encounter Summary ---
Author Organization [facility] Address [address] [place] [address] Care Team Providers Care Abrasive Band Winder Name Role Phone Jossy Ventura GAMA Primary Care Provider [phone] Encounter Details Date Type Department Care Team (Late st Contact Info) Description 11/15/2020 Lab Requisition [facility] Pathology & Laboratory Medicine - [facility] [address] [place] [address] Deedee Schwartz, DO [address] [place], [place] [id number] Encounter for other general examination Social History Tobacco Use Types Packs/Day Years [...] Procedure Name Priority Date/Time Associated Diagnosis Comments SURGICAL PATHOLOGY Today 11/15/2020 10 :42 EDT Encounter for other general examination documented in this encounter Results * SURGICAL PATHOLOGY (11/15/2020 10:42 EDT) Note to Patient The following pathology results have been interpreted by your pathologist and may be available to you before your health provider has had the opportunity to review them. Please allow time for your provider to receive these results and explore management options, if applicable. 11/18/2020 16:47 EDT [facility] Final Diagnosis A. COLON, CECUM, POLYP, BIOPSY: - Fragments of tubular adenoma. B. COLON, 90 CM, POLYP, BIOPSY: - Fragments of tubular adenoma. 11/18/2020 16:47 [facility] Attestation By the signature below, the attending physician certifies that they have 1) personally conducted a gross and/or microscopic examination of the described specimen(s), and/or personally interpreted the results of laboratory testing of the described specimen(s), and 2) personally rendered or confirmed the above diagnosis. 11/18/2020 16:47 [facility] at 1646 Clinical History Colon polyps; hemorrhoids 11/18/2020 16:47 [facility] Gross Description A. Received in formalin labelled with proper patient identification (initials B, R) and cecal polyp ley tissue (0.5 x 0.4 x 0.1 cm). Submitted intact in A1. B. Received in formalin labelled with proper patient identification (initials B, R) and polyp at 90 are three pale ley-white focally brown speckled tissues (0.5 x 0.3 x 0.1 cm to 0.3 x 0.1 x 0.1 cm). Entirely submitted in B1. Sp [place] 11/17/2020 19:53 11/18/2020 16:47 [facility] Performing Lab [facility] 11/18/2020 16:47 [facility] Scanned Images 11/18/2020 16:47 [facility] Tissue ENTIRE COLON / Unknown 11/15/2020 10:42 EDT 11/15/2020 17:39 EDT Tissue specimen (specimen) COLON STRUCTURE / Unknown 11/15/2020 10:42 EDT 11/15/2020 17:39 EDT Deedee Schwartz DO PATHOLOGY ORDERABLES [facility] [address] [place] [address] documented in this encounter Visit Diagnoses Diagnosis Encounter for other general examination documented in this encounter Care Teams Abrasive Band Winder Relationship Specialty Start Date End Date Jossy Ventura FNP [address] [phone] PCP - General 10/16/20 documented as of this encounter
--- OUTSIDE RECORDS SUMMARY | 2023-10-15 16:23 | XMS_ITS | Encounter Summary ---
Author Organization [facility] [place] [address] Care Team Providers Care Business Information Consultant Name Role Phone Unavailable Primary Care Provider Unavailabl e Encounter Details Date Type Department Care Team (Late st Contact Info) Description 05/26/2021 12:05 AM EDT Ancillary [place] [address] Jossy Ventura APRN [address] [place] [address] Social History Tobacco Use Types Packs/Day Years Used Date Smoking Tobacco: Never Assessed Sex and Gender Information Value Date Recorded Sex Assigned at Not on file Gender Identity Not on file Sexual Orientation Not on file documented as of this encounter Plan of Treatment Not on file documented as of this encounter Procedures Procedure Name Priority Date/Time Associated Diagnosis Comments FILM LIBRARY STORAGE ONLY DX SPINE Routine 05/26/2021 12:05 AM EDT documented in this encounter Results * Film Library- Storage Only DX Spine (05/26/2021 12:05 AM EDT) Narrative ISABEL - 05/29/2021 8:39 AM EDT This exam is auto-finalizing. It's purpose is for storage only. Jossy Ventura APRN IMG FILM LIBRARY ORD ERABLES [place], [place] documented in this encounter Visit Diagnoses Not on filedocumented in this encounter
--- OUTSIDE RECORDS SUMMARY | 2023-10-15 16:23 | XMS_ITS | Clinical Summary ---
Author Organization [facility] Address [address] [place] [address] Care Team Providers Care President & Ceo Name Role Phone Jossy Ventura GAMA Primary Care Provider [phone] Encounters Date Type Department Care Team Description 09/14/2023 12:55 EDT - 09/14/2023 23:59 EDT Hospital Encounter [facility] Xray [address] [place] [address] Other specified disorders of bone density and [...] Orientation Not on file Plan of Treatment Health Maintenance Due Date Last Done Comments RSV Immunization ( o r 60+ Years) (1 - 1-dose 60+ series) 2020 COVID-19 Vaccine ( season) 2022 Hepatitis C Screen Completed 05/16/2020 Procedures Procedure Name Priority Date/Time Associated Diagnosis [...] density and structure, unspecified site Accession number: [id number] Clinical Information Provided by Patient: Has 3 [...] MD, on 09/14/2023 1:13:00 PM. Jossy Ventura MOTOR DRIVER IMG DEXA ORDERABLES * HEPATITIS C AB W REFLEX TO HCV RNA BY PCR (05/16/2020 15:17 EDT) Hep C Antibody Negative Negative 05/20/2020 11:13 EDT [facility] Blood VENOUS BLOOD / Unknown 05/16/2020 15:17 EDT 05/17/2020 16:03 EDT Provider Outr Resulting Lab CHEMISTRY & BLOOD GAS ORDERABLES [facility] [address] [place] [address] from Last 3 Months or Most Recently Relevant to Health Maintenance Care Teams President & Ceo Relationship Specialty Start Date End Date Jossy Ventura FNP [address] [place] [address] [facility] - General 10/16/20
--- OUTSIDE RECORDS SUMMARY | 2023-10-15 16:23 | XMS_ITS | Encounter Summary ---
Author Organization [facility] Address [address] [place] [address] Care Team Providers Care Instrument Lens Grinder Apprentice Name Role Phone Jossy Ventura Primary Care Provider Reason for Referral * Radiology Services (Routine/Next Available) - New Request Specialty Diagnoses / Procedures Referred By Nik proctor Referred To Contact Diagnoses Other specified disorders of bone density and structure, unspecified site Procedures DXA BONE DENSITY Jossy Ventura FNP [address] [facility] [address] [place] [phone] [facility] Referral ID Status Reason Start Date Expiration Date V isits Requested Visits Authorized [id number] New Request 07/15/2023 1 1 Reason for Visit * Radiology Services (Routine/Next Available) - New Request Specialty Diagnoses / Procedures Referred By Nik proctor Referred To Contact Diagnoses Other specified disorders of bone density and structure, unspecified site Procedures DXA BONE DENSITY Jossy Ventura FNP [address] [facility] [address] [place] [address] [facility] Referral ID Status Reason Start Date Expiration Date V isits Requested Visits Authorized [id number] New Request 07/15/2023 1 1 Encounter Details Date Type Department Care Team (Latest Contact Info) Description 09/14/2023 12:55 EDT - 09/14/2023 23:59 EDT Hospital Encounter [facility] Xray [address] [place] [address] Other specified disorders of bone density and structure, unspecified site Discharge Disposition: Home or Self Care Social History Tobacco Use Types Packs/Day Years Used Date Smoking Tobacco: Never Assessed Interpersonal Safety Answer Date Record ed Physically Hurt Never 05/17/2020 Verbally Threaten Not on file 05/17/2020 Sex and Gender Information Value Date Recorded Sex Assigned at Not on file Gender Identity Male 03/25/2021 15:14 EST Sexual Orientation Not on file documented as of this encounter Discharge Disposition Disposition Code Departure Means Destination Home or Self Care documented in this encounter Plan of Treatment Not on file documented as of this encounter Procedures Procedure Name Priority Date/Time Associated Diagnosis Comments DXA BONE DENSITY Routine 09/14/2023 13:1 9 EDT Other specified disorders of bone density and structure, unspecified site documented in this encounter Results * DXA BONE DENSITY (09/14/2023 13:19 EDT) Anatomical Region Laterality Modality DEXA Narrative 09/15/2023 15:39 EDT Table formatting from the original result was not included. Images from the original result were not included. Indication: ??Osteopenia; other specified disorders of bone density and structure, unspecified site Accession number: [id number] Clinical Information Provided by Patient: Has 3 [...] Waller MD, on 09/14/2023 1:13:00 PM. Jossy MALLOY IMG DEXA ORDERABLES documented in this encounter Visit Diagnoses Diagnosis Other specified disorders of bone density and structure, unspecified site documented in this encounter Care Teams Instrument Lens Grinder Apprentice Relationship Specialty Start Date End Date Jossy Ventura FNP [address] [place] [phone] PCP - General 10/16/20 documented as of this encounter
--- OUTSIDE RECORDS SUMMARY | 2023-10-15 16:23 | XMS_ITS | Encounter Summary ---
[facility] [place] [address] Care Team Providers Care Hydrographer Name Role Phone Unavailable Primary Care Provider Unavailabl e Encounter Details Date Type Department Care Team (Late st Contact Info) Description 05/26/2021 Ancillary Procedure [place] [address] Jossy Ventura APRN [address] [place] [address] Social History Tobacco Use Types Packs/Day Years [...] Diagnosis Comments FILM LIBRARY STORAGE ONLY DX SHOULDER Routine 05/26/2021 12:00 AM EDT documented in this encounter Results * Film Library- Storage Only DX Shoulder (05/26/2021 12:00 AM EDT) Narrative RAD - 05/29/2021 8:36 AM EDT This exam is auto-finalizing. It's purpose is for storage only. Jossy Ventura APRN IMG FILM LIBRARY ORD ERABLES [place], [place] documented in this encounter Visit Diagnoses Not on filedocumented in this encounter
--- OUTSIDE RECORDS SUMMARY | 2023-10-15 16:23 | XMS_ITS | Encounter Summary ---
[facility] [place] [address] Care Team Providers Care Project Director Name Role Phone Jossy Ventura APRN Primary Care Provider Reason for Visit * Diagnostic Test (Routine) - Closed Specialty Diagnoses / Procedures Referred By Nik t Referred To Contact Radiology Diagnoses Radiculitis of left cervical region Cervical spondylosis Procedures MRI Cervical Spine wo Contrast (Generic) Raz Cleveland MD [facility] PHYSICAL [place] [address] [facility] [place] [address] Referral ID Status Reason Start Date Expiration Date V isits Requested Visits Authorized [id number] Closed Specialty Service Requested 07/03/2021 09/25/2021 1 1 Encounter Details Date Type Department Care Team (Latest Contact Info) Description 08/11/2021 3:02 PM EDT - 08/11/2021 11:59 PM EDT [place] [address] Raz Cleveland MD [facility] PHYSICAL [place] [address] Discharge Disposition: Home Social History Tobacco Use Types Packs/Day Years Used Date Smoking Tobacco: Former Smokeless Tobacco: Current Sex and Gender Information Value Date Recorded Sex Assigned at Not on file Gender Identity Not on file Sexual Orientation Not on file documented as of this encounter Medications at Time of Discharge Medication Sig Dispensed Refills Start Date End Date lisinopriL (Zestril) 10 mg Tablet Take 20 mg by mouth daily. 04/28/2021 documented as of this encounter Plan of Treatment Not on file documented as of this encounter Procedures Procedure Name Priority Date/Time Associated Diagnosis Comments MRI CERVICAL SPINE WO CONTRAST Routine 08/11/2021 5:00 PM EDT Radiculitis of left cervical region Cervical spondylosis documented in this encounter Results * MRI Cervical Spine [...] who have questions please contact the health care companion that requested your imaging first. ? Electronically signed by: Radha Eastman MD, [facility] ([phone]), at 08/12/2021 10:13 AM Narrative 08/12/2021 10:13 AM EDT EXAMINATION: MRI [...] patients who have questions please contactthe health care companion that requested your imaging first. Raz Cleveland MD IMG MRI ORDERABLES documented in this encounter Visit Diagnoses Not on filedocumented in this encounter Care Teams Project Director Relationship Specialty Start Date End Date Jossy Ventura APRN [address] [place] [address] PCP - General Family Medicine 06/08/21 documented as of this encounter
--- OUTSIDE RECORDS SUMMARY | 2023-10-15 16:23 | XMS_ITS | Encounter Summary ---
Author [facility] [place] [address] Care Team Providers Care Powder Coat Painter Name Role Phone Jossy Ventura APRN Primary Care Provider [phone] Encounter Details Date Type Department Care Team (Late st Contact Info) Description 07/08/2021 Telephone [place] [phone] Stevie Garcia LNA Social History Tobacco Use Types Packs/Day Years Used Date Smoking Tobacco: Former Smokeless Tobacco: Current Sex and Gender Information Value Date Recorded Sex Assigned at Not on file Gender Identity Not on file Sexual Orientation Not on file documented as of this encounter Miscellaneous Notes * Telephone Encounter - Stevie Garcia Jr. - 07/08/2021 12:45 PM EDT Informed patient of Date, Time, Cosmetologist Apprentice area for upcoming MRI scheduled via batch. MRI is scheduled on 08/11. Left [phone] for call back to schedule a follow up as [facility] Follow up with Provider: Raz Cleveland MD Visit type: In person follow up documented in this encounter Plan of Treatment Not on file documented as of this encounter Visit Diagnoses Not on filedocumented in this encounter Care Teams Powder Coat Painter Relationship Specialty Start Date End Date Jossy Ventura APRN [address] [place] [address] PCP - General Family Medicine 06/08/21 documented as of this encounter
--- OUTSIDE RECORDS SUMMARY | 2023-10-15 16:23 | XMS_ITS | Encounter Summary ---
Author Organization [facility] Address [address] [place] [address] Care Team Providers Care Slitting And Shipping Supervisor Name Role Phone Jossy Ventura Primary Care Provider [phone] Encounter Details Date Type Department Care Team (Late st Contact Info) Description 05/26/2021 Documentation Visit [facility] [address] [place] [address] Cristina Marino, PT [address] [place] [address] Social History Tobacco Use Types Packs/Day Years Used Date Smoking Tobacco: Never Assessed Interpersonal Safety Answer Date Record ed Physically Hurt Never 05/17/2020 Verbally Threaten Not on file 05/17/2020 Sex and Gender Information Value Date Recorded Sex Assigned at Not on file Gender Identity Male 03/25/2021 15:14 EST Sexual Orientation Not on file documented as of this encounter Progress Notes * Cristina Marino, PT - 05/26/2021 1408 EDT [facility] [phone] Physical Therapy Discharge Not Seen Recently Therapy Diagnosis: left C8-T1 cervical radiculopathy Referring Clinician: GAMA Fine Reporting Period: 04/01/21 - 04/24/21 Visits: 6 Physical Therapy Program to Date: In summary, the program has included: Therapeutic exercise, manual therapy and modalities as needed, neuromuscular re- education, therapeutic activity Goal Review: Short-Term Goals Timeframe: 04/22/21 Goals: 1. Mr. uHrtado will demonstrate ability to increase cervical extension to 60 degrees without increasing UE pain to allow for improved use of rearview mirrors or to drink from can.(some progress) ?? Long-Term Goals Timeframe: 05/13/21 Goals: 1. Mr. Hurtado will report ability to perform [facility] IR and ER and put on jacket without UE pain. (notmet) Discharge Reason: no marked changes. Getting further work up. Discharge patient at this time; future therapy will require a new physician's referral. documented in this encounter Plan of Treatment Not on file documented as of this encounter Visit Diagnoses Not on filedocumented in this encounter Care Teams Slitting And Shipping Supervisor Relationship Specialty Start Date End Date Jossy Ventura FNP [address] [place] [phone] PCP - General 10/16/20 documented as of this encounter
--- OUTSIDE RECORDS SUMMARY | 2023-10-15 16:23 | XMS_ITS | Encounter Summary ---
[place] [address] Care Team Providers Care Director Of Provider Relations Name Role Phone Jossy Ventura APRN Primary Care Provider Reason for Referral * Diagnostic Test (Routine) - Closed Specialty Diagnoses / Procedures Referred By Contac t Referred To Contact Radiology Diagnoses Radiculitis of left cervical region Cervical spondylosis Procedures MRI Cervical Spine wo Contrast (Generic) Raz Cleveland MD [facility] [address] [place] [address] [place] [address] Referral ID Status Reason Start Date Expiration Date V isits Requested Visits Authorized [id number] Closed Specialty Service Requested 07/03/2021 09/25/2021 1 1 Reason for Visit * Diagnostic Test (Routine) - Closed Specialty Diagnoses / Procedures Referred By Contac t Referred To Contact Radiology Diagnoses Radiculitis of left cervical region Cervical spondylosis Procedures MRI Cervical Spine wo Contrast (Generic) Raz Cleveland MD [facility] [place] [address] [place] [address] Referral ID Status Reason Start Date Expiration Date V isits Requested Visits Authorized [id number] Closed Specialty Service Requested 07/03/2021 09/25/2021 1 1 Encounter Details Date Type Department Care Team (Latest Contact Info) Description 08/11/2021 3:00 PM EDT - 08/11/2021 3:01 PM EDT Hospital Encounter MRI at [facility] [place] [address] Raz Cleveland MD [facility] [address] [place] [address] Radiculitis of left cervical region; Cervical spondylosis Discharge Disposition: Home Social History Tobacco Use [...] daily. 04/28/2021 documented as of this encounter Progress Notes * Corina Garcia RN - 08/06/2021 1:33 PM EDT MRI PRE-SEDATION ASSESSMENT NOTE NAME: Favian Hurtado AGE: 60 y.o. : 1960 [address] [place] [address] Male [phone] (home) Telephone Information: Jossy Ventura APRN No primary care provider on file. No Known Allergies Date/Time of call: August 06, 2021/10:03 AM/ PREVIOUS MRI SCAN? Yes, many years ago HEIGHT: 5'10 WEIGHT: 165 lbs SCHEDULED SCAN: MRI CERVICAL SPINE WO CONTRAST [[id number]] (40 mins, head first, supine) SUBJECTIVE: Claustrophobic CAN YOU LAY FLAT? Yes AIRWAY/BREATHING ISSUES? No DO YOU HAVE ANY INVOLUNTARY MOVEMENTS? No DO YOU HAVE ANY PAIN? Yes DO YOU TAKE PAIN MED ON A DAILY BASIS? No ASSESSMENT: Pt is appropriate for po sedation. PLAN: Valium 5 mg PO x 2 (tme) You must have a trash collector truck driver present when you check in. This patient has been informed that they require a trash collector truck driver to drive them home after this procedure. In the absence of a trash collector truck driver, IR will not be able to sedate for your scan. Pt verbalized understanding of these instructions during the pre-procedure education via phone. Yes X [place] of trash collector truck driver: Phone number: PRIOR SCAN DATE/S SEDATION TYPE SUCCESSFUL Revised 07/13/17 documented in this encounter Plan of Treatment [...] who have questions please contact the health rn intensive care unit that requested your imaging first. ? Electronically signed by: Radha Eastman MD, [facility] ([phone]), at 08/12/2021 10:13 AM Narrative 08/12/2021 10:13 [...] patients who have questions please contactthe health rn intensive care unit that requested your imaging first. Raz Cleveland MD IMG MRI ORDERABLES documented in this encounter Visit Diagnoses Diagnosis Radiculitis of left cervical region Brachial neuritis or radiculitis nos Cervical spondylosis Cervical spondylosis without myelopathy documented in this encounter Administered Medications Inactive Administered Medications - up to 3 most recent administrations Medication Order MAR Action Action Date Dose Rate Site diazePAM (Valium) tablet 5 mg 5 mg, Oral, EVERY 30 MIN PRN, 2 doses, Starting on 08/11/21 at 0814, Until Tu08/12/21 at 0434, Anxiety, Minimal Sedation per Department of Radiology Adult Minimal Sedation Guidelines: Give 50 minutes prior to scan., Angio/IR (Day of Procedure), Routine Given 08/11/2021 3:32 PM EDT 5 mg documented in this encounter Care Teams Director Of Provider Relations Relationship Specialty Start Date End Date Jossy Ventura APRN [address] [place] [address] PCP - General Family Medicine 06/08/21 documented as of this encounter
--- OUTSIDE RECORDS SUMMARY | 2023-10-15 16:23 | XMS_ITS | Encounter Summary ---
Author Organization [facility] Address [address] [place] [address] Care Team Providers Care Technical Sales Support Manager Name Role Phone Jossy Ventura Primary Care Provider [phone] Reason for Referral * Radiology Services (Routine/Next Available) - Authorization Not Required Specialty Diagnoses / Procedures Referred By Nik t Referred To Contact Diagnoses Muscle spasm of back Procedures XR SCAPULA LEFT Jossy Ventura FNP [address] [email or web address] [address] [place] [phone] [facility] [place] Status Reason Start Date Expiration Date Visits Requested Visits Authorized [id number] Authorization Not Required 05/22/2021 1 1 * Radiology Services (Routine/Next Available) - Authorization Not Required Specialty Diagnoses / Procedures Referred By Nik t Referred To Contact Diagnoses Muscle spasm of back Procedures XR CERVICAL SPINE 4-5 VIEWS Jossy Ventura FNP [address] [email or web address] [address] [place] [phone] [facility] [place] Referral ID Status Reason Start Date Expiration Date Visits Requested Visits Authorized [id number] Authorization Not Required 05/22/2021 1 1 * Radiology Services (Routine/Next Available) - Authorization Not Required Specialty Diagnoses / Procedures Referred By Rogelioac t Referred To Contact Diagnoses Muscle spasm of back Procedures XR LUMBAR SPINE COMPLETE WITH FLEX/EXT AND OBLIQUES MIN 6 VIEWS Jossy Ventura FNP [address] [email or web address] [address] [place] [address] [facility] [place]erral ID Status Reason Start Date Expiration Date Visits Requested Visits Authorized [id number] Authorization Not Required 05/22/2021 1 1 Reason for Visit * Radiology Services (Routine/Next Available) - Authorization Not Required Specialty Diagnoses / Procedures Referred By Contac t Referred To Contact Diagnoses Muscle spasm of back Procedures XR CERVICAL SPINE 4-5 VIEWS Jossy Ventura FNP [address] [facility] [address] [place] [phone] [facility] [place] Referral ID Status Reason Start Date Expiration Date Visits Requested Visits Authorized [id number] Authorization Not Required 05/22/2021 1 1 Encounter Details Date Type Department Care Team (Latest Contact Info) Description 05/26/2021 13:47 EDT - 05/26/2021 23:59 EDT Hospital Encounter [facility] Xray [address] [place] [address] Muscle spasm of back Discharge Disposition: Home or Self Care Social [...] Procedure Name Priority Date/Time Associated Diagnosis Comments XR SCAPULA LEFT Routine 05/26/2021 14:40 EDT Muscle spasm of back XR LUMBAR SPINE COMPLETE WITH FLEX/EXT AND OBLIQUES MIN 6 VIEWS Routine 05/26/2021 14:40 EDT Muscle spasm of back XR CERVICAL SPINE 4-5 VIEWS Routine 05/26/2021 14:40 EDT Muscle spasm of back documented in this encounter Results * XR SCAPULA LEFT (05/26/2021 14:40 EDT) Anatomical Region Laterality Modality Left Computed Radiogr aphy 05/26/2021 14:4 8 EDT Impressions 05/26/2021 14:48 EDT No acute osseous abnormality. Narrative 05/26/2021 14:48 EDT INDICATION: MUSCLE SPASM, TRAPEZIUS MUSCLE, LEFT TECHNIQUE: ??2 views left scapula. COMPARISON: None. FINDINGS: The scapula is normal in morphology. No fracture is detected. The glenohumeral joint alignment appears anatomic and the glenohumeral joint space is preserved. The included left lung is clear. Procedure Note Guille Beck MD - 05/26/2021 INDICATION: MUSCLE SPASM, TRAPEZIUS MUSCLE, LEFT TECHNIQUE: 2 views left scapula. COMPARISON: None. FINDINGS: The scapula is normal in morphology. No fracture is detected.The glenohumeral joint alignment appears anatomic and the glenohumeraljoint space is preserved. The included left lung is clear. IMPRESSION No acute osseous abnormality. Jossy Ventura FINAL CLEANER IM DIAGNOSTIC IMAGI NG ORDERABLES * XR CERVICAL SPINE 4-5 VIEWS (05/26/2021 14:40 EDT) Anatomical Region Laterality Modality Left Computed Radiogr aphy 05/26/2021 14:5 3 EDT Impressions 05/26/2021 14:53 EDT Degenerative spondylosis of the cervical spine Narrative 05/26/2021 14:53 EDT INDICATION: MUSCLE SPASM, TRAPEZIUS MUSCLE, LEFT TECHNIQUE: ??5 views cervical spine. COMPARISON: None. FINDINGS: The vertebral body heights are maintained and no fracture is detected. There is no abnormal prevertebral soft tissue swelling. The facet joints are well aligned. The spinous processes are intact. There is straightening of the normal cervical lordosis. There is moderate/severe disc space narrowing at C3-C4, C4-C5 and C5-C6 and moderate disc space narrowing at C6-C7. There are suspected developmental osseous fusion at C2-C3. Small anterior osteophytes are present throughout the cervical spine. Facet arthrosis is present at the mid cervical levels. Procedure Note Guille Beck MD - 05/26/2021 INDICATION: MUSCLE SPASM, TRAPEZIUS MUSCLE, LEFT TECHNIQUE: 5 views cervical spine. COMPARISON: None. FINDINGS: The vertebral body heights are maintained and no fracture isdetected. There is no abnormal prevertebral soft tissue swelling. Thefacet joints are well aligned. The spinous processes are intact. There isstraightening of the normal cervical lordosis. There is moderate/severedisc space narrowing at C3-C4, C4-C5 and C5-C6 and moderate disc spacenarrowing at C6-C7. There are suspected developmental osseous fusion atC2-C3. Small anterior osteophytes are present throughout the cervicalspine. Facet arthrosis is present at the mid cervical levels. 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 Narrative 05/26/2021 14:47 EDT INDICATION: MUSCLE SPASM, TRAPEZIUS MUSCLE, LEFT TECHNIQUE: ??6 views lumbar spine. COMPARISON: None. FINDINGS: There is transitional anatomy. For the purposes of this report, the 1st nonrib-bearing vertebral body will be denoted as L1 and there is partial lumbarization of the S1 segment. The vertebral body heights are maintained. Moderate convex rightward curvature of the lumbar spine is centered at L3-L4. In the neutral position, there is trace retrolisthesis at L1-L2, L2-L3 and L3-L4. With flexion/extension, no definite dynamic instability is detected. No pars interarticularis defect is identified. Moderate disc space narrowing is present at all lumbar levels and marginal osteophytes are present. Facet arthrosis is present at the lower lumbar levels. Procedure Note Guille Beck MD - 05/26/2021 INDICATION: MUSCLE SPASM, TRAPEZIUS MUSCLE, LEFT TECHNIQUE: 6 views lumbar spine. COMPARISON: None. FINDINGS: There is transitional anatomy. For the purposes of this report,the 1st nonrib-bearing vertebral body will be denoted as L1 and there ispartial lumbarization of the S1 segment. The vertebral body heights aremaintained. Moderate convex rightward curvature of the lumbar spine iscentered at L3-L4. In the neutral position, there is trace retrolisthesisat L1-L2, L2-L3 and L3-L4. With flexion/extension, no definite dynamicinstability is detected. No pars interarticularis defect is identified.Moderate disc space narrowing is present at all lumbar levels and marginalosteophytes are present. Facet arthrosis is present at the lower lumbarlevels. IMPRESSION Transitional lumbosacral anatomy and degenerative spondylosis of thelumbar spine. Jossy MALLOY IMG DIAGNOSTIC IMAGI NG ORDERABLES documented in this encounter Visit Diagnoses Diagnosis Muscle spasm of back Other symptoms referable to back documented in this encounter Care Teams Technical Sales Support Manager Relationship Specialty Start Date End Date Jossy Ventura FNP [address] [place] [address] [place] [phone] PCP - General 10/16/20 documented as of this encounter
--- OUTSIDE RECORDS SUMMARY | 2023-10-15 16:23 | XMS_ITS | Encounter Summary ---
Author Organization [facility] Address [address] [place] [address] Care Team Providers Care Fiber Optic Technician Name Role Phone Jossy Ventura Primary Care Provider Reason for Referral * Radiology Services (Routine/Next Available) - Authorization Not Required Specialty Diagnoses / Procedures Referred By Nik proctor Referred To Contact Diagnoses Other specified disorders of bone density and structure, unspecified site Procedures XR DEXA BONE DENSITY Jossy Ventura FNP [address] [facility] [address] [place] [phone] [facility] [place] Referral ID Status Reason Start Date Expiration Date Visits Requested Visits Authorized [id number] Authorization Not Required 03/24/2021 1 1 Reason for Visit * Radiology Services (Routine/Next Available) - Authorization Not Required Specialty Diagnoses / Procedures Referred By Nik proctor Referred To Contact Diagnoses Other specified disorders of bone density and structure, unspecified site Procedures XR DEXA BONE DENSITY Jossy Ventura FNP [address] [facility] [address] [place] [phone] [facility] [place] Referral ID Status Reason Start Date Expiration Date Visits Requested Visits Authorized [id number] Authorization Not Required 03/24/2021 1 1 Encounter Details Date Type Department Care Team (Latest Contact Info) Description 03/25/2021 15:17 EST - 03/25/2021 23:59 EST Hospital Encounter [facility] Xray [address] [place] [address] Other specified disorders of bone density and [...] Associated Diagnosis Comments DXA BONE DENSITY Routine 03/25/2021 15:4 5 EST Other specified disorders of bone density and structure, unspecified site documented in this encounter Results * XR DEXA BONE DENSITY (03/25/2021 15:45 EST) Anatomical Region Laterality Modality DEXA Narrative 03/27/2021 7:50 EST Indication: ?? Accession number: [id number] Clinical Information Provided by Patient: Has 3 or more alcoholic drinks per day ?? Has used the following medications: Vitamin D, Calcium Patient maximum height was 70 Does not regularly consume dairy products ?? Bone Density: Exam date 03/25/2021 Region BMD (g/cm2) T-score Z-score Classification AP Spine(L1-L4) 1.108 ??0.2 ??0.8 Normal Femoral Neck(Left) 0.737 -1.4 -0.5 Osteopenia Total Hip(Left) 0.947 -0.6 -0.1 Normal World Health Organization criteria for BMD impression classify patients as Normal (T-score at or above ? 1.0), Osteopenia (T-score between ? 1.0 and ? 2.5), or Osteoporosis (T-score at or below ? 2.5). ?? 10-year Fracture Risk??: Major Osteoporotic Fracture 6.8% Hip Fracture 0.9% Reported Risk Factors: [place] (), Neck BMD=0.737, BMI=24.0, alcohol use ?? FRAX?? Version 3.08. Fracture probability calculated for an untreated patient. Fracture probability may be lower if the patient has received treatment. Extended Spine: Region Area (cm??) BMC (g) BMD (g/cm??) T-score Peak Reference Z-score Age Matched L1 17.55 19.16 1.092 0.2 102 0.7 108 L2 17.20 19.79 1.151 0.5 105 1.1 112 L3 17.98 19.19 1.067 -0.3 97 0.3 103 L4 19.18 21.57 1.125 0.3 103 1.0 111 L1-L2 34.75 38.95 1.121 0.6 106 1.2 114 L1,L3 35.53 38.35 1.079 0.2 102 0.8 109 L1,L4 36.72 40.73 1.109 0.2 102 0.9 109 L2-L3 35.18 38.98 1.108 0.1 101 0.7 108 L2,L4 36.38 41.36 1.137 0.1 101 0.8 108 L3-L4 37.16 40.76 1.097 -0.2 98 0.4 104 L1-L3 52.73 58.14 1.102 0.3 103 0.9 110 L1-L2,L4 53.92 60.52 1.122 0.3 103 0.9 110 L1,L3-L4 54.71 59.92 1.095 0.0 100 0.7 107 L2-L4 54.36 60.55 1.114 0.0 100 0.6 107 L1-L4 71.91 79.71 1.108 0.2 102 0.8 108 Impression: The patient has low bone mass, based on the Left Femoral Neck T-score. The patient has an estimated ten-year risk of hip fracture of 0.9% and an estimated ten-year risk of major fracture of 6.8%, based on the WHO FRAX algorithm. The patient has risk factors, including: excessive alcohol use. Discussion: BONE DENSITY IS LOW AT ONE [...] and vitamin D, and appropriate weight-bearing exercise). Follow-Up: Consider repeating this study in 2 to 3 years to reassess this patient's status, or sooner if there is some new clinical indication. Reported by: ??Guille Beck M.D. on 03/25/2021 3:33:00 PM. ? Jossy MALLOY IMAditi DEXA ORDERABLES documented in this encounter Visit Diagnoses Diagnosis Other specified disorders of bone density and structure, unspecified site documented in this encounter Care Teams Fiber Optic Technician Relationship Specialty Start Date End Date Jossy Ventura FNP [address] [place] [address] [place] [phone] PCP - General 10/16/20 documented as of this encounter
[2023-10-15 21:25] LABS: HCT 41.2 % (40.0-50.0); HGB 14.2 g/dL (13.5-17.5); MCH 33.6 pg (27.0-33.0); MCHC 34.5 % (32.0-36.0); MCV 98 fL (80-95); MPV 10.3 fL (8.0-11.0); Platelet Count 263 10^3/uL (130-400); RBC 4.22 10^6/uL (4.36-5.78); RDW 13.2 % (11.8-14.1); WBC 5.13 10^3/uL (4.4-10.8)
[2023-10-15 21:49] LABS: ALT 80 U/L (16-63); AST 57 U/L (15-37); Albumin 4.2 g/dL (3.4-5.0); Alkaline Phosphatase 71 U/L (46-116); Anion Gap 7.7 mmol/L (3-11); BUN 12 mg/dL (7-18); Bilirubin, Total 0.41 mg/dL (0.2-1.0); CO2 28.3 mmol/L (21.0-32.0); CREATININE 1.1 mg/dL (0.70-1.30); Calcium 10.8 mg/dL (8.5-10.1); Chloride 99 mmol/L (98-107); Glucose 98 mg/dL (74-106); Potassium 4.5 mmol/L (3.5-5.1); Sodium 135 mmol/L (136-145); Total Protein 7.7 g/dL (6.4-8.2)
[2023-10-15 21:52] LABS: Hemoglobin A1C 5.4 % (<5.7)
[2023-10-18 08:56] LABS: PSA, Screening 1.9 ng/mL (<=4.5)
== END 2023-10-15 16:12 | disposition home or self-care (01) ==
LOC: NCHCN 16:11
PROVIDERS: PCP Nurse Practitioner Family; Visit Provider Nurse Practitioner Family
DX: I10 Essential (primary) hypertension (principal); D75.89 Other specified diseases of blood and blood-forming organs; Z83.3 Family history of diabetes mellitus; Z12.5 Encounter for screening for malignant neoplasm of prostate
CPT/HCPCS: 80053; 84153; 85027; 83036

== ENCOUNTER 2024-05-04 11:17 | Outpatient (REF) | payer BC, SELFPAY ==
[2024-05-04 14:44] LABS: Abs Immature Grans 0.01 10^3/uL (0.0-0.06); Absolute Basophil Count 0.04 10^3/uL (0.0-0.2); Absolute Eosinophil Count 0.13 10^3/uL (0.0-0.7); Absolute Lymphocyte Count 0.88 10^3/uL (1.2-3.4); Absolute Monocyte Count 0.41 10^3/uL (0.1-0.8); Absolute Neutrophil Count 1.58 10^3/uL (1.2-6.7); Basophils % 1.3 %; Eosinophils % 4.3 %; HGB 14.1 g/dL (13.5-17.5); Immature Grans % 0.3 %; Lymphocytes % 28.9 %; MCH 32.5 pg (27.0-33.0); MCHC 32.8 % (32.0-36.0); MCV 99 fL (80-95); MPV 10.7 fL (8.0-11.0); Monocytes % 13.4 %; Neutrophils % 51.8 %; Platelet Count 232 10^3/uL (130-400); RBC 4.34 10^6/uL (4.36-5.78); RDW 13.2 % (11.8-14.1); RDW-SD 48.5 fL; WBC 3.05 10^3/uL (4.4-10.8)
[2024-05-04 15:31] LABS: ALT 26 U/L (16-63); AST 26 U/L (15-37); Albumin 3.9 g/dL (3.4-5.0); Alkaline Phosphatase 60 U/L (46-116); Anion Gap 4.9 mmol/L (3-11); BUN 16 mg/dL (7-18); Bilirubin, Total 0.4 mg/dL (0.2-1.0); CO2 28.1 mmol/L (21.0-32.0); CREATININE 1.1 mg/dL (0.70-1.30); Calcium 10.2 mg/dL (8.5-10.1); Chloride 106 mmol/L (98-107); Estimated GFR 75.43 (mL/min/1.73m2); Glucose 85 mg/dL (74-106); Potassium 5.3 mmol/L (3.5-5.1); Sodium 139 mmol/L (136-145); TSH (W/Ref FT4) 1.01 uIU/mL (0.36-3.74); Total Protein 7.3 g/dL (6.4-8.2); Vitamin D 25 Total 13 ng/mL (30-100)
[2024-05-04 23:19] LABS: Parathyroid Hormone,Intact 24.1 pg/mL (19.0-88.0)
== END 2024-05-04 11:18 | disposition home or self-care (01) ==
LOC: NCHCN 11:17
PROVIDERS: PCP Nurse Practitioner Family; Visit Provider Nurse Practitioner Family
DX: E83.52 Hypercalcemia (principal); D75.89 Other specified diseases of blood and blood-forming organs
CPT/HCPCS: 80053; 82306; 83970; 84443; 85025

== ENCOUNTER 2024-06-08 16:27 | Outpatient (REF) | payer BC, SELFPAY ==
[2024-06-08 15:23] LABS: Abs Immature Grans 0.01 10^3/uL (0.0-0.06); Absolute Basophil Count 0.03 10^3/uL (0.0-0.2); Absolute Eosinophil Count 0.12 10^3/uL (0.0-0.7); Absolute Lymphocyte Count 1.15 10^3/uL (1.2-3.4); Absolute Monocyte Count 0.51 10^3/uL (0.1-0.8); Absolute Neutrophil Count 1.71 10^3/uL (1.2-6.7); Basophils % 0.8 %; Eosinophils % 3.4 %; HCT 42.1 % (40.0-50.0); HGB 13.8 g/dL (13.5-17.5); Immature Grans % 0.3 %; Lymphocytes % 32.6 %; MCH 32.7 pg (27.0-33.0); MCHC 32.8 % (32.0-36.0); MCV 100 fL (80-95); MPV 10.6 fL (8.0-11.0); Monocytes % 14.4 %; Neutrophils % 48.5 %; Platelet Count 243 10^3/uL (130-400); RBC 4.22 10^6/uL (4.36-5.78); RDW 13.5 % (11.8-14.1); RDW-SD 49.7 fL; WBC 3.53 10^3/uL (4.4-10.8)
[2024-06-09 12:32] LABS: Albumin 63.4 % (55.8-66.1); Albumin g/dL 4.6 g/dL (3.6-5.2); Total Protein 7.2 g/dL (6.3-8.2)
== END 2024-06-08 16:28 | disposition home or self-care (01) ==
LOC: NCHCN 16:27
PROVIDERS: PCP Nurse Practitioner Family; Visit Provider Nurse Practitioner Family
DX: D75.89 Other specified diseases of blood and blood-forming organs (principal)
CPT/HCPCS: 84165; 85025

== ENCOUNTER 2024-06-29 10:46 | Outpatient (REF) | payer BC, SELFPAY ==
[2024-06-30 11:20] LABS: Lyme Ab w Rflx to Lyme Confirm Negative (Negative)
[2024-07-02 15:45] LABS: Anaplasma phagocytophilum Negative (Negative); B. miyamotoi PCR Negative (Negative); Babesia divergens/MO-1 Negative (Negative); Babesia duncani Negative (Negative); Babesia microti Negative (Negative); Ehrlichia chaffeensis Negative (Negative); Ehrlichia ewingii/canis Negative (Negative); Ehrlichia muris eauclairensis Negative (Negative)
== END 2024-06-29 10:47 | disposition home or self-care (01) ==
LOC: NCHCN 10:46
PROVIDERS: PCP Nurse Practitioner Family; Visit Provider Nurse Practitioner Family
DX: R53.83 Other fatigue (principal)
CPT/HCPCS: 87798; 86618

== ENCOUNTER 2024-11-07 16:06 | Outpatient (REF) | payer BC, SELFPAY ==
[2024-11-07 16:48] LABS: ALT 30 U/L (16-63); AST 29 U/L (15-37); Albumin 4.0 g/dL (3.4-5.0); Alkaline Phosphatase 79 U/L (46-116); Anion Gap 6.7 mmol/L (3-11); BUN 14 mg/dL (7-18); Bilirubin, Total 0.5 mg/dL (0.2-1.0); CO2 29.3 mmol/L (21.0-32.0); Calcium 10.5 mg/dL (8.5-10.1); Chloride 103 mmol/L (98-107); Estimated GFR 67.95 (mL/min/1.73m2); Glucose 101 mg/dL (74-106); Potassium 4.6 mmol/L (3.5-5.1); Sodium 139 mmol/L (136-145); Total Protein 7.5 g/dL (6.4-8.2); Vitamin D 25 Total 28 ng/mL (30-100)
[2024-11-08 17:48] LABS: PSA, Screening 1.7 ng/mL (<=4.5)
== END 2024-11-07 16:07 | disposition home or self-care (01) ==
LOC: NCHCN 16:06
PROVIDERS: PCP Nurse Practitioner Family; Visit Provider Nurse Practitioner Family
DX: E55.9 Vitamin D deficiency, unspecified (principal); Z12.5 Encounter for screening for malignant neoplasm of prostate
CPT/HCPCS: 80053; 82306; 84153